=== PATIENT | female | born 1935 | race Caucasian/White ===

== ENCOUNTER 2019-07-04 09:25 | Emergency (ER) | payer OTHER ==
--- OUTSIDE RECORDS SUMMARY | 2019-07-04 09:30 | XMS REPORT ---
:1935 Author Organization [facility] Address [address] [place] [address] Dr. Preston [address] [place] [id number] Care Team Providers Name Role Phone Unavailable Unavailable Unavailable Problems This patient has no known problems. Allergies, Adverse Reactions, Alerts This patient has no known allergies or adverse reactions. Medications This patient has no known medications.
[2019-07-04 10:58] LABS: Absolute Lymphocytes (CBC) 1.5 K/uL (0.7-4.9); Basophils % 1.2 % (0-1.3); Hematocrit 35.8 % (36.0-45.0); Lymphocytes % 22.4 % (15.3-44.8); MPV 9.8 fL (7.6-11.3)
[2019-07-04 11:26] LABS: ALT/SGPT 22 U/L (12-78); AST/SGOT 17 U/L (15-37); Albumin 3.5 g/dL (3.4-5.0); Alkaline Phosphatase 52 U/L (45-117); BUN Blood Urea Nitrogen 17 mg/dL (7-18); Bicarbonate 30 mmol/L (21-32); Bilirubin Direct 0.2 mg/dL (0-0.2); Bilirubin Total 0.5 mg/dL (0.2-1.0); Glucose Level 99 mg/dL (74-106); Magnesium 2.2 mg/dL (1.8-2.4); NT PRO-BNP 1195 pg/mL (<450); Potassium 3.8 mmol/L (3.5-5.1); Protein, Total 7.1 g/dL (6.4-8.2); Sodium Level 142 mmol/L (136-145); Troponin (Emerg Dept Use Only) < 0.02 ng/mL (0.0-0.045)
[2019-07-04 11:33] LABS: Urine Blood NEGATIVE (NEG); Urine Glucose NEGATIVE (NEG); Urine Protein NEGATIVE (NEG); Urine Specific Gravity 1.015 (1.005-1.030)
--- NOTE | 2019-07-04 11:33 | RAD REPORT ---
EXAM DESCRIPTION: RAD - Chest Single View - 07/04/2019 11:23 am CLINICAL HISTORY: CHEST PAIN Chest pain. COMPARISON: No comparisons FINDINGS: Portable technique limits examination quality. The lungs are mildly emphysematous but clear. The heart is mildly prominent size. No displaced fractu res. IMPRESSION: Mild COPD.
[2019-07-04 11:43] LABS: Protime INR 1.13
--- NOTE | 2019-07-04 11:58 | EKG ---
Test Date: 2019-07-04 Test Time: 09:46:24 Infection Prevention Coordinator: MEASUREMENT RESULTS: Intervals: Rate: 74 IA: 184 QRSD: 88 QT: 454 QTc: 503 [place]: P: 47 IA: 184 QRS: 6 T: 65 INTERPRETIVE STATEMENTS: Sinus rhythm with frequent and consecutive premature ventricular complexes Anterior infarct, age undetermined Prolonged QT Abnormal ECG No previous ECG available for comparison Electronically Signed On 07-04-19 11:58:00 TOOL ROOM MACHINIST by Froy Rush
--- NOTE | 2019-07-04 13:46 | ER ---
Nurse's Notes [facility] Name: Elizabeth Hewitt Age: 84 yrs Sex: Female : 1935 Arrival Date: 07/04/2019 Time: 09:27 Bed 25 Private MD: Kareem Fairbanks R Diagnosis: Dizziness and giddiness;Ventricular premature depolarization Presentation: 07/04 09:41 Presenting complaint: states: She has been C/O dizziness for the last week, la1 also having diarrhea and reports she was told her heart valves are leaky. Pt reports dizziness when standing. Transition of care: patient was not received from another setting of care. Onset of symptoms was July 04, 2019. Risk Assessment: Do you want to hurt yourself or someone else? Patient reports no desire to harm self or others. Initial Sepsis Screen: Does the patient meet any 2 criteria? No. Patient's initial sepsis screen is negative. Does the patient have a suspected source of infection? No. Patient's initial sepsis screen is negative. Care prior to arrival: None. 09:41 Method Of Arrival: Wheelchair la1 09:41 Acuity: LUIS FERNANDO 2 la1 Historical: - Allergies: 09:46 Sulfa (Sulfonamide Antibiotics); la1 - PMHx: 09:46 Atrial Fib; Leaky Valves; Hypertension; Dementia; Hypothyroidism; GERD; High la1 Cholesterol; - Immunization history:: Adult Immunizations up to date. - Social history:: Smoking status: Patient/guardian denies using tobacco. - Ebola Screening: : No symptoms or risks identified at this time. Screenin:15 Abuse screen: Denies threats or abuse. Denies injuries from another. Nutritional aj1 screening: No deficits noted. Tuberculosis screening: No symptoms or risk factors identified. 13:59 Fall Risk None identified. aj1 Assessment: 10:15 General: Appears in no apparent distress. comfortable, Behavior is calm, cooperative, aj1 appropriate for age. Pain: Denies pain. Neuro: Level of Consciousness is awake, alert, obeys commands, Oriented to person, place, Critical Care Unit Manager are equal bilaterally Moves all extremities. Full function Speech is normal, Facial symmetry appears normal, Reports dizziness. Cardiovascular: Patient's skin is warm and dry. Respiratory: Airway is patent Respiratory effort is even, unlabored, Respiratory pattern is regular, symmetrical, Breath sounds are clear bilaterally. GI: Abdomen is non-distended. GI: Reports diarrhea, Patient currently denies abdominal pain, nausea, vomiting. : No signs and/or symptoms were reported regarding the genitourinary system. EENT: No signs and/or symptoms were reported regarding the EENT system. Derm: No signs and/or symptoms reported regarding the dermatologic system. Skin is pink, warm \T\ dry. normal. Musculoskeletal: No signs and/or symptoms reported regarding the musculoskeletal system. Circulation, motion, and sensation intact. 11:15 Reassessment: Patient appears in no apparent distress at this time. No changes from aj1 previously documented assessment. Patient and/or family updated on plan of care and expected duration. Pain level reassessed. Patient is alert, oriented x 3, equal unlabored respirations, skin warm/dry/pink. 12:15 Reassessment: Patient and/or family updated on plan of care and expected duration. Pain aj1 level reassessed. General: Appears in no apparent distress. comfortable, Behavior is calm, cooperative, appropriate for age. Pain: Denies pain. Neuro: Level of Consciousness is awake, alert, obeys commands. Cardiovascular: Patient's skin is warm and dry. Respiratory: Airway is patent Respiratory effort is even, unlabored, Respiratory pattern is regular, symmetrical. Derm: No signs and/or symptoms reported regarding the dermatologic system. Skin is pink, warm \T\ dry. normal. Musculoskeletal: No signs and/or symptoms reported regarding the musculoskeletal system. Circulation, motion, and sensation intact. 13:15 Reassessment: Patient appears in no apparent distress at this time. No changes from aj1 previously documented assessment. Patient and/or family updated on plan of care and expected duration. Pain level reassessed. Patient is alert, oriented x 3, equal unlabored respirations, skin warm/dry/pink. 14:19 Reassessment: Patient appears in no apparent distress at this time. No changes from aj1 previously documented assessment. Patient and/or family updated on plan of care and expected duration. Pain level reassessed. Patient is alert, oriented x 3, equal unlabored respirations, skin warm/dry/pink. Vital Signs: 09:42 BP 162 / 69; Pulse 42; Resp 16; Temp 98.1; Pulse Ox 98% on R/A; Weight 61.69 kg; Height la1 5 ft. 2 in. (157.48 cm); 10:45 BP 157 / 72; Pulse 63; Resp 18; Pulse Ox 98% on R/A; aj1 11:45 BP 157 / 49; Pulse 50; Resp 18; Pulse Ox 97% on R/A; aj1 12:15 BP 163 / 67; Pulse 60; Resp 18; Pulse Ox 97% on R/A; aj1 13:15 BP 158 / 66; Pulse 58; Resp 18; Pulse Ox 99% on R/A; aj1 09:42 Body Mass Index 24.87 (61.69 kg, 157.48 cm) la1 ED Course: 09:27 Patient arrived in ED. as 09:28 Kareem Fairbanks MD is Private Physician. as 09:42 Triage completed. la1 09:42 Arm band placed on right wrist. EKG completed in triage. Results shown to MD. la1 09:56 EKG done, by director technical. reviewed by Dung Khan MD. sm3 10:13 Cristóbal Daugherty MD is Attending Physician. kimmie 10:15 Patient has correct armband on for positive identification. producer arborist manager on. Pulse aj1 ox on. NIBP on. 10:15 No provider procedures requiring assistance completed. aj1 10:41 Kimberlee Connors, RN is Primary Nurse. aj1 10:44 Inserted saline lock: 20 gauge in left antecubital area, using aseptic technique. Blood la1 collected. 11:22 XRAY Chest (1 view) In Process Unspecified. EDMS 13:34 Kareem Fairbanks MD is Referral Physician. kimmie 13:35 Marina Temple MD is Referral Physician. kimmie 14:19 IV discontinued, intact, bleeding controlled, No redness/swelling at site. Pressure aj1 dressing applied. Administered Medications: No medications were administered Outcome: 13:38 Discharge ordered by MD. kimmie 14:20 Discharged to home via ambulance, with family. aj1 14:20 Condition: good 14:20 Discharge instructions given to patient, family, Instructed on discharge instructions, follow up and referral plans. medication usage, Demonstrated understanding of instructions, follow-up care, medications, Prescriptions given X 2. 14:20 Patient left the ED. aj1 Signatures: Dispatcher [employer] EDPA Trent Connorsa, ASHA RN aj1 Cristóbal Daugherty MD MD cha Martinez, Amelia as Attema, Lee, RN RN la1 Krys Barney 3
--- NOTE | 2019-07-04 13:47 | EDPHYS ---
Physician Documentation [facility] Name: Elizabeth Hewtit Age: 84 yrs Sex: Female : 1935 Arrival Date: 07/04/2019 Time: 09:27 Bed 25 Private MD: Kareem Fairbanks R ED Physician Cristóbal Daugherty Historical: - Allergies: 07/04 09:46 Sulfa (Sulfonamide Antibiotics); la1 - PMHx: 09:46 Atrial Fib; Leaky Valves; Hypertension; Dementia; Hypothyroidism; GERD; High la1 Cholesterol; - Immunization history:: Adult Immunizations up to date. - Social history:: Smoking status: Patient/guardian denies using tobacco. - Ebola Screening: : No symptoms or risks identified at this time. Vital Signs: 09:42 BP 162 / 69; Pulse 42; Resp 16; Temp 98.1; Pulse Ox 98% on R/A; Weight 61.69 kg; Height la1 5 ft. 2 in. (157.48 cm); 10:45 BP 157 / 72; Pulse 63; Resp 18; Pulse Ox 98% on R/A; aj1 11:45 BP 157 / 49; Pulse 50; Resp 18; Pulse Ox 97% on R/A; aj1 12:15 BP 163 / 67; Pulse 60; Resp 18; Pulse Ox 97% on R/A; aj1 13:15 BP 158 / 66; Pulse 58; Resp 18; Pulse Ox 99% on R/A; aj1 09:42 Body Mass Index 24.87 (61.69 kg, 157.48 cm) la1 MDM: 10:13 Patient medically screened. kimmie 07/04 10:19 Order name: Basic Metabolic Panel; Complete Time: : [facility] 07/04 10:19 Order name: CBC with Diff; Complete Time: [facility] 07/04 10:19 Order name: LFT's; Complete Time: [facility] 07/04 10:19 Order name: Magnesium; Complete Time: [facility] 07/04 10:19 Order name: NT PRO-BNP; Complete Time: [facility] 07/04 10:19 Order name: PT-INR; Complete Time: 13:21 [facility] 07/04 09:47 Order name: EKG; Complete Time: :48 [facility] 07/04 09:47 Order name: EKG - Nurse/Tech; Complete Time: 09:44 [facility] 07/04 10:19 Order name: Troponin (emerg Dept Use Only); Complete Time: 11:27 [facility] 07/04 10:19 Order name: XRAY Chest (1 view); Complete Time: 13:21 [facility] 07/04 10:19 Order name: Cardiac monitoring; Complete Time: 10:39 [facility] 07/04 10:19 Order name: IV Saline Lock; Complete Time: 10:39 [facility] 07/04 10:19 Order name: Labs collected and sent; Complete Time: 10:40 [facility] 07/04 11:08 Order name: Urine Dipstick--Ancillary (enter results); Complete Time: 13:21 07/04 10:19 Order name: O2 Per Protocol; Complete Time: 10:39 [facility] 07/04 10:19 Order name: O2 Sat Monitoring; Complete Time: 10:39 [facility] Administered Medications: No medications were administered Disposition: 07/04/19 13:38 Discharged to Home. Impression: Dizziness and giddiness, Ventricular premature depolarization. - Condition is Stable. - Discharge Instructions: Premature Ventricular Contraction, How to Take a Sitz Bath. - Prescriptions for Colace 100 mg Oral Tablet - take 1 tablet by ORAL route every 12 hours; 14 tablet. Anusol- HC 25 mg Rectal Suppository - insert 1 suppository by RECTAL route every 12 hours As needed; 20 suppository. - Medication Reconciliation Form, Thank You Letter, Antibiotic Education, Prescription Opioid Use form. - Follow up: Kareem Fairbanks MD; When: 2 - 3 days; Reason: Recheck today's complaints, Continuance of care, Re-evaluation by your physician. Follow up: Marina Temple MD; When: 2 - 3 days; Reason: Recheck today's complaints, Continuance of care, Re-evaluation by your physician. - Problem is new. - Symptoms have improved. Signatures: Dispatcher [employer] EDMS Kimberlee Connors, ASHA RN aj1 Cristóbal Daugherty MD MD cha Attema, Lee RN RN la1 Corrections: (The following items were deleted from the chart) 14:20 13:38 07/04/2019 13:38 Discharged to Home. Impression: Dizziness and giddiness; aj1 Ventricular premature depolarization. Condition is Stable. Forms are Medication Reconciliation Form, Thank You Letter, Antibiotic Education, Prescription Opioid Use. Follow up: Kareem Fairbanks; When: 2 - 3 days; Reason: Recheck today's complaints, Continuance of care, Re-evaluation by your physician. Follow up: Marina eTmple; When: 2 - 3 days; Reason: Recheck today's complaints, Continuance of care, Re-evaluation by your physician. Problem is new. Symptoms have improved. kimmie
[2019-07-04 17:26] VITALS: TEMP 98.1
[2019-07-04 17:32] VITALS: BP 158/66; O2SAT 99
== END 2019-07-04 14:20 | disposition home or self-care (01) ==
LOC: ER 09:25
DX: I49.3 Ventricular premature depolarization (principal); K59.00 Constipation, unspecified; I10 Essential (primary) hypertension; I48.91 Unspecified atrial fibrillation; Z88.2 Allergy status to sulfonamides
CPT/HCPCS: 36415; 71045; 80048; 80076; 81003; 83735; 83880; 84484; 85025; 85610; 93005; 99284

== ENCOUNTER 2021-06-13 10:29 | Emergency (ER) | payer OTHER ==
--- NOTE | 2021-06-13 11:56 | RAD REPORT ---
EXAM DESCRIPTION: Gregor Single View06/13/2021 11:46 am CLINICAL HISTORY: Chest pain COMPARISON: 2018 FINDINGS: The lungs appear clear of acute infiltrate. The heart is normal size IMPRESSION: No acute abnormalities displayed
--- NOTE | 2021-06-13 12:09 | RAD REPORT ---
EXAM DESCRIPTION: RAD - Foot Left 3 View - 06/13/2021 11:46 am CLINICAL HISTORY: Left Foot pain status post injury FINDINGS: The bones are osteoporotic Oblique lucency fourth proximal phalanx probably prominent trabecula. However, nondisplaced fracture could have this appearance should be correlated clinically. No dislocation
--- NOTE | 2021-06-13 12:23 | RAD REPORT ---
EXAM DESCRIPTION: RAD - Wrist Left 3 View - 06/13/2021 11:46 am CLINICAL HISTORY: Left wrist pain status post injury FINDINGS: Oblique nondisplaced fracture mid third metacarpal. Oblique mildly displaced fracture mid fourth metacarpal. Oblique nondisplaced fracture proximal fifth metacarpal. Bones osteoporotic. No dislocation seen
--- NOTE | 2021-06-13 12:35 | RAD REPORT ---
EXAM DESCRIPTION: RAD - Ribs Left - 06/13/2021 11:46 am CLINICAL HISTORY: Rib pain FINDINGS: Limited two view series obtained. No fracture visualized
--- NOTE | 2021-06-13 13:28 | EDPHYS ---
Physician Documentation [facility] Name: Elizabeth Hewitt Age: 86 yrs Sex: Female : 1935 Arrival Date: 06/13/2021 Time: 10:31 Bed 24 Private MD: Kareem Fairbanks R ED Physician Pete Choi HPI: 06/13 11:01 This 86 yrs old Female presents to ER via Ambulatory with complaints of Fall rn Injury, Wrist Pain, Arm Pain. 11:01 Details of fall: The patient fell from an upright position, while standing. Onset: The rn symptoms/episode began/occurred just prior to arrival. Associated injuries: The patient sustained Left wrist and left foot. Severity of symptoms: At their worst the symptoms were moderate, in the emergency department the symptoms are unchanged. The patient has not experienced similar symptoms in the past. The patient has not recently seen a physician. Patient states was in shower and slipped and fell, reports pain primarily to left wrist and a little bit of pain to left foot. Denies head injury. Denies neck or back pain. Reports legs and hips feel okay.. 11:01 states when went to check on her nothing struck him as atypical in terms of rn possible stroke or slurred speech. States is acting normal and speaking normal.. Historical: - Allergies: 10:33 Sulfa (Sulfonamide Antibiotics); aa5 - PMHx: 10:33 Atrial Fib; Dementia; GERD; High Cholesterol; Hypertension; Hypothyroidism; Leaky aa5 Valves; - Immunization history:: Client reports receiving the Waylon \T\ Waylon single-dose vaccine. - Social history:: Smoking status: Patient denies any tobacco usage or history of. - Family history:: not pertinent. - Hospitalizations: : No recent hospitalization is reported. ROS: 11:01 Constitutional: Negative for fever, chills, and weight loss, Eyes: Negative for injury, rn pain, redness, and discharge, Neck: Negative for injury, pain, and swelling, Cardiovascular: Negative for chest pain, palpitations, and edema, Respiratory: Negative for shortness of breath, cough, wheezing, and pleuritic chest pain, Abdomen/GI: Negative for abdominal pain, nausea, vomiting, diarrhea, and constipation, Back: Negative for injury and pain, MS/Extremity: Positive for injury and pain to left wrist and left foot Skin: Negative for injury, rash, and discoloration, Neuro: Negative for headache, weakness, numbness, tingling, and seizure. Exam: 11:01 Constitutional: This is a well developed, well nourished patient who is awake, alert, rn appears uncomfortable holding left wrist immobilized Head/Face: Normocephalic, atraumatic. Eyes: Pupils equal round and reactive to light, extra-ocular motions intact. Lids and lashes normal. Conjunctiva and sclera are non-icteric and not injected. Cornea within normal limits. Periorbital areas with no swelling, redness, or edema. ENT: No oral or facial trauma Neck: No neck tenderness or cervical tenderness Chest/axilla: Normal chest wall appearance and motion. Mild tenderness to the left lateral inferior ribs without any crepitus Cardiovascular: Regular rate and rhythm. No pulse deficits. Respiratory: No increased work of breathing, no retractions or nasal flaring. Abdomen/GI: Soft, non-tender Back: No spinal tenderness. No costovertebral tenderness. Full range of motion. Skin: Warm, dry MS/ Extremity: Pulses equal, no cyanosis. Tenderness left distal wrist without open wounds or skin changes Neuro: Awake and alert, GCS 15, oriented to person, place, time, and situation. Cranial nerves II-XII grossly intact. Motor strength 5/5 in all extremities. Sensory grossly intact. Cerebellar exam normal. Vital Signs: 10:33 BP 166 / 72; Pulse 63; Resp 16 S; Temp 97.1(TE); Pulse Ox 98% on R/A; Weight 63.5 kg aa5 (R); 11:16 BP 142 / 87; Pulse 64; Resp 16; Pulse Ox 100% ; vg1 12:15 BP 145 / 76; Pulse 60; Resp 16; Pulse Ox 100% ; vg1 13:15 BP 148 / 88; Pulse 72; Resp 16; Pulse Ox 100% ; vg1 [place] Coma Score: 11:12 Eye Response: spontaneous(4). Verbal Response: oriented(5). Motor Response: obeys vg1 commands(6). Total: 15. Trauma Score (Adult): 11:12 Eye Response: spontaneous(1); Verbal Response: oriented(1); Motor Response: obeys vg1 commands(2); Systolic BP: > 89 mm Hg(4); Respiratory Rate: 10 to 29 per min(4); Alem Score: 15; Trauma Score: 12 Procedures: 13:24 Splinting: Splint applied to left hand using Orthoglass splint, applied by myself. rn Examined by me, post splint application: neurovascular intact, 2+ distal pulses palpable, brisk capillary refill noted, Patient tolerated well, ulnar gutter splint. MDM: 10:41 Patient medically screened. rn 13:24 Differential diagnosis: contusion, fracture, sprain, strain. Data reviewed: vital rn signs, nurses notes, radiologic studies, plain films, and as a result, I will discharge patient. Test interpretation: by ED physician or midlevel provider: plain radiologic studies, The left hand shows nondisplaced fractures of the third fourth and fifth metacarpals. Counseling: I had a detailed discussion with the patient and/or guardian regarding: the historical points, exam findings, and any diagnostic results supporting the discharge/admit diagnosis, radiology results, the need for outpatient follow up, to return to the emergency department if symptoms worsen or persist or if there are any questions or concerns that arise at home. Response to treatment: the patient's symptoms have markedly improved after treatment, and as a result, I will discharge patient. Special discussion: I discussed with the patient/guardian in detail that at this point there is no indication for admission to the hospital. It is understood, however, that if the symptoms persist or worsen the patient needs to return immediately for re-evaluation. 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; Complete Time: rn 13:32 06/13 12:47 Order name: Splint: ortho shoe; Complete Time: 13:32 rn Administered Medications: No medications were administered Disposition Summary: 06/13/21 13:27 Discharge Ordered Location: Home rn Problem: new rn Symptoms: have improved rn Condition: Stable rn Diagnosis - Nondisplaced fracture of base of fifth metacarpal bone, left hand, initial rn encounter for closed fracture - Nondisplaced fracture of base of fourth metacarpal bone, left hand, initial rn encounter for closed fracture - Nondisplaced fracture of base of third metacarpal bone, left hand, initial rn encounter for closed fracture - Nondisplaced fracture of fourth metatarsal bone, left foot, initial encounter for rn closed fracture Followup: rn - With: Federico Petersen MD - When: 7 - 10 days - Reason: Recheck today's complaints, Re-evaluation by your physician Discharge Instructions: - Discharge Summary Sheet rn - Cast or Splint Care, Adult rn - Metacarpal Fracture rn - Metatarsal Fracture rn Forms: - Medication Reconciliation Form rn - Thank You Letter rn - Antibiotic furnace operator oil or gas - Prescription Opioid Use rn Signatures: Dispatcher [employer] Pete Gupta MD MD rn Calderon, Audri, RN RN aa5
--- NOTE | 2021-06-13 13:28 | ER ---
Nurse's Notes [facility] Name: Elizabeth Hewitt Age: 86 yrs Sex: Female : 1935 Arrival Date: 06/13/2021 Time: 10:31 Bed 24 Private MD: Kareem Fairbanks R Diagnosis: Nondisplaced fracture of base of fifth metacarpal bone, left hand, initial encounter for closed fracture;Nondisplaced fracture of base of fourth metacarpal bone, left hand, initial encounter for closed fracture;Nondisplaced fracture of base of third metacarpal bone, left hand, initial encounter for closed fracture;Nondisplaced fracture of fourth metatarsal bone, left foot, initial encounter for closed fracture Presentation: 06/13 10:33 Chief complaint: Patient states: "I slipped and fell". Fall was witnessed by , aa5 pt's states "she fell onto her left side and her left hand was twisted". Pt c/o left arm pain. Denies head injury, denies LOC. 10:33 Coronavirus screen: At this time, the client does not indicate any symptoms associated aa5 with coronavirus-19. Ebola Screen: No symptoms or risks identified at this time. Initial Sepsis Screen: Does the patient meet any 2 criteria? No. Patient's initial sepsis screen is negative. Does the patient have a suspected source of infection? No. Patient's initial sepsis screen is negative. Risk Assessment: Do you want to hurt yourself or someone else? Patient reports no desire to harm self or others. Onset of symptoms was June 13, 2021. 10:33 Acuity: LUIS FERNANDO 3 aa5 10:33 Method Of Arrival: Ambulatory aa5 11:16 Care prior to arrival: None. Mechanism of Injury: Fall from standing position. Trauma vg1 event details: Injury occurred in the [facility]. 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 - Social history:: Smoking status: Patient denies any tobacco usage or history of. - Family history:: not pertinent. - Hospitalizations: : No recent hospitalization is reported. Screenin:12 Abuse screen: Denies threats or abuse. Tuberculosis screening: No symptoms or risk vg1 factors identified. 11:16 Nutritional screening: No deficits noted. Fall Risk Fall in past 12 months (25 points). vg1 No secondary diagnosis (0 pts). No IV (0 pts). Ambulatory Aid- None/Bed Rest/Nurse Assist (0 pts). Gait- Normal/Bed Rest/Wheelchair (0 pts) Mental Status- Oriented to own ability (0 pts). Total Eaton Fall Scale indicates No Risk (0-24 pts). Primary Survey: 11:12 NO uncontrolled hemorrhage observed. Breathing/Chest: Respiratory pattern: regular, vg1 Respiratory effort: spontaneous, Breath sounds: clear, bilaterally. Chest inspection: symmetrical rise and fall of the chest. Circulation: Skin color: pink. Disability Alert. Exposure/Environment: All clothing and personal items were removed. A warming method has been applied: A warm blanket has been provided to the patient. 12:10 Reassessment Airway Airway Patent Breathing/Chest Respiratory pattern Regular vg1 Respiratory effort Spontaneous Breath sounds Clear Chest inspection Symmetrical Circulation Color Wittmann Disability Alert. Secondary Survey: 11:12 HEENT: No deficits noted. Head No injury/deformity Other Pt denies hitting head. vg1 Gastrointestinal: No deficits noted. : No deficits noted. No signs and/or symptoms were reported regarding the genitourinary system. Musculoskeletal: Range of motion: intact in left shoulder and left elbow limited in left wrist. Assessment: 11:12 General: Appears in no apparent distress. uncomfortable, Behavior is calm, cooperative. vg1 Pain: Complains of pain in dorsal aspect of distal phalanx of left little finger, dorsal aspect of middle phalanx of left little finger, dorsal aspect of proximal phalanx of left little finger and dorsal aspect of left wrist Pain currently is 10 out of 10 on a pain scale. Pain began 1 hour ago. Noted to be guarding. Neuro: Level of Consciousness is awake, alert, obeys commands, Oriented to person, place, time, situation, Denies weakness headache. EENT: No signs and/or symptoms were reported regarding the EENT system. Cardiovascular: Patient's skin is warm and dry. Respiratory: Airway is patent Respiratory effort is even, unlabored. GI: No signs and/or symptoms were reported involving the gastrointestinal system. : No signs and/or symptoms were reported regarding the genitourinary system. Derm: Skin is intact, is healthy with good turgor. Musculoskeletal: Range of motion: intact in left shoulder and left elbow limited in left wrist Denies numbness in, left hand. 11:40 Reassessment: Patient appears in no apparent distress at this time. Patient and/or vg1 family updated on plan of care and expected duration. Pain level reassessed. Patient is alert, oriented x 3, equal unlabored respirations, skin warm/dry/pink. Pt states is able move wrist and fingers on Left hand. Vital Signs: 10:33 BP 166 / 72; Pulse 63; Resp 16 S; Temp 97.1(TE); Pulse Ox 98% on R/A; Weight 63.5 kg aa5 (R); 11:16 BP 142 / 87; Pulse 64; Resp 16; Pulse Ox 100% ; vg1 12:15 BP 145 / 76; Pulse 60; Resp 16; Pulse Ox 100% ; vg1 13:15 BP 148 / 88; Pulse 72; Resp 16; Pulse Ox 100% ; vg1 Alem Coma Score: 11:12 Eye Response: spontaneous(4). Verbal Response: oriented(5). Motor Response: obeys vg1 commands(6). Total: 15. Trauma Score (Adult): 11:12 Eye Response: spontaneous(1); Verbal Response: oriented(1); Motor Response: obeys vg1 commands(2); Systolic BP: > 89 mm Hg(4); Respiratory Rate: 10 to 29 per min(4); Alem Score: 15; Trauma Score: 12 ED Course: 10:31 Patient arrived in ED. as 10:31 Kareem Fairbanks MD is Private Physician. as 10:33 Arm band placed on. aa5 10:39 Triage completed. aa5 10:41 Pete Choi MD is Attending Physician. rn 11:05 Dorita Simon RN is Primary Nurse. vg1 11:12 Patient has correct armband on for positive identification. Placed in gown. Bed in low vg1 position. Call light in reach. Side rails up X2. Adult w/ patient. 11:12 Patient maintains SpO2 saturation greater than 95% on room air. vg1 11:16 Thermoregulation: warm blanket given to patient. vg1 11:46 XRAY Foot LEFT 3 View In Process Unspecified. EDMS 11:46 XRAY Chest (1 view) In Process Unspecified. EDMS 11:46 XRAY Ribs LEFT In Process Unspecified. EDMS 11:46 XRAY Wrist LEFT 3 view In Process Unspecified. EDMS 13:25 Federico Petersen MD is Referral Physician. rn 13:30 Orthoglass splint: Ulnar gutter/Boxer splint applied on left forearm. Ortho shoe kj1 applied to left foot. 13:47 No provider procedures requiring assistance completed. Patient did not have IV access vg1 during this emergency room visit. Administered Medications: No medications were administered Outcome: 13:27 Discharge ordered by . rn 13:47 Discharged to home via wheelchair, with family. vg1 13:47 Condition: stable 13:47 Discharge instructions given to patient, family, Instructed on discharge instructions, follow up and referral plans. Demonstrated understanding of instructions, follow-up care. 13:47 Patient left the ED. vg1 Signatures: Dispatcher [employer] Alejandra Birmingham Roman, MD MD rn Calderon, Audri, RN RN aa5 Chiquita Norwood kj1 Dorita Simon, RN RN vg1
[2021-06-13 13:52] VITALS: TEMP 97.1
[2021-06-13 13:53] VITALS: O2SAT 100
[2021-06-13 13:56] VITALS: BP 148/88
--- OUTSIDE RECORDS SUMMARY | 2021-06-22 11:15 | XMS REPORT | Continuity of Care Document ---
:1935 Author Organization [facility] t Address [address] [place] [address] [address] [place] [address] Care Team Providers Name Role Phone Kemal Munoz MD Attending Clinician KEMAL MUNOZ Attending Clinician Unavailable KEMAL MUNOZ Attending Clinician Unavailable Jeanette Vidales Attending Clinician Doctor Unassigned, Name Attending Clinician Unavailable Adeline Guerra MD Attending Clinician Adeline GUERRA Attending Clinician Unavailable 2, Lab Attending Clinician Unavailable Sergio BECKMAN S Attending Clinician Payers Payer Name Policy Type Policy Number Effective Date Expiration Date [place] MEDICARE PART A [id number] 2000 \\T\\ B 00:00:00 [facility] [id number] 2016 00:00:00 Problems Condition Condition Condition Status Onset Resolution Last Treating Co mments Source Name Details Category Date Date Treatment Clinician Date No known No known Disease Unive rs active active ity of problems problems [facility] [place] Allergies, Adverse Reactions, Alerts Allergy Allergy Status Severity Reaction(s) Onset Inactive Treating Comm ents Source Name Type Date Date Clinician ADHESIVE Drug Active ITCHING 2019-0 Univers Class 1-10 ity of 00:00: [place] 00 Medical Branch Adhesive Propensi Active Itching 2019-0 Unive rs ty to 1-10 ity of adverse 00:00: [place] reaction 00 Medical s Branch Sulfa Propensi Active Swelling Univer s (Sulfona ty to 5-07 ity of mide adverse 00:00: [place] Antibiot reaction 00 Medica l ics) s Branch SULFA Drug Active Swelling Univers (SULFONA Class 5-07 ity of MIDE 00:00: [place] ANTIBIOT 00 Medical ICS) Branch Social History Social Habit Start Date Stop Date Quantity Comments Source Exposure to Not sure [place] of SARS-CoV-2 [place] [facility] (event) Branch History SDOH University o f Alcohol Std [facility] Drinks [facility] History SDNE University o f Alcohol Binge [place] [facility] Tobacco use and 2020-11-02 2020-11-02 Never used Universit y of exposure 00:00:00 00:00:00 [place] [facility] Alcohol intake 2020-11-02 2020-11-02 Lifetime University of 00:00:00 00:00:00 non-drinker [place] [facility] (finding) Branch History SDOH 2019-08-19 2019-08-19 1 University o f Alcohol Frequency 00:00:00 00:00:00 [facility] edical [place] Sex Assigned At [birth year] Universit y of 00:00:00 00:00:00 [place] [facility] Smoking Status Start Date Stop Date Source Never smoker [facility] Medications Ordered Filled Start Stop Current Ordering Indication Dosage Frequency Signature Comments Components Source Medication Medication Date Date Medication? Clinician (SIG) Name Name galantamine Yes [id number] 4mg Take 1 Univers 4 mg tablet 7-27 tablet by ity of 00:00: mouth 2 [place] (two) Medical times Branch daily. galantamine 0 Yes 8mg Take 1 Univ ers 8 mg tablet 7-21 tablet by ity of 00:00: mouth 2 [place] (two) Medical times Branch daily. galantamine 2020-0 Yes 8mg Take 1 Univ ers 8 mg tablet 7-21 tablet by ity of 00:00: mouth 2 [place] 00 (two) Medical times Branch daily. galantamine 2020-0 Yes 8mg Take 1 Univ ers 8 mg tablet 7-21 tablet by ity of 00:00: mouth 2 [place] 00 (two) Medical times Branch daily. galantamine 2020-0 2020- No 8mg Take 1 Uni vers 8 mg tablet 7-21 07-27 tablet by it y of 00:00: 00:00 mouth 2 [place] 00 :00 (two) Medical times Branch daily. galantamine 2020-0 Yes 4mg Take 1 Univ ers 4 mg tablet 5-11 tablet by ity of 00:00: mouth 2 [place] (two) Medical times Branch daily. galantamine 2020-0 2020- No 4mg Take 1 Uni vers 4 mg tablet 5-11 07-21 tablet by it y of 00:00: 00:00 mouth 2 [place] 00 :00 (two) Medical times Branch daily. galantamine 2021-0 Yes 4mg Take 1 Univ ers 4 mg tablet 4-05 tablet by ity of 00:00: mouth 2 [place] 00 (two) Medical times Branch daily. galantamine 2021-0 2021- No 4mg Take 1 Uni vers 4 mg tablet 4-05 05-11 tablet by it y of 00:00: 00:00 mouth 2 [place] 00 :00 (two) Medical times Branch daily. rivastigmin 2020-0 Yes 1{patch Apply 1 Univers e 4.6 mg/24 3-30 } Patch to ity of hour patch 00:00: skin [place] 00 daily. Medical Branch rivastigmin 2021-0 2021- No 1{patch Apply 1 Univers e 4.6 mg/24 3-30 04-05 } Patch to ity of hour patch 00:00: 00:00 skin [place] 00 :00 daily. Medical Branch cholecalcif 2021-0 Yes Take by Un valdemar ana lilia, 3-26 mouth. ity of vitamin D3, 16:07: [place] 25 mcg 30 Medical (1,000 Branch unit) tablet cholecalcif 2021-0 Yes Take by Un valdemar ana lilia, 3-26 mouth. ity of vitamin D3, 16:07: [place] 25 mcg 30 Medical (1,000 Branch unit) tablet cholecalcif 2021-0 Yes Take by Un valdemar ana lilia, 3-26 mouth. ity of vitamin D3, 16:07: [place] 25 mcg 30 Medical (1,000 Branch unit) tablet cholecalcif 2021-0 Yes Take by Un valdemar ana lilia, 3-26 mouth. ity of vitamin D3, 16:07: [place] 25 mcg 30 Medical (1,000 Branch unit) tablet cholecalcif 2021-0 Yes Take by Un valdemar ana lilia, 3-26 mouth. ity of vitamin D3, 16:07: [place] 25 mcg 30 Medical (1,000 Branch unit) tablet cholecalcif 2021-0 Yes Take by Un valdemar ana lilia, 3-26 mouth. ity of vitamin D3, 16:07: [place] 25 mcg 30 Medical (1,000 Branch unit) tablet cholecalcif 202-0 Yes Take by Un valdemar ana lilia, 3-26 mouth. ity of vitamin D3, 16:07: [place] 25 mcg 30 Medical (1,000 Branch unit) tablet cholecalcif 2020-0 Yes Take by Un valdemar ana lilia, 3-26 mouth. ity of vitamin D3, 16:07: [place] 25 mcg 30 Medical (1,000 Branch unit) tablet cholecalcif 2020-0 Yes Take by Un valdemar ana lilia, 3-26 mouth. ity of vitamin D3, 16:07: [place] 25 mcg 30 Medical (1,000 Branch unit) tablet iohexol 2020-0 202- No 120mL 120 mL, Unive rs (OMNIPAQUE 10-05- Intravenou it y of 350 02:15: 02:03 s, ONCE, 1 [place] BULK-150 00 :00 dose, [place] Med[facility] l mL) 10/04/20 at Branch injection 2015, 120 mL Routine iohexol 2019- 2020- No 120mL 120 mL, Unive rs (OMNIPAQUE 08-26 Intravenou it y of 350 20:20: 20:29 s, ONCE, 1 [place] BULK-150 00 :00 dose, Tue Medica l mL) 06/26/20 Branch injection at 1430, 120 mL Routine cholecalcif 2020-0 Yes Take by Un valdemar ana lilia, 3-13 mouth. ity of vitamin D3, 19:26: [place] 25 mcg 50 Medical (1,000 Branch unit) tablet Simethicone 2020-0 Yes Take by Un valdemar (PHAZYME) 3-13 mouth. ity of 180 mg Cap 19:26: [place] 50 Medical Branch cholecalcif 2020-0 Yes Take by Un valdemar ana lilia, 3-13 mouth. ity of vitamin D3, 19:26: [place] 25 mcg 50 Medical (1,000 Branch unit) tablet Simethicone 2020-0 Yes Take by Un valdemar (PHAZYME) 3-13 mouth. ity of 180 mg Cap 19:26: [place] 50 Medical Branch cholecalcif 2020-0 Yes Take by Un valdemar ana lilia, 3-13 mouth. ity of vitamin D3, 19:26: [place] 25 mcg 50 Medical (1,000 Branch unit) tablet Simethicone 2020-0 Yes Take by Un valdemar (PHAZYME) 3-13 mouth. ity of 180 mg Cap 19:26: [place] [address] Medical Branch cholecalcif 2020-0 Yes Take by Un valdemar ana lilia, 3-13 mouth. ity of vitamin D3, 19:26: [place] 25 mcg 50 Medical (1,000 Branch unit) tablet Simethicone 2020-0 Yes Take by Un valdemar (PHAZYME) 3-13 mouth. ity of 180 mg Cap 19:26: [place] [address] Medical Branch cholecalcif 2020-0 Yes Take by Un valdemar ana lilia, 3-13 mouth. ity of vitamin D3, 19:26: [place] 25 mcg 50 Medical (1,000 Branch unit) tablet Simethicone 2020-0 Yes Take by Un valdemar (PHAZYME) 3-13 mouth. ity of 180 mg Cap 19:26: [place] [address] Medical Branch cholecalcif 2020-0 Yes Take by Un valdemar ana lilia, 3-13 mouth. ity of vitamin D3, 19:26: [place] 25 mcg 50 Medical (1,000 Branch unit) tablet Simethicone 2020-0 Yes Take by Un valdemar (PHAZYME) 3-13 mouth. ity of 180 mg Cap 19:26: [place] [address] Medical Branch cholecalcif 2020-0 Yes Take by Un valdemar ana lilia, 3-13 mouth. ity of vitamin D3, 19:26: [place] 25 mcg 50 Medical (1,000 Branch unit) tablet Simethicone 2020-0 Yes Take by Un valdemar (PHAZYME) 3-13 mouth. ity of 180 mg Cap 19:26: [place] [address] Medical Branch Simethicone 2020-0 Yes Take by Un valdemar (PHAZYME) 3-13 mouth. ity of 180 mg Cap 19:26: [place] [address] Medical Branch Simethicone 2020-0 Yes Take by Un valdemar (PHAZYME) 3-13 mouth. ity of 180 mg Cap 19:26: [place] [address] Medical Branch Simethicone 2020-0 Yes Take by Un valdemar (PHAZYME) 3-13 mouth. ity of 180 mg Cap 19:26: [place] [address] Medical Branch Simethicone 2020-0 Yes Take by Un valdemar (PHAZYME) 3-13 mouth. ity of 180 mg Cap 19:26: [place] [address] Medical Branch Simethicone 2020-0 Yes Take by Un valdemar (PHAZYME) 3-13 mouth. ity of 180 mg Cap 19:26: [place] [address] Medical Branch Simethicone 2020-0 Yes Take by Un valdemar (PHAZYME) 3-13 mouth. ity of 180 mg Cap 19:26: [place] [address] Medical Branch Simethicone 2020-0 Yes Take by Un valdemar (PHAZYME) 3-13 mouth. ity of 180 mg Cap 19:26: [place] [address] Medical Branch Simethicone 2020-0 Yes Take by Un valdemar (PHAZYME) 3-13 mouth. ity of 180 mg Cap 19:26: [place] [address] Medical Branch Simethicone 2020-0 Yes Take by Un valdemar (PHAZYME) 3-13 mouth. ity of 180 mg Cap 19:26: [place] [address] Medical Branch rivastigmin 2020-0 Yes 1{patch Apply 1 Univers e 4.6 mg/24 3-13 } Patch to ity of hr patch 00:00: skin [place] 00 daily. Medical Branch rivastigmin 2020-0 Yes 1{patch Apply 1 Univers e 4.6 mg/24 3-13 } Patch to ity of hr patch 00:00: skin [place] 00 daily. Medical Branch rivastigmin 2020-0 Yes 1{patch Apply 1 Univers e 4.6 mg/24 3-13 } Patch to ity of hr patch 00:00: skin [place] 00 daily. Medical Branch rivastigmin 2020-0 Yes 1{patch Apply 1 Univers e 4.6 mg/24 3-13 } Patch to ity of hr patch 00:00: skin [place] 00 daily. Medical Branch rivastigmin 2020-0 Yes 1{patch Apply 1 Univers e 4.6 mg/24 3-13 } Patch to ity of hr patch 00:00: skin [place] 00 daily. Medical Branch rivastigmin 2020-0 Yes 1{patch Apply 1 Univers e 4.6 mg/24 3-13 } Patch to ity of hr patch 00:00: skin [place] 00 daily. Medical Branch rivastigmin 2020-0 Yes 1{patch Apply 1 Univers e 4.6 mg/24 3-13 } Patch to ity of hr patch 00:00: skin [place] 00 daily. Medical Branch rivastigmin 2020-0 Yes 1{patch Apply 1 Univers e 4.6 mg/24 3-13 } Patch to ity of hr patch 00:00: skin [place] 00 daily. Medical Branch rivastigmin 2020-0 Yes 1{patch Apply 1 Univers e 4.6 mg/24 3-13 } Patch to ity of hr patch 00:00: [facility] 00 daily. Medical Branch rivastigmin 2020-0 Yes 1{patch Apply 1 Univers e 4.6 mg/24 3-13 } Patch to ity of hr patch 00:00: [facility] 00 daily. Medical Branch rivastigmin 2020-0 2020- No 1{patch Apply 1 Univers e 4.6 mg/24 3-13 04-05 } Patch to ity of hr patch 00:00: 00:00 skin [place] 00 :00 daily. Medical Branch levothyroxi 2019-0 2020- No 25ug Take 25 Un valdemar ne 25 mcg 1-10 01-10 mcg by ity of tablet 20:55: 00:00 mouth [place] 30 :00 every Medical morning. Branch levothyroxi 2019-0 2019- No 25ug Take 25 Un valdemar ne 25 mcg 1-10 01-10 mcg by ity of tablet 20:55: 00:00 mouth [place] 30 :00 every Medical morning. Branch sotalol 80 2020-0 Yes 80mg Take 80 mg U nivers mg tablet 1-10 by mouth ity of 20:46: daily. [place] [address] Medical Branch amLODIPine 2020-0 Yes 10mg Take 10 mg U nivers 5 mg tablet 1-10 by mouth ity of 20:46: daily. [place] [address] Medical Branch losartan 2020-0 Yes 100mg Take 100 Univ ers 100 mg 1-10 mg by ity of tablet 20:46: mouth [place] [address] daily. Medical Branch ranitidine 2020-0 Yes 150mg Take 150 Un valdemar 150 mg 1-10 mg by ity of tablet 20:46: mouth at [place] [address] bedtime. Medical Branch lactulose 2020-0 Yes 15mL Take 15 mL Un valdemar 10 gram/15 1-10 by mouth ity o f mL solution 20:46: daily. [place] [address] Medical Branch sotalol 80 2020-0 Yes 80mg Take 80 mg U nivers mg tablet 1-10 by mouth ity of 20:46: daily. [place] [address] Medical Branch amLODIPine 2020-0 Yes 10mg Take 10 mg U nivers 5 mg tablet 1-10 by mouth ity of 20:46: daily. [place] [address] Medical Branch losartan 2020-0 Yes 100mg Take 100 Univ ers 100 mg 1-10 mg by ity of tablet 20:46: mouth [place] [address] daily. Medical Branch ranitidine 2020-0 Yes 150mg Take 150 Un valdemar 150 mg 1-10 mg by ity of tablet 20:46: mouth at [place] [address] bedtime. Medical Branch lactulose 2020-0 Yes 15mL Take 15 mL Un valdemar 10 gram/15 1-10 by mouth ity o f mL solution 20:46: daily. [place] [address] Medical Branch sotalol 80 2020-0 Yes 80mg Take 80 mg U nivers mg tablet 1-10 by mouth ity of 20:46: daily. [place] [address] Medical Branch amLODIPine 2020-0 Yes 10mg Take 10 mg U nivers 5 mg tablet 1-10 by mouth ity of 20:46: daily. [place] [address] Medical Branch losartan 2020-0 Yes 100mg Take 100 Univ ers 100 mg 1-10 mg by ity of tablet 20:46: mouth [place] [address] daily. Medical Branch ranitidine 2020-0 Yes 150mg Take 150 Un valdemar 150 mg 1-10 mg by ity of tablet 20:46: mouth at [place] [address] bedtime. Medical Branch lactulose 2020-0 Yes 15mL Take 15 mL Un val[facility] 10 gram/15 1-10 by mouth ity o f mL solution 20:46: daily. [place] [address] Medical Branch sotalol 80 2020-0 Yes 80mg Take 80 mg U nivers mg tablet 1-10 by mouth ity of 20:46: daily. [place] [address] Medical Branch amLODIPine 2020-0 Yes 10mg Take 10 mg U nivers 5 mg tablet 1-10 by mouth ity of 20:46: daily. [place] [address] Medical Branch losartan 2020-0 Yes 100mg Take 100 Univ ers 100 mg 1-10 mg by ity of tablet 20:46: mouth [place] [address] daily. Medical Branch ranitidine 2020-0 Yes 150mg Take 150 Un valdemar 150 mg 1-10 mg by ity of tablet 20:46: mouth at [place] [address] bedtime. Medical Branch lactulose 2020-0 Yes 15mL Take 15 mL Un valdem[facility] 10 gram/15 1-10 by mouth ity o f mL solution 20:46: daily. [place] [address] Medical Branch sotalol 80 2020-0 Yes 80mg Take 80 mg U nivers mg tablet 1-10 by mouth ity of 20:46: daily. [place] [address] Medical Branch amLODIPine 2020-0 Yes 10mg Take 10 mg U nivers 5 mg tablet 1-10 by mouth ity of 20:46: daily. [place] [address] Medical Branch losartan 2020-0 Yes 100mg Take 100 Univ ers 100 mg 1-10 mg by ity of tablet 20:46: mouth [place] [address] daily. Medical Branch ranitidine 2020-0 Yes 150mg Take 150 Un valdemar 150 mg 1-10 mg by ity of tablet 20:46: mouth at [place] [address] bedtime. Medical Branch lactulose 2020-0 Yes 15mL Take 15 mL Un val[facility] 10 gram/15 1-10 by mouth ity o f mL solution 20:46: daily. [address] Branch sotalol 80 2020-0 Yes 80mg Take 80 mg U nivers mg tablet 1-10 by mouth ity of 20:46: daily. [place] [address] Medical Branch amLODIPine 2020-0 Yes 10mg Take 10 mg U nivers 5 mg tablet 1-10 by mouth ity of 20:46: daily. [place] [address] Medical Branch losartan 2020-0 Yes 100mg Take 100 Univ ers 100 mg 1-10 mg by ity of tablet 20:46: mouth [place] [address] daily. Medical Branch ranitidine 2020-0 Yes 150mg Take 150 Un valdemar 150 mg 1-10 mg by ity of tablet 20:46: mouth at [place] [address] bedtime. Medical Branch lactulose 2020-0 Yes 15mL Take 15 mL Un [facility] 10 gram/15 1-10 by mouth ity o f mL solution 20:46: daily. [place] [address] Medical Branch sotalol 80 2020-0 Yes 80mg Take 80 mg U nivers mg tablet 1-10 by mouth ity of 20:46: daily. [place] [address] Medical Branch amLODIPine 2020-0 Yes 10mg Take 10 mg U nivers 5 mg tablet 1-10 by mouth ity of 20:46: daily. [place] [address] Medical Branch losartan 2020-0 Yes 100mg Take 100 Univ ers 100 mg 1-10 mg by ity of tablet 20:46: mouth [place] [address] daily. Medical Branch ranitidine 2020-0 Yes 150mg Take 150 Un valdem[facility] 150 mg 1-10 mg by ity of tablet 20:46: mouth at [place] [address] bedtime. Medical Branch lactulose 2020-0 Yes 15mL Take 15 mL Un valdem[facility] 10 gram/15 1-10 by mouth ity o f mL solution 20:46: daily. [address] Branch sotalol 80 2020-0 Yes 80mg Take 80 mg U nivers mg tablet 1-10 by mouth ity of 20:46: daily. [address] Branch amLODIPine 2020-0 Yes 10mg Take 10 mg U nivers 5 mg tablet 1-10 by mouth ity of 20:46: daily. [place] [address] Medical Branch losartan 2020-0 Yes 100mg Take 100 Univ ers 100 mg 1-10 mg by ity of tablet 20:46: mouth [place] [address] daily. Medical Branch ranitidine 2020-0 Yes 150mg Take 150 Un valdem[facility] 150 mg 1-10 mg by ity of tablet 20:46: mouth at [place] [address] bedtime. Medical Branch lactulose 2020-0 Yes 15mL Take 15 mL Un [facility] 10 gram/15 1-10 by mouth ity o f mL solution 20:46: daily. [address] sotalol 80 2020-0 Yes 80mg Take 80 mg U nivers mg tablet 1-10 by mouth ity of 20:46: daily. [address] Branch amLODIPine 2020-0 Yes 10mg Take 10 mg U nivers 5 mg tablet 1-10 by mouth ity of 20:46: daily. [address] Branch losartan 2020-0 Yes 100mg Take 100 Univ ers 100 mg 1-10 mg by ity of tablet 20:46: mouth [place] [address] daily. Medical Branch ranitidine 2020-0 Yes 150mg Take 150 Un valdemar 150 mg 1-10 mg by ity of tablet 20:46: mouth at [place] [address] bedtime. Medical Branch lactulose 2020-0 Yes 15mL Take 15 mL Un [facility] 10 gram/15 1-10 by mouth ity o f mL solution 20:46: daily. [address] sotalol 80 2020-0 Yes 80mg Take 80 mg U nivers mg tablet 1-10 by mouth ity of 20:46: daily. [address] Branch amLODIPine 2020-0 Yes 10mg Take 10 mg U nivers 5 mg tablet 1-10 by mouth ity of 20:46: daily. [address] losartan 2020-0 Yes 100mg Take 100 Univ ers 100 mg 1-10 mg by ity of tablet 20:46: mouth [place] [address] daily. Medical Branch ranitidine 2020-0 Yes 150mg Take 150 Un [facility] 150 mg 1-10 mg by ity of tablet 20:46: mouth at [place] [address] bedtime. Medical Branch lactulose 2020-0 Yes 15mL Take 15 mL Un [facility] 10 gram/15 1-10 by mouth ity o f mL solution 20:46: daily. [place] [address] Medical Branch sotalol 80 2020-0 Yes 80mg Take 80 mg U nivers mg tablet 1-10 by mouth ity of 20:46: daily. [place] [address] Medical Branch amLODIPine 2020-0 Yes 10mg Take 10 mg U nivers 5 mg tablet 1-10 by mouth ity of 20:46: daily. [place] [address] Medical Branch losartan 2020-0 Yes 100mg Take 100 Univ ers 100 mg 1-10 mg by ity of tablet 20:46: mouth [place] [address] daily. Medical Branch ranitidine 2020-0 Yes 150mg Take 150 Un [place] 150 mg 1-10 mg by ity of tablet 20:46: mouth at [place] [address] bedtime. Medical Branch lactulose 2020-0 Yes 15mL Take 15 mL Un [place] 10 gram/15 1-10 by mouth ity o f mL solution 20:46: daily. [place] [address] Medical Branch sotalol 80 2020-0 Yes 80mg Take 80 mg U nivers mg tablet 1-10 by mouth ity of 20:46: daily. [place] [address] Medical Branch amLODIPine 2020-0 Yes 10mg Take 10 mg U nivers 5 mg tablet 1-10 by mouth ity of 20:46: daily. [place] [address] Medical Branch losartan 2020-0 Yes 100mg Take 100 Univ ers 100 mg 1-10 mg by ity of tablet 20:46: mouth [place] [address] daily. Medical Branch ranitidine 2020-0 Yes 150mg Take 150 Un [facility] 150 mg 1-10 mg by ity of tablet 20:46: mouth at [place] [address] bedtime. Medical Branch lactulose 2020-0 Yes 15mL Take 15 mL Un [place] 10 gram/15 1-10 by mouth ity o f mL solution 20:46: daily. [address] Branch sotalol 80 2020-0 Yes 80mg Take 80 mg U nivers mg tablet 1-10 by mouth ity of 20:46: daily. [place] [address] Medical Branch amLODIPine 2020-0 Yes 10mg Take 10 mg U nivers 5 mg tablet 1-10 by mouth ity of 20:46: daily. [place] [address] Medical Branch losartan 2020-0 Yes 100mg Take 100 Univ ers 100 mg 1-10 mg by ity of tablet 20:46: mouth [place] [address] daily. Medical Branch ranitidine 2020-0 Yes 150mg Take 150 Un [facility] 150 mg 1-10 mg by ity of tablet 20:46: mouth at [place] [address] bedtime. Medical Branch lactulose 2020-0 Yes 15mL Take 15 mL Un [place] 10 gram/15 1-10 by mouth ity o f mL solution 20:46: daily. [place] [address] Medical Branch sotalol 80 2020-0 Yes 80mg Take 80 mg U nivers mg tablet 1-10 by mouth ity of 20:46: daily. [place] [address] Medical Branch amLODIPine 2020-0 Yes 10mg Take 10 mg U nivers 5 mg tablet 1-10 by mouth ity of 20:46: daily. [place] [address] Medical Branch losartan 2020-0 Yes 100mg Take 100 Univ ers 100 mg 1-10 mg by ity of tablet 20:46: mouth [place] [address] daily. Medical Branch ranitidine 2020-0 Yes 150mg Take 150 Un [place] 150 mg 1-10 mg by ity of tablet 20:46: mouth at [place] [address] bedtime. Medical Branch lactulose 2020-0 Yes 15mL Take 15 mL Un [facility] 10 gram/15 1-10 by mouth ity o f mL solution 20:46: daily. [address] sotalol 80 2020-0 Yes 80mg Take 80 mg U nivers mg tablet 1-10 by mouth ity of 20:46: daily. [place] [address] Medical Branch amLODIPine 2020-0 Yes 10mg Take 10 mg U nivers 5 mg tablet 1-10 by mouth ity of 20:46: daily. [place] [address] Medical Branch losartan 2020-0 Yes 100mg Take 100 Univ ers 100 mg 1-10 mg by ity of tablet 20:46: mouth [place] [address] daily. Medical Branch ranitidine 2020-0 Yes 150mg Take 150 Un [place] 150 mg 1-10 mg by ity of tablet 20:46: mouth at [place] [address] bedtime. Medical Branch lactulose 2020-0 Yes 15mL Take 15 mL Un [place] 10 gram/15 1-10 by mouth ity o f mL solution 20:46: daily. [place] [address] Medical Branch sotalol 80 2020-0 Yes 80mg Take 80 mg U nivers mg tablet 1-10 by mouth ity of 20:46: daily. [place] [address] Medical Branch amLODIPine 2020-0 Yes 10mg Take 10 mg U nivers 5 mg tablet 1-10 by mouth ity of 20:46: daily. [place] [address] Medical Branch losartan 2020-0 Yes 100mg Take 100 Univ ers 100 mg 1-10 mg by ity of tablet 20:46: mouth [place] [address] daily. Medical Branch ranitidine 2020-0 Yes 150mg Take 150 Un [facility] 150 mg 1-10 mg by ity of tablet 20:46: mouth at [place] [address] bedtime. Medical Branch lactulose 2020-0 Yes 15mL Take 15 mL Un [facility] 10 gram/15 1-10 by mouth ity o f mL solution 20:46: daily. [place] [address] Medical Branch sotalol 80 2020-0 Yes 80mg Take 80 mg U nivers mg tablet 1-10 by mouth ity of 20:46: daily. [place] [address] Medical Branch amLODIPine 2020-0 Yes 10mg Take 10 mg U nivers 5 mg tablet 1-10 by mouth ity of 20:46: daily. [place] [address] Medical Branch losartan 2020-0 Yes 100mg Take 100 Univ ers 100 mg 1-10 mg by ity of tablet 20:46: mouth [place] [address] daily. Medical Branch ranitidine 2020-0 Yes 150mg Take 150 Un [facility] 150 mg 1-10 mg by ity of tablet 20:46: mouth at [place] [address] bedtime. Medical Branch lactulose 2020-0 Yes 15mL Take 15 mL [facility] 10 gram/15 1-10 by mouth ity o f mL solution 20:46: daily. [place] [address] Medical Branch sotalol 80 2020-0 Yes 80mg Take 80 mg U nivers mg tablet 1-10 by mouth ity of 20:46: daily. [place] [address] Medical Branch amLODIPine 2020-0 Yes 10mg Take 10 mg U nivers 5 mg tablet 1-10 by mouth ity of 20:46: daily. [place] [address] Medical Branch losartan 2020-0 Yes 100mg Take 100 Univ ers 100 mg 1-10 mg by ity of tablet 20:46: mouth [place] [address] daily. Medical Branch ranitidine 2020-0 Yes 150mg Take 150 Un [facility] 150 mg 1-10 mg by ity of tablet 20:46: mouth at [place] [address] bedtime. Medical Branch lactulose 2020-0 Yes 15mL Take 15 mL [facility] 10 gram/15 1-10 by mouth ity o f mL solution 20:46: daily. [address] sotalol 80 2019-0 Yes 80mg Take 80 mg U nivers mg tablet 1-10 by mouth ity of 20:46: daily. [address] amLODIPine 2019-0 Yes 10mg Take 10 mg U nivers 5 mg tablet 1-10 by mouth ity of 20:46: daily. [address] losartan 2019-0 Yes 100mg Take 100 Univ ers 100 mg 1-10 mg by ity of tablet 20:46: mouth [place] [address] daily. Medical Branch ranitidine 0 Yes 150mg Take 150 Un [facility] 150 mg 1-10 mg by ity of tablet 20:46: mouth at [place] [address] [facility] lactulose 0 Yes 15mL Take 15 mL [facility] 10 gram/15 1-10 by mouth ity o f mL solution 20:46: daily. [address] furosemide 2018-08 Yes Univers 20 mg 2-20 ity of tablet 00:00: [address] furosemide 2018- Yes Univers 20 mg 2-20 ity of tablet 00:00: [address] furosemide 2018- Yes Univers 20 mg 2-20 ity of tablet 00:00: [address] furosemide 2018- Yes Univers 20 mg 2-20 ity of tablet 00:00: [address] furosemide 2018- Yes Univers 20 mg 2-20 ity of tablet 00:00: [address] furosemide 2018- Yes Univers 20 mg 2-20 ity of tablet 00:00: [address] furosemide 2018- Yes Univers 20 mg 2-20 ity of tablet 00:00: [address] furosemide 2018- Yes Univers 20 mg 2-20 ity of tablet 00:00: [address] furosemide 2019- Yes Univers 20 mg 2-20 ity of tablet 00:00: [address] furosemide 2019- Yes Univers 20 mg 2-20 ity of tablet 00:00: 96 [address] furosemide 2019- Yes Univers 20 mg 2-20 ity of tablet 00:00: [address] furosemide 2019- Yes Univers 20 mg 2-20 ity of tablet 00:00: [address] furosemide 2018-08 Yes Univers 20 mg 2-20 ity of tablet 00:00: [address] furosemide 2018-08 Yes Univers 20 mg 2-20 ity of tablet 00:00: [address] furosemide 2018-08 Yes Univers 20 mg 2-20 ity of tablet 00:00: [address] furosemide 2018-08 Yes Univers 20 mg 2-20 ity of tablet 00:00: [address] furosemide 2018- Yes Univers 20 mg 2-20 ity of tablet 00:00: [address] furosemide 2018-08 Yes Univers 20 mg 2-20 ity of tablet 00:00: [address] furosemide 2018- Yes Univers 20 mg 2-20 ity of tablet 00:00: [address] famotidine 2018-08 Yes Univers 40 mg 1-21 ity of tablet 00:00: [address] famotidine 2018-08 Yes Univers 40 mg 1-21 ity of tablet 00:00: [address] famotidine 2018- Yes Univers 40 mg 1-21 ity of tablet 00:00: [address] famotidine 2018-08 Yes Univers 40 mg 1-21 ity of tablet 00:00: [address] famotidine 2018- Yes Univers 40 mg 1-21 ity of tablet 00:00: [address] famotidine 2018- Yes Univers 40 mg 1-21 ity of tablet 00:00: [address] famotidine 2018- Yes Univers 40 mg 1-21 ity of tablet 00:00: [address] famotidine 2018- Yes Univers 40 mg 1-21 ity of tablet 00:00: [address] famotidine 2018- Yes Univers 40 mg 1-21 ity of tablet 00:00: [address] famotidine 2018- Yes Univers 40 mg 1-21 ity of tablet 00:00: [address] famotidine 2018- Yes Univers 40 mg 1-21 ity of tablet 00:00: [address] famotidine 2018- Yes Univers 40 mg 1-21 ity of tablet 00:00: [address] famotidine 2018- Yes Univers 40 mg 1-21 ity of tablet 00:00: [address] famotidine 2019-1 Yes Univers 40 mg 1-21 ity of tablet 00:00: [place] [facility] famotidine 2019-1 Yes Univers 40 mg 1-21 ity of tablet 00:00: [place] [facility] famotidine 2019- Yes Univers 40 mg 1-21 ity of tablet 00:00: [place] [facility] famotidine 2019- Yes Univers 40 mg 1-21 ity of tablet 00:00: [place] [address] Medical Branch famotidine 2019- Yes Univers 40 mg 1-21 ity of tablet 00:00: [place] [address] Medical Branch famotidine 2019- Yes Univers 40 mg 1-21 ity of tablet 00:00: [place] [address] Medical Branch REPATHA 2019-1 Yes Univers SURECLICK 1-14 ity of 140 mg/mL 00:00: [place] [facility] REPATHA 2019-1 Yes Univers SURECLICK 1-14 ity of 140 mg/mL 00:00: [place] [facility] REPATHA 2019-1 Yes Univers SURECLICK 1-14 ity of 140 mg/mL 00:00: [place] [facility] REPATHA 2019-1 Yes Univers SURECLICK 1-14 ity of 140 mg/mL 00:00: [place] [facility] REPATHA 2019-1 Yes Univers SURECLICK 1-14 ity of 140 mg/mL 00:00: [place] [facility] REPATHA 2019-1 Yes Univers SURECLICK 1-14 ity of 140 mg/mL 00:00: [place] [facility] REPATHA 2019-1 Yes Univers SURECLICK 1-14 ity of 140 mg/mL 00:00: [place] [facility] REPATHA 2019-1 Yes Univers SURECLICK 1-14 ity of 140 mg/mL 00:00: [place] [facility] REPATHA 2019-1 Yes Univers SURECLICK 1-14 ity of 140 mg/mL 00:00: [place] [facility] REPATHA 2019-1 Yes Univers SURECLICK 1-14 ity of 140 mg/mL 00:00: [place] [facility] REPATHA 2019-1 Yes Univers SURECLICK 1-14 ity of 140 mg/mL 00:00: [place] [facility] REPATHA 2019-1 Yes Univers SURECLICK 1-14 ity of 140 mg/mL 00:00: [place] [facility] 00 [facility] Branch REPATHA 2019-1 Yes Univers SURECLICK 1-14 ity of 140 mg/mL 00:00: [place] [facility] 00 [facility] Branch REPATHA 2019-1 Yes Univers SURECLICK 1-14 ity of 140 mg/mL 00:00: [place] [facility] 00 [facility] Branch REPATHA 2019-1 Yes Univers SURECLICK 1-14 ity of 140 mg/mL 00:00: [place] [facility] 00 [facility] Branch REPATHA 2019-1 Yes Univers SURECLICK 1-14 ity of 140 mg/mL 00:00: [place] [facility] 00 [facility] REPATHA 2019-1 Yes Univers SURECLICK 1-14 ity of 140 mg/mL 00:00: [place] [facility] 00 [facility] Branch REPATHA 2019-1 Yes Univers SURECLICK 1-14 ity of 140 mg/mL 00:00: [place] [facility] 00 [facility] REPATHA 2019-1 Yes Univers SURECLICK 1-14 ity of 140 mg/mL 00:00: [place] [facility] 00 [facility] lactulose 2019-0 Yes 15mL Take 15 mL Un valdemar 10 gram/15 8-31 by mouth ity o f mL solution 10:46: daily. [facility] 10 Medical Branch diltiazem 2 2017- Yes Apply to U nivers % cream 7-31 affected ity of 00:00: area(s) 3 [place] 00 (three) Medical times Branch daily. diltiazem 2 Yes Apply to U nivers % cream 7-31 affected ity of 00:00: area(s) 3 [place] 00 (three) Medical times Branch daily. diltiazem 2 2017-0 Yes Apply to U nivers % cream 7-31 affected ity of 00:00: area(s) 3 [place] 00 (three) Medical times Branch daily. diltiazem 2 2017-0 Yes Apply to U nivers % cream 7-31 affected ity of 00:00: area(s) 3 [place] 00 (three) Medical times Branch daily. diltiazem 2 2017-0 Yes Apply to U nivers % cream 7-31 affected ity of 00:00: area(s) 3 [place] 00 (three) Medical times Branch daily. diltiazem 2 2017-0 Yes Apply to U nivers % cream 7-31 affected ity of 00:00: area(s) 3 [place] 00 (three) Medical times Branch daily. diltiazem 2 2018-0 Yes Apply to U nivers % cream 7-31 affected ity of 00:00: area(s) 3 [place] 00 (three) Medical times Branch daily. diltiazem 2 2017-0 Yes Apply to U nivers % cream 7-31 affected ity of 00:00: area(s) 3 [place] 00 (three) Medical times Branch daily. diltiazem 2 2017-0 Yes Apply to U nivers % cream 7-31 affected ity of 00:00: area(s) 3 [place] 00 (three) Medical times Branch daily. diltiazem 2 2018-0 Yes Apply to U nivers % cream 7-31 affected ity of 00:00: area(s) 3 [place] 00 (three) Medical times Branch daily. diltiazem 2 2017-0 Yes Apply to U nivers % cream 7-31 affected ity of 00:00: area(s) 3 [place] 00 (three) Medical times Branch daily. diltiazem 2 2017-0 Yes Apply to U nivers % cream 7-31 affected ity of 00:00: area(s) 3 [place] 00 (three) Medical times Branch daily. diltiazem 2 2018-0 Yes Apply to U nivers % cream 7-31 affected ity of 00:00: area(s) 3 [place] 00 (three) Medical times Branch daily. diltiazem 2 2017-0 Yes Apply to U nivers % cream 7-31 affected ity of 00:00: area(s) 3 [place] 00 (three) Medical times Branch daily. diltiazem 2 2017-0 Yes Apply to U nivers % cream 7-31 affected ity of 00:00: area(s) 3 [place] 00 (three) Medical times Branch daily. diltiazem 2 2018-0 Yes Apply to U nivers % cream 7-31 affected ity of 00:00: area(s) 3 [place] 00 (three) Medical times Branch daily. diltiazem 2 2018-0 Yes Apply to U nivers % cream 7-31 affected ity of 00:00: area(s) 3 [place] 00 (three) Medical times Branch daily. diltiazem 2 2018-0 Yes Apply to U nivers % cream 7-31 affected ity of 00:00: area(s) 3 [place] 00 (three) Medical times Branch daily. diltiazem 2 2018-0 Yes Apply to U nivers % cream 7-31 affected ity of 00:00: area(s) 3 [place] 00 (three) Medical times Branch daily. diltiazem 2 2018-0 Yes Apply to U nivers % cream 7-31 affected ity of 00:00: area(s) 3 [place] 00 (three) Medical times Branch daily. levothyroxi 2017 Yes Univer s ne 25 mcg 1-08 ity of tablet 00:00: [place] 00 [facility] levothyroxi 2017- Yes Univer s ne 25 mcg 1-08 ity of tablet 00:00: [place] [facility] levothyroxi 2017 Yes Univer s ne 25 mcg 1-08 ity of tablet 00:00: [place] [facility] levothyroxi 2017 Yes Univer s ne 25 mcg 1-08 ity of tablet 00:00: [place] [facility] levothyroxi 2017- Yes Univer s ne 25 mcg 1-08 ity of tablet 00:00: [place] [facility] levothyroxi 2017- Yes Univer s ne 25 mcg 1-08 ity of tablet 00:00: [place] [facility] levothyroxi 2017- Yes Univer s ne 25 mcg 1-08 ity of tablet 00:00: [address] levothyroxi 2017- Yes Univer s ne 25 mcg 1-08 ity of tablet 00:00: [place] [facility] levothyroxi 2017- Yes Univer s ne 25 mcg 1-08 ity of tablet 00:00: [place] [facility] levothyroxi 2017- Yes Univer s ne 25 mcg 1-08 ity of tablet 00:00: [place] [facility] levothyroxi 2017- Yes Univer s ne 25 mcg 1-08 ity of tablet 00:00: [place] [facility] levothyroxi 2017 Yes Univer s ne 25 mcg 1-08 ity of tablet 00:00: [place] [facility] levothyroxi 2017- Yes Univer s ne 25 mcg 1-08 ity of tablet 00:00: [place] [facility] levothyroxi 2017- Yes Univer s ne 25 mcg 1-08 ity of tablet 00:00: [place] 00 [facility] levothyroxi 2016- Yes Univer s ne 25 mcg 1-08 ity of tablet 00:00: [place] 00 [facility] levothyroxi 2016-08 Yes Univer s ne 25 mcg 1-08 ity of tablet 00:00: [place] 00 [facility] levothyroxi 2016- Yes Univer s ne 25 mcg 1-08 ity of tablet 00:00: [place] 00 [facility] levothyroxi 2016- Yes Univer s ne 25 mcg 1-08 ity of tablet 00:00: [place] 00 [facility] levothyroxi 2016-08 Yes Univer s ne 25 mcg 1-08 ity of tablet 00:00: [place] 00 [facility] levothyroxi 0 Yes 25ug Take 25 Uni vers ne 25 mcg 5-07 mcg by ity of tablet 23:56: mouth [place] [address] every Medical morning. Branch sotalol 80 Yes 80mg Take 80 mg U nivers mg tablet 5-07 by mouth ity of 23:56: daily. [address] Branch amLODIPine Yes 10mg Take 10 mg U nivers 10 mg 5-07 by mouth ity of tablet 23:56: daily. [address] Branch losartan Yes 100mg Take 100 Univ ers 100 mg 5-07 mg by ity of tablet 23:56: mouth [place] [address] daily. Medical Branch ranitidine Yes 150mg Take 150 Un valdemar 150 mg 5-07 mg by ity of tablet 23:56: mouth at [place] [address] bedtime. Medical Branch phenazopyri 2017- Yes 200mg Take 1 Uni vers dine 200 mg 5-07 tablet by ity of tablet 00:00: mouth 3 [place] [id number] (three) Medical times Branch daily. phenazopyri 2017-0 Yes 200mg Take 1 Uni vers dine 200 mg 5-07 tablet by ity of tablet 00:00: mouth 3 [place] 00 (three) Medical times Branch daily. phenazopyri 2017-0 Yes 200mg Take 1 Uni vers dine 200 mg 5-07 tablet by ity of tablet 00:00: mouth 3 [place] 00 (three) Medical times Branch daily. phenazopyri 2017- Yes 200mg Take 1 Uni vers dine 200 mg 5-07 tablet by ity of tablet 00:00: mouth (three) Medical times Branch daily. phenazopyri 2017-0 Yes 200mg Take 1 Uni vers dine 200 mg 5-07 tablet by ity of tablet 00:00: mouth (three) Medical times Branch daily. phenazopyri 2017-0 Yes 200mg Take 1 Uni vers dine 200 mg 5-07 tablet by ity of tablet 00:00: mouth (three) Medical times Branch daily. phenazopyri 2017-0 Yes 200mg Take 1 Uni vers dine 200 mg 5-07 tablet by ity of tablet 00:00: mouth (three) Medical times Branch daily. phenazopyri 2017-0 Yes 200mg Take 1 Uni vers dine 200 mg 5-07 tablet by ity of tablet 00:00: mouth (three) Medical times Branch daily. phenazopyri 2017-0 Yes 200mg Take 1 Uni vers dine 200 mg 5-07 tablet by ity of tablet 00:00: mouth (three) Medical times Branch daily. phenazopyri 2017-0 Yes 200mg Take 1 Uni vers dine 200 mg 5-07 tablet by ity of tablet 00:00: mouth (three) Medical times Branch daily. phenazopyri 2017-0 Yes 200mg Take 1 Uni vers dine 200 mg 5-07 tablet by ity of tablet 00:00: mouth (three) Medical times Branch daily. phenazopyri 2017-0 Yes 200mg Take 1 Uni vers dine 200 mg 5-07 tablet by ity of tablet 00:00: mouth (three) Medical times Branch daily. phenazopyri 2017-0 Yes 200mg Take 1 Uni vers dine 200 mg 5-07 tablet by ity of tablet 00:00: mouth (three) Medical times Branch daily. phenazopyri 2017-0 Yes 200mg Take 1 Uni vers dine 200 mg 5-07 tablet by ity of tablet 00:00: mouth (three) Medical times Branch daily. phenazopyri 2017-0 Yes 200mg Take 1 Uni vers dine 200 mg 5-07 tablet by ity of tablet 00:00: mouth (three) Medical times Branch daily. phenazopyri 2017-0 Yes 200mg Take 1 Uni vers dine 200 mg 5-07 tablet by ity of tablet 00:00: mouth 3 00 (three) Medical times Branch daily. phenazopyri 2017-0 Yes 200mg Take 1 Uni vers dine 200 mg 5-07 tablet by ity of tablet 00:00: mouth 3 00 (three) Medical times Branch daily. phenazopyri 2017-0 Yes 200mg Take 1 Uni vers dine 200 mg 5-07 tablet by ity of tablet 00:00: mouth 3 (three) Medical times Branch daily. phenazopyri 2017-0 Yes 200mg Take 1 Uni vers dine 200 mg 5-07 tablet by ity of tablet 00:00: mouth 3 (three) Medical times Branch daily. phenazopyri 2017-0 Yes 200mg Take 1 Uni vers dine 200 mg 5-07 tablet by ity of tablet 00:00: mouth 3 (three) Medical times Branch daily. Vital Signs Vital Name Observation Time Observation Value Comments Source Systolic blood 2020-11-02 16:01:00 161 mm[facility]Hg[facility] 2020-11-02 16:01:00 70 [facility]Hg[facility] [facility] 2020-11-02 16:00:00 56 /min [facility] Body weight 2020-11-02 16:00:00 63.504 kg [facility] BMI 2020-11-02 16:00:00 25.61 kg/m2 [facility] Oxygen saturation in 2020-11-02 16:00:00 97 /min [facility] Arterial blood by [facility] Pulse oximetry Branch Systolic blood 2020-10-05 01:15:00 187 mm[Hg] Univer [facility] Diastolic blood 2020-10-05 01:15:00 69 mm[Hg] Unive rsity [facility] Heart rate 2020-10-05 01:15:00 57 /min [facility] Respiratory rate 2020-10-05 01:15:00 18 /min [facility] in 2020-10-05 01:15:00 99 /min [facility] Arterial blood by [facility] Pulse oximetry Branch Body temperature 2020-10-04 23:16:00 36.94 Ai Univ ersity [facility] [place] [facility] Body weight 2020-10-04 23:16:00 63.504 kg [facility] [place] [facility] BMI 2020-10-04 23:16:00 25.61 kg/m2 [facility] [place] [facility] Systolic blood 2019-10-21 19:26:00 147 mm[Hg] Univer sity of pressure [place] [facility] Diastolic blood 2019-10-21 19:26:00 74 mm[Hg] Unive rsity of pressure [place] [facility] Heart rate 2019-10-21 19:26:00 75 /min [facility] [place] [facility] Body temperature 2019-10-21 19:26:00 36.33 Ai Univ ersity [facility] Respiratory rate 2019-10-21 19:26:00 14 /min Univ ers[facility] [place] [facility] Body height 2019-10-21 19:26:00 157.5 cm [facility] [place] [facility] Body weight 2019-10-21 19:26:00 62.653 kg [facility] [place] [facility] BMI 2019-10-21 19:26:00 25.26 kg/m2 [facility] [place] [facility] Body height 2019-09-27 19:46:00 154.9 cm [facility] [place] [facility] Body weight 2019-09-27 19:46:00 61.236 kg [facility] [place] [facility] BMI 2019-09-27 19:46:00 25.51 kg/m2 [facility] [place] [facility] Body height 2019-08-19 20:20:00 157.5 cm [facility] [place] [facility] Body weight 2019-08-19 20:20:00 62.766 kg [facility] [place] [facility] BMI 2019-08-19 20:20:00 25.31 kg/m2 [facility] [place] [facility] Systolic blood 2019-08-19 20:20:00 139 mm[Hg] Univer sity of pressure [place] [facility] Diastolic blood 2019-08-19 20:20:00 66 mm[Hg] Unive rsity of pressure [place] [facility] Heart rate 2019-08-19 20:20:00 75 /min [facility] [place] [facility] Body temperature 2019-08-19 20:20:00 36.83 Ai Univ ersity [facility] [place] [facility] Respiratory rate 2019-08-19 20:20:00 14 /min [facility] Systolic blood 2019-04-09 11:00:00 158 mm[Hg] Univer sity of pressure [facility] Diastolic blood 2019-04-09 11:00:00 72 mm[Hg] [facility] Heart rate 2019-04-09 11:00:00 81 /min [facility] Respiratory rate 2019-04-09 10:15:00 17 /min [facility] Oxygen saturation in 2019-04-09 10:15:00 94 /min [facility] Arterial blood by [facility] Pulse oximetry [place] Body temperature 2019-04-09 09:44:00 36.5 Ai [facility] Body weight 2019-04-09 09:44:00 58.968 kg [facility] BMI 2019-04-09 09:44:00 23.78 kg/m2 [facility] Procedures Procedure Date / Time Performing Clinician Source Performed CT ABDOMEN PELVIS W 2020-10-05 02:06:40 Wilson Sandoval [facility] CONTRAST [facility] URINALYSIS 2020-10-05 01:13:00 Wilson Sandoval [facility] XR CHEST 1 VW 2020-10-04 23:42:43 Wilson Sandoval [facility] COVID-19 (ID NOW RAPID 2020-10-04 23:37:00 Wilson Sandoval [facility] TESTING) [facility] Branch LIPASE 2020-10-04 23:36:00 Wilson Sandoval [facility] TROPONIN I 2020-10-04 23:36:00 Wilson Sandoval [facility] COMP. METABOLIC PANEL 2020-10-04 23:36:00 [facility] ([id number]) [facility] N-TERMINAL PRO-BNP 2020-10-04 23:36:00 Wilson Sandoval [facility] CBC WITH DIFF 2020-10-04 23:35:00 Wilson Sandoval [facility] LACTIC ACID WHOLE BLOOD 2020-10-04 23:34:00 Wilson Sandoval [facility] NOTICE OF PRIVACY 2020-10-04 23:09:13 Doctor Unassigned, No [facility] FOR 2020-10-04 23:08:57 Doctor Unassigned, No Un [facility] [place] DIAGNOSIS AND TREATMENT [facility] CT ABDOMEN PELVIS W WO 2020-06-26 20:28:39 Xiomara Guerra [facility] CONTRAST [facility] PHYSICIAN ORDERS 2020-06-19 06:01:00 Doctor [facility]igned, [facility] CONTRAST 2019-09-27 20:18:07 [facility] 2019-04-09 11:09:00 Jacqui Hill [facility] XR CHEST 1 VW 2019-04-09 10:05:01 Jacqui Hill [facility] MAGNESIUM 2019-04-09 09:57:00 Jacqui Hill [facility] TROPONIN I 2019-04-09 09:57:00 Jacqui Hill [facility] THYROID STIMULATING 2019-04-09 09:57:00 Jacqui Hill [facility] HORMONE [facility] COMP. METABOLIC PANEL 2019-04-09 09:57:00 Jacqui Hill [facility] ([id number]) [facility] CBC WITH DIFFERENTIAL 2019-04-09 09:57:00 Jacqui Hill [facility] PROTHROMBIN TIME / INR 2019-04-09 09:57:00 Jacqui Hill [facility] N-TERMINAL PRO-BNP 2019-04-09 09:57:00 Jacqui Hill [facility] EKG-12 LEAD 2019-04-09 09:49:38 Jacqui Hill [facility] NOTICE OF PRIVACY 2019-04-09 09:46:42 Doctor Unassigned, No Univ [facility] CONSENT/REFUSAL FOR 2019-04-09 09:46:24 Doctor Unassigned, No [facility] Encounters Start End Encounter Admission Attending Care Care Encounter Source Date/Time Date/Time Type Type Clinicians Facility Department ID 2021-06-09 Emergency [facility] [id number] Univers 01:30:56 ity of [facility] 2021-03-05 2021-03-05 [facility] [id number] Univers 00:00:00 00:00:00 Juan Mazariegos [id number] [id number] [phone] [address] 2021-03-01 2021-03-01 Richelle [facility] [id number] Univers 00:00:00 00:00:00 Juan Mazariegos [id number] [id number] [id number] [address] 2021-02-26 2021-02-26 [facility] 1.2.840.114 [id number] Univers 00:00:00 00:00:00 Juan Mazariegos [id number] [id number] [id number] [address] 2020-12-18 2020-12-18 Richelle [facility] 1.2.840.114 [id number] Univers 00:00:00 00:00:00 Juan Mazariegos [id number] [id number] [phone] [address] 2020-11-07 2020-11-07 [facility] [id number] Univers 00:00:00 00:00:00 Juan Mazariegos [id number] [id number] [phone] [address] 2020-11-05 2020-11-05 [facility] [id number] Univers 00:00:00 00:00:00 Juan Mazarigeos [id number] [id number] [phone] De dical nal 092 [facility] 2020-11-02 2020-11-02 Office Tammy [facility] 1.2.840.114 [id number] Univers 10:33:04 11:44:36 Visit Juan Mazariegos [id number] [id number] [phone] De dical [address] 2020-11-02 2020-11-02 Outpatient TAMMYJAUN Rodriguez [facility] [id number] Univers 10:40:00 10:40:00 TAMMYJUAN [id number] [facility] 2020-11-02 2020-11-02 Outpatient R TAMMY, JUAN [facility] [id number] Univers 10:40:00 10:40:00 [facility]JUAN [facility] 2020-10-04 2020-10-04 Emergency [facility] 1.2.840.114 [id number] Univers 17:26:00 20:59:00 Wilson Mazariegos [id number] i [id number] [phone] [facility] 084 Branch 2020-10-04 2020-10-04 Orders Doctor VIRGILIO 1.2.840.114 [id number] Univers 00:00:00 00:00:00 Only Unassigned, JACE [id number] ity of [place] [facility] [id number] Javier as [phone] [facility] 009 Branch 2020-06-26 2020-06-26 [facility] 1.2.840.114 [id number] Univers 13:31:40 23:59:00 Xiomara Hopkins [id number] [id number] [id number] [facility] 801 Branch 2020-06-26 2020-06-26 Outpatient R [facility] [id number] Univers 00:00:00 00:00:00 Albert XOIMARA [id number] ity o f [facility] 2020-06-26 2020-06-26 Outpatient R [facility] [id number] Univers 00:00:00 00:00:00 Albert XIOMARA perezy o f [facility] 2020-06-19 2020-06-19 Nursing Techn 2, Adc Lab [facility] 1.2.840.114 [id number] Univers 14:10:41 14:25:41 Visit Xiomara Guerra 350.1.1 3.10 ity [facility] [id number] [phone] De dical nal 353 [facility] 2020-06-19 2020-06-19 Outpatient R [facility] [id number] Univers 14:15:00 14:15:00 [id number] ity of [facility] 2020-06-19 2020-06-19 Outpatient R [facility] [id number] Univers 14:15:00 14:15:00 XIOMARA Rodriguez o f [facility] 2020-06-19 2020-06-19 Orders Doctor POOLE 1.2.840.114 [id number] Univers 00:00:00 00:00:00 Only Unassigned, JACE [id number] [facility] [id number] Javier as [phone] [facility] 009 Branch 2019-10-21 2019-10-21 Office Tammy [facility] 1.2.840.114 [id number] Univers 14:10:53 15:20:56 Visit Juan Mazariegos [id number] [id number] [facility] [phone] De dical nal 092 [facility] 2019-10-21 2019-10-21 Outpatient R JUAN MUNOZ [facility] [id number] Univers 14:40:00 14:40:00 JUAN MUNOZ [id number] [facility] 2019-10-21 2019-10-21 Outpatient R JUAN MUNOZ [facility] [id number] Univers 14:40:00 14:40:00 JUAN MUNOZ [facility] 2019-09-27 2019-09-27 [facility] [id number] Univers 13:20:00 23:59:00 Encounter Juan Mazariegos [id number] [place] [id number] [facility] [id number] [facility] 804 [place] 2019-08-19 2019-08-19 Office [facility] 1.2.840.114 [id number] Univers 13:30:11 15:28:04 Visit Juan Mazariegos [id number] [place] [id number] [facility] Professio [phone] De dical nal 092 [facility] 2019-04-09 2019-04-09 Emergency [facility] access hospital [id number] [facility] 04:51:40 06:51:00 Jacqui Mazariegos [id number] [place]y [place] [id number] [facility] [id number] 02 [address] Results Test Description Test Time Test Comments Results Result Comments Source Urinalysis 2020-10-05 02:27:00 Test Item Value Reference Range Interpretation Comme nts APPEARANCE (test code = Clear Clear 1531019351) COLOR (test code = 2036937970) Straw Yellow A PH (test code = 7625663420) 4.8-8.0 SP GRAVITY (test code = 1.003-1.030 2747670619) GLU U QUAL (test code = Normal Normal 4981097132) BLOOD (test code = 8263870573) Negative Negative KETONES (test code = 0495077018) Negative Negative PROTEIN (test code = 2887-8) Negative Negative UROBILIN (test code = 8143639203) Normal Normal BILIRUBIN (test code = Negative Negative 7018973094) NITRITE (test code = 5916043767) Negative Negative LEUK CHARLENE (test code = 25/uL Negative A 6351792005) RBC/HPF (test code = 8489704604) <1 See_Comment [Automated message] The system which ge nerated this result transmit ghazal reference range: 0 - 3 HP F. The reference range was not used to interpret th is result as normal/abnormal . WBC/HPF (test code = 5117038835) See_Comment [Automated message] The system which ge nerated this result transmit ghazal reference range: 0 - 5 HP F. The reference range was not used to interpret th is result as normal/abnormal . BACTERIA (test code = 0932326148) Negative Negative HYAL CAST (test code = See_Comment [Aut omated message] The 7243450104) system which ge nerated this result transmit ghazal reference range: <=2 LPF. The reference range was not u sed to interpret this result as normal/abnormal . Lab Interpretation (test code = Abnormal 89590-0) [facility] 1 [id number] 01:09:49 No acute cardiopulmonary abnormality. Preliminary Report Dictated by Resident: Jesus Brooks MD., have reviewed this study and agree withthe above report.EXAM: XR CHEST 1VW HISTORY: weakness COMPARISON: None FINDINGS: The lungs are hyperinflated. Unchanged calcified granulomas and hilarnodes. No pneumothorax or pleural effusion although the costophrenic anglesare not completely visualized. The cardiomediastinal silhouette is normalin size. Aortic arch calcifications are present. ?No acute osseousabnormalities. 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 Unchangedcalcified granulomas and hilarnodes. No pneumothorax or pleural effusion although the costophrenic anglesare not completely visualized. The cardiomediastinal silhouette is normalin size. Aortic arch calcifications are present. No acute osseousabnormalities.IMPRESSIONNo acute cardiopulmonary abnormality.Preliminary Report Dictated by Resident: Jesus Angel MD., have reviewed this study and agree withthe above report. [facility] [id number] 00:16:00 Test Item Value Reference Range Interpretation Comments TROPONIN I (test 0.004 ng/mL See_Comment [Automated code = 4321871491) message] The system which generated this result transmitted reference range : <=0.034. The reference range was not used to interpret this result as normal/abnormal . GABRIELE (test code = Equal or Less than GABRIELE) 0.034 ng/ml---Normal ?Note: Cardiac troponin begins to rise 3-4 hours after the onset of ischemia. Repeat in 4-6 hours if the sample was drawn within 3-4 hours of the onset of the symptom and found normal. Between 0.035 and 0.120 ng/mL--- Borderline. Questionable myocardial injury or necrosis ? ?Note: Serial measurement may be necessary to confirm or exclude the diagnosis of myocardial injury or necrosis; Clinical correlation (symptoms, EKGs, imaging studies, and others) required; Repeat in 4-6 hours if clinically indicated. ? Equal or Higher than 0.121 ng/mL---Abnormal. Myocardial Injury or Necrosis Likely ? Biotin has been reported to cause a negative bias, interpret results relative to patient's use of biotin. ? Lab Interpretation Normal (test code = 73294-0) [id number] 00:13:00 Test Item Value Reference Range Interpretation Comments NT-proBNP (test code 334 pg/mL See_Comment [Autom ated = 7525442284) message] The system which generated this result transmitted reference range : <=450. The reference range was not used to interpret this result as normal/abnormal . GABRIELE (test code = GABRIELE) Biotin has been reported to cause a negative bias, interpret results relative to patient's use of biotin. Lab Interpretation Normal (test code = 46186-3) [facility] NOW RAPID TESTING)2020-10-05 00:06:00 Test Item Value Reference Range Interpretation Comments SARS-CoV-2 Rapid ID NOW Not Detected Not Detected (test code = 21780-9) GABRIELE (test code = GABRIELE) ID NOW COVID-19 Assay is an isothermal nucleic acid amplification test intended for the qualitative detection of nucleic acid from SARS-CoV-2 viral RNA in nasopharyngeal (COMMUNICATION AND OUTREACH MANAGER) specimens. It is used under Emergency Use Authorization (EUA) by FDA. The limit of detection (LOD) of the assay is 125 Genome Equivalents/mL. A positive result is indicative of the presence of SARS-CoV-2 RNA. ?Clinical correlation with patient history and other diagnostic information is necessary to determine patient infection status. A negative (Not Detected) result does not preclude SARS-CoV-2 infection. In patients with clinical symptoms and other tests that are consistent with SARS-CoV-2 infection, negative results should be treated as presumptive negative and a new specimen should be tested with alternative PCR molecular test. Invalid: Please collect a new specimen for repeat patient testing if clinically indicated. Lab Interpretation Normal (test code = 82208-8) [facility]. METABOLIC PANEL (84224)2020-10-05 00:05:00 Test Item Value Reference Range Interpretation Comments NA (test code = 138 mmol/L 135-145 4555870172) K (test code = 3.8 mmol/L 3.5-5 9080371707) CL (test code = 104 mmol/L 98-108 2165746580) CO2 TOTAL (test code = 27 mmol/L 23-31 9012384818) AGAP (test code = 2-16 8537418318) BUN (test code = 18 mg/dL 7-23 8498390731) GLUCOSE (test code = 102 mg/dL 70-110 3802652620) CREATININE (test code = 0.81 mg/dL 0.5-1.04 4425581731) TOTAL BILI (test code = 0.4 mg/dL 0.1-1.9 8215961349) CALCIUM (test code = 9.0 mg/dL 8.6-10.6 8916538383) T PROTEIN (test code = 7.5 g/dL 6.3-8.2 8340712767) ALBUMIN (test code = 4.3 g/dL 3.5-5 2042431644) ALK PHOS (test code = 61 U/L 34-122 2720589236) ALTv (test code = 41 U/L 5-35 H 1742-6) AST(SGOT) (test code = 37 U/L 13-40 3957917250) eGFR Calculation mL/min/1.73m2 (Non-) (test code = 9459619406) eGFR Calculation mL/min/1.73m2 () (test code = 5299375312) GABRIELE (test code = GABRIELE) Association of Glomerular Filtration Rate (GFR) and Staging of Kidney Disease* + --+ --+ ------+| GFR (mL/min/1.73 m2) ?| With Kidney Damage ?| ?Without Kidney Damage+ --------+ --------+ +| ?>90 ?| ?Stage one ?| ? Normal ?+ ---+ ---+ -------+| ?60-89 ?| ?Stage two ?| ? Decreased GFR ? + --+ --+ ------+| ?30-59 ?| ?Stage three ?| ? Stage three ? + --+ --+ ------+| ?15-29 ?| ?Stage four ? | ? Stage four ?+ ---+ ---+ -------+| ?<15 (or dialysis) ? ?| ?Stage five ? | ? Stage five ?+ ---+ ---+ -------+ *Each stage assumes the associated GFR level has been in effect for at least three months. ?Stages 1 to 5, with or without kidney disease, indicate chronic kidney disease. Notes: Determination of stages one and two (with eGFR >59mL/min/1.73 m2) requires estimation of kidney damage for at least three months as defined by structural or functional abnormalities of the kidney, manifested by either:Pathological abnormalities or Markers of kidney damage (including abnormalities in the composition of the blood or urine or abnormalities in imaging tests). Lab Interpretation Abnormal (test code = 70841-2) [facility] [id number] 00:04:00 Test Item Value Reference Range Interpretation Comments LIPASE (test code = 6562080653) 213 U/L 0-220 Lab Interpretation (test code = Normal 71584-8) [facility] with [id number] 23:51:00 Test Item Value Reference Range Interpretation Comments WBC (test code = See_Comment [Automated message] 6690-2) The system [employer] generated this result transmitted ref erence range: 4.30 - 1 1.10 10*3/?L. The re ference range was not u sed to interpret this result as normal/abnor mal. RBC (test code = See_Comment [Automated message] 789-8) The system [employer] generated this result transmitted ref erence range: 3.93 - 5 .25 10*6/?L. The re ference range was not u sed to interpret this result as normal/abnor mal. HGB (test code = 12.8 g/dL 11.6-15 718-7) HCT (test code = 38.6 % 35.7-45.2 4544-3) MCV (test code = 85.0 fL 80.6-95.5 787-2) MCH (test code = 28.2 pg 25.9-32.8 785-6) MCHC (test code = 33.2 g/dL 31.6-35.1 786-4) RDW-SD (test code 43.1 fL 39-49.9 = 82455-5) RDW-CV (test code 13.8 % 12-15.5 = 788-0) PLT (test code = See_Comment [Automated message] 777-3) The system [employer] generated this result transmitted ref erence range: 166 - 35 8 10*3/?L. The re ference range was not u sed to interpret this result as normal/abnor mal. MPV (test code = 10.4 fL 9.5-12.9 23819-2) NRBC/100 WBC (test See_Comment [Automat ed message] code = 0185392449) The syste [employer] which generated this result transmitted ref erence range: 0.0 - 10 .0 /100 WBCs. The refer ence range was not u sed to interpret this result as normal/abnor mal. NRBC x10^3 (test <0.01 See_Comment [Automated message] code = 5727640899) The syste m which generated this result transmitted ref erence range: 10*3/?L. The reference range was not used to interpr et this result as normal/abnormal . GRAN MAT (NEUT) % 53.0 % (test code = 770-8) IMM GRAN % (test 0.30 % code = 5883384285) LYMPH % (test code 30.1 % = 736-9) MONO % (test code 11.6 % = 5905-5) EOS % (test code = 4.2 % 713-8) BASO % (test code 0.8 % = 706-2) GRAN MAT 3.18 10*3/uL 1.88-7.09 x10^3(ANC) (test code = 4659095122) IMM GRAN x10^3 <0.03 0-0.06 (test code = 9732182901) LYMPH x10^3 (test 1.81 10*3/uL 1.32-3.29 code = 731-0) MONO x10^3 (test 0.70 10*3/uL 0.33-0.92 code = 742-7) EOS x10^3 (test 0.25 10*3/uL 0.03-0.39 code = 711-2) BASO x10^3 (test 0.05 10*3/uL 0.01-0.07 code = 704-7) [facility] Hospital[facility] Acid Whole [id number] 23:43:00 Test Item Value Reference Range Interpretation Comments LACTIC ACID (test code = 0.95 mmol/L 0.5-2.2 0985841909) Lab Interpretation (test code = Normal 36679-6) [facility] P[facility] W WO [id number] 20:48:24CT Abdomen and Pelvis without and with intravenous contrast. CLINICAL HISTORY: Lower abdominal pain.DOSE: Up-to-date CT equipment and radiation dose reduction techniques wereemployed. CTDIvol: 6.01+6.09 mGy. DLP: 276+264 mGy-cm. TECHNIQUE : Contiguous axial imaging from the level of the lung basesthrough the pubic symphysis were performed initially without contrast andsubsequently after the uncomplicated administration of Omnipaque contrastmaterial. Coronal and sagittal reconstructions were obtained. Auto mAand/or iterative reconstruction were used to reduce radiation dose. FINDINGS: Comparison is made with 04/08/2018 CT studies. Lower lungs: Short hiatal hernia. No pleural effusion or pericardial effusion. Liver, Gallbladder and Spleen: Liver is approximately 14.3 cm in length andspleen measures9 x 3.8 cm. Several calcified granulomas are seen in thespleen and calcified granulomas also seen inthe left lobe of the liver. 1cm accessory splenule noted along the medial surface near the lower endofthe spleen. Subcentimeter low-density lesion in the left lobe of the liver isconsistent with a small cyst. No enhancing lesions detected in the liverparenchyma. No calcified gallstones. Biliary ducts and the pancreatic ductappear of normal size. Peritoneum: ?No free air or free fluid. No lymphadenopathy. Pancreas and Adrenals: ?Unremarkable pancreas and adrenal glands. Kidneys and Ureters: ?No visible calculi in the renal collecting systems. No hydroureter or hydronephrosis. No enhancing kidney lesions detected. 8mm cyst is noted in the medial cortex of upper pole of the right kidney andthere isan irregular shaped subcentimeter cystic lesion in the medialcortex of the upper pole of the left kidney. Vessels: Moderate diffuse atherosclerosis of aorta and iliac arterieswithout an aortic aneurysm. Retroperitoneum: No abnormal fluid or lymphadenopathy. Bowel: Moderate diverticulosis of the sigmoid and distal descending colonwithout any acute changes. Additional diverticula are suspected alsothrough the rest of large bowel. 12 mm density in the ascending colon islikely undissolved tablet. Normalappendix is visualized. Contrast enhanced study showed possible densely enhancing 12 mm lesion inthemid jejunal bowel loop. Bladder and Reproductive Organs: Unremarkable unopacified urinary bladder.Nogross pathology in the uterus or in the adnexa. Bones: Exaggerated lumbar lordosis with levoscoliosis, multileveldegenerative disc disease, grade 1 spondylolisthesis at L4-L5 and evidenceof lower lumbar spine surgery. Mild bilateral hip joint arthritis, slightlymore on the left side. Bilateral sacroili ac joint degenerative arthritis Soft tissues: Suspect very small fat-containing anterior paramidline/midline abdominal wall hernias at and slightly below the level ofthe umbilicus. CONCLUSION:1. Short sliding hiatal hernia. Small hernia suspected in the midline andto the left of midline at and slightly below the level of umbilicuscontaining fat.2. Diverticulosis of the sigmoid and descending colon without any acutechanges.3. Contrast enhanced study shows densely enhancing possible vascular lesionof 12 mm size in mid jejunum. [facility], Radiant Results Inft User - 06/26/2020 2:49 PM CSTCT Abdomen andPelvis without and with intravenous contrast.CLINICAL HISTORY: Lower abdominal pain.DOSE: Ua-mk-stbnGL equipment and radiation dose reduction techniques wereemployed. CTDIvol: 6.01+6.09 mGy. DLP: 276+264 mGy-cm.TECHNIQUE : Contiguous axial imaging from the level of the lung basesthrough the pubic symphysis were performed initially without contrast andsubsequently after the uncomplicated administration of Omnipaque contrastmaterial. Coronal and sagittal reconstructions were obtained. Auto mAand/or iterative reconstruction were used to reduce radiation dose.FINDINGS: Comparison is made with 04/08/2018 CT studies.Lower lungs: Short hiatal hernia. No pleural effusion or pericardialeffusion.Liver, Gallbladder and Spleen: Liver is approximately 14.3 cm in length andspleen measures 9 x 3.8 cm. Several calcified granulomas are seen in thespleen and calcified granulomas also seen in the left lobe of the liver. 1cm accessory splenule noted along the medial surface near the lower end ofthe spleen. Subcentimeter low-density lesion in the left lobe of the liver isconsistent with a small cyst. No enhancing l esions detected in the liverparenchyma. No calcified gallstones. Biliary ducts and the pancreatic ductappear of normal size.Peritoneum: No free air or free fluid. No lymphadenopathy.Pancreas and Adrenals: Unremarkable pancreas and adrenal glands.Kidneys and Ureters: No visible calculi in the renal collecting systems. No hydroureter or hydronephrosis. No enhancing kidney lesions detected. 8mm cyst is noted in the medial cortex of upper pole of the right kidney andthere is an irregular shaped subcentimeter cystic lesion in the medialcortex of the upper pole of the left kidney. Vessels: Moderate diffuse atherosclerosis of aorta and iliac arterieswithout an aortic aneurysm.Retroperitoneum: No abnorm al fluid or lymphadenopathy.Bowel: Moderate diverticulosis of the sigmoid and distal descending colonwithout any acute changes. Additional diverticula are suspected alsothrough the rest of large bowel.12 mm density in the ascending colon islikely undissolved tablet. Normal appendix is visualized.Contrast enhanced study showed possible densely enhancing 12 mm lesion inthe mid jejunal bowel loop.Bladder and Reproductive Organs: Unremarkable unopacified urinary bladder.No gross pathology in the uterusor in the adnexa.Bones: Exaggerated lumbar lordosis with levoscoliosis, multileveldegenerative disc disease, grade 1 spondylolisthesis at L4-L5 and evidenceof lower lumbar spine surgery. Mild bilateralhip joint arthritis, slightlymore on the left side. Bilateral sacroiliac joint degenerative arthritisSoft tissues: Suspect very small fat- containing anterior paramidline/midline abdominal wall hernias at and slightly below the level ofthe umbilicus.CONCLUSION:1. Short sliding hiatal hernia. Small hernia suspected in the midline andto the left of midline at and slightly below the level of umbilicuscontaining fat.2. Diverticulosis of the sigmoid and descending colon without any acutechanges.3. Contrast enhanced study shows densely enhancing possible vascular lesionof 12 mm size in mid jejunum. [facility] BRAIN WO [id number] 20:58:57 No acute intracranial abnormality. Cerebral volume loss with enlargement ofthe ventricles slightly more prominent of the temporal and parietal lobes,clinically correlate. EXAMINATION: MR BRAIN WO CONTRAST HISTORY: dementia Dementia, alzheimers probable COMPARISON: ?None TECHNIQUE: Multiplanar and multisequence MRI imaging of the brain wasobtained without contrast. FINDINGS: There are foci of increased T2/FLAIR signal in the white matter which arenonspecific but likely sequelae of chronic ischemia,at least moderate inextent.A few small foci of abnormal susceptibility in the left cerebralhemisphere, likely chronic microhemorrhages.There is enlargement of the ventricles and sulci, reflecting cerebralvolume loss. ?No acute infarct. Hyperostosis frontalis interna. ?Bilateral pseudophakia. Trace ethmoid aircell mucosal thickening. [facility], Radiant Results Inft User - 09/27/2019 2:59 PM CSTEXAMINATION: MR BRAIN WO CONTRASTHISTORY: dementia Dementia, alzheimers probable COMPARISON: NoneTECHNIQUE: Multiplanar and multisequence MRI imaging of the brain wasobtained without contrast.FINDINGS:There are foci of increased T2/FLAIR signal in the white matter which arenonspecific but likely sequelae of chronic ischemia, at least moderate inextent.A few small foci of abnormal susceptibility in the left cerebralhemisphere, likely chronic microhemorrhages.There is enlargement of the ventricles and sulci, reflecting cerebralvolume loss. No acute infarct. Hyperostosis frontalis interna. Bilateral pseudophakia. Trace ethmoid aircell mucosal thickening.IMPRESSIONNo acute intracranial abnormality. Cerebral volume loss with enlargement ofthe ventricles slightly more prominent of the temporal and parietal lobes,clinically correlate.[facility]IS2019-[facility] 11:31:00 Test Item Value Reference Range Interpretation Comments APPEARANCE (test code = Clear Clear 8694423713) COLOR (test code = Yellow Yellow 9739683634) PH (test code = 4.8-8.0 6658463251) SP GRAVITY (test code = 1.003-1.030 5970128354) GLU U QUAL (test code = Negative Negative 8525981790) BLOOD (test code = Negative Negative 9380021187) KETONES (test code = Negative Negative 4772297317) PROTEIN (test code = Negative Negative 2887-8) UROBILIN (test code = 0.2 mg/dL See_Comment [Auto mated message] 0942068369) The system [employer] generated this result transmit ghazal reference range : 0-1.0 mg/dL. Th e reference range was not used to interpret this result as normal/abnormal . BILIRUBIN (test code = Negative Negative 2671029202) NITRITE (test code = Negative Negative 3804081243) LEUK CHARLENE (test code = Negative Negative 1630652950) RBC/HPF (test code = See_Comment [Autom ated message] 7725344947) The system [employer] generated this result transmit ghazal reference range : 0 - 3 HPF. The refe rence range was not u sed to interpret th is result as normal/abnormal . WBC/HPF (test code = See_Comment [Autom ated message] 5599684826) The system [employer] generated this result transmit ghazal reference range : 0 - 5 HPF. The refe rence range was not u sed to interpret th is result as normal/abnormal . BACTERIA (test code = Few Negative A 9908957293) SQ EPITH (test code = HPF 6012186036) Lab Interpretation (test Abnormal code = 96321-2) [facility] 1 [id number] 10:58:10 No radiographic cardiopulmonary disease. RL: [id number] ORDERING PHYSICIAN:SAMUEL HILL CLINICAL HISTORY: Palpitations TECHNIQUE: Frontal view of chest COMPARISON: None available. FINDINGS: The cardiac silhouette is mildly enlarged.?Lungs are clear. Osseous structures are normal. [facility], Radiant Re sults Inft User - 04/09/2019 6:01 AM CDTORDERING PHYSICIAN: JACQUI BALBUENAMACLINICAL HISTORY: PalpitationsTECHNIQUE: Frontal view of chestCOMPARISON: None available.FINDINGS:The cardiac silhouette is mildly enlarged. Lungs are clear. Osseous structures are normal. IMPRESSIONNo radiographic cardiopulmonary disease.RL: [id number] CenterPROTHROMBIN TIME / INR 2019-04-09 10:52:00 Test Item Value Reference Range Interpretation Comments PROTIME PATIENT (test See_Comment [Auto mated message] code = 5964-2) The system zerved ich generated this result transmitted ref erence range: 12.0 - 1 4.7 Seconds. The re ference range was not u sed to interpret this result as normal/abnor mal. INR (test code = 6301-6) Nor mal INR <1.1; Warfarin Therap eutic range 2.0 to 3. 0 or 2.5 to 3.5, dep ending upon the indica tions. Lab Interpretation (test Normal code = 54790-4) [facility] HospitalTHYROID STIMULATING [id number] 10:51:00 Test Item Value Reference Range Interpretation Comments TSH (test code = See_Comment H [Automated message] 7649854712) The system [employer] h generated this result transmitted ref erence range: 0.45 - 4 .70 mIU/L. The refe rence range was not u sed to interpret this result as normal/abnor mal. Lab Interpretation (test Abnormal code = 79716-6) [facility] HospitalTROPONIN [id number] 10:34:00 Test Item Value Reference Range Interpretation Comments TROPONIN I (test <0.012 See_Comment [Automated code = 5054564274) message] The system which generated this result transmitted reference range : <=0.034 ng/mL. The reference range was not used to interpr et this result as normal/abnormal . GABRIELE (test code = Equal or Less than GABRIELE) 0.034 ng/ml---Normal?Not e: Cardiac troponin begins to rise 3-4 hours after the onset of ischemia. Repeat in 4-6 hours if the sample was drawn within 3-4 hours of the onset of the symptom and found normal. Between 0.035 and 0.120 ng/mL--- Borderline. Questionable myocardial injury or necrosis?Note: Serial measurement may be necessary to confirm or exclude the diagnosis of myocardial injury or necrosis; Clinical correlation (symptoms, EKGs, imaging studies, and others) required; Repeat in 4-6 hours if clinically indicated.? Equal or Higher than 0.121 ng/mL---Abnormal. Myocardial Injury or Necrosis Likely? Biotin has been reported to cause a negative bias, interpret results relative to patient's use of biotin.? ? Lab Interpretation Normal (test code = 72958-5) [facility]AL [id number] 10:31:00 Test Item Value Reference Range Interpretation Comments NT-proBNP (test code 648 pg/mL See_Comment H [Autom ated = 6059385193) message] The system which generated this result transmitted reference range : <=450. The reference range was not used to interpret this result as normal/abnormal . GABRIELE (test code = GABRIELE) Biotin has been reported to cause a negative bias, interpret results relative to patient's use of biotin. Lab Interpretation Abnormal (test code = 58007-8) [facility]IUM2019-08-31 10:30:00 Test Item Value Reference Range Interpretation Comments MAGNESIUM (test code = 1526954229) 2.1 mg/dL 1.7-2.4 Lab Interpretation (test code = Normal 94502-2) [facility] ([id number])2019-04-09 10:30:00 Test Item Value Reference Range Interpretation Comments NA (test code = 145 mmol/L 135-145 9707514216) K (test code = 3.8 mmol/L 3.5-5 8308745023) CL (test code = 106 mmol/L 98-108 4709043903) CO2 TOTAL (test code = 29 mmol/L 23-31 7653099375) AGAP (test code = 2-16 0592800467) BUN (test code = 17 mg/dL 7-23 9240268820) GLUCOSE (test code = 118 mg/dL 70-110 H 2894302200) CREATININE (test code = 0.73 mg/dL 0.5-1.04 6126814823) TOTAL BILI (test code = 0.4 mg/dL 0.1-1.5 1037751076) CALCIUM (test code = 9.3 mg/dL 8.6-10.6 0258845080) T PROTEIN (test code = 7.9 g/dL 6.3-8.2 7553890360) ALBUMIN (test code = 4.2 g/dL 3.5-5 5335708734) ALK PHOS (test code = 66 U/L 34-122 4917287169) ALT(SGPT) (test code = 21 U/L 9-51 9912549715) AST(SGOT) (test code = 27 U/L 13-40 0951575421) eGFR Calculation mL/min/1.73m2 (Non-) (test code = 9345586099) eGFR Calculation mL/min/1.73m2 () (test code = 6636073591) GABRIELE (test code = GABRIELE) Association of Glomerular Filtration Rate (GFR) and Staging of Kidney Disease*+ + + +| GFR (mL/min/1.73 m2)?| With Kidney Damage?|?Without Kidney Damage+ --------+ --------+ +|?>90?|?S tage one?|? Normal?+ ---------+ ---------+ +|?60-89? |?Stage two?|? Decreased GFR? + --+ --+ ------+|?30-59?|?Stage three?|? Stage three? + --+ --+ ------+|?15-29?|?Stage four? |? Stage four?+ -------+ -------+ +|?<15 (or dialysis)?|?Stage five? |? Stage five?+ -------+ -------+ +*Each stage assumes the associated GFR level has been in effect for at least three months.?Stages 1 to 5, with or without kidney disease, indicate chronic kidney disease.Notes: Determination of stages one and two (with eGFR >59mL/min/1.73 m2) requires estimation of kidney damage for at least three months as defined by structural or functional abnormalities of the kidney, manifested by either:Pathological abnormalities or Markers of kidney damage (including abnormalities in the composition of the blood or urine or abnormalities in imaging tests). Lab Interpretation Abnormal (test code = 16643-9) [facility] WITH [id number] 10:03:00 Test Item Value Reference Range Interpretation Comments WBC (test code = See_Comment [Automated message] 6690-2) The system [employer] generated this result transmitted ref erence range: 4.30 - 1 1.10 10*3/?L. The re ference range was not u sed to interpret this result as normal/abnor mal. RBC (test code = See_Comment [Automated message] 789-8) The system [employer] generated this result transmitted ref erence range: 3.93 - 5 .25 10*6/?L. The re ference range was not u sed to interpret this result as normal/abnor mal. HGB (test code = 12.9 g/dL 11.6-15 718-7) HCT (test code = 38.8 % 35.7-45.2 4544-3) MCV (test code = 86.6 fL 80.6-95.5 787-2) MCH (test code = 28.8 pg 25.9-32.8 785-6) MCHC (test code = 33.2 g/dL 31.6-35.1 786-4) RDW-SD (test code 42.9 fL 39-49.9 = 05932-1) RDW-CV (test code 13.6 % 12-15.5 = 788-0) PLT (test code = See_Comment [Automated message] 777-3) The system [employer] generated this result transmitted ref erence range: 166 - 35 8 10*3/?L. The re ference range was not u sed to interpret this result as normal/abnor mal. MPV (test code = 10.8 fL 9.5-12.9 46190-3) NRBC/100 WBC (test See_Comment [Automat ed message] code = 0652338986) The syste m which generated this result transmitted ref erence range: 0.0 - 10 .0 /100 WBCs. The refer ence range was not u sed to interpret this result as normal/abnor mal. NRBC x10^3 (test <0.01 See_Comment [Automated message] code = 0701468672) The syste m which generated this result transmitted ref erence range: 10*3/?L. The reference range was not used to interpr et this result as normal/abnormal . GRAN MAT (NEUT) % 58.5 % (test code = 770-8) IMM GRAN % (test 0.30 % code = 0436481671) LYMPH % (test code 26.0 % = 736-9) MONO % (test code 11.6 % = 5905-5) EOS % (test code = 2.9 % 713-8) BASO % (test code 0.7 % = 706-2) GRAN MAT 3.57 10*3/uL 1.88-7.09 x10^3(ANC) (test code = 9835060093) IMM GRAN x10^3 <0.03 0-0.06 (test code = 0318247022) LYMPH x10^3 (test 1.59 10*3/uL 1.32-3.29 code = 731-0) MONO x10^3 (test 0.71 10*3/uL 0.33-0.92 code = 742-7) EOS x10^3 (test 0.18 10*3/uL 0.03-0.39 code = 711-2) BASO x10^3 (test 0.04 10*3/uL 0.01-0.07 code = 704-7) [facility]"
== END 2021-06-13 13:47 | disposition home or self-care (01) ==
LOC: ER 10:29
PROC: 2W3DX1Z Immobilization of Left Lower Arm using Splint (ICD-10-PCS; principal; 2021-06-13)
DX: S62.343A Nondisplaced fracture of base of third metacarpal bone, left hand, initial encounter for closed fracture (principal); S62.345A Nondisplaced fracture of base of fourth metacarpal bone, left hand, initial encounter for closed fracture; S62.347A Nondisplaced fracture of base of fifth metacarpal bone, left hand, initial encounter for closed fracture; S92.345A Nondisplaced fracture of fourth metatarsal bone, left foot, initial encounter for closed fracture; W18.2XXA Fall in (into) shower or empty bathtub, initial encounter; I10 Essential (primary) hypertension; F03.90 Unspecified dementia, unspecified severity, without behavioral disturbance, psychotic disturbance, mood disturbance, and anxiety; Z88.2 Allergy status to sulfonamides
CPT/HCPCS: 71045; 99284

== ENCOUNTER 2021-06-20 06:17 | Day surgery (SDC) | payer OTHER ==
[2021-06-20 07:02] LABS: Absolute Lymphocytes (CBC) 1.6 K/uL (0.7-4.9); Basophils % 0.9 % (0-1.3); Hematocrit 34.9 % (36.0-45.0); Lymphocytes % 21.6 % (15.3-44.8); MPV 8.5 fL (7.6-11.3); RBC Red Blood Cell Count 4.11 M/uL (3.86-4.86)
[2021-06-20 07:17] LABS: Potassium 3.9 mmol/L (3.5-5.1)
[2021-06-20] MEDS ORDERED: CEFAZOLIN/NS 1gm 1 GM/50 ML BAG ONE (07:27)
[2021-06-20] MEDS ORDERED: Ringers Lactate 1,000 ML IV ONE (07:27)
[2021-06-20] MEDS ORDERED: NS 0.9% VIAL 10 ML ONE ×2 (07:44→09:02)
[2021-06-20] MEDS ORDERED: dexAMETHasone 10 MG/ML VIAL ONE (09:02)
[2021-06-20] MEDS ORDERED: FENTANYL CITR 100 MCG/2 ML ONE (09:02)
[2021-06-20] MEDS ORDERED: ROPLVACAINE HCL 40 ML ONE (09:02)
[2021-06-20] MEDS ORDERED: LIDOCAINE 1% MPF 5 ML VIAL ONE (09:02)
[2021-06-20] MEDS ORDERED: propofoL 200 MG/20 ML VIAL IV ONE (09:03)
[2021-06-20 09:22] LABS: Urine Appearance CLEAR (Clear); Urine Bilirubin NEGATIVE (Negative); Urine Blood NEGATIVE (Negative); Urine Color YELLOW (Yellow); Urine Glucose NEGATIVE (Negative); Urine Microscopic Reflex ORDER UMIC; Urine Protein NEGATIVE (Negative); Urine Urobilinogen 0.2 mg/dL (0.2-1.0)
[2021-06-20 09:33] LABS: Urine Bacteria <20 /HPF (<20); Urine RBC <5 /HPF (NONE SEEN)
--- NOTE | 2021-06-20 09:34 | RAD REPORT ---
EXAM DESCRIPTION: RAD - Chest Pa And Lat (2 Views) - 06/20/2021 7:08 am CLINICAL HISTORY: PRE-OP COMPARISON: Chest Single View dated 06/13/2021; Chest Single View dated 07/04/2019 FINDINGS: Lines: None. Lungs: No evidence of edema or pneumonia. Calcified nodule left mid lung. Pleural: No significant pleural effusions or pneumothorax. Cardiac: The heart size is within normal limits. Bones: No acute fractures. Scattered degenerative changes are present in the spine. Other: IMPRESSION: No acute cardiopulmonary disease.
[2021-06-20] MEDS ORDERED: HYDROCODONE/APAP 7.5/325 MG TAB ONE (10:27)
[2021-06-20 11:13] VITALS: BP 157/54; TEMP 98; O2SAT 100
--- NOTE | 2021-06-20 11:25 | RAD REPORT ---
EXAM DESCRIPTION: RAD - Fluoroscopy <1 Hour - 06/20/2021 9:18 am CLINICAL HISTORY: PINNING OF METACARPAL COMPARISON: Wrist Left 3 View dated 06/13/2021 FINDINGS/IMPRESSION: Eighteen intraoperative fluoroscopic images were submitted showing placement of 2 K-wires across the fourth metacarpal fracture.
--- NOTE | 2021-06-21 20:40 | EKG ---
Test Date: 2021-06-20 Test Time: 06:45:12 Milling Operator: JESSICA MEASUREMENT RESULTS: Intervals: Rate: 59 WV: 206 QRSD: 78 QT: 476 QTc: 471 [place]: P: 34 WV: 206 QRS: -16 T: 138 INTERPRETIVE STATEMENTS: Sinus bradycardia Voltage criteria for left ventricular hypertrophy Inferior infarct, age undetermined ST & T wave abnormality, consider lateral ischemia Abnormal ECG Compared to ECG 07/04/2019 09:46:24 Left ventricular hypertrophy now present ST (T wave) deviation now present Possible ischemia now present Sinus rhythm no longer present Ventricular premature complex(es) no longer present Prolonged QT interval no longer present Myocardial infarct finding still present Electronically Signed On 06-21-21 20:35:26 VP OUTCOMES by Vini Aceves
--- NOTE | 2021-06-24 12:31 | OP ---
Surgeon: Federico Petersen MD Preoperative Diagnosis: Fracture of 3rd, 4th, and 5th left metacarpal. Postoperative Diagnosis: Fracture of 3rd, 4th, and 5th left metacarpal. Procedure: Percutaneous pinning of the 4th metacarpal and splint. Anesthesia: Block. Procedure In Detail: After satisfactory block, the left arm was prepped with Betadine scrub and Beta dine paint. Dry sterile drapes were placed in usual manner. Arm was elevated, exsanguinated with an Esmarch, tourniquet inflated to 250 mmHg. With C-arm guidance, the fracture was reduced. The fract ure of the 4th was oblique. The 3rd and 5th were not, and they were stable. 0.035 K-wires were plac ed from distal to proximal with C-arm guidance reducing the fracture and holding out to length and co rrected rotation. The C-arm revealed adequate reduction. Tourniquet released. Dressed with Xerofor m, 2-inch Annette, Kerlix, and a splint holding the wrist at 10 degrees of dorsiflexion, MCP at 90, PIP , DIP at 0. The patient tolerated the procedure well and returned to Recovery. ARTHUR/FELICIA Voice ID: [id number] Report ID: [id number]
== END 2021-06-20 10:45 | disposition home or self-care (01) ==
LOC: OR 06:17
PROVIDERS: ATTEND Specialist
PROC: 0PSQ34Z Reposition Left Metacarpal with Internal Fixation Device, Percutaneous Approach (ICD-10-PCS; principal; 2021-06-20 08:00)
DX: S62.303A Unspecified fracture of third metacarpal bone, left hand, initial encounter for closed fracture (principal); S62.305A Unspecified fracture of fourth metacarpal bone, left hand, initial encounter for closed fracture; S62.307A Unspecified fracture of fifth metacarpal bone, left hand, initial encounter for closed fracture; Z20.822 Contact with and (suspected) exposure to COVID-19
CPT/HCPCS: 93005; 87088; 85025; 87086; 80048; 36415; 71046; 26608; U0003; J2704; J3010; J1100; J2795; J0690; J7120; 76000; 81003; 81015

== ENCOUNTER 2022-07-24 11:40 | Emergency (ER) | payer OTHER ==
--- OUTSIDE RECORDS SUMMARY | 2022-07-24 11:44 | XMS REPORT | Continuity of Care Document ---
:1935 Author Organization [facility] t Address [address] [place] [address] Dr. [address]. [address] [place] [address] Care Team Providers Name Role Phone Tiki BECKMAN, Jose Primary Care Physician JUAN MUNOZ Attending Clinician Unavailable JUAN MUNOZ Attending Clinician Unavailable Juan Munoz MD Attending Clinician XIOMARA GUERRA Attending Clinician Unavailable Xiomara Guerra MD Attending Clinician Wilson Vidales Attending Clinician Doctor Unassigned, Kief Attending Clinician Unavailable 2, [facility] Attending Clinician Unavailable Haley Hill MD Attending Clinician Garrett Dover Attending Clinician XIOMARA GUERRA Admitting Clinician Unavailable JUAN MUNOZ Admitting Clinician Unavailable Payers Payer Name Policy Type Policy Number Effective Date Expiration Date S polly MEDICARE PART A [id number] 2000 \T\ B 00:00:00 FOR LIFE [id number] 2016 00:00:00 FOR LIFE [id number] 2021 00:00:00 Problems Condition Condition Condition Status Onset Resolution Last Treating Co mments Source Name Details Category Date Date Treatment Clinician Date F/U F/U Diagnosis Active 2017-05-08 Mem oria Active 03-31 14:40:00 l 03/31/2017 00:00: Raman diaz [address] C-DIFF C-DIFF Diagnosis Active 2017-03-24 Me moria Active 03-04 13:36:00 l 03/04/2017 00:00: Raman diaz [address] No known No known Disease Unive rs active active ity of problems problems [facility] Anxiety Anxiety Problem Active 2017-05-08 Me morichrista (finding) (finding) 00:30:32 l Active [place] Problem 05/08/2017 [facility] Arthritis Arthritis Problem Active 2017-05-08 Memoria (disorder) (disorder) 00:30:32 l Active [place] Problem 05/08/2017 [facility] Weight Weight Problem Active 2017-05-08 Arthur edy loss loss 00:30:32 l finding finding [place] (finding) (finding) Active Problem 05/08/2017 [facility] ENCNTR FOR ENCNTR Diagnosis Active 2017-05-08 Memoria GENERAL FOR 14:40:00 l ADULT GENERAL [place] MEDICAL ADULT EXAM W/ MEDICAL EXAM W/ Active [facility] Abdominal Abdominal Problem Active 2017-05-08 Memoria bloating bloating 00:30:32 l (finding) (finding) Herm boo Active Problem 05/08/2017 [facility] Allergies, Adverse Reactions, Alerts Allergy Allergy Status Severity Reaction(s) Onset Inactive Treating Comm ents Source Name Type Date Date Clinician Mesna - Propensi Active Intraven ty to 7-06 ous adverse 00:00: reaction 00 to drug Crestor Propensi Active - Oral ty to 6-27 adverse 00:00: reaction 00 to drug Crestor Propensi Active ty to 2-10 adverse 00:00: reaction 00 to drug Adhesive Propensi Active Itching 2019-0 Unive rs ty to 1-10 ity of adverse 00:00: [place] reaction 00 Medical s Branch ADHESIVE Drug Active ITCHING 2019-0 Univers Class 1-10 ity of 00:00: [place] 00 Medical Branch Adhesive Propensi Active Itching 2019-0 Unive rs ty to 1-10 ity of adverse 00:00: [place] reaction 00 Medical s Branch Sulfa Propensi Active Swelling Univer s (Sulfona ty to 5-07 ity of mide adverse 00:00: [place] Antibiot reaction 00 Medica l ics) s Branch SULFA Drug Active Swelling 2017- Univers (SULFONA Class 5-07 ity of MIDE 00:00: [place] ANTIBIOT 00 Medical ICS) Branch sulfa sulfa Active Memoria drugs drugs l [place] Tape Tape Active Memoria l [place] Social History Social Habit Start Date Stop Date Quantity Comments Source History SDNM University o f Alcohol Comment [place] [facility] History [facility] o f Alcohol Std [place] [facility] History [facility] o f Alcohol Binge [place] [facility] Exposure to 2022-01-25 2022-02-04 Not sure University of SARS-CoV-2 00:00:00 15:15:00 [facility] (event) Branch Alcohol intake 2022-02-04 2022-02-04 Lifetime University of 00:00:00 00:00:00 non-drinker [facility] (finding) Branch History SDOH 2019-08-19 2019-08-19 1 University o f Alcohol Frequency 00:00:00 00:00:00 [facility] edical [place] Tobacco use and 2018-04-23 2018-04-23 Smokeless tobacco Un iversity of exposure 00:00:00 00:00:00 non-user [facility] Social History 2017-03-24 2017-03-24 [facility] Olivia jia 18:56:04 18:56:04 Sex [birth year] Universit y of 00:00:00 00:00:00 [facility] Smoking Status Start Date Stop Date Source Never smoked tobacco [facility] [place] [facility] Medications Ordered Filled Start Stop Current Ordering Indication Dosage Frequency Signature Comments Components Source Medication Medication Date Date Medication? Clinician (SIG) Name Name &lt 0 No 150 7- 00:00: 00 &lt 2021-0 No 100 7- 00:00: 00 &lt 2021-0 No 7- 00:00: 00 &lt 2021-0 No 100 02-13 00:00: 00 TAKE 1 2021-0 No 4 TABLET BY 02-12 MOUTH TWICE 00:00: DAILY 00 galantamine Yes [id number] 8mg Take 1 Univers 8 mg tablet 6-28 tablet by ity of 00:00: mouth 2 [place] [address] (two) Medical times Branch daily. galantamine 2022-0 Yes [id number] 8mg Take 1 Univers 8 mg tablet 6-28 tablet by ity of 00:00: mouth 2 00 (two) Medical times Branch daily. galantamine 2021-0 Yes [id number] 8mg Take 1 Univers 8 mg tablet 6-28 tablet by ity of 00:00: mouth 2 00 (two) Medical times Branch daily. galantamine 2021-0 Yes [id number] 8mg Take 1 Univers 8 mg tablet 6-28 tablet by ity of 00:00: mouth 2 [place] (two) Medical times Branch daily. Dose 2021-0 No Unknown 02-03 00:00: 00 galantamine 2021-0 2022- No 8mg Take 1 Uni vers 8 mg tablet 01-14 tablet by it y of 00:00: 00:00 mouth 2 00 :00 (two) Medical times Branch daily. galantamine 2021-0 2022- No 8mg Take 1 Uni vers 8 mg tablet 01-14 tablet by it y of 00:00: 00:00 mouth 2 [place] 00 :00 (two) Medical times Branch daily. cloNIDine 0 Yes .1mg Take 0.1 Univ ers 0.1 mg 5-13 mg by ity of tablet 00:00: mouth 00 daily. Medical Branch cloNIDine 2021-0 Yes .1mg Take 0.1 Univ ers 0.1 mg 5-13 mg by ity of tablet 00:00: mouth 00 daily. Medical Branch cloNIDine 2021-0 Yes .1mg Take 0.1 Univ ers 0.1 mg 5-13 mg by ity of tablet 00:00: mouth 00 daily. Medical Branch cloNIDine 2021-0 Yes .1mg Take 0.1 Univ ers 0.1 mg 5-13 mg by ity of tablet 00:00: mouth 00 daily. Medical Branch amlodipine 2020-08 No 1mg 5 mg tablet 1-30 00:00: 00 levothyroxi 2020-08 No 5mcg ne 25 mcg 1-30 tablet 00:00: 00 gabapentin 2020- No 1mg 100 mg 1-30 capsule 00:00: 00 HYDROcodone 2020-08 Yes Univer s -acetaminop 1-10 ity of hen 5-325 00:00: [place] mg tablet 00 Medical Branch HYDROcodone 2021-1 Yes Univer s -acetaminop 1-10 ity of hen 5-325 00:00: [place] mg tablet 00 Medical Branch HYDROcodone 2020-1 Yes Univer s -acetaminop 1-10 ity of hen 5-325 00:00: [place] mg tablet 00 Medical [place] HYDROcodone 2020-1 Yes Univer s -acetaminop 1-10 ity of hen 5-325 00:00: [place] mg tablet 00 [facility] Branch galantamine 1-0 No 1mg 4 mg tablet 7-06 00:00: 00 gabapentin 2021-0 No 1mg 100 mg 7-06 capsule 00:00: 00 gabapentin 2021-0 Yes Univers 100 mg 7-06 ity of capsule 00:00: [address] gabapentin 2021-0 Yes Univers 100 mg 7-06 ity of capsule 00:00: [address] gabapentin 1-0 Yes Univers 100 mg 7-06 ity of capsule 00:00: [address] gabapentin 2021-0 Yes Univers 100 mg 7-06 ity of capsule 00:00: [address] desipramine 1-0 Yes Univer s 10 mg 5-14 ity of tablet 00:00: [address] desipramine 1-0 Yes Univer s 10 mg 5-14 ity of tablet 00:00: [address] desipramine 1-0 Yes Univer s 10 mg 5-14 ity of tablet 00:00: [address] desipramine 1-0 Yes Univer s 10 mg 5-14 ity of tablet 00:00: [address] levothyroxi 2020-0 No 5mcg ne 25 mcg 5-11 tablet 00:00: 00 Monistat 3 2020-0 No 1mg/5 200 mg/5 5-04 gram (4 gram (4 %) 00:00: %) vaginal 00 cream Monistat 3 2020-0 No 1mg/5 200 mg/5 5-04 gram (4 gram (4 %) 00:00: %) vaginal 00 cream losartan 2020-0 No 1mg 100 mg 5-04 tablet 00:00: 00 amlodipine 1-0 No 1mg 5 mg tablet 5-04 00:00: 00 Diflucan 1-0 No 1mg 150 mg 5-04 tablet 00:00: 00 Diflucan 2020-0 No 1mg 150 mg 5-04 tablet 00:00: 00 levothyroxi 2020-0 No 5mcg ne 25 mcg 5-04 tablet 00:00: 00 rivastigmin 2020-0 2021- No Unive rs e 4.6 mg/24 11-06 ity of hour patch 00:00: 00:00 [place] 00 :00 Medical Branch rivastigmin 2020-0 2021- No Unive rs e 4.6 mg/24 11-06 ity of hour patch 00:00: 00:00 [place] 00 :00 Medical Branch cholecalcif 2020-0 Yes Take by Uni vers ana lilia, 3-26 mouth. ity of vitamin D3, 11:07: [place] 25 mcg 30 Medical (1,000 Branch unit) tablet cholecalcif 2020-0 Yes Take by Uni vers ana lilia, 3-26 mouth. ity of vitamin D3, 11:07: [place] 25 mcg 30 Medical (1,000 Branch unit) tablet cholecalcif 2020-0 Yes Take by Uni vers ana lilia, 3-26 mouth. ity of vitamin D3, 11:07: [place] 25 mcg 30 Medical (1,000 Branch unit) tablet cholecalcif 2020-0 Yes Take by Uni vers ana lilia, 3-26 mouth. ity of vitamin D3, 11:07: [place] 25 mcg 30 Medical (1,000 Branch unit) tablet levothyroxi 2020-0 No 5mcg ne 25 mcg 2-01 tablet 00:00: 00 losartan 1-0 No 1mg 100 mg 1-18 tablet 00:00: 00 losartan 1-0 No 1mg 100 mg 1-18 tablet 00:00: 00 levothyroxi 1-0 No 5mcg ne 25 mcg 1-18 tablet 00:00: 00 levothyroxi 2020-0 No 5mcg ne 25 mcg 1-18 tablet 00:00: 00 lactulose 2020-0 No 15(15 10 gram/15 9-29 mL) mL (15 mL) 00:00: oral 00 solution losartan 2020-0 No 1mg 100 mg 7-24 tablet 00:00: 00 famotidine 2020-0 No 1mg 40 mg 7-24 tablet 00:00: 00 amlodipine 2019-0 No 1mg 5 mg tablet 7-24 00:00: 00 levothyroxi 2020-0 No 5mcg ne 25 mcg 7-24 tablet 00:00: 00 levothyroxi 2020-0 No 5mcg ne 25 mcg 5-28 tablet 00:00: 00 furosemide 2020-0 No 1mg 20 mg 5-13 tablet 00:00: 00 amlodipine 2019-0 No 1mg 5 mg tablet 5-13 00:00: 00 furosemide 2020-0 No 1mg 20 mg 5-13 tablet 00:00: 00 amlodipine 2019-0 No 1mg 5 mg tablet 5-13 00:00: 00 sotalol 80 2019-0 No 1mg mg tablet 5-13 00:00: 00 Simethicone 2019-0 Yes Take by Uni vers (PHAZYME) 3-13 mouth. ity of 180 mg Cap 14:26: [address] Simethicone 2020-0 Yes Take by Uni vers (PHAZYME) 3-13 mouth. ity of 180 mg Cap 14:26: [address] Simethicone 2020-0 Yes Take by Uni vers (PHAZYME) 3-13 mouth. ity of 180 mg Cap 14:26: [address] Simethicone 2020-0 Yes Take by Uni vers (PHAZYME) 3-13 mouth. ity of 180 mg Cap 14:26: [address] sotalol 80 2019-0 No 5mg mg tablet 2-10 00:00: 00 magnesium 2019-0 No 1mg oxide 400 2-10 magnesi mg (241.3 00:00: um) mg 00 magnesium) tablet Vitamin D3 2019-0 No 1(5,000 125 mcg 2-10 unit) (5,000 00:00: unit) 00 tablet levothyroxi 2019-0 No 5mcg ne 25 mcg 2-10 tablet 00:00: 00 Florastor 2019-0 No 1mg 250 mg 2-10 capsule 00:00: 00 Repatha 2019-0 No 1mg/mL Syringe 140 2-10 mg/mL 00:00: subcutaneou 00 s syringe lactulose 2019-0 No 30gram/ 10 gram/15 2-10 15 mL mL oral 00:00: solution 00 amlodipine 2019-0 No 1mg 5 mg tablet 2-10 00:00: 00 famotidine 2019-0 No 1mg 40 mg 2-10 tablet 00:00: 00 furosemide 2020-0 No 1mg 20 mg 2-10 tablet 00:00: 00 losartan 2020-0 No 1mg 100 mg 2-10 tablet 00:00: 00 sotalol 80 2020-0 Yes 80mg Take 80 mg U nivers mg tablet 1-10 by mouth ity of 14:46: daily. [address] Branch amLODIPine 2020-0 Yes 10mg Take 10 mg U nivers 5 mg tablet 1-10 by mouth ity of 14:46: daily. [place] [address] Medical Branch losartan 2020-0 Yes 100mg Take 100 Univ ers 100 mg 1-10 mg by ity of tablet 14:46: mouth [place] [address] daily. Medical Branch ranitidine 2020-0 Yes 150mg Take 150 Un valdemar 150 mg 1-10 mg by ity of tablet 14:46: mouth at [place] [address] bedtime. Medical Branch lactulose 2020-0 Yes 15mL Take 15 mL Un valdemar 10 gram/15 1-10 by mouth ity o f mL solution 14:46: daily. [address] sotalol 80 2020-0 Yes 80mg Take 80 mg U nivers mg tablet 1-10 by mouth ity of 14:46: daily. [address] amLODIPine 2020-0 Yes 10mg Take 10 mg U nivers 5 mg tablet 1-10 by mouth ity of 14:46: daily. [address] losartan 2020-0 Yes 100mg Take 100 Univ ers 100 mg 1-10 mg by ity of tablet 14:46: mouth [place] [address] daily. Medical Branch ranitidine 2020-0 Yes 150mg Take 150 Un valdeamr 150 mg 1-10 mg by ity of tablet 14:46: mouth at [place] [address] bedtime. Medical Branch lactulose 2020-0 Yes 15mL Take 15 mL Un valdemar 10 gram/15 1-10 by mouth ity o f mL solution 14:46: daily. [address] sotalol 80 2020-0 Yes 80mg Take 80 mg U nivers mg tablet 1-10 by mouth ity of 14:46: daily. [address] amLODIPine 2020-0 Yes 10mg Take 10 mg U nivers 5 mg tablet 1-10 by mouth ity of 14:46: daily. [address] losartan 2020-0 Yes 100mg Take 100 Univ ers 100 mg 1-10 mg by ity of tablet 14:46: mouth [place] [address] daily. Medical Branch ranitidine 2020-0 Yes 150mg Take 150 Un valdemar 150 mg 1-10 mg by ity of tablet 14:46: mouth at [place] [address] bedtime. Medical Branch lactulose 2020-0 Yes 15mL Take 15 mL Un valdemar 10 gram/15 1-10 by mouth ity o f mL solution 14:46: daily. [address] sotalol 80 2019-0 Yes 80mg Take 80 mg U nivers mg tablet 1-10 by mouth ity of 14:46: daily. [address] amLODIPine 2019-0 Yes 10mg Take 10 mg U nivers 5 mg tablet 1-10 by mouth ity of 14:46: daily. [address] losartan 2019-0 Yes 100mg Take 100 Univ ers 100 mg 1-10 mg by ity of tablet 14:46: mouth [place] [address] daily. Medical Branch ranitidine 0 Yes 150mg Take 150 Un valdemar 150 mg 1-10 mg by ity of tablet 14:46: mouth at [place] [address] bedtime. Medical Branch lactulose 0 Yes 15mL Take 15 mL Un valdemar 10 gram/15 1-10 by mouth ity o f mL solution 14:46: daily. [address] furosemide 2018-08 Yes Univers 20 mg 2-20 ity of tablet 00:00: [address] furosemide 2018- Yes Univers 20 mg 2-20 ity of tablet 00:00: [address] furosemide 2018-08 Yes Univers 20 mg 2-20 ity of tablet 00:00: [address] furosemide 2018- Yes Univers 20 mg 2-20 ity of tablet 00:00: [address] famotidine 2018- Yes Univers 40 mg 1-21 ity of tablet 00:00: [address] famotidine 2018-08 Yes Univers 40 mg 1-21 ity of tablet 00:00: [address] famotidine 2018-08 Yes Univers 40 mg 1-21 ity of tablet 00:00: [address] famotidine 2018-08 Yes Univers 40 mg 1-21 ity of tablet 00:00: [address] REPATHA 2018-08 Yes Univers SURECLICK 1-14 ity of 140 mg/mL 00:00: [address] REPATHA 2018-08 Yes Univers SURECLICK 1-14 ity of 140 mg/mL 00:00: [place] [facility]nI[facility] Medical Branch REPATHA 2018- Yes Univers SURECLICK 1-14 ity of 140 mg/mL 00:00: [place] PnIj Medical Branch REPATHA 2018- Yes Univers SURECLICK 1-14 ity of 140 mg/mL 00:00: [place] PnIj 00 Medical Branch diltiazem 2 Yes Apply to Un valdemar % cream 7-31 affected ity of 00:00: area(s) 3 [place] 00 (three) Medical times Branch daily. diltiazem 2 Yes Apply to Un valdemar % cream 7-31 affected ity of 00:00: area(s) 3 [place] 00 (three) Medical times Branch daily. diltiazem 2 Yes Apply to Un valdemar % cream 7-31 affected ity of 00:00: area(s) 3 [place] 00 (three) Medical times Branch daily. diltiazem 2 Yes Apply to Un valdemar % cream 7-31 affected ity of 00:00: area(s) 3 [place] 00 (three) Medical times Branch daily. levothyroxi 2016- Yes Univer s ne 25 mcg 1-08 ity of tablet 00:00: [place] Medical [facility] levothyroxi 2016- Yes Univer s ne 25 mcg 1-08 ity of tablet 00:00: [place] Medical [facility] levothyroxi 2016- Yes Univer s ne 25 mcg 1-08 ity of tablet 00:00: [place] Medical [facility] levothyroxi 2016- Yes Univer s ne 25 mcg 1-08 ity of tablet 00:00: [place] [address] Medical Branch fidaxomicin 2017 Yes 200 mg = 1 Memoria 200 MG Oral 9-26 tab, PO, l Tablet 19:22: BID, # 20 Raman n [Dificid] 00 tab, 0 Refill(s), Pharmacy: [facility] [id number] fidaxomicin Yes 200 mg = 1 Memoria 200 MG Oral 9-26 tab, PO, l Tablet 19:17: BID, X 10 Raman n [Dificid] 00 day, # 20 tab, 0 Refill(s), Pharmacy: [facility] EnteraGam Yes Me Micki moria 8-16 See l 15:15: Christy Campa 00 ns, Faxed order to the [facility] on 03/25/17., # 2 box, Refill(s) 11, other EnteraGam Yes Me Micki moria 8-15 See l 20:41: Christy Campa 00 ns, Lot # [id number] exp date 08/29, # 1 box, Refill(s) 0, given to patient losartan Yes 100 mg = 1 Mem oria 100 mg oral 8-15 tab, PO, l tablet 18:56: Daily, # [place] 00 30 tab, 0 Refill(s) Amlodipine Yes 1 cap, PO, M emoria 5 MG / 8-15 Daily, # l Benazepril 18:56: 30 cap, 0 He rmann hydrochlori 00 Refill(s) de 10 MG Oral Capsule aspirin 81 Yes 81 mg = 1 Me moria mg tablet, 8-15 tab, PO, l enteric 18:56: Daily, # Raman n coated 00 90 tab, 3 Refill(s) Ranitidine Yes 150 mg = 1 M emoria 150 MG Oral 8-15 cap, PO, l Capsule 18:56: Daily, # Raman n 00 180 cap, 0 Refill(s) levothyroxi Yes 25 Memori a ne 25 mcg 8-15 microgram l (0.025 mg) 18:56: = 1 tab, Her silverman oral tablet 00 PO, Daily, 12, # 30 tab, 0 Refill(s) non-formula Yes Daily, Arthur edy ry 8-15 aredas, l 18:56: Refill(s) [place] 00 0 Colestipol Yes 2 gm = 2 Mem oria Hydrochlori 8-15 tab, PO, l de 1000 MG 18:56: BID, # 120 H ermann Oral Tablet 00 tab, 0 Refill(s) Sotalol Yes 80 mg = 1 Memor ia Hydrochlori 8-15 tab, PO, l de 80 MG 18:56: Daily, 12, Her silverman Oral Tablet 00 # 60 tab, 0 Refill(s) Vitamin D3 Yes 5,000 Memori a 5000 intl 8-15 IntlUnit = l units oral 18:56: 1 cap, PO, H ermann capsule 00 Daily, # 30 cap, 1 Refill(s) 1 ML Yes SUB-Q, Memoria evolocumab 8-15 qMonth, l 140 MG/ML 18:56: evry two Herm boo Prefilled 00 week, 0 Syringe Refill(s) [Repatha] Saccharomyc Yes 250 mg = 1 Memoria es 8-15 cap, PO, l boulardii 18:56: BID, PRN Herm boo lyo 250 MG 00 for loose Oral stool, # Capsule 10 cap, 0 [Florastor] Refill(s) phenazopyri Yes 200mg Take 1 Uni vers dine 200 mg 5-07 tablet by ity of tablet 00:00: mouth 3 [place] ([facility]) Medical times Branch daily. phenazopyri Yes 200mg Take 1 Uni vers dine 200 mg 5-07 tablet by ity of tablet 00:00: mouth 3 [place] ([facility]) Medical times Branch daily. phenazopyri Yes 200mg Take 1 Uni vers dine 200 mg 5-07 tablet by ity of tablet 00:00: mouth 3 [place] 00 (three) Medical times Branch daily. phenazopyri Yes 200mg Take 1 Uni vers dine 200 mg 5-07 tablet by ity of tablet 00:00: mouth 3 [place] 00 (three) Medical times Branch daily. Vital Signs Vital Name Observation Time Observation Value Comments Source Systolic blood 2022-02-04 20:24:00 146 mm[Hg] Univer sity [facility] Diastolic blood 2022-02-04 20:24:00 74 mm[Hg] [facility] Heart rate 2022-02-04 20:24:00 57 /min [facility] Body height 2022-02-04 20:24:00 154.9 cm [facility] Body weight 2022-02-04 20:24:00 66.679 kg [facility] BMI 2022-02-04 20:24:00 27.78 kg/m2 [facility] Oxygen saturation in 2022-02-04 20:24:00 98 /min University of Arterial blood by [facility] Pulse oximetry Branch BP Systolic 2022-02-13 11:15:00 BP Diastolic 2022-02-13 11:15:00 Weight Measured 2022-02-13 11:15:00 Height Measured 2022-02-13 11:15:00 Body Temperature 2022-02-13 11:15:00 97.40 degrees Heart Rate 2022-02-13 11:15:00 Respiratory Rate 2022-02-13 11:15:00 BP Systolic 2021-07-09 13:53:00 148 mm[Hg] BP Diastolic 2021-07-09 13:53:00 74 mm[Hg] Weight Measured 2021-07-09 13:53:00 145.40 pounds Height Measured 2021-07-09 13:53:00 61.50 inches Body Temperature 2021-07-09 13:53:00 97.40 degrees Heart Rate 2021-07-09 13:53:00 59.00 /min Respiratory Rate 2021-07-09 13:53:00 BP Systolic 2021-04-09 13:56:00 135 mm[Hg] BP Diastolic 2021-04-09 13:56:00 70 mm[Hg] Weight Measured 2021-04-09 13:56:00 145.40 pounds Height Measured 2021-04-09 13:56:00 61.50 inches Body Temperature 2021-04-09 13:56:00 97.30 degrees Heart Rate 2021-04-09 13:56:00 70.00 /min Respiratory Rate 2021-04-09 13:56:00 BP Systolic 2021-02-12 10:39:00 173 mm[Hg] BP Diastolic 2021-02-12 10:39:00 78 mm[Hg] Weight Measured 2021-02-12 10:39:00 142.20 pounds Height Measured 2021-02-12 10:39:00 61.50 inches Body Temperature 2021-02-12 10:39:00 97.40 degrees Heart Rate 2021-02-12 10:39:00 71.00 /min Respiratory Rate 2021-02-12 10:39:00 BP Systolic 2020-12-11 14:56:00 143 mm[Hg] BP Diastolic 2020-12-11 14:56:00 77 mm[Hg] Weight Measured 2020-12-11 14:56:00 142.00 pounds Height Measured 2020-12-11 14:56:00 61.50 inches Body Temperature 2020-12-11 14:56:00 97.70 degrees Heart Rate 2020-12-11 14:56:00 71.00 /min Respiratory Rate 2020-12-11 14:56:00 BP Systolic 2020-02-22 14:10:00 153 mm[Hg] BP Diastolic 2020-02-22 14:10:00 87 mm[Hg] Weight Measured 2020-02-22 14:10:00 138.00 pounds Height Measured 2020-02-22 14:10:00 62.00 inches Body Temperature 2020-02-22 14:10:00 Heart Rate 2020-02-22 14:10:00 81.00 /min Respiratory Rate 2020-02-22 14:10:00 BP Systolic 2019-12-21 15:25:00 BP Diastolic 2019-12-21 15:25:00 Weight Measured 2019-12-21 15:25:00 135.00 pounds Height Measured 2019-12-21 15:25:00 62.00 inches Body Temperature 2019-12-21 15:25:00 Heart Rate 2019-12-21 15:25:00 Respiratory Rate 2019-12-21 15:25:00 BP Systolic 2019-09-19 14:34:00 146 mm[Hg] BP Diastolic 2019-09-19 14:34:00 75 mm[Hg] Weight Measured 2019-09-19 14:34:00 136.20 pounds Height Measured 2019-09-19 14:34:00 62.00 inches Body Temperature 2019-09-19 14:34:00 98.60 degrees Heart Rate 2019-09-19 14:34:00 80.00 /min Respiratory Rate 2019-09-19 14:34:00 Height 2017-05-05 17:46:00 160.02 cm [facility] [place] Respitory Rate 2017-05-05 17:46:00 Kanwal Cruzann Heart Rate 2017-05-05 17:46:00 [facility] [place] Systolic (mm Hg) 2017-05-05 17:46:00 Arthur Campa Diastolic (mm Hg) 2017-05-05 17:46:00 Mem orial [place] Weight 2017-05-05 17:46:00 [facility] [place] BMI Calculated 2017-05-05 17:46:00 Memori al [place] Height 2017-03-24 18:41:00 157.48 cm [facility] [place] BMI Calculated 2017-03-24 18:41:00 Memori al [place] Weight 2017-03-24 18:41:00 [facility] [place] Systolic (mm Hg) 2017-03-24 18:41:00 Arthur rial [place] Diastolic (mm Hg) 2017-03-24 18:41:00 Mem orial [place] Respitory Rate 2017-03-24 18:41:00 Memori al [place] Heart Rate 2017-03-24 18:41:00 [facility] [place] Procedures Procedure Date / Time Performed Performing Clinician [facility] Spinal cord [facility] ermann Plan of Care Planned Activity Planned Date Details Comments Source Goal Plan of Care Note [code = 01131-4] Goal Plan of Care Note [code = 99128-6] Goal Plan of Care Note [code = 15758-7] Goal Plan of Care Note [code = 91885-2] Goal Plan of Care Note [code = 72320-2] Goal Plan of Care Note [code = 05547-8] Goal Plan of Care Note [code = 39327-6] Goal Plan of Care Note [code = 87515-5] Goal Plan of Care Note [code = 17659-0] Goal Plan of Care Note [code = 89727-3] Goal Plan of Care Note [code = 32910-9] Goal Plan of Care Note [code = 97018-9] Goal Plan of Care Note [code = 66340-8] Goal Plan of Care Note [code = 14052-5] Goal Plan of Care Note [code = 52940-1] Goal Plan of Care Note [code = 29439-6] Encounters Start End Encounter Admission Attending Care Care Encounter Source Date/Time Date/Time Type Type Clinicians Facility Department ID 2021-09-04 Outpatient [facility] [id number] Common 11:16:20 [id number] [facility] 2021-06-09 Emergency [facility] [id number] [facility]23-02-06 Outpatient JUAN ARROYO [facility] [id number] Univers 14:20:00 14:20:00 JUAN MUNOZ [facility] 2023-02-06 2023-02-06 Outpatient JUAN ARROYO [facility] [id number] Univers 14:20:00 14:20:00 JUAN MUNOZ [facility]roll [facility] 2022-06-30 2022-06-30 [id number] Univers 00:00:00 00:00:00 [facility] [id number] ity of [place] [id number] Javier as DWAYNE?BLEA [id number] [address] OFFICE [facility] 2022-04-23 2022-04-23 [facility] [id number] Univers 00:00:00 00:00:00 [facility] [id number] ity of [place] [id number] Javier as DWAYNE?BLEA [id number] [address] OFFICE [facility] 2022-02-13 2022-02-13 Outpatient [id number] 00:00:00 00:00:00 Visit [id number] 2022-02-04 2022-02-04 Outpatient JUAN ARROYO [facility] [id number] Univers 15:40:00 15:43:58 JUAN MUNOZ [facility] 2022-02-04 2022-02-04 Office Tammy [facility] 1.2.840.114 [id number] Univers 15:40:00 15:43:58 Visit [facility] [id number] ity of [place] 4.2.7.2.686 Javier as DWAYNE?BLEA [phone] [address] OFFICE [facility] 2022-02-04 2022-02-04 Outpatient R JUAN MUNOZ [facility] [id number] Univers 15:40:00 15:43:58 JUAN MUNOZ itcarroll of [facility] 2022-01-16 2022-01-16 [facility] 1.2.840.114 [id number] Univers 00:00:00 00:00:00 [facility] [id number] ity of [place] 4.2.7.2.686 Javier as DWAYNE?BLEA [phone] [address] OFFICE [facility] 2022-01-15 2022-01-15 [facility] 1.2.840.114 [id number] Univers 00:00:00 00:00:00 Juan [facility] [id number] ity of [place] 4.2.7.2.686 Javier as DWAYNE?BLEA [phone] [address] 2022-01-14 2022-01-14 [facility] 1.2.840.114 [id number] Univers 00:00:00 00:00:00 [facility] [id number] [place] [id number] [address] OFFICE [facility] 2021-09-10 2021-09-10 Outpatient R [facility] [id number] Univers 12:42:04 23:59:00 XIOMARA Rodriguez f [facility] 2021-09-10 2021-09-10 [facility] 1.2.840.114 [id number] Univers 12:42:04 23:59:00 Encounter eXiomara 350.1.13.10 it[place] of [place].2.[place] [phone] [place] [address] [place] 2021-06-19 2021-06-19 Ric[facility] 1.2.840.114 [id number] Univers 00:00:00 00:00:00 [facility] [id number] ity of [place] 4.2.7.2.686 Javier as DWAYNE?BLEA [phone] [place] [address] 2021-03-05 2021-03-05 [facility] 1.2.840.114 [id number] Univers 00:00:00 00:00:00 Juan Mazariegos 350.1.13.10 [place] of [place] [phone] [address] 2021-03-01 2021-03-01 [facility] 1.2.840.114 [id number] Univers 00:00:00 00:00:00 Juan Mazariegos 350.1.13.10 [place] of [place] [phone] [address] 2021-02-26 2021-02-26 Refill [facility] 1.2.840.114 [id number] Univers 00:00:00 00:00:00 Juan Mazariegos 350.1.13.10 [place] [phone] [address] 2020-12-18 2020-12-18 [facility] 1.2.840.114 [id number] Univers 00:00:00 00:00:00 Juan Mazariegos 350.1.13.10 [place] of [place] [phone] [address] 2020-11-07 2020-11-07 [facility] 1.2.840.114 [id number] Univers 00:00:00 00:00:00 Juan Mazariegos 350.1.13.10 [place] of [place] [id number] [address] 2020-11-05 2020-11-05 [facility] 1.2.840.114 [id number] Univers 00:00:00 00:00:00 Juan Mazariegos 350.1.13.10 it[place] of [place] [phone] [place] 092 [facility] 2020-11-02 2020-11-02 Office Tammy [facility] 1.2.840.114 [id number] Univers 10:33:04 11:44:36 Visit Juan Mazariegos 350.1.13.10 it[place] of [place].2.[place] [phone] [place] 092 [facility] 2020-11-02 2020-11-02 Outpatient R TAMMYJUAN MORENO [facility] [id number] Univers 10:40:00 10:40:00 TAMMYJUAN Rodriguez itcarroll [facility] 2020-10-04 2020-10-04 Emergency [facility] 1.2.840.114 [id number] Univers 17:26:00 20:59:00 Wilson Mazariegos 350.1.13.10 i ty of [place] 4.2.7.2.[place] [phone] [facility] [address] [place] 2020-10-04 2020-10-04 Orders Doctor VIRGILIO 1.2.840.114 [id number] Univers 00:00:00 00:00:00 Only Unassigned, JACE 350.1.13.10 ity of [place] [facility] 4.2.7.2.686 Javier as [id number] [facility] [address] 2020-06-26 2020-06-26 [facility] 1.2.840.114 [id number] Univers 13:31:40 23:59:00 Encounter eXiomara 350.1.13.10 it[place] of [place] [phone] [facility] [address] 2020-06-26 2020-06-26 Outpatient R [facility] [id number] Univers 00:00:00 00:00:00 XIOMARA Rodriguez o f [facility] 2020-06-19 2020-06-19 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, 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 [facility] 1.2.840.114 [id number] Univers 14:10:41 14:25:41 Visit Xiomara Guerra 350.1.1 3.10 it[place] of [place]2.[place].2.[place] [phone] [place] 353 [facility] 2020-06-19 2020-06-19 Outpatient R LIZBETH [facility] [id number] Univers 14:15:00 14:15:00 XIOMARA Rodriguez o f [facility] 2020-06-19 2020-06-19 Orders Doctor VIRGILIO 1.2.840.114 [id number] Univers 00:00:00 00:00:00 Only Unassigned, JACE 350.1.13.10 ity of [place] [facility] 4.2.7.2.686 Javier as [phone] [facility] [address] [place] 2019-10-21 2019-10-21 Office Tammy, [facility] 1.2.840.114 [id number] Univers 14:10:53 15:20:56 Visit Juan Mazariegos 350.1.13.10 ity [facility] 4.2.7.2.[place] [phone] [place] 092 [facility] 2019-10-21 2019-10-21 Outpatient R TAMMYJUAN MORENO [facility] [id number] Univers 14:40:00 14:40:00 JUAN MUNOZ carroll [facility] 2019-09-27 2019-09-27 Outpatient R JUAN MUNOZ [facility] [id number] Univers 13:20:12 23:59:00 [facility] 2019-09-27 2019-09-27 [facility] [id number] Univers 13:20:00 23:59:00 Encounter Juan Mazariegos 350.1.13.10 it[place] of [place] [phone] [facility] [address] [place] 2019-08-19 2019-08-19 Office Tammy, [facility] 1.2.840.114 [id number] Univers 13:30:11 15:28:04 Visit Juan Mazariegos 350.1.13.10 ity of [place] 4.2.7.2.686 Giovanny engle [facility] [phone] [facility] 092 [facility] 2019-04-09 2019-04-09 Emergency MELY Hill 1.2.334.617 [id number] Univers 04:51:40 06:51:00 Haley Mazariegos 350.1.13.10 ity of [place] 4.2.7.2.686 Giovanny s [place] [phone] [facility] [address] 2017-05-05 2017-05-06 Outpatient nullFlavo [place] [id number] Memoria 17:36:00 04:59:00 r Lokesh 01 ann Camp[place] 2017-05-05 2017-05-05 [facility] [id number] 12:36:00 23:59:00 Garrett Carvajal 2017-03-24 2017-03-25 Outpatient nullFlavo [place] 075615 [id number] Memoria 18:22:00 04:59:00 r Lokesh 00 ann [place] 2017-03-24 2017-03-24 [facility] [id number] 13:22:00 23:59:00 Garrett Carvajal Results Test Description Test Time Test Comments Results Result Comments Source NOTE: 2022-02-21 06:05:34 Test Item Value Reference Range Interpretation Comme nts NOTE: (test code = 998) (NOTE) IN ACCORDANCE WITH FEDERAL GUIDELINES REQUIRING ALL VERBAL REQU ESTS FOR LABORATORY TESTS TO BE ACCOMPANIED BY WRITTEN AUTHORIZATION WITHIN 30 DAYS OF THIS RE QUEST, PLEASE SIGN BELOW AND RETURN A COPY OF THIS REPORT BY FAX TO THE LABORATORY SCANNING DEPART MENT AT [phone]. PHYSICIAN'S SIGNATURE DATE UNLE SS OTHERWISE INDICATED, ALL TESTING PERFORMED [facility] [employer] [address] [place] [address] CAUSTIC ROOM OPERATOR: RONI BROWN M.D. CLIA NUMBER [id number] CAP ACCREDITATION N O. [id number] TSH + FREE T4 [id number] 01:10:59 Test Item Value Reference Range Interpretation Comments TSH, THIRD GENERATION (test code 6.050 UIU/ML 0.400-4.100 H = 2821) FREE T4 (THYROXINE) (test code = 1.20 NG/DL 0.80-1.90 2823) LIPID [id number] 06:43:09 Test Item Value Reference Range Interpretation Comments CHOLESTEROL (test 164 MG/DL <200 code = 2210) TRIGLYCERIDES (test 182 MG/DL <150 H code = 2232) HDL CHOLESTEROL (test 53 MG/DL >39 code = 2220) CALC LDL CHOL (test 83 MG/DL <100 NOTE: C ALCULATED LDL code = 2237) IS BASED ON ALEXANDRA-RO METHOD WHICHINCLUDES ADJUSTABLE TRIGLYCERIDE:VL DL CHOLESTEROL RAT IO.THIS FACTOR VARIES B Y MEASURED TRIGLY CERIDE AND NON-HDLCHOL ESTEROL CONCENTRATIONS WITH INCREASED CALCU LATED LDL SEENIN HIGH ER TRIGLYCERIDE OR LOWER NON-HDL SPECIME NS. FOR MOREINFORMATION , SEE CLIENT ANNOUNCE MENT AT [email or web address] RISK RATIO LDL/HDL 1.57 RATIO <3.22 UNLESS O THERWISE (test code = 2238) INDICATED , ALL TESTING PERFORMED [facility], [id number] [place] [address] JASON DIRECTOR: Conrado SHIIA NUMBER [id number] CAP ACCREDITATION N O. [id number] TSH + FREE T4 [id number] 00:00:00 Test Item Value Reference Range Interpretation Comments TSH, THIRD GENERATION (test code 3.440 UIU/ML = 2821) FREE T4 (THYROXINE) (test code = 1.20 NG/DL 2823) TSH + FREE T4 [id number] 00:00:00 Test Item Value Reference Range Interpretation Comments TSH, THIRD GENERATION (test code 3.440 UIU/ML = 2821) FREE T4 (THYROXINE) (test code = 1.20 NG/DL 2823) HEMOGLOBIN [id number] 00:00:00 Test Item Value Reference Range Interpretation Comments HEMOGLOBIN A1c (test code = 88825) 6.4 % HEMOGLOBIN [id number] 00:00:00 Test Item Value Reference Range Interpretation Comments HEMOGLOBIN A1c (test code = 62200) 6.4 % LIPID [id number] 00:00:00 Test Item Value Reference Range Interpretation Comments CHOLESTEROL (test code = 2210) 176 MG/DL TRIGLYCERIDES (test code = 2232) 316 MG/DL HDL CHOLESTEROL (test code = 2220) 54 MG/DL CALC LDL CHOL (test code = 2237) 84 MG/DL RISK RATIO LDL/HDL (test code = 1.56 RATIO 2238) COMPREHENSIVE METABOLIC [id number] 00:00:00 Test Item Value Reference Range Interpretation Comments GLUCOSE (test code = 2217) 104 MG/DL BUN (test code = 2208) 22 MG/DL CREATININE (test code = 2214) 0.87 MG/DL eGFR AMER. (test code 70 ML/MIN/1.73 = 44921) eGFR NON- AMER. (test 61 ML/MIN/1.73 code = 95337) CALC BUN/CREAT (test code = 25 RATIO 223) SODIUM (test code = 223) 145 MEQ/L POTASSIUM (test code = 2228) 4.6 MEQ/L CHLORIDE (test code = 2215) 104 MEQ/L CARBON DIOXIDE (test code = 28 MEQ/L 2205) CALCIUM (test code = 2209) 9.6 MG/DL PROTEIN, TOTAL (test code = 7.0 G/DL 2228) ALBUMIN (test code = 220) 4.1 G/DL CALC GLOBULIN (test code = 2.9 G/DL 2239) CALC A/G RATIO (test code = 1.4 RATIO 2233) BILIRUBIN, TOTAL (test code = 0.2 MG/DL 2206) ALKALINE PHOSPHATASE (test 59 U/L code = 2204) AST (test code = 2218) 19 U/L ALT (test code = 2219) 19 U/L
--- NOTE | 2022-07-24 12:55 | RAD REPORT ---
EXAM DESCRIPTION: RAD - Tib Fib Right - 07/24/2022 12:48 pm CLINICAL HISTORY: PAIN COMPARISON: No comparisons FINDINGS/IMPRESSION: No acute fracture. No malalignment. No significant focal degenerative changes.
--- NOTE | 2022-07-24 12:56 | RAD REPORT ---
EXAM DESCRIPTION: RAD - Femur Right - 07/24/2022 12:48 pm CLINICAL HISTORY: PAIN COMPARISON: No comparisons FINDINGS/IMPRESSION: No acute fracture. No malalignment. Mild to moderate right acetabular degenerat dante changes. Advanced degenerative changes are present at the pubic symphysis.
[2022-07-24 12:58] LABS: Absolute Lymphocytes (CBC) 1.7 K/uL (0.7-4.9); Hematocrit 38.8 % (36.0-45.0); Lymphocytes % 21.8 % (15.3-44.8); MCV 83.8 fL (80-100); MPV 8.8 fL (7.6-11.3); RBC Red Blood Cell Count 4.63 M/uL (3.86-4.86)
--- NOTE | 2022-07-24 12:59 | RAD REPORT ---
EXAM DESCRIPTION: RAD - Pelvis - 07/24/2022 12:48 pm CLINICAL HISTORY: fall COMPARISON: No comparisons FINDINGS/IMPRESSION: No acute fracture. No malalignment. Moderate bilateral acetabular degenerative changes. Advanced degenerative changes are present at the pubic symphysis. Bilateral SI joint degener ative changes.
--- NOTE | 2022-07-24 13:00 | RAD REPORT ---
EXAM DESCRIPTION: RAD - Chest Single View - 07/24/2022 12:48 pm CLINICAL HISTORY: fall COMPARISON: Chest Pa And Lat (2 Views) dated 06/20/2021; Chest Single View dated 06/13/2021; Chest Si ngle View dated 07/04/2019 FINDINGS: Lines: None. Lungs: No evidence of edema or pneumonia. Pleural: No significant pleural effusions or pneumothorax. Cardiac: The heart size is within normal limits. Mediastinum: Within normal limits. Bones: No acute fractures. Other: None IMPRESSION: No acute cardiopulmonary disease.
[2022-07-24 13:19] LABS: Potassium 3.6 mmol/L (3.5-5.1)
--- NOTE | 2022-07-24 13:58 | RAD REPORT ---
EXAM DESCRIPTION: CT - Head C Spine Jose Antonio Gillespie - 07/24/2022 1:36 pm CLINICAL HISTORY: Trauma, head and neck injury. Chest, abdomen and pelvis pain. fall COMPARISON: No comparisons TECHNIQUE: CT head without contrast. CT cervical spine without contrast with coronal and sagittal reformatted images. CT chest, abdomen and pelvis with coronal and sagittal reformatted images of the spine. All CT scans are performed using dose optimization technique as appropriate and may include automated exposure control or mA/KV adjustment according to patient size. FINDINGS: CT HEAD WITHOUT CONTRAST: No intracranial hemorrhage, hydrocephalus or extra-axial fluid collection. No acute large vascular te rritory infarct. Moderate chronic small vessel ischemic changes The paranasal sinuses and mastoids are clear. The calvarium is intact. CT CERVICAL SPINE WITHOUT CONTRAST: No fracture or subluxation. The prevertebral soft tissues are normal in thickness.Partially bridging osteophytes. CT CHEST, ABDOMEN, PELVIS: Thorax: Chest Wall: No abnormal mass Lungs: No acute abnormality. Pleura: No effusions or pneumothorax. Leanna/Mediastinum: No lymphadenopathy. Small hiatal hernia Aorta/Pulmonary Arteries: Unremarkable Heart: Normal size. Abdomen/Pelvis: Liver: Hepatic steatosis. Biliary: No biliary ductal dilatation. Stomach: No significant focal abnormality. Duodenum: No significant focal abnormality. Pancreas: No significant abnormality. Spleen: No significant abnormality. Adrenal: No suspicious lesions. Kidney/ureter: No hydronephrosis. No renal calculi. Retroperitoneum: No retroperitoneal adenopathy. Vascular: No aneurysm. Atherosclerosis Bowel: No significant focal abnormality. Diverticulosis. No evidence of acute diverticulitis. Peritoneum: No ascites or free air. Bladder: Grossly unremarkable. Reproductive: No adnexal masses. Bones: Grade 2/3 anterolisthesis of L4 on L5. Multilevel degenerative changes are present in the spin e. Other: n/a IMPRESSION: 1. No acute intracranial abnormality. 2. No acute fracture or traumatic malalignment cervical spine. 3. No evidence of significant trauma to the chest, abdomen, pelvis.
[2022-07-24] MEDS ORDERED: ACETAMINOPHEN 500 MG TAB ONE (15:02)
--- NOTE | 2022-07-24 15:06 | EDPHYS ---
Physician Documentation [facility] Name: Elizabeth Hewitt Age: 87 yrs Sex: Female : 1935 Arrival Date: 07/24/2022 Time: 11:41 Bed 15 Private MD: ED Physician Amparo Batres HPI: 07/24 12:30 This 87 yrs old Female presents to ER via Wheelchair with complaints of Fall Injury. cp 12:30 HX provided by who reports patient attempted to sit down onto chair when she cp lost her balance and fell onto chair striking right side of body. 12:30 Details of fall: The patient fell from an upright position, while standing. Onset: The cp symptoms/episode began/occurred yesterday. Onset: The symptoms/episode began/occurred. Associated injuries: The patient sustained injury to the chest, specifically the right lower rib area, pain with breathing, pain with movement, right leg, painful injury. Severity of symptoms: in the emergency department the symptoms have improved, mildly. Unable to obtain HPI due to baseline dementia. Historical: - Allergies: 11:47 Sulfa (Sulfonamide Antibiotics); ap3 11:47 Adhesives; ap3 - Home Meds: 11:47 Linzess oral [Active]; ap3 11:48 thyroxine [Active]; amlodipine 5 mg tab [Active]; losartan 100 mg oral tab [Active]; ap3 sotalol 80 mg Oral tab [Active]; galantamine 8 mg oral tab [Active]; clonidine HCl 0.1 mg Oral tab [Active]; gabapentin 100 mg oral cap [Active]; - PMHx: 11:47 Atrial Fib; Dementia; GERD; High Cholesterol; Hypertension; Hypothyroidism; Leaky ap3 Valves; - Immunization history:: Adult Immunizations up to date. - Immunization history: Last tetanus immunization: - up to date. - Social history:: Smoking status: Patient denies any tobacco usage or history of. ROS: 12:35 Constitutional: Negative for body aches, chills, fever, poor PO intake. cp 12:35 Eyes: Negative for injury, pain, redness, and discharge. cp 12:35 ENT: Negative for drainage from ear(s), ear pain, sore throat, difficulty swallowing, difficulty handling secretions. 12:35 Cardiovascular: Positive for chest pain, of the right lateral lower chest area. 12:35 Respiratory: Negative for cough, shortness of breath, wheezing. 12:35 Abdomen/GI: Negative for vomiting, diarrhea, constipation. 12:35 Back: Negative for pain at rest, pain with movement. 12:35 Skin: Negative for cellulitis, rash. 12:35 Neuro: Negative for altered mental status, dizziness, headache, loss of consciousness, syncope, weakness. 12:35 All other systems are negative. Exam: 12:40 Constitutional: The patient appears in no acute distress, alert, awake, cp non-diaphoretic, non-toxic, well developed, well nourished. 12:40 Head/Face: Normocephalic, atraumatic. cp 12:40 Eyes: Periorbital structures: appear normal, Conjunctiva: normal, no exudate, no injection, Sclera: no appreciated abnormality, Lids and lashes: appear normal, bilaterally. 12:40 ENT: External ear(s): are unremarkable, Nose: is normal, Mouth: Lips: moist, Oral mucosa: moist, Posterior pharynx: Airway: no evidence of obstruction, patent. 12:40 Neck: C-spine: vertebral tenderness, is not appreciated, crepitus, is not appreciated. 12:40 Chest/axilla: Inspection: normal, Palpation: crepitus, is not appreciated, tenderness, that is mild, of the right lower lateral chest, that partially reproduces the patient's complaints. 12:40 Cardiovascular: Rate: normal, Edema: is not appreciated, JVD: is not appreciated. 12:40 Respiratory: the patient does not display signs of respiratory distress, Respirations: normal, no use of accessory muscles, no retractions, labored breathing, is not present, Breath sounds: are clear throughout, no decreased breath sounds, no stridor, no wheezing. 12:40 Abdomen/GI: Inspection: Bowel sounds: active, all quadrants, Palpation: soft, in all quadrants, mild abdominal tenderness, in the posterior aspect of right lateral abdomen and anterior aspect of right lateral abdomen, rebound tenderness, is not appreciated, involuntary guarding, is not appreciated. 12:40 Back: vertebral tenderness, is not appreciated. 12:40 Skin: cellulitis, is not appreciated, no rash present. 12:40 Neuro: Orientation: no acute changes, per family, Mentation: no acute changes, per family, Motor: moves all fours, strength is normal. 12:40 Musculoskeletal/extremity: Extremities: grossly normal except: noted in the right leg: cp tenderness to palpation distal femur and knee and tibia/fibula with no deformity noted. Vital Signs: 11:44 BP 216 / 81; Pulse 81; Resp 23; Temp 97.9; Pulse Ox 97% on R/A; ap3 12:30 BP 163 / 86; Pulse 85; Pulse Ox 99% ; ko1 15:17 BP 158 / 82; Pulse Ox 99% ; ko1 [place] Coma Score: 12:30 Eye Response: spontaneous(4). Verbal Response: oriented(5). Motor Response: obeys ko1 commands(6). Total: 15. Trauma Score (Adult): 12:30 Eye Response: spontaneous(1); Verbal Response: oriented(1); Motor Response: obeys ko1 commands(2); Systolic BP: > 89 mm Hg(4); Respiratory Rate: 10 to 29 per min(4); Alem Score: 15; Trauma Score: 12 MDM: 11:56 Patient medically screened. cp 14:00 Differential diagnosis: closed head injury, contusion, fracture, multiple trauma. cp 15:05 Data reviewed: vital signs, nurses notes, radiologic studies, CT scan, plain films. cp 15:05 Test interpretation: by ED physician or midlevel provider: plain radiologic studies. cp Counseling: I had a detailed discussion with the patient and/or guardian regarding: the historical points, exam findings, and any diagnostic results supporting the discharge/admit diagnosis, lab results, radiology results, to return to the emergency department if symptoms worsen or persist or if there are any questions or concerns that arise at home. Response to treatment: the patient's symptoms have markedly improved after treatment, and as a result, I will discharge patient. ED course: VSS. Radiology studies negative for acute trauma. Will discharge to home for continued monitoring. 07/24 12:22 Order name: Basic Metabolic Panel; Complete Time: 14:56 cp 07/24 14:56 Interpretation: Normal except: BUN 21; GFR 64. 07/24 12:22 Order name: CBC with Diff; Complete Time: 14:56 cp 07/24 14:56 Interpretation: Reviewed. 07/24 12:22 Order name: XRAY Chest (1 view); Complete Time: 14:56 cp 07/24 14:56 Interpretation: Report review. cp 07/24 12:24 Order name: CT Traumagram (Head C Spine CAP W Con) cp 07/24 12:24 Order name: XRAY Femur RIGHT; Complete Time: 14:56 cp 07/24 14:57 Interpretation: Report reviewed. cp 07/24 12:24 Order name: XRAY Tib Fib RIGHT; Complete Time: 14:56 cp 07/24 14:57 Interpretation: Report reviewed. cp 07/24 12:22 Order name: EKG; Complete Time: 12:23 cp 07/24 12:22 Order name: Cardiac monitoring; Complete Time: 13:58 cp 07/24 12:22 Order name: EKG - Nurse/Tech; Complete Time: 13:13 cp 07/24 12:22 Order name: IV Saline Lock; Complete Time: 12:49 cp 07/24 12:22 Order name: Labs collected and sent; Complete Time: 13:13 cp 07/24 12:24 Order name: XRAY Pelvis; Complete Time: 14:56 cp 07/24 14:58 Interpretation: Report reviewed. cp 07/24 12:28 Order name: Head C Spine Cap W Con; Complete Time: 14:56 EDMS 07/24 12:22 Order name: O2 Per Protocol; Complete Time: 13:13 cp 07/24 12:22 Order name: O2 Sat Monitoring; Complete Time: 13:13 cp Administered Medications: 15:02 Drug: Tylenol 1000 mg Route: PO; ko1 Disposition Summary: 07/24/22 15:05 Discharge Ordered Location: Home cp Problem: new cp Symptoms: have improved cp Condition: Stable cp Diagnosis - Fall on same level from slipping, tripping and stumbling without subsequent cp striking against object - Pain in right leg - from fall cp - Chest pain, unspecified - right lateral from fall cp Followup: cp - With: Private Physician - When: 1 - 2 days - Reason: Worsening of condition Discharge Instructions: - Discharge Summary Sheet cp - Rib Contusion cp - Musculoskeletal Pain cp - Fall Prevention in the Home, Adult cp Forms: - Medication Reconciliation Form cp - Thank You Letter cp - Antibiotic Education cp - Prescription Opioid Use cp Signatures: Dispatcher [employer] EDMS Cristóbal March PA PA cp Bridget Carter RN RN ap3 Meg Silva RN RN ko1 Corrections: (The following items were deleted from the chart) 07/25 13:59 13:40 Details of fall: The patient fell from an upright position, while standing, cp cp 13:40 Onset: The symptoms/episode began/occurred yesterday, cp cp : 13:41 Onset: The symptoms/episode began/occurred cp cp 13:41 Associated injuries: The patient sustained injury to the chest, specifically the cp right lower rib area, pain with breathing, pain with movement, right leg, painful injury, cp 13:41 Severity of symptoms: in the emergency department the symptoms have improved, cp mildly, cp : 13:41 Unable to obtain HPI due to baseline dementia, cp cp 13:41 HX provided by . cp cp
--- NOTE | 2022-07-24 15:06 | ER ---
Nurse's Notes [facility] Name: Elizabeth Hewitt Age: 87 yrs Sex: Female : 1935 Arrival Date: 07/24/2022 Time: 11:41 Bed 15 Private MD: Diagnosis: Fall on same level from slipping, tripping and stumbling without subsequent striking against object;Pain in right leg-from fall;Chest pain, unspecified-right lateral from fall Presentation: 07/24 11:44 Chief complaint: Patient states: she fell yesterday at approx 0900, and is having right ap3 sided rib pain. It is reported patient did not hit her head, but is on blood thinners. Coronavirus screen: At this time, the client does not indicate any symptoms associated with coronavirus-19. Ebola Screen: No symptoms or risks identified at this time. Initial Sepsis Screen: Does the patient meet any 2 criteria? RR > 20 per min. No. Patient's initial sepsis screen is negative. Does the patient have a suspected source of infection? No. Patient's initial sepsis screen is negative. Risk Assessment: Do you want to hurt yourself or someone else? Patient reports no desire to harm self or others. Onset of symptoms was July 23, 2022 at 09:00. 11:44 Method Of Arrival: Wheelchair ap3 11:44 Acuity: LUIS FERNANDO 2 ap3 12:30 Care prior to arrival: None. Mechanism of Injury: Fall ground level. Trauma event ko1 details: Injury occurred in the [facility], Injury occurred: at home. Injury occurred: July 23, 2022. Trauma Activation: Not Applicable Physician: ED Physician; Name: ; Notified At: ; Arrived At: Physician: General Surgeon; Name: ; Notified At: ; Arrived At: Physician: Radiology; Name: ; Notified At: ; Arrived At: Physician: Respiratory; Name: ; Notified At: ; Arrived At: Physician: Lab; Name: ; Notified At: ; Arrived At: Historical: - Allergies: 11:47 Sulfa (Sulfonamide Antibiotics); ap3 11:47 Adhesives; ap3 - Home Meds: 11:47 Linzess oral [Active]; ap3 11:48 thyroxine [Active]; amlodipine 5 mg tab [Active]; losartan 100 mg oral tab [Active]; ap3 sotalol 80 mg Oral tab [Active]; galantamine 8 mg oral tab [Active]; clonidine HCl 0.1 mg Oral tab [Active]; gabapentin 100 mg oral cap [Active]; - PMHx: 11:47 Atrial Fib; Dementia; GERD; High Cholesterol; Hypertension; Hypothyroidism; Leaky ap3 Valves; - Immunization history:: Adult Immunizations up to date. - Immunization history: Last tetanus immunization: - up to date. - Social history:: Smoking status: Patient denies any tobacco usage or history of. Screenin:50 Abuse screen: Denies threats or abuse. Nutritional screening: No deficits noted. ap3 Tuberculosis screening: No symptoms or risk factors identified. 12:30 [facility] ED Fall Risk Assessment (Adult) History of falling in the last 3 months, ko1 including since admission Yes- single mechanical fall (1 pt) Confusion or Disorientation Yes (5 pts) Intoxicated or Sedated No (0 pts) Impaired Gait No (0 pts) Mobility Assist Device Used No (0 pt) Altered Elimination No (0 pt) Score/Fall Risk Level 3 or more points = High Risk Oriented to surroundings, Maintained a safe environment, Educated pt \T\ family on fall prevention, incl call for assistance when getting out of bed, Assessed \T\ reinforced patient's understanding of fall precautions, Provided non-skid footwear, Hourly rounding (assess needs \T\ fall precautionary measures) done, Used ambulatory aids as needed (educated on \T\ assisted with), Used gait belt as appropriate Implemented a Fall Risk Plan of Care, Apply high fall risk patient identification: yellow non skid footwear/ fall signage, Remained w/in arm's length of patient and in sight while toileting, Offered frequent toileting (1:1 observation), Remained with patient while ambulating, Utilized family, sitter, or virtual fuel agent as indicated. Justicey Dumpty Scale Fall Assessment Tool (age< 18yrs) Age 13 years and above (1 pt) Gender Female (1 pt) Diagnosis Other diagnosis (1 pt) Cognitive Impairments Forgets limitations (2 pts) Environmental Factors History of falls or infant/toddler placed in bed (4 pts) Response to Surgery/Sedation/Anesthesia Medication Usage Other medications/ None (1 pt) Fall Risk Score/ Level Low Fall Risk: </= 11 points Oriented to surroundings, Maintained a safe environment: Age specific bed with railing, Bed in low position\T\ wheels locked, Assess need for siderail use, Locks on, Rm \T\ paths clutter \T\ obstacle free, Proper lighting, Call light, personal item w/in reach, Alarms as needed, Educated pt \T\ family on fall prevention, incl. call for assistance when getting out of bed, Assessed \T\ reinforced patient's understanding of fall precautions, Provided non-skid footwear, Hourly rounding (assess needs \T\ fall precautionary measures) Use of ambulatory aids, as needed (educated on \T\ assisted with), Used gait belt as appropriate. Fall Risk Fall in past 12 months (25 points). Secondary diagnosis (15 points) Alzheimer's, dementia, IV access (20 points). Ambulatory Aid- None/Bed Rest/Nurse Assist (0 pts). Gait- Normal/Bed Rest/Wheelchair (0 pts) Mental Status-. Primary Survey: 12:30 NO uncontrolled hemorrhage observed. A: The client is awake and alert. The airway is ko1 patent. Breathing/Chest: Spontaneous respiratory effort, equal unlabored respirations, breath sounds clear bilaterally, regular pattern, symmetrical chest rise and fall. Circulation: No external hemorrhage present. Regular and strong central pulse, skin warm/dry/normal color. Disability Pupils are equal, round, reactive to light and accommodation. Client is alert. Exposure/Environment: There is no evidence of uncontrolled external bleeding. 14:00 Reassessment Alertness and Airway: Awake and alert. The airway is patent. Airway Patent ko1 Oxygen No O2 Oral cavity Clear Trachea Midline Breathing: Circulation: No external hemorrhage noted. Regular and strong central pulse, skin warm/dry/normal color. Disability: Pupils Pupils are equal, round, reactive to light and accomodation. Alert. Assessment: 12:30 General: Appears in no apparent distress. uncomfortable, well groomed, well nourished, ko1 Behavior is calm, cooperative. Pain:. 12:30 Pain: Complains of pain in right sided rib pain. Neuro: No deficits noted. ko1 Cardiovascular: No deficits noted. Respiratory: No deficits noted. GI: No deficits noted. : No deficits noted. EENT: No deficits noted. Derm: No deficits noted. Musculoskeletal: No deficits noted. Vital Signs: 11:44 BP 216 / 81; Pulse 81; Resp 23; Temp 97.9; Pulse Ox 97% on R/A; ap3 12:30 BP 163 / 86; Pulse 85; Pulse Ox 99% ; ko1 15:17 BP 158 / 82; Pulse Ox 99% ; ko1 Alem Coma Score: 12:30 Eye Response: spontaneous(4). Verbal Response: oriented(5). Motor Response: obeys ko1 commands(6). Total: 15. Trauma Score (Adult): 12:30 Eye Response: spontaneous(1); Verbal Response: oriented(1); Motor Response: obeys ko1 commands(2); Systolic BP: > 89 mm Hg(4); Respiratory Rate: 10 to 29 per min(4); [place] Score: 15; Trauma Score: 12 ED Course: 11:41 Patient arrived in ED. as 11:42 Cristóbal March PA is PHCP. cp 11:42 Amparo Batres MD is Attending Physician. cp 11:47 Triage completed. ap3 12:00 Thermoregulation: warm blanket given to patient. ko1 12:00 Arm band placed on right wrist. ko1 12:22 Meg Silva, RN is Primary Nurse. ko1 12:30 Inserted saline lock: 20 gauge in right antecubital area, using aseptic technique. ko1 Blood collected. Patient maintains SpO2 saturation greater than 95% on room air. 12:30 Patient has correct armband on for positive identification. Placed in gown. Bed in low ko1 position. Call light in reach. Side rails up X 1. Adult w/ patient. Client placed on continuous cardiac and pulse oximetry monitoring. NIBP monitoring applied. director trade on. Door closed. Noise minimized. Lights dimmed. Warm blanket given. 12:49 Basic Metabolic Panel Sent. ko1 12:49 CBC with Diff Sent. ko1 12:50 XRAY Chest (1 view) In Process Unspecified. EDMS 12:50 XRAY Femur RIGHT In Process Unspecified. EDMS 12:50 XRAY Tib Fib RIGHT In Process Unspecified. EDMS 12:50 XRAY Pelvis In Process Unspecified. EDMS 13:38 Head C Spine Cap W Con In Process Unspecified. EDMS 15:17 No provider procedures requiring assistance completed. IV discontinued, intact, ko1 bleeding controlled, No redness/swelling at site. Pressure dressing applied. Administered Medications: 15:02 Drug: Tylenol 1000 mg Route: PO; ko1 Medication: 12:30 VIS not applicable for this client. ko1 Intake: 15:21 PO: 120ml; Total: 120ml. ko1 Output: 15:21 Urine: 500ml (Voided); Total: 500ml. ko1 Outcome: 15:05 Discharge ordered by . len 15:17 Discharged to home via wheelchair, with family. ko1 15:17 Condition: stable 15:17 Discharge instructions given to patient, family, Instructed on discharge instructions, follow up and referral plans. Demonstrated understanding of instructions, follow-up care. 15:21 Patient's length of stay in the Emergency Department was greater than 2 hours. awaiting ko1 lab/xray resultsPatient's length of stay extended due to 15:24 Patient left the ED. ko1 Signatures: Dispatcher [employer] EDMS Alejandra Dhillon Corey, PA PA cp Prokisch, Amanda RN RN ap3 Meg Silva RN RN ko1
[2022-07-24 15:28] VITALS: TEMP 97.9
[2022-07-24 15:29] VITALS: O2SAT 99
[2022-07-24 15:30] VITALS: BP 158/82
--- NOTE | 2022-07-25 12:53 | EKG ---
Test Date: 2022-07-24 Test Time: 13:03:41 Battery Charger Tester: CANDIS MEASUREMENT RESULTS: Intervals: Rate: 58 [place]: 186 QRSD: 82 QT: 484 QTc: 475 [place]: P: 47 [place]: 186 QRS: 11 T: -75 INTERPRETIVE STATEMENTS: Sinus bradycardia Minimal voltage criteria for LVH, may be normal variant ST & T wave abnormality, consider inferolateral ischemia Prolonged QT Abnormal ECG Compared to ECG 06/20/2021 06:45:12 Prolonged QT interval now present Myocardial infarct finding no longer present ST (T wave) deviation still present Possible ischemia still present Electronically Signed On 07-25-22 12:51:53 EXECUTIVE CHEF by Brett Ledesma
== END 2022-07-24 15:24 | disposition home or self-care (01) ==
LOC: ER 11:40
DX: M79.604 Pain in right leg (principal); R07.89 Other chest pain; W01.0XXA Fall on same level from slipping, tripping and stumbling without subsequent striking against object, initial encounter; F03.90 Unspecified dementia, unspecified severity, without behavioral disturbance, psychotic disturbance, mood disturbance, and anxiety; I10 Essential (primary) hypertension; I48.91 Unspecified atrial fibrillation; Z88.2 Allergy status to sulfonamides; Z91.048 Other nonmedicinal substance allergy status
CPT/HCPCS: 93005; 85025; 80048; 36415; 70450; 72125; 71260; 74177; 71045; 72170; 73552; 73590; 99285; Q9967

== ENCOUNTER 2022-12-29 16:46 | Emergency (ER) | payer OTHER ==
--- OUTSIDE RECORDS SUMMARY | 2022-12-29 16:52 | XMS REPORT | Continuity of Care Document ---
:1935 Author Organization [facility] t Address [address] [place] [address] [address] [place] [address] Care Team Providers Name Role Phone Tiki BECKMAN, Jose Primary Care Physician [phone] JUAN MUNOZ Attending Clinician Unavailable JUAN MUNOZ Attending Clinician Unavailable Juan Munoz MD Attending Clinician XIOMARA GUERRA Attending Clinician Unavailable Xiomara Guerra MD Attending Clinician [place] Attending Clinician Doctor Unassigned, Reedy Attending Clinician Unavailable 2, [facility] Attending Clinician Unavailable Haley Hill MD Attending Clinician Garrett Dover Attending Clinician XIOMARA GUERRA Admitting Clinician Unavailable JUAN MUNOZ Admitting Clinician Unavailable Payers Payer Name Policy Type Policy Number Effective Date Expiration Date S polly MEDICARE PART A [id number] 2000 \T\ B 00:00:00 FOR LIFE [id number] 2016 00:00:00 FOR LIFE [id number] 2021 00:00:00 Problems Condition Condition Condition Status Onset Resolution Last Treating Co mments Source Name Details Category Date Date Treatment Clinician Date F/U F/U Diagnosis Active 2017-05-08 Mem oria Active 03-31 14:40:00 l 03/31/2017 00:00: Raman diaz [address] C-DIFF C-DIFF Diagnosis Active 2017-03-24 Me moria Active 03-04 13:36:00 l 03/04/2017 00:00: Raman diaz [address] No known No known Disease Unive rs active active ity of problems problems [facility] Arthritis Arthritis Problem Active 2017-05-08 Memoria (disorder) (disorder) 00:30:32 l Active [place] Problem 05/08/2017 [facility] [place] Weight Weight Problem Active 2017-05-08 Arthur edy loss loss 00:30:32 l finding finding [place] (finding) (finding) Active Problem 05/08/2017 [facility] [place] ENCNTR FOR ENCNTR Diagnosis Active 2017-05-08 Memoria GENERAL FOR 14:40:00 l ADULT GENERAL [place] MEDICAL ADULT EXAM W/ MEDICAL EXAM W/ Active [facility] [place] Abdominal Abdominal Problem Active 2017-05-08 Memoria bloating bloating 00:30:32 l (finding) (finding) Herm boo Active Problem 05/08/2017 [facility] [place] Anxiety Anxiety Problem Active 2017-05-08 Az sondrachrista (finding) (finding) 00:30:32 l Active [place] Problem 05/08/2017 [facility] [place] Allergies, Adverse Reactions, Alerts Allergy Allergy Status [...] sulfa sulfa Active Memoria drugs drugs l [place] Tape Tape Active Memoria l [place] Social History Social Habit Start Date Stop Date Quantity Comments Source History SDCO University o f Alcohol Comment [place] [facility] ical [facility] History [facility] University o f Alcohol Std [place] [facility] Drinks Branch History [facility] University o f Alcohol Binge [place] [facility] al Branch Exposure to 2022-01-25 2022-02-04 Not sure University of SARS-CoV-2 00:00:00 15:15:00 [facility] (event) Branch Alcohol intake 2022-02-04 2022-02-04 Lifetime University of 00:00:00 00:00:00 non-drinker [facility] (finding) Branch History SDOH 2019-08-19 2019-08-19 1 University o f Alcohol Frequency 00:00:00 00:00:00 [facility] edical [place] Tobacco use and 2018-04-23 2018-04-23 Smokeless tobacco Un iversity of exposure 00:00:00 00:00:00 non-user [facility] Social History 2017-03-24 2017-03-24 [facility] Olivia jia 18:56:04 18:56:04 Sex [birth year] At [birth year] Universit y of 00:00:00 00:00:00 [facility] Smoking Status Start Date Stop Date Source Never smoked tobacco [facility] Medications Ordered Filled Start Stop Current Ordering [...] MOUTH TWICE 00:00: DAILY 00 galantamine Yes [id number] 8mg Take 1 Univers 8 mg tablet 6-28 tablet by ity of 00:00: mouth 2 [place] [address] (two) Medical times Branch daily. galantamine Yes [id number] 8mg Take 1 Univers 8 mg tablet 6-28 tablet by ity of 00:00: mouth 2 00 (two) Medical times Branch daily. galantamine 2021-0 Yes [id number] 8mg Take 1 Univers 8 mg tablet 6-28 tablet by ity of 00:00: mouth 2 00 (two) Medical times Branch daily. galantamine 2021-0 Yes [id number] 8mg Take 1 Univers 8 mg tablet 6-28 tablet by ity of 00:00: mouth 2 (two) Medical times Branch daily. Dose 2021-0 No Unknown 02-03 00:00: 00 galantamine 2021-0 2- No 8mg Take 1 Uni vers 8 mg tablet 01-14 tablet by it y of 00:00: 00:00 mouth 2 [place] 00 :00 (two) Medical times Branch daily. galantamine 2021-0 2022- No 8mg Take 1 Uni vers 8 mg tablet 01-14 tablet by it y of 00:00: 00:00 mouth 2 [place] 00 :00 (two) Medical times Branch daily. [...] 25 mcg 1-30 tablet 00:00: 00 gabapentin 2020-08 No 1mg 100 mg 1-30 capsule 00:00: 00 HYDROcodone 2020-08 Yes Univer s -acetaminop 1-10 ity of hen 5-325 00:00: [place] mg tablet 00 Medical Branch HYDROcodone 2021-1 Yes Univer s -acetaminop 1-10 ity of hen 5-325 00:00: [place] mg tablet 00 Medical Branch HYDROcodone 2020-1 Yes Univer s -acetaminop 1-10 ity of hen 5-325 00:00: [place] mg tablet 00 Medical [place] HYDROcodone 2020-1 Yes Univer s -acetaminop 1-10 ity of hen 5-325 00:00: [place] mg tablet 00 [facility] Branch galantamine 1-0 No 1mg 4 mg tablet 7-06 00:00: 00 gabapentin 2021-0 No 1mg 100 mg 7-06 capsule 00:00: 00 gabapentin 2021-0 Yes Univers 100 mg 7-06 ity of capsule 00:00: [place] [address] [facility] gabapentin 2021-0 Yes Univers 100 mg 7-06 ity of capsule 00:00: [place] [address] [facility] gabapentin 2021-0 Yes Univers 100 mg 7-06 ity of capsule 00:00: [address] gabapentin 2021-0 Yes Univers 100 mg 7-06 ity of capsule 00:00: [place] [address] [facility] desipramine 1-0 Yes Univer s 10 mg 5-14 ity of tablet 00:00: [place] [address] [facility] desipramine 1-0 Yes Univer s 10 mg 5-14 ity of tablet 00:00: [place] [address] [facility] desipramine 1-0 Yes Univer s 10 mg 5-14 ity of tablet 00:00: [place] [address] [facility] desipramine 1-0 Yes Univer s 10 mg 5-14 ity of tablet 00:00: [address] levothyroxi 2020-0 No 5mcg ne 25 [...] 150 mg 5-04 tablet 00:00: 00 Diflucan 2021-0 No 1mg 150 mg 5-04 tablet 00:00: 00 levothyroxi 2020-0 No 5mcg ne 25 mcg 5-04 tablet 00:00: 00 rivastigmin 2020-0 2021- No Unive rs e 4.6 mg/24 11-06 ity of hour patch 00:00: 00:00 [place] 00 :00 Medical Branch rivastigmin 2020-0 2021- No Unive rs e 4.6 mg/24 11-06 ity of hour patch 00:00: 00:00 [place] 00 :00 Medical Branch cholecalcif 2020-0 Yes Take by Uni vers ana lilia, 3-26 mouth. ity of vitamin D3, 11:07: [place] 25 mcg 30 Medical (1,000 Branch unit) tablet cholecalcif 2020-0 Yes Take by Uni vers ana lilia, 3-26 mouth. ity of vitamin D3, 11:07: [place] 25 mcg 30 Medical (1,000 Branch unit) [...] 100 mg 1-18 tablet 00:00: 00 levothyroxi 2020-0 No 5mcg ne 25 mcg 1-18 tablet 00:00: 00 levothyroxi 2020-0 No 5mcg ne 25 mcg 1-18 tablet 00:00: 00 lactulose 2020-0 No 15(15 10 gram/15 9-29 mL) mL (15 mL) 00:00: oral 00 solution losartan 2019-0 No 1mg 100 mg 7-24 tablet 00:00: [...] 1mg mg tablet 5-13 00:00: 00 Simethicone 2020-0 Yes Take by Uni vers (PHAZYME) 3-13 mouth. ity of 180 mg Cap 14:26: [address] Simethicone 2020-0 Yes Take by Uni vers (PHAZYME) 3-13 mouth. ity of 180 mg Cap 14:26: [address] Simethicone 2020-0 Yes Take by Uni vers (PHAZYME) 3-13 mouth. ity of 180 mg Cap 14:26: [address] Simethicone 2020-0 Yes Take by Uni vers (PHAZYME) 3-13 mouth. ity of 180 mg Cap 14:26: [address] sotalol 80 2019-0 No 5mg mg [...] 1-10 by mouth ity of 14:46: daily. [address] Branch amLODIPine 2020-0 Yes 10mg Take 10 mg U nivers 5 mg tablet 1-10 by mouth ity of 14:46: daily. [place] [address] Medical Branch losartan 2020-0 Yes 100mg Take 100 Univ ers 100 mg 1-10 mg by ity of tablet 14:46: mouth [place] [address] daily. Medical Branch ranitidine 2020-0 Yes 150mg Take 150 Un valdemar 150 mg 1-10 mg by ity of tablet 14:46: mouth at [place] [address] bedtime. Medical Branch lactulose 2020-0 Yes 15mL Take 15 mL Un valdemar 10 gram/15 1-10 by mouth ity o f mL solution 14:46: daily. [address] sotalol 80 2020-0 Yes 80mg Take 80 mg U nivers mg tablet 1-10 by mouth ity of 14:46: daily. [address] amLODIPine 2020-0 Yes 10mg Take 10 mg U nivers 5 mg tablet 1-10 by mouth ity of 14:46: daily. [address] losartan 2020-0 Yes 100mg Take 100 Univ ers 100 mg 1-10 mg by ity of tablet 14:46: mouth [place] [address] daily. Medical Branch ranitidine 2020-0 Yes 150mg Take 150 Un valdemar 150 mg 1-10 mg by ity of tablet 14:46: mouth at [place] [address] bedtime. Medical Branch lactulose 2020-0 Yes 15mL Take 15 mL Un valdemar 10 gram/15 1-10 by mouth ity o f mL solution 14:46: daily. [address] sotalol 80 2020-0 Yes 80mg Take 80 mg U nivers mg tablet 1-10 by mouth ity of 14:46: daily. [address] amLODIPine 2020-0 Yes 10mg Take 10 mg U nivers 5 mg tablet 1-10 by mouth ity of 14:46: daily. [address] losartan 2020-0 Yes 100mg Take 100 Univ ers 100 mg 1-10 mg by ity of tablet 14:46: mouth [place] [address] daily. Medical Branch ranitidine 2019-0 Yes 150mg Take 150 Un valdemar 150 mg 1-10 mg by ity of tablet 14:46: mouth at [place] [address] bedtime. Medical Branch lactulose 2019-0 Yes 15mL Take 15 mL Un valdemar 10 gram/15 1-10 by mouth ity o f mL solution 14:46: daily. [address] sotalol 80 2019-0 Yes 80mg Take 80 mg U nivers mg tablet 1-10 by mouth ity of 14:46: daily. [address] amLODIPine 2019-0 Yes 10mg Take 10 mg U nivers 5 mg tablet 1-10 by mouth ity of 14:46: daily. [address] losartan 2019-0 Yes 100mg Take 100 Univ ers 100 mg 1-10 mg by ity of tablet 14:46: mouth [place] [address] daily. Medical Branch ranitidine 0 Yes 150mg Take 150 Un valdemar 150 mg 1-10 mg by ity of tablet 14:46: mouth at [place] [address] bedtime. Medical Branch lactulose 0 Yes 15mL Take 15 mL Un valdemar 10 gram/15 1-10 by mouth ity o f mL solution 14:46: daily. [address] furosemide 2018-08 Yes Univers 20 mg 2-20 ity of tablet 00:00: [address] furosemide 2018-08 Yes Univers 20 mg 2-20 ity of tablet 00:00: [address] furosemide 2018-08 Yes Univers 20 mg 2-20 ity of tablet 00:00: [address] furosemide 2018- Yes Univers 20 mg 2-20 ity of tablet 00:00: [address] famotidine 2018-08 Yes Univers 40 mg 1-21 ity of tablet 00:00: [address] famotidine 2018-08 Yes Univers 40 mg 1-21 ity of tablet 00:00: [address] famotidine 2018-08 Yes Univers 40 mg 1-21 ity of tablet 00:00: [address] famotidine 2018-08 Yes Univers 40 mg 1-21 ity of tablet 00:00: [address] REPATHA 2018-08 Yes Univers SURECLICK 1-14 ity of 140 mg/mL 00:00: [address] REPATHA 2018-08 Yes Univers SURECLICK 1-14 ity of 140 mg/mL 00:00: [place] PnIj 00 Medical Branch REPATHA 2018- Yes Univers SURECLICK 1-14 ity of 140 mg/mL 00:00: [place] PnIj 00 Medical Branch REPATHA 2018- Yes Univers SURECLICK 1-14 ity of 140 mg/mL 00:00: [place] PnIj 00 Medical Branch diltiazem 2 Yes Apply to Un valdemar % cream 7-31 affected ity of 00:00: area(s) 3 [place] 00 (three) Medical times Branch daily. diltiazem 2 Yes Apply to Un valdemar % cream 7-31 affected ity of 00:00: area(s) 3 [place] 00 (three) Medical times Branch daily. diltiazem 2 Yes Apply to Un valdemar % cream 7-31 affected ity of 00:00: area(s) 3 [place] [address] (three) Medical times Branch daily. diltiazem 2 Yes Apply to Un valdemar % cream 7-31 affected ity of 00:00: area(s) 3 [place] 00 (three) Medical times Branch daily. levothyroxi 2016- Yes Univer s ne 25 mcg 1-08 ity of tablet 00:00: [place] [facility] Branch levothyroxi 2016- Yes Univer s ne 25 mcg 1-08 ity of tablet 00:00: [place] [facility] levothyroxi 2016- Yes Univer s ne 25 mcg 1-08 ity of tablet 00:00: [place] [facility] levothyroxi 2016- Yes Univer s ne 25 mcg 1-08 ity of tablet 00:00: [address] Branch fidaxomicin 2017 Yes 200 mg = 1 Memoria 200 MG Oral 9-26 tab, PO, l Tablet 19:22: BID, # 20 Raman n [Dificid] 00 tab, 0 Refill(s), [facility] [id number] fidaxomicin Yes 200 mg = 1 Memoria 200 MG Oral 9-26 tab, PO, l Tablet 19:22: BID, # 20 Raman n [Dificid] 00 tab, 0 Refill(s), Pharmacy: [facility] fidaxomicin Yes 200 mg = 1 Memoria 200 MG Oral 9-26 tab, PO, l Tablet 19:22: BID, # 20 Rmaan n [Dificid] 00 tab, 0 Refill(s), Pharmacy: [place] [id number] fidaxomicin Yes 200 mg = 1 Memoria 200 MG Oral 9-26 tab, PO, l Tablet 19:22: BID, # 20 Raman n [Dificid] 00 tab, 0 Refill(s), Pharmacy: [place] [id number] fidaxomicin Yes 200 mg = 1 Memoria 200 MG Oral 9-26 tab, PO, l Tablet 19:22: BID, # 20 Raman n [Dificid] 00 tab, 0 Refill(s), Pharmacy: [place] [id number] fidaxomicin Yes 200 mg = 1 Memoria 200 MG Oral 9-26 tab, PO, l Tablet 19:17: BID, X 10 Raman n [Dificid] 00 day, # 20 tab, 0 Refill(s), Pharmacy: [place] [id number] fidaxomicin Yes 200 mg = 1 Memoria 200 MG Oral 9-26 tab, PO, l Tablet 19:17: BID, X 10 Raman n [Dificid] 00 day, # 20 tab, 0 Refill(s), Pharmacy: [place] [id number] fidaxomicin Yes 200 mg = 1 Memoria 200 MG Oral 9-26 tab, PO, l Tablet 19:17: BID, X 10 Raman n [Dificid] 00 day, # 20 tab, 0 Refill(s), Pharmacy: [place] [id number] fidaxomicin Yes 200 mg = 1 Memoria 200 MG Oral 9-26 tab, PO, l Tablet 19:17: BID, X 10 Raman n [Dificid] 00 day, # 20 tab, 0 Refill(s), Pharmacy: [place] [id number] fidaxomicin Yes 200 mg = 1 Memoria 200 MG Oral 9-26 tab, PO, l Tablet 19:17: BID, X 10 Raman n [Dificid] 00 day, # 20 tab, 0 Refill(s), Pharmacy: [facility] [id number] [employer]am 2017- Yes [employer], Me moria 8- See l 15:15: Instructio [place] 00 ns, Faxed order to the [facility] on 03/25/17., # 2 box, Refill(s) 11, other [facility] Yes [employer], Me moria 8 See l 15:15: [facility] [place] 00 ns, Faxed order to the [facility] on 03/25/17., # 2 box, Refill(s) 11, other [employer] Yes [employer], Me moria 8 See l 15:15: Instructio [place] 00 ns, Faxed order to the [facility] on 03/25/17., # 2 box, Refill(s) 11, other [employer] Yes Entera[employer]am, Me moria 03-25 See l 15:15: Instructio [place] 00 ns, Faxed order to the [facility] on 03/25/17., # 2 box, Refill(s) 11, other [employer] Yes Entera[employer]am, Me moria 03-25 See l 15:15: [facility] [place] 00 ns, Faxed order to the [facility] on 03/25/17., # 2 box, Refill(s) 11, other [employer] Yes [employer], Me moria 815 See l 20:41: [facility] [place] 00 ns, Lot # [id number] exp date 08/29, # 1 box, Refill(s) 0, given to patient [employer] Yes Entera[employer], Me moria 8 See l 20:41: Instructio [place] 00 ns, Lot # [id number] exp date 08/29, # 1 box, Refill(s) 0, given to patient Enter[employer]am 2016- Yes Entera[employer]am, Me moria 8 See l 20:41: [facility] [place] 00 ns, Lot # [id number] exp date 08/29, # 1 box, Refill(s) 0, given to patient EnteraGam Yes EnteraGam, Me moria 8 See l 20:41: Instructio [place] 00 ns, Lot # [id number] exp date 08/29, # 1 box, Refill(s) 0, given to patient Entera[employer]am Yes EnteraGam, Me moria 8-15 See l 20:41: Christy Campa 00 ns, Lot # [id number] exp date 08/29, # 1 box, Refill(s) 0, given to patient losartan Yes 100 mg = 1 Mem oria 100 mg oral 8-15 tab, PO, l tablet 18:56: Daily, # [place] 00 30 tab, 0 Refill(s) Amlodipine Yes 1 cap, PO, M emoria 5 MG / 8-15 Daily, # l Benazepril 18:56: 30 cap, 0 He rmann hydrochlori 00 Refill(s) de 10 MG Oral Capsule aspirin 81 2017 Yes 81 mg = 1 Me moria [...] # 30 cap, 1 Refill(s) 1 ML 2017- Yes SUB-Q, Memoria evolocumab 8-15 qMonth, l 140 MG/ML 18:56: evry two Herm boo Prefilled 00 week, 0 Syringe Refill(s) [Repatha] Saccharomyc Yes 250 mg = 1 Memoria es 8-15 cap, PO, l boulardii 18:56: BID, PRN Herm boo lyo 250 MG 00 for loose Oral stool, # Capsule 10 cap, 0 [Florastor] Refill(s) losartan Yes 100 mg = 1 Mem oria 100 mg oral 8-15 tab, PO, l tablet 18:56: Daily, # [place] 00 30 tab, 0 Refill(s) Amlodipine Yes 1 cap, PO, M emoria 5 MG / 8-15 Daily, # l Benazepril 18:56: 30 cap, 0 He rmann hydrochlori 00 Refill(s) de 10 MG Oral Capsule losartan Yes 100 mg = 1 Mem oria 100 mg oral 8-15 tab, PO, l tablet 18:56: Daily, # [place] 00 30 tab, 0 Refill(s) Amlodipine Yes [...] Daily, 12, # 30 tab, 0 Refill(s) aspirin 81 2017 Yes 81 mg = 1 Me moria mg tablet, 8-15 tab, PO, l enteric 18:56: Daily, # Raman n coated 00 90 tab, 3 Refill(s) non-formula 20170 Yes Daily, Arthur edy ry 8-15 aredas, [...] # Capsule 10 cap, 0 [Florastor] Refill(s) Ranitidine Yes 150 mg = 1 M emoria 150 MG Oral 8-15 cap, PO, l Capsule 18:56: Daily, # Raman n 00 180 cap, 0 Refill(s) levothyroxi Yes 25 Memori a ne 25 mcg 8-15 microgram l (0.025 mg) 18:56: = 1 tab, Her silverman oral tablet 00 PO, Daily, 12, # 30 tab, 0 Refill(s) non-formula 20170 Yes Daily, Arthur edy ry 8-15 aredas, [...] # Capsule 10 cap, 0 [Florastor] Refill(s) losartan Yes 100 mg = 1 Mem oria 100 mg oral 8-15 tab, PO, l tablet 18:56: Daily, # [place] 00 30 tab, 0 Refill(s) Amlodipine Yes [...] # 30 cap, 1 Refill(s) 1 ML 2017 Yes SUB-Q, Memoria evolocumab 8-15 qMonth, l 140 MG/ML 18:56: evry two Herm boo Prefilled 00 week, 0 Syringe Refill(s) [Repatha] Saccharomyc Yes 250 mg = 1 Memoria es 8-15 cap, PO, l boulardii 18:56: BID, PRN Herm boo lyo 250 MG 00 for loose Oral stool, # Capsule 10 cap, 0 [Florastor] Refill(s) losartan Yes 100 mg = 1 Mem oria 100 mg oral 8-15 tab, PO, l tablet 18:56: Daily, # [place] 00 30 tab, 0 Refill(s) Amlodipine Yes [...] 12, # 30 tab, 0 Refill(s) non-formula 2017- Yes Daily, Arthur edy ry 8-15 aredas, [...] by ity of tablet 00:00: mouth 3 [place] 00 (three) Medical times Branch daily. phenazopyri Yes 200mg Take 1 Uni vers dine 200 mg 5-07 tablet by ity of tablet 00:00: mouth 3 [place] 00 (three) Medical times Branch daily. phenazopyri Yes 200mg Take 1 Uni vers dine 200 mg 5-07 tablet by ity of tablet 00:00: mouth 3 [place] 00 (three) Medical times Branch daily. Vital Signs Vital Name Observation Time Observation Value Comments Source Systolic blood 2022-02-04 20:24:00 146 mm[Hg] Univer sity of pressure [facility] Diastolic blood 2022-02-04 20:24:00 74 mm[Hg] Unive rsity of pressure [facility] Heart rate 2022-02-04 20:24:00 57 /min [facility] Body height 2022-02-04 20:24:00 154.9 cm [facility] Body weight 2022-02-04 20:24:00 66.679 kg [facility] BMI 2022-02-04 20:24:00 27.78 kg/m2 [facility] Oxygen saturation in 2022-02-04 20:24:00 98 /min [facility] Arterial blood by [facility] Pulse oximetry Branch BP Systolic 2022-02-13 11:15:00 [...] 14:34:00 Height 2017-05-05 17:46:00 160.02 cm [facility] [place] Respitory Rate 2017-05-05 17:46:00 Memori al [place] Heart Rate 2017-05-05 17:46:00 [facility] [place] Systolic (mm Hg) 2017-05-05 17:46:00 Arthur rial [place] Diastolic (mm Hg) 2017-05-05 17:46:00 Mem orial [place] Weight 2017-05-05 17:46:00 [facility] [place] BMI Calculated 2017-05-05 17:46:00 Memori al [place] Height 2017-03-24 18:41:00 157.48 cm [facility] [place] BMI Calculated 2017-03-24 18:41:00 Memori al [place] Weight 2017-03-24 18:41:00 [facility] [place] Systolic (mm Hg) 2017-03-24 18:41:00 Arthur rial [place] Diastolic (mm Hg) 2017-03-24 18:41:00 Mem orial [place] Respitory Rate 2017-03-24 18:41:00 Memori al [place] Heart Rate 2017-03-24 18:41:00 [facility] [place] Procedures Procedure Date / Time Performed Performing Clinician Sour e Cataract surgery [facility] Raman n Colonoscopy [facility] [place] Spinal cord operation [facility] H ermann Plan of Care Planned Activity Planned Date Details Comments Source Goal Plan of Care Note [code = 43179-5] Goal Plan of Care Note [code = 06611-7] Goal Plan of Care Note [code = 65604-0] Goal Plan of Care Note [code = 06690-3] Goal Plan of Care Note [code = 06218-4] Goal Plan of Care Note [code = 71874-0] Goal Plan of Care Note [code = 78394-7] Goal Plan of Care Note [code = 14271-8] Goal Plan of Care Note [code = 44824-4] Goal Plan of Care Note [code = 81880-7] Goal Plan of Care Note [code = 77528-8] Goal Plan of Care Note [code = 47406-6] Goal Plan of Care Note [code = 40237-7] Goal Plan of Care Note [code = 81547-5] Goal Plan of Care Note [code = 65526-1] Goal Plan of Care Note [code = 02156-5] Encounters Start End Encounter Admission Attending Care Care Encounter Source Date/Time Date/Time Type Type Clinicians Facility Department ID 2021-09-04 Outpatient [facility] [id number] Common 11:16:20 [id number] [facility] 2021-06-[address] [facility] [id number] [facility] 2023-02-06 Outpatient Antonio MUNOZ JUAN [facility] [id number] Univers 14:20:00 14:20:00 JUAN MUNOZ [facility] 2023-02-06 2023-02-06 Outpatient JUAN ARROYO [facility] [id number] Univers 14:20:00 14:20:00 JUAN MUNOZ [facility] 2022-11-17 2022-11-17 Outpatient SFA SFA [id number] Jasmeet 15:05:51 15:05:51 0410 F Alexandro 2022-08-06 2022-08-06 Outpatient SFA SFA [id number] Jasmeet 09:47:39 09:47:39 1228 F Alexandro 2022-06-30 2022-06-30 [facility] [id number] Univers 00:00:00 00:00:00 [facility] [id number] ity of [place] [id number] Javier as DWAYNE?BLEA [id number] [address] OFFICE [facility] 2022-04-23 2022-04-23 [facility] [id number] Univers 00:00:00 00:00:00 [facility] [id number] ity of [place] 4.2.7.2.686 Javier as DWAYNE?BLEA [id number] [address] 2022-02-13 2022-02-13 Outpatient [id number] 00:00:00 00:00:00 Visit [id number] 2022-02-04 2022-02-04 Outpatient JUAN ARROYO [facility] [id number] Univers 15:40:00 15:43:58 TAMMYJUAN MORENO [facility] 2022-02-04 2022-02-04 Office [facility] [id number] Univers 15:40:00 15:43:58 Visit [facility] [id number] ity of [place] 4.2.7.2.686 Javier as DWAYNE?BLEA [id number] [address] 2022-02-04 2022-02-04 Outpatient Antonio TAMMYJUAN MORENO [facility] [id number] Univers 15:40:00 15:43:58 JUAN MUNOZ [facility] 2022-01-16 2022-01-16 [facility] [id number] Univers 00:00:00 00:00:00 [facility] [id number] ity of [place] [id number] Javier as DWAYNE?BLEA [id number] [address] 2022-01-15 2022-01-15 [facility] [id number] Univers 00:00:00 00:00:00 [facility] [id number] ity of [place] [id number] Javier as DWAYNE?BLEA [id number] [address] 2022-01-14 2022-01-14 [facility] [id number] Univers 00:00:00 00:00:00 [facility] [id number] [id number] [id number] [facility] MEDICAL [address] Branch OFFICE BUILDING 2021-09-10 2021-09-10 Outpatient R [facility] [id number] Univers 12:42:04 23:59:00 XIOMARA Price o f [facility] 2021-09-10 2021-09-10 [facility] [id number] Univers 12:42:04 23:59:00 Encounter eXiomara [id number] [facility] [id number] [id number] [facility] 8[address] Branch 2021-06-19 2021-06-19 Telephone [facility] 1.2.840.114 [id number] Univers 00:00:00 00:00:00 Juan Stout [facility] [id number] ity of [facility] [id number] Javier as DWAYNE?BLEA [phone] [address] OFFICE BUILDING 2021-03-05 2021-03-05 Telephone [facility] [id number] Univers 00:00:00 00:00:00 Juan Stout Yair [id number] [id number] [phone] [address] 2021-03-01 2021-03-01 [facility] 1.2.840.114 [id number] Univers 00:00:00 00:00:00 Juan Mazariegos 350.1.13.10 [id number] [phone] [address] 2021-02-26 2021-02-26 Refill [facility] 1.2.840.114 [id number] Univers 00:00:00 00:00:00 Juan Stout Yair 350.1.13.10 [id number] [phone] [place] [address]052 [facility] 2020-12-18 2020-12-18 Telephone [facility] 1.2.840.114 [id number] Univers 00:00:00 00:00:00 Juan Mazariegos 350.1.13.10 [place] [phone] [address] 2020-11-07 2020-11-07 Telephone [facility] 1.2.840.114 [id number] Univers 00:00:00 00:00:00 Juan Mazariegos 350.1.13.10 [place] [phone] [address] 2020-11-05 2020-11-05 Telephone [facility] 1.2.840.114 [id number] Univers 00:00:00 00:00:00 Juan Mazariegos 350.1.13.10 [place] [phone] [address] 2020-11-02 2020-11-02 Office Tammy [facility] 1.2.840.114 [id number] Univers 10:33:04 11:44:36 Visit Juan Mazariegos 350.1.13.10 [place] [phone] [address] 2020-11-02 2020-11-02 Outpatient R JUAN MUNOZ [facility] [id number] Univers 10:40:00 10:40:00 JUAN MUNOZ itcarroll [facility] 2020-10-04 2020-10-04 Emergency [facility] 1.2.840.114 [id number] Univers 17:26:00 20:59:00 Wilson Mazariegos 350.1.13.10 i [place] [phone] [address] 2020-10-04 2020-10-04 Orders Doctor VIRGILIO 1.2.840.114 [id number] Univers 00:00:00 00:00:00 Only Unassigned, JACE 350.1.13.10 ity of [facility] 4.2.7.2.686 Javier as [phone] [address] 2020-06-26 2020-06-26 [facility] 1.2.840.114 [id number] Univers 13:31:40 23:59:00 Encounter Xiomara price 350.1.13.10 [place] [phone] [facility] [address] 2020-06-26 2020-06-26 Outpatient R [facility] [id number] Univers 00:00:00 00:00:00 XIOMARA Price [facility] 2020-06-19 2020-06-19 Nurse Practitioner Adult 2, Adc Lab [facility] 1.2.840.114 [id number] Univers 14:10:41 14:25:41 Visit Xiomara Guerra 350.1.1 3.10 [place] [phone] Az dical nal [address] [place] [address] 2020-06-19 2020-06-19 Outpatient R [facility] [id number] Univers 14:15:00 14:15:00 XIOMARA Price [facility] 2020-06-19 2020-06-19 Orders Doctor POOLE 1.2.840.114 [id number] Univers 00:00:00 00:00:00 Only Unassigned, JACE 350.1.13.10 ity of [facility] 4.2.7.2.686 Javier as [phone] [address] 2019-10-21 2019-10-21 Office [facility] 1.2.840.114 [id number] Univers 14:10:53 15:20:56 Visit Juan Mazariegos 350.1.13.10 [place] [phone] Az dical nal 092 [facility] 2019-10-21 2019-10-21 Outpatient JUAN ARROYO [facility] [id number] Univers 14:40:00 14:40:00 JUAN MUNOZ [facility] 2019-09-27 2019-09-27 Outpatient JUAN ARROYO [facility] [id number] Univers 13:20:12 23:59:00 UJAN MUNOZ [facility] 2019-09-27 2019-09-27 [facility] [id number] Univers 13:20:00 23:59:00 Encounter Juan Mazariegos 350.1.13.10 ity of [place] 4.2.7.2.686 [facility] [place] [phone] [facility] [address] 2019-08-19 2019-08-19 Office [facility] 1.2.840.114 [id number] Univers 13:30:11 15:28:04 Visit Juan Mazariegos 350.1.13.10 [place] [phone] [place] 727052 [facility] 2019-04-09 2019-04-09 Emergency [facility] 1.2.211.270 [id number] Univers 04:51:40 06:51:00 Haley Mazariegos 350.1.13.10 [place].2.[place] [phone] [place] [id number] 2017-05-05 2017-05-06 Outpatient nullFlavo [place] [id number] Memoria 17:36:00 04:59:00 antonio Campa 2017-05-05 2017-05-06 Outpatient nullFlavo [place] 544435 [id number] Memoria 17:36:00 04:59:00 antonio Campa 2017-05-05 2017-05-05 Outpatient Stanislaw [facility] [id number] 12:36:00 23:59:00 Garrett Carvajal 2017-03-24 2017-03-25 Outpatient nullFlavo [facility] 4045 [id number] Memoria 18:22:00 04:59:00 antonio Campa 00 l ALDO Campa 2017-03-24 2017-03-25 Outpatient [facility] [id number] Memoria 18:22:00 04:59:00 r Lokesh 00 l ALDO Campa 2017-03-24 2017-03-24 Outpatient Stanislaw, [facility] [id number] 13:22:00 23:59:00 Garrett 00 Carvajal Results Test Description Test Time Test Comments Results Result Comments Source TSH + FREE T4 PROFILE 2022-08-07 06:35:47 Test Item Value Reference Range Interpretation Comme nts TSH, THIRD GENERATION (test 4.000 UIU/ML 0.400-4.100 code = 2821) FREE T4 (THYROXINE) (test 1.20 NG/DL 0.80-1.90 U NLESS OTHERWISE INDICATED, code = 2823) ALL TESTING PER FORMED ATCLINICAL PATH OLOGY LABORATORIES, [facility]. [address] [place] [address] 5314 TALENT ENGINEER: Conrado SHI [id number] [facility] [place] [id number] LIPID [id number] 03:58:24 Test Item Value Reference Range Interpretation Comments CHOLESTEROL (test 162 MG/DL <200 code = 2210) TRIGLYCERIDES (test 162 MG/DL <150 H code = 2232) HDL CHOLESTEROL (test 54 MG/DL >39 code = 2220) CALC LDL CHOL (test 82 MG/DL <100 NOTE: C ALCULATED LDL code = 2237) IS BASED ON ALEXANDRA-RO METHOD WHICHINCLUDES ADJUSTABLE TRIGLYCERIDE:VL DL CHOLESTEROL RAT IO.THIS FACTOR VARIES B Y MEASURED TRIGLY CERIDE AND NON-HDLCHOL ESTEROL CONCENTRATIONS WITH INCREASED CALCU LATED LDL SEENIN HIGH ER TRIGLYCERIDE OR LOWER NON-HDL SPECIME NS. FOR MOREINFORMATION , SEE CLIENT ANNOUNCE MENT AT [email or web address] [email or web address] LDL/HDL 1.52 RATIO <3.22 (test code = 2238) COMPREHENSIVE METABOLIC [id number] 03:58:24 Test Item Value Reference Range Interpretation Comments GLUCOSE (test code = 98 MG/DL 70-99 2216) BUN (test code = 17 MG/DL 8-2207) CREATININE (test 1.02 MG/DL 0.60-1.30 code = 2214) eGFR (2020 CKD-EPI) 53 ML/MIN/1.73 >60 L The N KF-ASN (test code = 18390) Taskforc e recommends use of Cystatin C to confirm eGFR inadults at ris k for CKD. [facility] offers eGFR with Cystatin C-Creatinineusi ng the 2020 CKD-EP I eGFR_creat-cyst at equation (order code 3057) toincreas e the accuracy of estimated GFR. For more informatio n, contactyour acc ount executive or se e announcement [email or web address] CALC BUN/CREAT (test 17 RATIO 6-28 code = 2235) SODIUM (test code = 142 MEQ/L 049-864 7608) POTASSIUM (test code 4.3 MEQ/L 3.5-5.4 = 2227) CHLORIDE (test code 104 MEQ/L 95-107 = 2214) CARBON DIOXIDE (test 29 MEQ/L 19-31 code = 220) CALCIUM (test code = 9.7 MG/DL 8.5-10.5 2208) PROTEIN, TOTAL (test 7.2 G/DL 6.1-8.3 code = 222) ALBUMIN (test code = 4.2 G/DL 3.5-5.2 2200) CALC GLOBULIN (test 3.0 G/DL 1.9-3.7 code = 2240) CALC A/G RATIO (test 1.4 RATIO 1.0-2.6 code = 2234) BILIRUBIN, TOTAL 0.3 MG/DL See_Comment [Automated message] (test code = 2207) The syste m which generated this result transmit ghazal reference range : <=1.2. The refe rence range was not u sed to interpret th is result as normal/abnormal . ALKALINE PHOSPHATASE 70 U/L 40-142 (test code = 2204) AST (test code = 25 U/L 9-40 2217) ALT (test code = 29 U/L 5-40 2218) NOTE:2022-02-21 06:05:34 Test Item Value Reference Range Interpretation Comments NOTE: (test code = (NOTE) IN ACCOR DANCE WITH FEDERAL 998) GUIDELINES REQU IRING ALL VERBAL REQUESTS FOR LABORATORY TEST S TO BE ACCOMPANIED BY WRITTEN AUTHORIZATION W ADELITAIN 30 DAYS OF THIS REQUEST , PLEASE SIGN BELOW AND RETUR N A COPY OF THIS REPORT BY FAX TO THE LABORATORY [facility] DEPARTMENT AT . PHYSICIAN'S SIG NATURE DATE UNLESS OTHERWISE INDIC ATED, ALL TESTING PERFORM ED ATCLINICAL PATHOLOGY FORMERLY [facility]. [address] [place] [address] LABORATOR Y DIRECTOR: RONI BROWN M.D. CLIA NUMBER [id number] CAP ACCREDITATION N O. [id number] TSH + FREE T4 [id number] 01:10:59 Test Item Value Reference Range Interpretation Comments TSH, THIRD GENERATION (test code 6.050 UIU/ML 0.400-4.100 H = 2821) FREE T4 (THYROXINE) (test code = 1.20 NG/DL 0.80-1.90 2823) LIPID [id number] 06:43:09 Test Item Value Reference Range Interpretation [...] MOREINFORMATION , SEE CLIENT ANNOUNCE MENT AT [email or web address] RISK RATIO LDL/HDL 1.57 RATIO <3.22 UNLESS O THERWISE (test code = 2238) INDICATED , ALL TESTING PERFORMED [facility] PATHOLOGY LABORATORIES, [facility]. [address] [place] [address] [facility] DIRECTOR: RONI FIGUEROA M.D. CLIA NUMBER [id number] CAP ACCREDITATION N O. [id number] TSH + FREE T4 [id number] 00:00:00 Test Item Value Reference Range Interpretation Comments TSH, THIRD GENERATION (test code 3.440 UIU/ML = 2821) FREE T4 (THYROXINE) (test code = 1.20 NG/DL 2823) TSH + FREE T4 [id number] 00:00:00 Test Item Value Reference Range Interpretation Comments TSH, THIRD GENERATION (test code 3.440 UIU/ML = 2821) FREE T4 (THYROXINE) (test code = 1.20 NG/DL 2823) HEMOGLOBIN [id number] 00:00:00 Test Item Value Reference Range Interpretation Comments HEMOGLOBIN A1c (test code = 90397) 6.4 % HEMOGLOBIN [id number] 00:00:00 Test Item Value Reference Range Interpretation Comments HEMOGLOBIN A1c (test code = 30054) 6.4 % LIPID [id number] 00:00:00 Test Item Value Reference Range Interpretation Comments CHOLESTEROL (test code = 2210) 176 MG/DL TRIGLYCERIDES (test code = 2232) 316 MG/DL HDL CHOLESTEROL (test code = 2220) 54 MG/DL CALC LDL CHOL (test code = 2237) 84 MG/DL RISK RATIO LDL/HDL (test code = 1.56 RATIO 2238) COMPREHENSIVE METABOLIC [id number] 00:00:00 Test Item Value Reference Range Interpretation Comments GLUCOSE (test code = 2217) 104 MG/DL BUN (test code = 2208) 22 MG/DL CREATININE (test code = 2214) 0.87 MG/DL eGFR AMER. (test code 70 ML/MIN/1.73 = 64892) eGFR NON- AMER. (test 61 ML/MIN/1.73 code = 32179) CALC BUN/CREAT (test code = 25 RATIO 2235) SODIUM (test code = 2231) 145 MEQ/L POTASSIUM (test code = 2228) 4.6 MEQ/L CHLORIDE (test code = 2215) 104 MEQ/L CARBON DIOXIDE (test code = 28 MEQ/L 2205) CALCIUM (test code = 2209) 9.6 MG/DL PROTEIN, TOTAL (test code = 7.0 G/DL 2228) ALBUMIN (test code = 2201) 4.1 G/DL CALC GLOBULIN (test code = 2.9 G/DL 2239) CALC A/G RATIO (test code = 1.4 RATIO 2234) BILIRUBIN, TOTAL (test code = 0.2 MG/DL 2206) ALKALINE PHOSPHATASE (test 59 U/L code = 2204) AST (test code = 2218) 19 U/L ALT (test code = 2219) 19 U/L
--- NOTE | 2022-12-29 18:23 | RAD REPORT ---
EXAM DESCRIPTION: RAD - Wrist Right 3 View - 12/29/2022 6:15 pm CLINICAL HISTORY: SMASH INJURY Pain COMPARISON: No comparisons FINDINGS: Diffuse osteopenia is seen. Moderate soft tissue swelling septa on the wrist. Impacted fr acture of the distal radius and small avulsion fracture of the ulnar styloid identified.
--- NOTE | 2022-12-29 18:26 | RAD REPORT ---
EXAM DESCRIPTION: RAD - Tib Fib Right - 12/29/2022 6:15 pm CLINICAL HISTORY: SMASH INJURY COMPARISON: Tib Fib Right dated 07/24/2022 FINDINGS: Soft tissue swelling is present about the leg. No acute fracture or dislocation. Small hal caneal spurs.
--- NOTE | 2022-12-29 19:37 | EDPHYS ---
Physician Documentation [facility] Name: Elizabeth Hewitt Age: 87 yrs Sex: Female : 1935 Arrival Date: 12/29/2022 Time: 16:46 Bed 10 Private MD: Kareem Fairbanks R ED Physician Amparo Batres HPI: 12/29 17:41 This 87 yrs old Female presents to ER via Wheelchair with complaints of Fall Injury. sp3 17:41 87-year-old female with history of dementia, atrial fibrillation, hyperlipidemia, sp3 hypertension presents with mechanical ground-level fall witnessed by injuring right wrist and right ankle and tib-fib area in the FOOSH mechanism. No head injury or neck injury reported no LOC reported patient denies headache, neck pain, chest pain, back pain, shortness of breath, abdominal pain, left lower extremity pain, any upper extremity pain, syncope, loss of consciousness, or any other signs or symptoms on ROS at this time.. Historical: - Allergies: 17:15 Adhesives; ph 17:15 Sulfa (Sulfonamide Antibiotics); ph - PMHx: 17:15 Atrial Fib; Dementia; GERD; High Cholesterol; Hypertension; Hypothyroidism; Leaky ph Valves; - Immunization history:: Adult Immunizations unknown. - Social history:: Smoking status: Patient denies any tobacco usage or history of. - Immunization history: Last tetanus immunization: unknown. ROS: 17:42 Constitutional: Negative for fever, chills, and weight loss, Eyes: Negative for injury, sp3 pain, redness, and discharge, ENT: Negative for injury, pain, and discharge, Neck: Negative for injury, pain, and swelling, Cardiovascular: Negative for chest pain, palpitations, and edema, Respiratory: Negative for shortness of breath, cough, wheezing, and pleuritic chest pain, Abdomen/GI: Negative for abdominal pain, nausea, vomiting, diarrhea, and constipation, Back: Negative for injury and pain, Psych: Negative for depression, anxiety, suicide ideation, homicidal ideation, and hallucinations, Allergy/Immunology: Negative for hives, rash, and allergies, Endocrine: Negative for neck swelling, polydipsia, polyuria, polyphagia, and marked weight changes, Hematologic/Lymphatic: Negative for swollen nodes, abnormal bleeding, and unusual bruising. 17:42 All other systems are negative. 17:42 Unable to obtain ROS due to baseline dementia, Limited ROS from patient and however full ROS is limited secondary to dementia.. Exam: 17:43 Constitutional: This is a well developed, well nourished patient who is awake, alert, sp3 and in no acute distress. Head/Face: Normocephalic, atraumatic. Eyes: Pupils equal round and reactive to light, extra-ocular motions intact. Lids and lashes normal. Conjunctiva and sclera are non-icteric and not injected. Cornea within normal limits. Periorbital areas with no swelling, redness, or edema. ENT: Nares patent. No nasal discharge, no septal abnormalities noted. External auditory canals are clear. Oropharynx with no redness, swelling, or masses, exudates, or evidence of obstruction, uvula midline. Mucous membranes moist. Neck: Trachea midline, no thyromegaly or masses palpated, and no cervical lymphadenopathy. Supple, full range of motion without nuchal rigidity, or vertebral point tenderness. No Meningismus. Chest/axilla: Normal chest wall appearance and motion. Nontender with no deformity. No lesions are appreciated. Cardiovascular: Regular rate and rhythm with a normal S1 and S2. No gallops, murmurs, or rubs. Normal PMI, no JVD. No pulse deficits. Respiratory: Lungs have equal breath sounds bilaterally, clear to auscultation and percussion. No rales, rhonchi or wheezes noted. No increased work of breathing, no retractions or nasal flaring. Abdomen/GI: Soft, non-tender, with normal bowel sounds. No distension or tympany. No guarding or rebound. No evidence of tenderness throughout. Skin: Warm, dry with normal turgor. Normal color with no rashes, no lesions, and no evidence of cellulitis. Psych: Awake, alert, with orientation to person, place and time. Behavior, mood, and affect are within normal limits. 17:43 Musculoskeletal/extremity: Distal wrist swelling and tender to palpation without obvious deformity noted. Distal neurovascular exam is normal. Pain to palpation on the right mid tib-fib area and bruising noted on the right proximal portion of the ankle. There is no pain on the malleoli, bottom of the fifth metatarsal, distal neurovascular exam is normal. No signs of head injury or facial injury or neck injury noted.. Vital Signs: 17:12 BP 189 / 89; Pulse 69; Resp 18; Temp 97.8; Pulse Ox 97% on R/A; Weight 65.77 kg; Height ph 5 ft. 2 in. ; 19:56 BP 171 / 88; Pulse 70; Resp 17 S; Pulse Ox 98% on R/A; lg3 17:12 Body Mass Index 26.52 (65.77 kg, 157.48 cm) ph [place] Coma Score: 17:30 Eye Response: spontaneous(4). Motor Response: obeys commands(6). Verbal Response: ko1 confused(4). Total: 14. Trauma Score (Adult): 17:30 Eye Response: spontaneous(1); Verbal Response: confused(1); Motor Response: obeys ko1 commands(2); Systolic BP: > 89 mm Hg(4); Respiratory Rate: 10 to 29 per min(4); [place] Score: 14; Trauma Score: 12 MDM: 17:29 Patient medically screened. sp3 17:44 Data reviewed: vital signs, nurses notes, radiologic studies. ED course: 87-year-old sp3 female with mechanical ground-level fall without head injury witnessed by . Main injuries include right wrist, right tib-fib and right ankle. X-rays pending on all after mentioned areas. Disposition to be based on imaging and patient course.. 19:31 ED course: Impacted right distal radius without angulation. Distal neurovascular exam sp3 remains normal. We will place patient in a volar splint and a sling with follow-up with orthopedics for this week.. 12/29 17:30 Order name: Wrist Right 3 View XRAY; Complete Time: 19:15 sp3 12/29 17:30 Order name: Tib Fib Right XRAY; Complete Time: 19:15 sp3 12/29 17:30 Order name: NPO; Complete Time: 17:30 sp3 12/29 19:29 Order name: Volar Wrist Splint; Complete Time: 19:48 lg3 Administered Medications: No medications were administered Disposition Summary: 12/29/22 19:36 Discharge Ordered Location: Home sp3 Condition: Stable sp3 Diagnosis - Colles' fracture of right radius sp3 Followup: sp3 - With: Jani Marie MD - When: Upon discharge from the Emergency Department - Reason: Further diagnostic work-up, Recheck today's complaints Discharge Instructions: - Discharge Summary Sheet sp3 - Cast or Splint Care, Adult sp3 - Colles Fracture sp3 - How to Use a Sling sp3 Forms: - Medication Reconciliation Form sp3 - Thank You Letter sp3 - Antibiotic Education sp3 - Prescription Opioid Use sp3 Signatures: Dispatcher [employer] EDMS Marcelino Hare PA PA jmm Hall, Patricia, RN RN Tara Castro RN RN lg3 Amparo Batres MD MD sp3 Corrections: (The following items were deleted from the chart) 17:45 17:31 Ankle Right 3 View+RAD.RAD.BRZ ordered. EDNV EDNV
--- NOTE | 2022-12-29 19:37 | ER ---
Nurse's Notes [facility] Name: Elizabeth Hewitt Age: 87 yrs Sex: Female : 1935 Arrival Date: 12/29/2022 Time: 16:46 Bed 10 Private MD: Kareem Fairbanks R Diagnosis: Colles' fracture of right radius Presentation: 12/29 17:12 Chief complaint: Spouse and/or significant other states: states, " She has ph dementia and she got into the garage and tripped on a little step down." Pt reports pain to R forearm, swelling noted to R wrist. Coronavirus screen: Vaccine status: Patient reports receiving the 2nd dose of the covid vaccine. Ebola Screen: No symptoms or risks identified at this time. Initial Sepsis Screen: Does the patient meet any 2 criteria? No. Patient's initial sepsis screen is negative. Does the patient have a suspected source of infection? No. Patient's initial sepsis screen is negative. Risk Assessment: Do you want to hurt yourself or someone else? Patient reports no desire to harm self or others. Onset of symptoms was December 29, 2022. 17:12 Method Of Arrival: Wheelchair ph 17:12 Acuity: LUIS FERNANDO 4 ph Historical: - Allergies: 17:15 Adhesives; ph 17:15 Sulfa (Sulfonamide Antibiotics); ph - PMHx: 17:15 Atrial Fib; Dementia; GERD; High Cholesterol; Hypertension; Hypothyroidism; Leaky ph Valves; - Immunization history:: Adult Immunizations unknown. - Social history:: Smoking status: Patient denies any tobacco usage or history of. - Immunization history: Last tetanus immunization: unknown. Screenin:30 [facility] ED Fall Risk Assessment (Adult) History of falling in the last 3 months, ko1 including since admission Yes- single mechanical fall (1 pt) Confusion or Disorientation Yes (5 pts) Intoxicated or Sedated No (0 pts) Impaired Gait No (0 pts) Mobility Assist Device Used No (0 pt) Altered Elimination No (0 pt) Score/Fall Risk Level 3 or more points = High Risk Oriented to surroundings, Maintained a safe environment, Educated pt \\T\\ family on fall prevention, incl call for assistance when getting out of bed, Assessed \\T\\ reinforced patient's understanding of fall precautions, Provided non-skid footwear, Hourly rounding (assess needs \\T\\ fall precautionary measures) done, Used ambulatory aids as needed (educated on \\T\\ assisted with), Remained w/in arm's length of patient and in sight while toileting, Offered frequent toileting (1:1 observation), Remained with patient while ambulating, Utilized family, sitter, or virtual clearance representative as indicated. Abuse screen: Denies threats or abuse. Denies injuries from another. Nutritional screening: No deficits noted. Tuberculosis screening: No symptoms or risk factors identified. Assessment: 17:30 General: Appears in no apparent distress. uncomfortable, Behavior is calm, cooperative, ko1 appropriate for age. Pain: Complains of pain in right wrist. Neuro: Reports patient has dementia per . Cardiovascular: No deficits noted. Respiratory: No deficits noted. GI: No deficits noted. : No deficits noted. EENT: No deficits noted. Derm: No deficits noted. Musculoskeletal: Parent/caregiver report the patient having pain in right wrist. 18:17 Reassessment: ambulated patient to restroom to urinate. Patient ambulated well with ko1 minimal assistance. 19:24 General: Appears in no apparent distress. comfortable, Behavior is calm, cooperative, lg3 appropriate for age. Pain: Complains of pain in right arm. Neuro: No deficits noted. Gilbert Agitation-Sedation Scale (RASS): 0 - Alert and Calm. Cardiovascular: No deficits noted. Respiratory: No deficits noted. Airway is patent Respiratory effort is even, unlabored, Respiratory pattern is regular, symmetrical. GI: No deficits noted. No signs and/or symptoms were reported involving the gastrointestinal system. : No deficits noted. No signs and/or symptoms were reported regarding the genitourinary system. EENT: No deficits noted. Derm: No deficits noted. Skin is intact, is healthy with good turgor, Skin is dry, Skin is normal, Skin temperature is warm. Musculoskeletal: Parent/caregiver report the patient having pain in right arm. Vital Signs: 17:12 BP 189 / 89; Pulse 69; Resp 18; Temp 97.8; Pulse Ox 97% on R/A; Weight 65.77 kg; Height ph 5 ft. 2 in. ; 19:56 BP 171 / 88; Pulse 70; Resp 17 S; Pulse Ox 98% on R/A; lg3 17:12 Body Mass Index 26.52 (65.77 kg, 157.48 cm) ph Alem Coma Score: 17:30 Eye Response: spontaneous(4). Motor Response: obeys commands(6). Verbal Response: ko1 confused(4). Total: 14. Trauma Score (Adult): 17:30 Eye Response: spontaneous(1); Verbal Response: confused(1); Motor Response: obeys ko1 commands(2); Systolic BP: > 89 mm Hg(4); Respiratory Rate: 10 to 29 per min(4); Alem Score: 14; Trauma Score: 12 ED Course: 16:48 Patient arrived in ED. am2 16:48 Kareem Fairbanks MD is Private Physician. am2 17:07 Amparo Batres MD is Attending Physician. sp3 17:15 Triage completed. ph 17:15 Arm band placed on. ph 17:19 Meg Silva RN is Primary Nurse. ko1 17:30 Patient has correct armband on for positive identification. Fall risk band placed. Bed ko1 in low position. Call light in reach. Pulse ox on. NIBP on. Door closed. Noise minimized. Warm blanket given. 18:17 Wrist Right 3 View XRAY In Process Unspecified. EDMS 18:17 Tib Fib Right XRAY In Process Unspecified. EDMS 19:33 Jani Marie MD is Referral Physician. sp3 19:56 Assist provider with fracture care of right arm Immobilized with preformed splint, lg3 Patient tolerated well. Patient did not have IV access during this emergency room visit. Administered Medications: No medications were administered Medication: 19:56 VIS not applicable for this client. lg3 Outcome: 19:36 Discharge ordered by . sp3 19:56 Discharged to home via wheelchair, with family. 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 Demonstrated understanding of instructions, follow-up care, splint care. 19:58 Patient left the ED. lg3 Signatures: Dispatcher [employer] EDMS Julianna Sandra RN RN Birdget Shelton am2 Tara Castro RN RN lg3 Amparo Batres MD MD sp3 Meg Silva RN RN ko1 Corrections: (The following items were deleted from the chart) 17:16 17:12 Pulse 69bpm; Resp 18bpm; Pulse Ox 97% RA; Temp 97.8F; 65.77 kg; Height 5 ft. 2 ph in.; BMI: 26.5; ph
[2022-12-29 20:04] VITALS: TEMP 97.8
[2022-12-29 20:05] VITALS: BP 171/88; O2SAT 98
== END 2022-12-29 19:58 | disposition home or self-care (01) ==
LOC: ER 16:46
DX: S52.531A Colles' fracture of right radius, initial encounter for closed fracture (principal); F03.90 Unspecified dementia, unspecified severity, without behavioral disturbance, psychotic disturbance, mood disturbance, and anxiety; I10 Essential (primary) hypertension; Z88.2 Allergy status to sulfonamides; Z91.048 Other nonmedicinal substance allergy status

== ENCOUNTER 2023-01-02 09:01 | Emergency (ER) | payer OTHER ==
--- OUTSIDE RECORDS SUMMARY | 2023-01-02 09:07 | XMS REPORT | Continuity of Care Document ---
:1935 Author Organization [facility] t Address [address] [place] [address] [address] [place] [address] Care Team Providers Name Role Phone Tiki BECKMAN, Jose Primary Care Physician JUAN MUNOZ Attending Clinician Unavailable JUAN MUNOZ Attending Clinician Unavailable Juan Munoz MD Attending Clinician XIOMARA GUERRA Attending Clinician Unavailable Xiomara Guerra MD Attending Clinician Wilson Vidales Attending Clinician Doctor Unassigned, [place] Attending Clinician Unavailable 2, [facility] Attending Clinician Unavailable Haley Hill MD Attending Clinician Garrett Dover Attending Clinician XIOMARA GUERRA Admitting Clinician Unavailable JUAN MUNOZ Admitting Clinician Unavailable Payers Payer Name Policy Type Policy Number Effective Date Expiration Date S polly MEDICARE PART A [id number] 2000 \T\ B 00:00:00 FOR LIFE [id number] 2016 00:00:00 FOR LIFE [id number] 2021 00:00:00 Problems Condition Condition Condition Status Onset Resolution Last Treating Co mments Source Name Details Category Date Date Treatment Clinician Date F/U F/U Diagnosis Active 2017-05-08 Mem oria Active 03-31 14:40:00 l 03/31/2017 00:00: Raman diaz [address] C-DIFF C-DIFF Diagnosis Active 2017-03-24 Me moria Active 03-04 13:36:00 l 03/04/2017 00:00: Raman diaz [address] Arthritis Arthritis Problem Active 2017-05-08 Memoria (disorder) (disorder) 00:30:32 l Active [place] Problem 05/08/2017 [facility] Weight Weight Problem Active 2017-05-08 Arthur edy loss loss 00:30:32 l finding finding [place] (finding) (finding) Active Problem 05/08/2017 [facility] ENCNTR FOR ENCNTR Diagnosis Active 2017-05-08 Memoria GENERAL FOR 14:40:00 l ADULT GENERAL [place] MEDICAL ADULT EXAM W/ MEDICAL EXAM W/ Active [facility] Abdominal Abdominal Problem Active 2017-05-08 Memoria bloating bloating 00:30:32 l (finding) (finding) [place] boo Active Problem 05/08/2017 [facility] Anxiety Anxiety Problem Active 2017-05-08 M emoria (finding) (finding) 00:30:32 l Active [place] Problem 05/08/2017 [facility] No known No known Disease Unive rs active active ity of problems problems [facility] Allergies, Adverse Reactions, Alerts Allergy Allergy Status [...] 00 to drug Adhesive Propensi Active Itching 0 Unive rs ty to 1-10 ity of adverse 00:00: [place] reaction 00 Medical s Branch ADHESIVE Drug Active ITCHING 0 Univers Class 1-10 ity of 00:00: [place] 00 Medical Branch Adhesive Propensi Active Itching Unive rs ty to 1-10 ity of adverse 00:00: [place] reaction 00 Medical s Branch Sulfa Propensi Active Swelling Univer s (Sulfona ty to 5-07 ity of mide adverse 00:00: [place] Antibiot reaction 00 Medica l ics) s Branch SULFA Drug Active Swelling 2017-0 Univers (SULFONA Class 5-07 ity of MIDE 00:00: [place] ANTIBIOT 00 Medical ICS) Branch sulfa sulfa Active Memoria drugs drugs l [place] Tape Tape Active Memoria l [place] Social History Social Habit Start Date Stop Date Quantity Comments Source History SDNE University o f Alcohol Comment [place] Med ical Branch History [facility] University o f Alcohol Std [place] Medical Drinks Branch History [facility] o f Alcohol Binge [place] Medic al Branch Exposure to 2022-01-25 2022-02-04 Not sure University of SARS-CoV-2 00:00:00 15:15:00 [facility] [facility] (event) Branch Alcohol intake 2022-02-04 2022-02-04 Lifetime University of 00:00:00 00:00:00 non-drinker [facility] [facility] (finding) Branch History SDNE 2019-08-19 2019-08-19 1 University o f Alcohol Frequency 00:00:00 00:00:00 [facility] edical [place] Tobacco use and 2018-04-23 2018-04-23 Smokeless tobacco Un iversity of exposure 00:00:00 00:00:00 non-user [facility] Social History 2017-03-24 2017-03-24 [facility] Olivia jia 18:56:04 18:56:04 Sex [birth year] Universit y of 00:00:00 00:00:00 [facility] Smoking Status Start Date Stop Date Source Never smoked tobacco [facility] Medications Ordered Filled Start Stop Current Ordering Indication Dosage Frequency Signature Comments Components Source Medication Medication Date Date Medication? Clinician (SIG) Name Name &lt 0 No 150 7- 00:00: 00 &lt 2021-0 No 100 7- 00:00: 00 &lt 2021-0 No 7- 00:00: 00 &lt 2021-0 No 100 - 00:00: 00 TAKE 1 2021-0 No 4 TABLET BY 02-12 MOUTH TWICE 00:00: DAILY 00 galantamine Yes [id number] 8mg Take 1 Univers 8 mg tablet 6-28 tablet by ity of 00:00: mouth 2 [place] [address] (two) Medical times Branch daily. galantamine 2022-0 Yes [id number] 8mg Take 1 Univers 8 mg tablet 6-28 tablet by ity of 00:00: mouth 2 00 (two) Medical times Branch daily. galantamine 2021-0 Yes [id number] 8mg Take 1 Univers 8 mg tablet 6-28 tablet by ity of 00:00: mouth 2 00 (two) Medical times Branch daily. galantamine 2021-0 Yes [id number] 8mg Take 1 Univers 8 mg tablet 6-28 tablet by ity of 00:00: mouth 2 (two) Medical times Branch daily. Dose 2021-0 No Unknown 6 00:00: 00 galantamine 2021-0 2022- No 8mg [...] [place] mg tablet 00 Medical Branch HYDROcodone 1-1 Yes Univer s -acetaminop 1-10 ity of hen 5-325 00:00: [place] mg tablet 00 Medical [place] HYDROcodone 2020-1 Yes Univer s -acetaminop 1-10 ity of hen 5-325 00:00: [place] mg tablet 00 Medical Branch gabapentin 2021-0 Yes Univers 100 mg 7-06 ity of capsule 00:00: [place] 00 [facility] Branch gabapentin 2021-0 Yes Univers 100 mg 7-06 ity of capsule 00:00: [address] gabapentin 2021-0 Yes Univers 100 mg 7-06 ity of capsule 00:00: [address] gabapentin 2021-0 Yes Univers 100 mg 7-06 ity of capsule 00:00: [address] galantamine 1-0 No 1mg 4 mg tablet 02-12 00:00: 00 gabapentin 1-0 No 1mg 100 mg 7-06 capsule 00:00: 00 desipramine 1-0 Yes Univer s 10 mg 5-14 ity of tablet 00:00: [place] 00 [facility] desipramine 2021-0 Yes Univer s 10 mg 5-14 ity of tablet 00:00: [address] desipramine 2021-0 Yes Univer s 10 mg 5-14 ity of tablet 00:00: [address] desipramine 2021-0 Yes Univer s 10 mg 5-14 ity of tablet 00:00: [address] levothyroxi 1-0 No 5mcg ne 25 mcg 5-11 tablet 00:00: 00 Diflucan 1-0 No 1mg 150 mg 5-04 tablet 00:00: 00 levothyroxi 1-0 No 5mcg ne 25 mcg 5-04 tablet 00:00: 00 Monistat 3 2020-0 No 1mg/5 200 mg/5 5-04 gram (4 gram (4 %) 00:00: %) vaginal 00 cream Monistat 3 2020-0 No 1mg/5 200 mg/5 5-04 gram (4 gram (4 %) 00:00: %) vaginal 00 cream losartan 2020-0 No 1mg 100 mg 5-04 tablet 00:00: 00 amlodipine 2020-0 No 1mg 5 mg tablet 5-04 00:00: 00 Diflucan 2020-0 No 1mg 150 mg 5-04 tablet 00:00: 00 rivastigmin 2020-0 2021- No Unive rs e 4.6 mg/24 11-06 ity of hour patch 00:00: 00:00 [place] 00 :00 Medical Branch rivastigmin 2020-0 2021- No Unive rs e 4.6 mg/24 11-06 ity of hour patch 00:00: 00:00 [place] 00 :00 Medical Branch cholecalcif 2020-0 Yes [...] mouth. ity of 180 mg Cap 14:26: [address] Simethicone 2019-0 Yes Take by Uni vers (PHAZYME) 3-13 mouth. ity of 180 mg Cap 14:26: [address] Simethicone 2020-0 Yes Take by Uni vers (PHAZYME) 3-13 mouth. ity of 180 mg Cap 14:26: [address] Simethicone 2020-0 Yes Take by Uni vers (PHAZYME) 3-13 mouth. ity of 180 mg Cap 14:26: [address] sotalol 80 2019-0 No 5mg mg tablet 2-10 00:00: 00 magnesium 2019-0 No 1mg oxide 400 2-10 magnesi mg (241.3 00:00: um) mg 00 magnesium) tablet Vitamin D3 0 No 1(5,000 125 mcg 2-10 unit) (5,000 [...] 1-10 by mouth ity of 14:46: daily. [place] [address] Medical Branch amLODIPine 2020-0 Yes 10mg Take 10 mg U nivers 5 mg tablet 1-10 by mouth ity of 14:46: daily. [place] [address] Medical Branch losartan 2020-0 Yes 100mg Take 100 Univ ers 100 mg 1-10 mg by ity of tablet 14:46: mouth [place] [address] daily. Medical Branch ranitidine 2020-0 Yes 150mg Take 150 Un valdemar 150 mg 1-10 mg by ity of tablet 14:46: mouth at [place] [address] bedtime. Medical Branch lactulose 2020-0 Yes 15mL Take 15 mL Un valdemar 10 gram/15 1-10 by mouth ity o f mL solution 14:46: daily. [address] sotalol 80 2020-0 Yes 80mg Take 80 mg U nivers mg tablet 1-10 by mouth ity of 14:46: daily. [address] amLODIPine 2020-0 Yes 10mg Take 10 mg U nivers 5 mg tablet 1-10 by mouth ity of 14:46: daily. [address] losartan 2020-0 Yes 100mg Take 100 Univ ers 100 mg 1-10 mg by ity of tablet 14:46: mouth [place] [address] daily. Medical Branch ranitidine 2020-0 Yes 150mg Take 150 Un valdemar 150 mg 1-10 mg by ity of tablet 14:46: mouth at [place] [address] bedtime. Medical Branch lactulose 2020-0 Yes 15mL Take 15 mL Un valdemar 10 gram/15 1-10 by mouth ity o f mL solution 14:46: daily. [address] sotalol 80 2020-0 Yes 80mg Take 80 mg U nivers mg tablet 1-10 by mouth ity of 14:46: daily. [address] amLODIPine 2020-0 Yes 10mg Take 10 mg U nivers 5 mg tablet 1-10 by mouth ity of 14:46: daily. [address] losartan 2020-0 Yes 100mg Take 100 Univ ers 100 mg 1-10 mg by ity of tablet 14:46: mouth [place] [address] daily. Medical Branch ranitidine 2019-0 Yes 150mg Take 150 Un valdemar 150 mg 1-10 mg by ity of tablet 14:46: mouth at [place] [address] bedtime. Medical Branch lactulose 2019-0 Yes 15mL Take 15 mL Un valdemar 10 gram/15 1-10 by mouth ity o f mL solution 14:46: daily. [address] sotalol 80 2019-0 Yes 80mg Take 80 mg U nivers mg tablet 1-10 by mouth ity of 14:46: daily. [address] amLODIPine 2019-0 Yes 10mg Take 10 mg U nivers 5 mg tablet 1-10 by mouth ity of 14:46: daily. [address] losartan 2019-0 Yes 100mg Take 100 Univ ers 100 mg 1-10 mg by ity of tablet 14:46: mouth [place] [address] daily. Medical Branch ranitidine 0 Yes 150mg Take 150 Un valdemar 150 mg 1-10 mg by ity of tablet 14:46: mouth at [place] [address] bedtime. Medical Branch lactulose 0 Yes 15mL Take 15 mL Un valdemar 10 gram/15 1-10 by mouth ity o f mL solution 14:46: daily. [address] furosemide 2018-08 Yes Univers 20 mg 2-20 ity of tablet 00:00: [address] furosemide 2018-08 Yes Univers 20 mg 2-20 ity of tablet 00:00: [address] furosemide 2018-08 Yes Univers 20 mg 2-20 ity of tablet 00:00: [address] furosemide 2018- Yes Univers 20 mg 2-20 ity of tablet 00:00: [address] famotidine 2018- Yes Univers 40 mg 1-21 ity of tablet 00:00: [address] famotidine 2018-08 Yes Univers 40 mg 1-21 ity of tablet 00:00: [address] famotidine 2018-08 Yes Univers 40 mg 1-21 ity of tablet 00:00: [address] famotidine 2018-08 Yes Univers 40 mg 1-21 ity of tablet 00:00: [address] REPATHA 2018-08 Yes Univers SURECLICK 1-14 ity of 140 mg/mL 00:00: [address] REPATHA 2018-08 Yes Univers SURECLICK 1-14 [...] 7-31 affected ity of 00:00: area(s) 3 [place] 00 (three) Medical times Branch daily. diltiazem 2 0 Yes Apply to Un valdemar % cream 7-31 affected ity of 00:00: area(s) 3 [place] 00 (three) Medical times Branch daily. diltiazem 2 Yes Apply to Un valdemar % cream 7-31 affected ity of 00:00: area(s) 3 [place] 00 (three) Medical times Branch daily. diltiazem 2 Yes Apply to Un valdemar % cream 7-31 affected ity of 00:00: area(s) 3 [place] 00 (three) Medical times Branch daily. levothyroxi 2016- Yes Univer s ne 25 mcg 1-08 ity of tablet 00:00: [place] [facility] Branch levothyroxi 2016- Yes Univer s ne 25 mcg 1-08 ity of tablet 00:00: [place] [facility] Branch levothyroxi 2016- Yes Univer s ne 25 mcg 1-08 ity of tablet 00:00: [place] [facility] Branch levothyroxi 2016- Yes Univer s ne 25 mcg 1-08 ity of tablet 00:00: [address] Branch fidaxomicin 2017 Yes 200 mg = 1 Memoria 200 MG Oral 9-26 tab, PO, l Tablet 19:22: BID, # 20 Raman n [Dificid] 00 tab, 0 Refill(s), [facility] [id number] fidaxomicin Yes 200 mg = 1 Memoria 200 MG Oral 9-26 tab, PO, l Tablet 19:22: BID, # 20 Raman n [Dificid] 00 tab, 0 Refill(s), Pharmacy: [facility] fidaxomicin Yes 200 mg = 1 Memoria 200 MG Oral 9-26 tab, PO, l Tablet 19:22: BID, # 20 Raman n [Dificid] 00 tab, 0 Refill(s), Pharmacy: [place] [address] fidaxomicin Yes 200 mg = 1 Memoria 200 MG Oral 9-26 tab, PO, l Tablet 19:22: BID, # 20 Raman n [Dificid] 00 tab, 0 Refill(s), Pharmacy: [place] [address] fidaxomicin Yes 200 mg = 1 Memoria 200 MG Oral 9-26 tab, PO, l Tablet 19:22: BID, # 20 Raman n [Dificid] 00 tab, 0 Refill(s), Pharmacy: [place] [address] fidaxomicin Yes 200 mg = 1 Memoria 200 MG Oral 9-26 tab, PO, l Tablet 19:22: BID, # 20 Raman n [Dificid] 00 tab, 0 Refill(s), [address] 200 mg = 1 Memoria 200 MG Oral 9-26 tab, PO, l Tablet 19:17: BID, X 10 Raman n [Dificid] 00 day, # 20 tab, 0 Refill(s), [address] 200 mg = 1 Memoria 200 MG Oral 9-26 tab, PO, l Tablet 19:17: BID, X 10 Raman n [Dificid] 00 day, # 20 tab, 0 Refill(s), Pharmacy: [place] [address] fidaxomicin Yes 200 mg = 1 Memoria 200 MG Oral 9-26 tab, PO, l Tablet 19:17: BID, X 10 Raman n [Dificid] 00 day, # 20 tab, 0 Refill(s), Pharmacy: [place] [address] fidaxomicin Yes 200 mg = 1 Memoria 200 MG Oral 9-26 tab, PO, l Tablet 19:17: BID, X 10 Raman n [Dificid] 00 day, # 20 tab, 0 Refill(s), Pharmacy: [facility] [id number] fidaxomicin 2017- Yes 200 mg = 1 Memoria 200 MG Oral 9-26 tab, PO, l Tablet 19:17: BID, X 10 Raman n [Dificid] 00 day, # 20 tab, 0 Refill(s), Pharmacy: [facility] [id number] fidaxomicin 2017- Yes 200 mg = 1 Memoria 200 MG Oral 9-26 tab, PO, l Tablet 19:17: BID, X 10 Raman n [Dificid] 00 day, # 20 tab, 0 Refill(s), Pharmacy: [facility] [address] [facility] Yes [facility], Me moria 8 See l 15:15: [facility] [place] 00 ns, Faxed order to the [facility] on 03/25/17., # 2 box, Refill(s) 11, other [facility] Yes [employer], Me moria 03-25 See l 15:15: [facility] [place] 00 ns, Faxed order to the [facility] on 03/25/17., # 2 box, Refill(s) 11, other [employer] 0 Yes [employer], Me moria 03-25 See l 15:15: [facility] [place] 00 ns, Faxed order to the [facility] on 03/25/17., # 2 box, Refill(s) 11, other [employer] 0 Yes [employer], Me moria 03-25 See l 15:15: [facility] [place] 00 ns, Faxed order to the [facility] on 03/25/17., # 2 box, Refill(s) 11, other [employer] 2017-0 Yes Entera[employer], Me moria 03-25 See l 15:15: [facility] [place] 00 ns, Faxed order to the [facility] on 03/25/17., # 2 box, Refill(s) 11, other [employer] 2017-0 Yes [employer], Me moria 03-25 See l 15:15: [facility] [place] 00 ns, Faxed order to the [facility] on 03/25/17., # 2 box, Refill(s) 11, other [employer] 2017-0 Yes [employer], Me moria 03-24 See l 20:41: [facility] [place] 00 ns, Lot # [id number] exp date 08/29, # 1 box, Refill(s) 0, given to patient [employer] Yes Me Micki moria 03-24 See l 20:41: [facility] [place] 00 ns, Lot # [id number] exp date 08/29, # 1 box, Refill(s) 0, given to patient [employer] Yes Me sondra Sweeta 03-24 See l 20:41: [facility] [place] 00 ns, Lot # [id number] exp date 08/29, # 1 box, Refill(s) 0, given to patient [facility] Yes Me sondra Sweeta 03-24 See l 20:41: [facility] [place] 00 ns, Lot # [id number] exp date 08/29, # 1 box, Refill(s) 0, given to patient EnterEliazar Yes Me sondra Sweeta 03-24 See l 20:41: [facility] [place] 00 ns, Lot # [id number] exp date 08/29, # 1 box, Refill(s) 0, given to patient EnteraGa Yes Me sondra Sweeta 03-24 See l 20:41: [facility] [place] 00 ns, Lot # [id number] exp date 08/29, # 1 box, Refill(s) 0, given to patient Colestipol Yes 2 gm = 2 Mem oria Hydrochlori 03-24 tab, PO, l de 1000 MG 18:56: BID, # 120 H ermann Oral Tablet 00 tab, 0 Refill(s) Sotalol Yes 80 mg = 1 Memor ia Hydrochlori 03-24 tab, PO, l de 80 MG 18:56: Daily, 12, Her silverman Oral Tablet 00 # 60 tab, 0 Refill(s) Vitamin D3 Yes 5,000 Memori a 5000 intl 03-24 IntlUnit = l units oral 18:56: 1 [...] de 80 MG 18:56: Daily, 12, Her sivlerman Oral Tablet 00 # 60 tab, 0 [...] tab, PO, l tablet 18:56: Daily, # [place] 00 30 tab, 0 Refill(s) Amlodipine Yes [...] 12, # 30 tab, 0 Refill(s) non-formula 2017 Yes Daily, Arthur edy ry 8-15 aredas, [...] tab, PO, l tablet 18:56: Daily, # [place] 00 30 tab, 0 Refill(s) Amlodipine Yes [...] edy ry 8-15 aredas, l 18:56: Refill(s) [place] 00 0 losartan Yes 100 mg = 1 Mem oria 100 mg oral 8-15 tab, PO, l tablet 18:56: Daily, # [place] 00 30 tab, 0 Refill(s) Amlodipine 2017 Yes 1 cap, PO, M emoria 5 [...] edy ry 8-15 aredas, l 18:56: Refill(s) [place] 00 0 Colestipol Yes 2 gm = [...] # Capsule 10 cap, 0 [Florastor] Refill(s) Colestipol Yes 2 gm = 2 Mem [...] tab, PO, l tablet 18:56: Daily, # [place] 00 30 tab, 0 Refill(s) Amlodipine Yes [...] 12, # 30 tab, 0 Refill(s) non-formula 2017 Yes Daily, [place] edy ry 8-15 aredas, [...] n 00 180 cap, 0 Refill(s) levothyroxi 2016- Yes 25 Memori a ne 25 mcg 8-15 microgram l (0.025 mg) 18:56: = 1 tab, Her silverman oral tablet 00 PO, Daily, 12, # 30 tab, 0 Refill(s) non-formula 2017-0 Yes Daily, [place] edy ry 8-15 aredas, l 18:56: Refill(s) [place] 00 0 phenazopyri 2017-0 Yes 200mg Take 1 Uni vers dine 200 mg 5-07 tablet by ity of tablet 00:00: mouth 3 [place] 00 (three) Medical times Branch daily. phenazopyri 2017-0 Yes 200mg Take 1 Uni vers dine 200 mg 5-07 tablet by ity of tablet 00:00: mouth 3 [place] 00 (three) Medical times Branch daily. phenazopyri 2016-0 Yes 200mg Take 1 Uni vers dine 200 mg 5-07 tablet by ity of tablet 00:00: mouth 3 [place] 00 (three) Medical times Branch daily. phenazopyri 2016-0 Yes 200mg Take 1 Uni vers dine 200 mg 5-07 tablet by ity of tablet 00:00: mouth 3 [place] 00 (three) Medical times Branch daily. Vital Signs Vital Name Observation Time Observation Value Comments Source Systolic blood 2022-02-04 20:24:00 146 mm[Hg] [facility] Diastolic blood 2022-02-04 20:24:00 74 mm[Hg] [facility] Heart rate 2022-02-04 20:24:00 57 /min [facility] Body height 2022-02-04 20:24:00 154.9 cm [facility] Body weight 2022-02-04 20:24:00 66.679 kg [facility] BMI 2022-02-04 20:24:00 27.78 kg/m2 [facility] Oxygen saturation in 2022-02-04 20:24:00 98 /min [facility] blood by [facility] Pulse oximetry Branch BP Systolic 2022-02-13 [...] 14:34:00 Height 2017-05-05 17:46:00 160.02 cm [facility] [place] Respitory Rate 2017-05-05 17:46:00 Memori al [place] Heart Rate 2017-05-05 17:46:00 [facility] [place] Systolic (mm Hg) 2017-05-05 17:46:00 Arthur rial [place] Diastolic (mm Hg) 2017-05-05 17:46:00 Mem orial [place] Weight 2017-05-05 17:46:00 [facility] [place] BMI Calculated 2017-05-05 17:46:00 Memori al [place] Height 2017-03-24 18:41:00 157.48 cm [facility] [place] BMI Calculated 2017-03-24 18:41:00 Kanwal hernandez [place] Weight 2017-03-24 18:41:00 Kianna [place] Systolic (mm Hg) 2017-03-24 18:41:00 Arthur Campa Diastolic (mm Hg) 2017-03-24 18:41:00 Yan Campa Respitory Rate 2017-03-24 18:41:00 Kanwal Cruzann Heart Rate 2017-03-24 18:41:00 [facility] [place] Procedures Procedure Date / Time Performed Performing Clinician Sour e Cataract surgery [facility] n Colonoscopy [facility] [place] Spinal cord operation [facility] H ermbanner Plan of Care Planned Activity Planned Date Details Comments Source Goal Plan of Care Note [code = 29413-7] Goal Plan of Care Note [code = 55956-9] Goal Plan of Care Note [code = 75977-9] Goal Plan of Care Note [code = 21685-7] Goal Plan of Care Note [code = 36777-2] Goal Plan of Care Note [code = 93972-4] Goal Plan of Care Note [code = 77841-4] Goal Plan of Care Note [code = 63355-0] Goal Plan of Care Note [code = 11558-5] Goal Plan of Care Note [code = 74760-4] Goal Plan of Care Note [code = 71715-8] Goal Plan of Care Note [code = 27084-8] Goal Plan of Care Note [code = 80373-1] Goal Plan of Care Note [code = 71966-9] Goal Plan of Care Note [code = 23003-3] Goal Plan of Care Note [code = 02206-2] Encounters Start End Encounter Admission Attending Care Care Encounter Source Date/Time Date/Time Type Type Clinicians Facility Department ID 2021-09-04 Outpatient STLMLC STLMLC [id number] Common 11:16:20 [id number] [facility] 2021-06-09 Emergency [facility] [id number] Univers 01:30:56 [facility] 2023-02-06 2023-02-06 Outpatient JUAN ARROYO [facility] [id number] Univers 14:20:00 14:20:00 JUAN MUNOZ [facility] 2023-02-06 2023-02-06 Outpatient JUAN ARROYO [facility] [id number] [facility] 14:20:00 14:20:00 JUAN MUNOZ [facility] 2022-11-17 2022-11-17 Outpatient [facility] [id number] Jasmeet 15:05:51 15:05:51 0410 F Alexandro 2022-08-06 2022-08-06 Outpatient [facility] [id number] Jasmeet 09:47:39 09:47:39 1228 F Alexandro 2022-06-30 2022[facility]06-30 [facility] [id number] Univers 00:00:00 00:00:00 [facility] [id number] ity of [place] [id number] Javier as DWAYNE?BLEA [id number] [address] OFFICE [facility] 2022-04-23 2022-04-23 [facility] TammyRUST [id number] Univers 00:00:00 00:00:00 [facility] [id number] ity of [place] 4.2.7.2.686 Javier as DWAYNE?BLEA [id number] [address] 2022-02-13 2022-02-13 Outpatient [id number] 00:00:00 00:00:00 Visit [id number] 2022-02-04 2022-02-04 Outpatient JUAN ARROYO [facility] [id number] Univers 15:40:00 15:43:58 JUAN MUNOZ [facility] 2022-02-04 2022-02-04 Office Tammy [facility] [id number] Univers 15:40:00 15:43:58 Visit [facility] [id number] ity of [place] 4.2.7.2.686 Javier as DWAYNE?BLEA [id number] [address] OFFICE [facility] 2022-02-04 2022-02-04 Outpatient R JUAN MNUOZ [facility] [id number] Univers 15:40:00 15:43:58 JUAN MUNOZ [facility] 2022-01-16 2022-01-16 Anton MunozRUST 1.2.840.114 [id number] Univers 00:00:00 00:00:00 [facility] [id number] ity of [place] 4.2.7.2.686 Javier as DWAYNE?BLEA [id number] [address] OFFICE [facility] 2022-01-15 2022-01-15 Anton MunozRUST [id number] Univers 00:00:00 00:00:00 Juan [facility] [id number] ity of [place] 4.2.7.2.686 Javier as DWAYNE?BLEA [id number] [address] 2022-01-14 2022-01-14 [facility] 1.2.840.114 [id number] Univers 00:00:00 00:00:00 [facility] [id number] [place]2.[place] [id number] [address] OFFICE [facility] 2021-09-10 2021-09-10 Outpatient R [facility] [id number] Univers 12:42:04 23:59:00 XIOMARA Price o f [facility] 2021-09-10 2021-09-10 [facility] [id number] Univers 12:42:04 23:59:00 Encounter eXiomara [id number] [place]2.7.2.[place] [id number] [address] 2021-06-19 2021-06-19 Richelle TammyRUST 1.2.840.114 [id number] Univers 00:00:00 00:00:00 [facility] [id number] ity of [place] 4.2.7.2.686 Javier as DWAYNE?BLEA [id number] [address] 2021-03-05 2021-03-05 [facility] 1.2.840.114 [id number] Univers 00:00:00 00:00:00 Juan Ybarraton [id number] [place] [id number] [address] 2021-03-01 2021-03-01 [facility] 1.2.840.114 [id number] Univers 00:00:00 00:00:00 Juan Stout Yair [id number] [place] [id number] [address] 2021-02-26 2021-02-26 Refill [facility] 1.2.840.114 [id number] Univers 00:00:00 00:00:00 Juan Stout Yair 350.1.13.10 [place] [phone] [address] 2020-12-18 2020-12-18 [facility] 1.2.840.114 [id number] Univers 00:00:00 00:00:00 Juan Stout Yair 350.1.13.10 [place] [phone] [address] 2020-11-07 2020-11-07 [facility] 1.2.840.114 [id number] Univers 00:00:00 00:00:00 Juan Stout Yair 350.1.13.10 [place] [phone] [address] 2020-11-05 2020-11-05 [facility] 1.2.840.114 [id number] Univers 00:00:00 00:00:00 Juan Girish Mazariegos 350.1.13.10 [place] [phone] Wi dical nal 092 [facility] 2020-11-02 2020-11-02 Office Tammy [facility] 1.2.840.114 [id number] Univers 10:33:04 11:44:36 Visit Juan Mazariegos 350.1.13.10 [place] [phone] Wi dical nal 2 [facility] 2020-11-02 2020-11-02 Outpatient R TAMMYJUAN MORENO [facility] [id number] Univers 10:40:00 10:40:00 TAMMYJUAN Price [facility] 2020-10-04 2020-10-04 Emergency [facility] 1.2.840.114 [id number] Univers 17:26:00 20:59:00 Wilson Mazariegos 350.1.13.10 i [place] [phone] [facility] [address] 2020-10-04 2020-10-04 Orders Doctor VIRGILIO 1.2.840.114 [id number] Univers 00:00:00 00:00:00 Only Unassigned, JACE 350.1.13.10 ity of [place] [facility] 4.2.7.2.686 Javier as [phone] [facility] [address] 2020-06-26 2020-06-26 [facility] 1.2.840.114 [id number] Univers 13:31:40 23:59:00 Encounter Xiomara price 350.1.13.10 [place] [phone] [facility] [address] 2020-06-26 2020-06-26 Outpatient R [facility] [id number] Univers 00:00:00 00:00:00 XIOMARA Prcie [facility] 2020-06-19 2020-06-19 [employer] 2, Adc Lab [facility] 1.2.840.114 [id number] Univers 14:10:41 14:25:41 Visit Xiomara Guerra 350.1.1 3.10 [place] of [place] [phone] Wi dical nal 353 [facility] 2020-06-19 2020-06-19 Outpatient R LIZBETH [facility] [id number] Univers 14:15:00 14:15:00 XIOMARA Price o f [facility] 2020-06-19 2020-06-19 Orders Doctor VIRGILIO 1.2.840.114 [id number] Univers 00:00:00 00:00:00 Only Unassigned, JACE 350.1.13.10 ity of [place] [facility] 4.2.7.2.686 Javier as [phone] [facility] [address] 2019-10-21 2019-10-21 Office [facility] 1.2.840.114 [id number] Univers 14:10:53 15:20:56 Visit Juan Mazariegos 350.1.13.10 [place] [phone] Wi dical nal 092 [facility] 2019-10-21 2019-10-21 Outpatient R JUAN MUNOZ [facility] [id number] Univers 14:40:00 14:40:00 JUAN MUNOZ [facility] 2019-09-27 2019-09-27 Outpatient R JUAN MUNOZ [facility] [id number] Univers 13:20:12 23:59:00 [facility]-09[facility]27 2019-09-27 [facility] Tamym [facility] [id number] Univers 13:20:00 23:59:00 Encounter Juan Ybarraton 350.1.13.10 [place] [phone] [facility] [address] 2019-08-19 2019-08-19 Office TammyRUST 1.2.840.114 [id number] Univers 13:30:11 15:28:04 Visit Juan Mazariegos 350.1.13.10 ity of [place] 4.2.7.2.686 [facility] [phone] [facility] 092 [facility] 2019-04-09 2019-04-09 Emergency Sergio MTWENDY 1.2.770.214 [id number] [facility] 04:51:40 06:51:00 Haley Mazariegos 350.1.13.10 ity of [place] 4.2.7.2.686 [facility] [phone] [facility] [address] 2017-05-05 2017-05-06 [facility] [id number] Memoria 17:36:00 04:59:00 r Lokesh 01 l ALDO Campa 2017-05-05 2017-05-06 [facility] 4045 [id number] Memoria 17:36:00 04:59:00 r Lokesh 01 l ALDO Campa 2017-05-05 2017-05-05 Outpatient [facility] [id number] 12:36:00 23:59:00 Garrett Carvajal 2017-03-24 2017-03-25 [facility] 4045 [id number] Memoria 18:22:00 04:59:00 r Lokesh 00 l ALDO Campa 2017-03-24 2017-03-25 [facility] 4045 [id number] Memoria 18:22:00 04:59:00 r Lokesh 00 l ALDO Campa 2017-03-24 2017-03-24 Outpatient [facility] [id number] 13:22:00 23:59:00 Garrett Carvajal Results Test Description Test Time Test Comments Results Result Comments Source TSH + FREE T4 PROFILE 2022-08-07 06:35:47 Test Item Value Reference Range Interpretation Comme nts TSH, THIRD GENERATION (test 4.000 UIU/ML 0.400-4.100 code = 2821) FREE T4 (THYROXINE) (test 1.20 NG/DL 0.80-1.90 U NLESS OTHERWISE INDICATED, code = 2823) ALL TESTING PER FORMED ATCLINICAL PATH OLOGY LABORATORIES, [facility]. [address] [place] [address] 8754 AIR COMPRESS[employer] MECHANIC: RONI FIGUEROA M.D. ANTHONY Alvarez [id number] [place] [id number] LIPID [id number] 03:58:24 Test Item Value Reference Range Interpretation [...] MOREINFORMATION , SEE CLIENT ANNOUNCE MENT AT [email or web address] RISK RATIO LDL/HDL 1.52 RATIO <3.22 (test code = 2238) COMPREHENSIVE METABOLIC [id number] 03:58:24 Test Item Value Reference Range Interpretation Comments GLUCOSE (test code = 98 MG/DL 70-99 2216) BUN (test code = 17 MG/DL 8-23 2207) CREATININE (test 1.02 MG/DL 0.60-1.30 code = 2214) eGFR (2020 CKD-EPI) 53 ML/MIN/1.73 >60 L The N KF-ASN (test code = 13406) Taskforc e recommends use of Cystatin C to confirm eGFR inadults at ris k for CKD. [facility] offers eGFR with Cystatin C-Creatinineusi ng the 2020 CKD-EP I eGFR_creat-cyst at equation (order code 3057) toincreas e the accuracy of estimated GFR. For more informatio n, contactyour acc ount executive or se e announcement [email or web address] [email or web address] CALC BUN/CREAT (test 17 RATIO 6-28 code = 2235) SODIUM (test code = 142 MEQ/L 406-396 8037) POTASSIUM (test code 4.3 MEQ/L 3.5-5.4 = 2227) CHLORIDE (test code 104 MEQ/L 95-107 = 2215) CARBON DIOXIDE (test 29 MEQ/L -31 code = 2206) CALCIUM (test code = 9.7 MG/DL 8.5-10.5 2208) PROTEIN, TOTAL (test 7.2 G/DL 6.1-8.3 code = 2229) ALBUMIN (test code = 4.2 G/DL 3.5-5.2 [...] TO BE ACCOMPANIED BY WRITTEN AUTHORIZATION W LALITA 30 DAYS OF THIS REQUEST , PLEASE SIGN BELOW AND RETUR N A COPY OF THIS REPORT BY FAX TO THE LABORATORY [facility] DEPARTMENT AT . PHYSICIAN'S SIG NATURE DATE UNLESS OTHERWISE INDIC ATED, ALL TESTING PERFORM ED ATCLINICAL PATHOLOGY [facility] [address] [place] [address] LABORATOR Y DIRECTOR: Conrado CORTEZIA NUMBER [id number] CAP ACCREDITATION N O. [id number] TSH + FREE T4 [id number] 01:10:59 Test Item Value Reference Range Interpretation Comments TSH, THIRD GENERATION (test code 6.050 UIU/ML 0.400-4.100 H = 2821) FREE T4 (THYROXINE) (test code = 1.20 NG/DL 0.80-1.90 2823) LIPID [id number] 06:43:09 Test Item Value Reference Range Interpretation [...] MOREINFORMATION , SEE CLIENT ANNOUNCE MENT AT [email or web address] RISK RATIO LDL/HDL 1.57 RATIO <3.22 UNLESS O THERWISE (test code = 2238) INDICATED , ALL TESTING PERFORMED [facility] PATHOLOGY LABORATORIES, [address] DIRECTOR: RONI FIGUEROA M.D. CLIA NUMBER [id number] CAP ACCREDITATION N O. [id number] TSH + FREE T4 [id number] 00:00:00 Test Item Value Reference Range Interpretation Comments TSH, THIRD GENERATION (test code 3.440 UIU/ML = 2821) FREE T4 (THYROXINE) (test code = 1.20 NG/DL 2823) TSH + FREE T4 [id number] 00:00:00 Test Item Value Reference Range Interpretation Comments TSH, THIRD GENERATION (test code 3.440 UIU/ML = 2821) FREE T4 (THYROXINE) (test code = 1.20 NG/DL 2823) HEMOGLOBIN [id number] 00:00:00 Test Item Value Reference Range Interpretation Comments HEMOGLOBIN A1c (test code = 59266) 6.4 % HEMOGLOBIN [id number] 00:00:00 Test Item Value Reference Range Interpretation Comments HEMOGLOBIN A1c (test code = 17193) 6.4 % LIPID [id number] 00:00:00 Test Item Value Reference Range Interpretation Comments CHOLESTEROL (test code = 2210) 176 MG/DL TRIGLYCERIDES (test code = 2232) 316 MG/DL HDL CHOLESTEROL (test code = 2220) 54 MG/DL CALC LDL CHOL (test code = 2237) 84 MG/DL RISK RATIO LDL/HDL (test code = 1.56 RATIO 2238) COMPREHENSIVE METABOLIC [id number] 00:00:00 Test Item Value Reference Range Interpretation Comments GLUCOSE (test code = 2217) 104 MG/DL BUN (test code = 2208) 22 MG/DL CREATININE (test code = 2214) 0.87 MG/DL eGFR AMER. (test code 70 ML/MIN/1.73 = 61038) eGFR NON- AMER. (test 61 ML/MIN/1.73 code = 27110) CALC BUN/CREAT (test code = 25 RATIO 2235) SODIUM (test code = 223) 145 MEQ/L POTASSIUM (test code = 2228) 4.6 MEQ/L CHLORIDE (test code = 2215) 104 MEQ/L CARBON DIOXIDE (test code = 28 MEQ/L 2205) CALCIUM (test code = 2209) 9.6 MG/DL PROTEIN, TOTAL (test code = 7.0 G/DL 2228) ALBUMIN (test code = 220) 4.1 G/DL CALC GLOBULIN (test code = 2.9 G/DL 0) CALC A/G RATIO (test code = 1.4 RATIO 2233) BILIRUBIN, TOTAL (test code = 0.2 MG/DL 2206) ALKALINE PHOSPHATASE (test 59 U/L code = 2204) AST (test code = 2218) 19 U/L ALT (test code = 2219) 19 U/L
--- NOTE | 2023-01-02 09:38 | EDPHYS ---
Physician Documentation [facility] Name: Elizabeth Hewitt Age: 87 yrs Sex: Female : 1935 Arrival Date: 01/02/2023 Time: 09:01 Bed IW2 Private MD: ED Physician Matthew Mchugh HPI: 01/02 09:10 This 87 yrs old Female presents to ER via Unassigned with complaints of bs3 rewrap wrists. 09:10 87yo f presents after her right volar resting splint fell off. Per the , she had bs3 it yesterday, but it fell off overnight, denies any other complaints. Per she has f/u next Thursday. . Historical: - Allergies: 09:52 Adhesives; jl7 09:52 Sulfa (Sulfonamide Antibiotics); jl7 - PMHx: 09:52 Atrial Fib; Dementia; GERD; High Cholesterol; Hypertension; Hypothyroidism; Leaky jl7 Valves; - Immunization history:: Adult Immunizations unknown. - Social history:: Smoking status: Patient denies any tobacco usage or history of. ROS: 09:10 Constitutional: Negative for fever, chills bs3 09:10 All other systems are negative. Exam: 09:10 Constitutional: This is a well developed, well nourished patient who is awake, alert, bs3 and in no acute distress. Head/Face: Normocephalic, atraumatic. Eyes: Pupils equal round and reactive to light, extra-ocular motions intact. Lids and lashes normal. 09:10 MS/ Extremity: swelling, ecchymosis and deformity to right wrist neurovasc intact, with good capillary refill. Neuro: Awake and alert, GCS 15, oriented to person, place, time, and situation. Cranial nerves II-XII grossly intact. Motor strength 5/5 in all extremities. Sensory grossly intact. Vital Signs: 09:51 BP 157 / 69; Pulse 63; Resp 17; Temp 97.8; Pulse Ox 97% ; Pain 0/10; jl7 09:51 Pain Scale: Adult jl7 Procedures: 09:10 Splinting: Splint applied to right arm using alicia wrap, Orthoglass splint, applied by bs3 myself. post reduction film - Examined by me, post splint application: neurovascular intact, Patient tolerated well, sugartong splint applied. . MDM: 09:03 Patient medically screened. bs3 09:10 Data reviewed: vital signs, nurses notes. bs3 09:15 ED course: given duration will not attempt reduction. will splint dc home. . bs3 Administered Medications: No medications were administered Disposition Summary: 01/02/23 09:37 Discharge Ordered Location: Home bs3 Problem: new bs3 Symptoms: have improved bs3 Condition: Stable bs3 Diagnosis - Colles' fracture of right radius bs3 Followup: bs3 - With: Private Physician - When: 48 Hours - Reason: Re-evaluation by your physician Discharge Instructions: - Discharge Summary Sheet bs3 - Colles Fracture bs3 Forms: - Medication Reconciliation Form bs3 - Thank You Letter bs3 - Antibiotic Education bs3 - Prescription Opioid Use bs3 Signatures: Nicole Murphy RN RN jl7 Matthew Mchugh MD MD bs3
--- NOTE | 2023-01-02 09:55 | ER ---
Nurse's Notes [facility] Name: Elizabeth Hewitt Age: 87 yrs Sex: Female : 1935 Arrival Date: 01/02/2023 Time: 09:01 Bed IW2 Private MD: Diagnosis: Colles' fracture of right radius Presentation: 01/02 09:51 Chief complaint: Patient states: Splint fell off last night. Coronavirus screen: At jl this time, the client does not indicate any symptoms associated with coronavirus-19. Ebola Screen: No symptoms or risks identified at this time. Initial Sepsis Screen: Does the patient meet any 2 criteria? No. Patient's initial sepsis screen is negative. Does the patient have a suspected source of infection? No. Patient's initial sepsis screen is negative. Risk Assessment: Do you want to hurt yourself or someone else? Patient reports no desire to harm self or others. Onset of symptoms was January 02, 2023. 09:51 Method Of Arrival: Wheelchair jl7 09:51 Acuity: LUIS FERNANDO 4 jl7 Triage Assessment: 09:52 General: Appears in no apparent distress. uncomfortable, Behavior is calm, cooperative, jl7 appropriate for age. Pain: Denies pain. Historical: - Allergies: 09:52 Adhesives; jl7 09:52 Sulfa (Sulfonamide Antibiotics); jl7 - PMHx: 09:52 Atrial Fib; Dementia; GERD; High Cholesterol; Hypertension; Hypothyroidism; Leaky jl7 Valves; - Immunization history:: Adult Immunizations unknown. - Social history:: Smoking status: Patient denies any tobacco usage or history of. Vital Signs: 09:51 BP 157 / 69; Pulse 63; Resp 17; Temp 97.8; Pulse Ox 97% ; Pain 0/10; jl7 09:51 Pain Scale: Adult jl7 ED Course: 09:02 Patient arrived in ED. am2 09:05 Matthew Mchugh MD is Attending Physician. bs3 09:51 Nicole Murphy RN is Primary Nurse. jl7 09:52 Triage completed. jl7 09:52 Arm band placed on right wrist. jl7 09:54 No provider procedures requiring assistance completed. Patient did not have IV access jl7 during this emergency room visit. Administered Medications: No medications were administered Outcome: 09:37 Discharge ordered by . bs3 09:54 Discharged to home via wheelchair, with family. jl7 09:54 Condition: stable 09:54 Discharge instructions given to patient, family, Instructed on discharge instructions, follow up and referral plans. Demonstrated understanding of instructions, follow-up care, medications, splint care. 09:54 Patient left the ED. jl7 Signatures: Nicole Murphy RN RN jl7 Bridget Shelton [place], MD MD bs3
[2023-01-02 09:58] VITALS: BP 157/69; TEMP 97.8; O2SAT 97
== END 2023-01-02 09:54 | disposition home or self-care (01) ==
LOC: ER 09:01
PROC: 2W3CX1Z Immobilization of Right Lower Arm using Splint (ICD-10-PCS; principal; 2023-01-02)
DX: S52.531A Colles' fracture of right radius, initial encounter for closed fracture (principal); Z88.2 Allergy status to sulfonamides; Z91.048 Other nonmedicinal substance allergy status
CPT/HCPCS: 99282

== ENCOUNTER 2023-02-21 08:04 | Emergency (ER) | payer OTHER ==
--- OUTSIDE RECORDS SUMMARY | 2023-02-21 08:10 | XMS REPORT | Continuity of Care Document ---
:1935 Author Organization [facility] t Address [address] [place] [address] [address] [place] [address] Care Team Providers Name Role Phone JOSH CIRA Primary Care Physician Unavailable TERI FLOR Attending Clinician Unavailable JUAN MUNOZ Attending Clinician Unavailable JUAN MUNOZ Attending Clinician Unavailable Juan Munoz MD Attending Clinician Doctor Unassigned, [place] Attending Clinician Unavailable XIOMARA GUERRA Attending Clinician Unavailable Xiomara Guerra MD Attending Clinician Wilson Vidales Attending Clinician 2, [facility] Attending Clinician Unavailable Haley iHll MD Attending Clinician Garrett Dover Attending Clinician XIOMARA GUERRA Admitting Clinician Unavailable JUAN MUNOZ Admitting Clinician Unavailable Payers Payer Name Policy Type Policy Number Effective Date Expiration Date S polly MEDICARE PART A [id number] 2000 \T\ B 00:00:00 FOR LIFE [id number] 2016 00:00:00 FOR LIFE [id number] 2021 00:00:00 Problems Condition Condition Condition Status Onset Resolution Last Treating Co mments Source Name Details Category Date Date Treatment Clinician Date F/U F/U Diagnosis Active 2017-05-08 Mem oria Active 03-31 14:40:00 l 03/31/2017 00:00: Raman diaz [address] C-DIFF C-DIFF Diagnosis Active 2017-03-24 Me moria Active 03-04 13:36:00 l 03/04/2017 00:00: Raman diaz [address] Arthritis Problem Active 2017-05-08 Me moria (disorder) Arthritis 00:30:32 l (disorder) Raman diaz Active Problem 05/08/2017 [facility] Weight Weight Problem Active 2017-05-08 Arthur edy loss loss 00:30:32 l finding finding [place] (finding) (finding) Active Problem 05/08/2017 [facility] ENCNTR FOR ENCNTR Diagnosis Active 2017-05-08 Memoria GENERAL FOR 14:40:00 l ADULT GENERAL [place] MEDICAL ADULT EXAM W/ MEDICAL EXAM W/ Active [facility] Abdominal Abdominal Problem Active 2017-05-08 Memoria bloating bloating 00:30:32 l (finding) (finding) Chandana haddad Active Problem 05/08/2017 [facility] Anxiety Anxiety Problem Active 2017-05-08 Me morichrista (finding) (finding) 00:30:32 l Active [place] Problem 05/08/2017 [facility] No known No known Disease Unive rs active active ity of problems problems [facility] Allergies, Adverse Reactions, Alerts Allergy Allergy [...] 00 Medical Branch Adhesive Propensi Active Itching 2019- Unive rs ty to 1-10 ity of [...] Date Stop Date Quantity Comments Source History SDOH University o f Alcohol Comment [place] [facility] History SDOH University o f Alcohol Std [place] [facility] History SDMA University o f Alcohol Binge [place] [facility] Tobacco use and 2023-02-06 2023-02-06 Smokeless tobacco Un iversity of exposure 00:00:00 00:00:00 non-user [facility] Branch Alcohol intake 2023-02-06 2023-02-06 Lifetime University of 00:00:00 00:00:00 non-drinker [facility] (finding) Branch Exposure to 2022-01-25 2022-02-04 Not sure University of SARS-CoV-2 00:00:00 15:15:00 [facility] (event) Branch History SDOH 2019-08-19 2019-08-19 1 University o f Alcohol Frequency 00:00:00 00:00:00 [place] M [facility] Social History 2017-03-24 2017-03-24 [facility] Olivia jia 18:56:04 18:56:04 Sex [birth year] At [birth year] Universit y of 00:00:00 00:00:00 [facility] Smoking Status Start Date Stop Date Source Never smoked tobacco [facility] [place] [facility] Medications Ordered Filled Start Stop Current Ordering Indication Dosage Frequency Signature Comments Components Source Medication Medication Date Date Medication? Clinician (SIG) Name Name galantamine Yes [id number] 8mg Take 1 Univers 8 mg tablet 6-30 tablet by ity of 00:00: mouth in [place] 00 the Medical morning Branch and 1 tablet in the evening. galantamine Yes [id number] 8mg Take 1 Univers 8 mg tablet 6-30 tablet by ity of 00:00: mouth in [place] [address] the Medical morning Branch and 1 tablet in the evening. &lt 2021-0 No 150 7-07 00:00: 00 &lt 2021-0 No 100 7-07 00:00: 00 &lt 2022-0 No 7-07 00:00: 00 &lt 2022-0 No 100 7-07 00:00: 00 TAKE 1 2-0 No 4 TABLET BY 7-06 MOUTH TWICE 00:00: DAILY 00 galantamine 2-0 Yes [id number] 8mg Take 1 Univers 8 mg tablet 6-28 tablet by ity of 00:00: mouth 2 [place] (two) Medical times Branch daily. galantamine 2-0 Yes [id number] 8mg Take 1 Univers 8 mg tablet 6-28 tablet by ity of 00:00: mouth 2 [place] (two) Medical times Branch daily. galantamine 2021-0 Yes [id number] 8mg Take 1 Univers 8 mg tablet 6-28 tablet by ity of 00:00: mouth 2 [place] (two) Medical times Branch daily. galantamine 2021-0 Yes [id number] 8mg Take 1 Univers 8 mg tablet 6-28 tablet by ity of 00:00: mouth [address] [place] [address] (two) Medical times Branch daily. galantamine 2021-0 Yes [id number] 8mg Take 1 Univers 8 mg tablet 6-28 tablet by ity of 00:00: mouth [place] (two) Medical times Branch daily. galantamine 2-0 2023- No [id number] 8mg Take 1 Univers 8 mg tablet 6-28 -30 tablet by it y of 00:00: 00:00 mouth 2 [place] 00 :00 (two) Medical times Branch daily. galantamine 2-0 2023- No [id number] 8mg Take 1 Univers 8 mg tablet 6-04 02-30 tablet by it y of 00:00: 00:00 mouth 2 [place] 00 :00 (two) Medical times Branch daily. Dose 2021-0 No Unknown 6-27 00:00: 00 galantamine 2022-0 2022- No 8mg Take 1 Uni vers 8 mg tablet 01-14-28 tablet by it y of 00:00: 00:00 mouth 2 [place] 00 :00 (two) Medical times Branch daily. galantamine 2022-0 2022- No 8mg Take 1 Uni vers 8 mg tablet 01-14-28 tablet by it y of 00:00: 00:00 mouth 2 [place] 00 :00 (two) Medical times Branch daily. cloNIDine 2022-0 Yes .1mg Take 0.1 Univ ers 0.1 mg 5-13 mg by ity of tablet 00:00: mouth [place] 00 daily. Medical Branch cloNIDine 2021-0 Yes .1mg Take 0.1 Univ ers 0.1 mg 5-13 mg by ity of tablet 00:00: mouth [place] 00 daily. Medical Branch cloNIDine 2021-0 Yes .1mg Take 0.1 Univ ers 0.1 mg 5-13 mg by ity of tablet 00:00: mouth [place] 00 daily. Medical Branch cloNIDine 2021-0 Yes .1mg Take 0.1 Univ ers 0.1 mg 5-13 mg by ity of tablet 00:00: mouth [place] 00 daily. Medical Branch cloNIDine 2021-0 Yes .1mg Take 0.1 Univ ers 0.1 mg 5-13 mg by ity of tablet 00:00: mouth [place] 00 daily. Medical Branch cloNIDine 2021-0 Yes .1mg Take 0.1 Univ ers 0.1 mg 5-13 mg by ity of tablet 00:00: mouth [place] 00 daily. Medical Branch cloNIDine 2021-0 Yes .1mg Take 0.1 Univ ers 0.1 mg 5-13 mg by ity of tablet 00:00: mouth [place] 00 daily. Medical Branch amlodipine 2020-08 No 1mg 5 mg tablet 1-30 00:00: 00 levothyroxi 2020-08 No 5mcg ne 25 mcg 1-30 tablet 00:00: 00 gabapentin 2020- No 1mg 100 mg 1-30 capsule 00:00: 00 HYDROcodone 2020- Yes Univer s -acetaminop 1-10 ity of hen 5-325 00:00: [place] mg tablet 00 [facility] Branch HYDROcodone 2020- Yes Univer s -acetaminop 1-10 ity of hen 5-325 00:00: [place] mg tablet 00 [facility] Branch HYDROcodone 2020- Yes Univer s -acetaminop 1-10 ity of hen 5-325 00:00: [place] mg tablet 00 [facility] HYDROcodone 2020- Yes Univer s -acetaminop 1-10 ity of hen 5-325 00:00: [place] mg tablet 00 [facility] HYDROcodone 2020- Yes Univer s -acetaminop 1-10 ity of hen 5-325 00:00: [place] mg tablet 00 Medical Branch HYDROcodone 2021-1 Yes Univer s -acetaminop 1-10 ity of hen 5-325 00:00: [place] mg tablet 00 Medical Branch HYDROcodone 2021-1 Yes Univer s -acetaminop 1-10 ity of hen 5-325 00:00: [place] mg tablet 00 Medical Branch galantamine 2021-0 No 1mg 4 mg tablet 7-06 00:00: 00 gabapentin 2021-0 No 1mg 100 mg 7-06 capsule 00:00: 00 gabapentin 2021-0 Yes Univers 100 mg 7-06 ity of capsule 00:00: [place] 00 Medical Branch gabapentin 2021-0 Yes Univers 100 mg 7-06 ity of capsule 00:00: [place] 00 Medical Branch gabapentin 2021-0 Yes Univers 100 mg 7-06 ity of capsule 00:00: [place] 00 Medical Branch gabapentin 2021-0 Yes Univers 100 mg 7-06 ity of capsule 00:00: [place] [address] Medical Branch gabapentin 2021-0 Yes Univers 100 mg 7-06 ity of capsule 00:00: [place] 00 Medical Branch gabapentin 2021-0 Yes Univers 100 mg 7-06 ity of capsule 00:00: [place] 00 Medical Branch gabapentin 2021-0 Yes Univers 100 mg 7-06 ity of capsule 00:00: [place] 00 Medical Branch desipramine 2021-0 Yes Univer s 10 mg 5-14 ity of tablet 00:00: [place] 00 Medical Branch desipramine 2021-0 Yes Univer s 10 mg 5-14 ity of tablet 00:00: [place] 00 Medical Branch desipramine 2021-0 Yes Univer s 10 mg 5-14 ity of tablet 00:00: [place] 00 Medical Branch desipramine 2021-0 Yes Univer s 10 mg 5-14 ity of tablet 00:00: [place] 00 Medical Branch desipramine 2021-0 Yes Univer s 10 mg 5-14 ity of tablet 00:00: [place] 00 Medical Branch desipramine 2021-0 Yes Univer s 10 mg 5-14 ity of tablet 00:00: [place] [address] Medical Branch desipramine 2021-0 Yes Univer s 10 mg 5-14 ity of tablet 00:00: [place] [address] Medical Branch levothyroxi 2021-0 No 5mcg ne 25 mcg 5-11 tablet 00:00: 00 Monistat 3 1-0 No 1mg/5 200 mg/5 5-04 gram (4 [...] 150 mg 5-04 tablet 00:00: 00 Diflucan 1-0 No 1mg 150 mg 5-04 tablet 00:00: 00 levothyroxi 2020-0 No 5mcg ne 25 mcg 5-04 tablet 00:00: 00 rivastigmin 2020-0 2021- No Unive rs e 4.6 mg/24 11-06 ity of hour patch 00:00: 00:00 [place] 00 :00 Medical Branch rivastigmin 2020-0 2021- No Unive rs e 4.6 mg/24 11-06 ity of hour patch 00:00: 00:00 [place] 00 :00 Medical Branch cholecalcif 2020-0 Yes Take by Uni vers ana lilia, 3-26 mouth. ity of vitamin D3, 11:07: [place] 25 mcg 30 Medical (1,000 Branch unit) tablet cholecalcif 2021-0 Yes Take by Uni vers ana lilia, 3-26 mouth. ity of vitamin D3, 11:07: [place] 25 mcg 30 Medical (1,000 Branch unit) tablet cholecalcif 2021-0 Yes Take by Uni vers ana lilia, 3-26 mouth. ity of vitamin D3, 11:07: [place] 25 mcg 30 Medical (1,000 Branch unit) tablet cholecalcif 2021-0 Yes Take by Uni vers ana lilia, 3-26 mouth. ity of vitamin D3, 11:07: [place] 25 mcg 30 Medical (1,000 Branch unit) tablet cholecalcif 2021-0 Yes Take by Uni vers ana lilia, 3-26 mouth. ity of vitamin D3, 11:07: [place] 25 mcg 30 Medical (1,000 Branch unit) tablet cholecalcif 2021-0 Yes Take by Uni vers ana lilia, 3-26 mouth. ity of vitamin D3, 11:07: [place] 25 mcg 30 Medical (1,000 Branch unit) tablet cholecalcif 0 Yes Take by Uni vers ana lilia, 3-26 mouth. ity of vitamin D3, 11:07: [place] 25 mcg 30 Medical (1,000 Branch unit) tablet levothyroxi 0 No 5mcg ne 25 mcg 2-01 tablet 00:00: 00 losartan 2020-0 No 1mg 100 mg 1-18 tablet 00:00: 00 losartan 2020-0 No 1mg 100 mg 1-18 tablet 00:00: 00 levothyroxi 2020-0 No 5mcg ne 25 mcg 1-18 tablet 00:00: 00 levothyroxi 2020-0 No 5mcg ne 25 mcg 1-18 tablet 00:00: 00 lactulose 2019-0 No 15(15 10 gram/15 9-29 mL) mL (15 mL) 00:00: oral 00 solution losartan 2019-0 No 1mg 100 mg 7-24 tablet 00:00: 00 famotidine 2020-0 No 1mg 40 mg 7-24 tablet 00:00: 00 amlodipine 2020-0 No 1mg 5 mg tablet 7-24 00:00: 00 levothyroxi 2020-0 No 5mcg ne 25 mcg 7-24 tablet 00:00: 00 levothyroxi 2020-0 No 5mcg ne 25 mcg 5-28 tablet 00:00: 00 furosemide 2020-0 No 1mg 20 mg 5-13 tablet 00:00: 00 amlodipine 2020-0 No 1mg 5 mg tablet 5-13 00:00: 00 furosemide 2020-0 No 1mg 20 mg 5-13 tablet 00:00: 00 amlodipine 2020-0 No 1mg 5 mg tablet 5-13 00:00: 00 sotalol 80 2020-0 No 1mg mg tablet 5-13 00:00: 00 Simethicone 2020-0 Yes Take by Uni vers (PHAZYME) 3-13 mouth. ity of 180 mg Cap 14:26: [address] Simethicone 2020-0 Yes Take by Uni vers (PHAZYME) 3-13 mouth. ity of 180 mg Cap 14:26: [address] Simethicone 2020-0 Yes Take by Uni vers (PHAZYME) 3-13 mouth. ity of 180 mg Cap 14:26: [address] Simethicone 2020-0 Yes Take by Uni vers (PHAZYME) 3-13 mouth. ity of 180 mg Cap 14:26: [address] Simethicone 2020-0 Yes Take by Uni vers (PHAZYME) 3-13 mouth. ity of 180 mg Cap 14:26: [address] Simethicone 2020-0 Yes Take by Uni vers (PHAZYME) 3-13 mouth. ity of 180 mg Cap 14:26: [address] Simethicone 2020-0 Yes Take by Uni vers (PHAZYME) 3-13 mouth. ity of 180 mg Cap 14:26: [address] sotalol 80 2019-0 No 5mg mg [...] 40 mg 2-10 tablet 00:00: 00 furosemide 2019-0 No 1mg 20 mg 2-10 tablet 00:00: 00 losartan 2019-0 No 1mg 100 mg 2-10 tablet 00:00: 00 sotalol 80 2019-0 Yes 80mg Take 80 mg U nivers mg tablet 1-10 by mouth ity of 14:46: daily. [address] amLODIPine 2019-0 Yes 10mg Take 10 mg U nivers 5 mg tablet 1-10 by mouth ity of 14:46: daily. [address] losartan 2019-0 Yes 100mg Take 100 Univ ers 100 mg 1-10 mg by ity of tablet 14:46: mouth [place] [address] daily. Medical Branch ranitidine 2020-0 Yes 150mg Take 150 Un valdemar 150 mg 1-10 mg by ity of tablet 14:46: mouth at [place] [address] bedtime. Medical Branch lactulose 2020-0 Yes 15mL Take 15 mL Un valdemar 10 gram/15 1-10 by mouth ity o f mL solution 14:46: daily. [place] [address] Medical Branch sotalol 80 2020-0 Yes 80mg Take 80 mg U nivers mg tablet 1-10 by mouth ity of 14:46: daily. [place] [address] Medical Branch amLODIPine 2020-0 Yes 10mg Take 10 mg U nivers 5 mg tablet 1-10 by mouth ity of 14:46: daily. [place] [address] Medical Branch losartan 2020-0 Yes 100mg Take 100 Univ ers 100 mg 1-10 mg by ity of tablet 14:46: mouth [place] [address] daily. Medical Branch ranitidine 2020-0 Yes 150mg Take 150 Un valdemar 150 mg 1-10 mg by ity of tablet 14:46: mouth at [place] [address] bedtime. Medical Branch lactulose 2020-0 Yes 15mL Take 15 mL Un valdemar 10 gram/15 1-10 by mouth ity o f mL solution 14:46: daily. [place] [address] Medical Branch sotalol 80 2020-0 Yes 80mg Take 80 mg U nivers mg tablet 1-10 by mouth ity of 14:46: daily. [place] [address] Medical Branch amLODIPine 2020-0 Yes 10mg Take 10 mg U nivers 5 mg tablet 1-10 by mouth ity of 14:46: daily. [place] [address] Medical Branch losartan 2020-0 Yes 100mg Take 100 Univ ers 100 mg 1-10 mg by ity of tablet 14:46: mouth [place] [address] daily. Medical Branch ranitidine 2020-0 Yes 150mg Take 150 Un valdemar 150 mg 1-10 mg by ity of tablet 14:46: mouth at [place] [address] bedtime. Medical Branch lactulose 2020-0 Yes 15mL Take 15 mL Un valdemar 10 gram/15 1-10 by mouth ity o f mL solution 14:46: daily. [place] [address] Medical Branch sotalol 80 2020-0 Yes 80mg Take 80 mg U nivers mg tablet 1-10 by mouth ity of 14:46: daily. [place] [address] Medical Branch amLODIPine 2020-0 Yes 10mg Take 10 mg U nivers 5 mg tablet 1-10 by mouth ity of 14:46: daily. [place] [address] Medical Branch losartan 2020-0 Yes 100mg Take 100 Univ ers 100 mg 1-10 mg by ity of tablet 14:46: mouth [place] [address] daily. Medical Branch ranitidine 2020-0 Yes 150mg Take 150 Un valdemar 150 mg 1-10 mg by ity of tablet 14:46: mouth at [place] [address] bedtime. Medical Branch lactulose 2020-0 Yes 15mL Take 15 mL Un valdemar 10 gram/15 1-10 by mouth ity o f mL solution 14:46: daily. [place] [address] Medical Branch sotalol 80 2020-0 Yes 80mg Take 80 mg U nivers mg tablet 1-10 by mouth ity of 14:46: daily. [place] [address] Medical Branch amLODIPine 2020-0 Yes 10mg Take 10 mg U nivers 5 mg tablet 1-10 by mouth ity of 14:46: daily. [place] [address] Medical Branch losartan 2020-0 Yes 100mg Take 100 Univ ers 100 mg 1-10 mg by ity of tablet 14:46: mouth [place] [address] daily. Medical Branch ranitidine 2020-0 Yes 150mg Take 150 Un valdemar 150 mg 1-10 mg by ity of tablet 14:46: mouth at [place] [address] bedtime. Medical Branch lactulose 2020-0 Yes 15mL Take 15 mL Un valdemar 10 gram/15 1-10 by mouth ity o f mL solution 14:46: daily. [address] Branch sotalol 80 2020-0 Yes 80mg Take 80 mg U nivers mg tablet 1-10 by mouth ity of 14:46: daily. [place] [address] Medical Branch amLODIPine 2020-0 Yes 10mg Take 10 mg U nivers 5 mg tablet 1-10 by mouth ity of 14:46: daily. [place] [address] Medical Branch losartan 2020-0 Yes 100mg Take 100 Univ ers 100 mg 1-10 mg by ity of tablet 14:46: mouth [place] [address] daily. Medical Branch ranitidine 2020-0 Yes 150mg Take 150 Un valdemar 150 mg 1-10 mg by ity of tablet 14:46: mouth at [place] [address] bedtime. Medical Branch lactulose 2020-0 Yes 15mL Take 15 mL Un valdemar 10 gram/15 1-10 by mouth ity o f mL solution 14:46: daily. [place] [address] Medical Branch sotalol 80 2020-0 Yes 80mg Take 80 mg U nivers mg tablet 1-10 by mouth ity of 14:46: daily. [address] amLODIPine 2019-0 Yes 10mg Take 10 mg U nivers 5 mg tablet 1-10 by mouth ity of 14:46: daily. [address] Branch losartan 2020-0 Yes 100mg Take 100 Univ ers 100 mg 1-10 mg by ity of tablet 14:46: mouth [place] [address] daily. Medical Branch ranitidine 2019-0 Yes 150mg Take 150 Un valdemar 150 mg 1-10 mg by ity of tablet 14:46: mouth at [place] [address] bedtime. Medical Branch lactulose 2019-0 Yes 15mL Take 15 mL Un valdemar 10 gram/15 1-10 by mouth ity o f mL solution 14:46: daily. [address] furosemide 2018-08 Yes Univers 20 mg 2-20 ity of tablet 00:00: [address] furosemide 2018-08 Yes Univers 20 mg 2-20 ity of tablet 00:00: [address] furosemide 2018-08 Yes Univers 20 mg 2-20 ity of tablet 00:00: [address] furosemide 2018-08 Yes Univers 20 mg 2-20 ity of tablet 00:00: [address] furosemide 2018-08 Yes Univers 20 mg 2-20 ity of tablet 00:00: [address] furosemide 2018-08 Yes Univers 20 mg 2-20 ity of tablet 00:00: [address] furosemide 2018-08 Yes Univers 20 mg 2-20 ity of tablet 00:00: [address] famotidine 2018-08 Yes Univers 40 mg 1-21 ity of tablet 00:00: [address] famotidine 2018-08 Yes Univers 40 mg 1-21 ity of tablet 00:00: [address] famotidine 2018-08 Yes Univers 40 mg 1-21 ity of tablet 00:00: [address] famotidine 2018-08 Yes Univers 40 mg 1-21 ity of tablet 00:00: [address] famotidine 2018-08 Yes Univers 40 mg 1-21 ity of tablet 00:00: [address] famotidine 2018-08 Yes Univers 40 mg 1-21 ity of tablet 00:00: [address] famotidine 2018-08 Yes Univers 40 mg 1-21 ity of tablet 00:00: [place] 00 Medical Branch REPATHA 2019-1 Yes Univers SURECLICK 1-14 ity of 140 mg/mL 00:00: [place] PnIj 00 Medical Branch REPATHA 2019- Yes Univers SURECLICK 1-14 ity of 140 mg/mL 00:00: [place] PnIj 00 Medical Branch REPATHA 2019-1 Yes Univers SURECLICK 1-14 ity of 140 mg/mL 00:00: [place] PnIj 00 Medical Branch REPATHA 2019- Yes Univers SURECLICK 1-14 ity of 140 [...] [place] PnIj 00 Medical Branch diltiazem 2 0 Yes Apply to Un valdemar % cream 7-31 affected ity of 00:00: area(s) 3 [place] 00 (three) Medical times Branch daily. diltiazem 2 2017-0 Yes Apply to Un valdemar % cream 7-31 affected ity of 00:00: area(s) 3 [place] 00 (three) Medical times Branch daily. diltiazem 2 2017-0 Yes Apply to Un valdemar % cream 7-31 affected ity of 00:00: area(s) 3 [place] 00 (three) Medical times Branch daily. diltiazem 2 2017-0 Yes Apply to Un valdemar % cream 7-31 affected ity of 00:00: area(s) 3 [place] 00 (three) Medical times Branch daily. diltiazem 2 2017-0 Yes Apply to Un valdemar % cream 7-31 affected ity of 00:00: area(s) 3 [place] 00 (three) Medical times Branch daily. diltiazem 2 2017-0 Yes Apply to Un valdemar % cream 7-31 affected ity of 00:00: area(s) 3 [place] 00 (three) Medical times Branch daily. diltiazem 2 2017-0 Yes Apply to Un valdemar % cream 7-31 affected ity of 00:00: area(s) 3 [place] 00 (three) Medical times Branch daily. levothyroxi 2016-08 Yes Univer s ne 25 mcg 1-08 ity of tablet 00:00: [place] [facility] levothyroxi 2016-08 Yes Univer s ne 25 mcg 1-08 ity of tablet 00:00: [place] [facility] levothyroxi 2016-08 Yes Univer s ne 25 mcg 1-08 ity of tablet 00:00: [place] [facility] levothyroxi 2016-08 Yes Univer s ne 25 mcg 1-08 ity of tablet 00:00: [place] [facility] levothyroxi 2016-08 Yes Univer s ne 25 mcg 1-08 ity of tablet 00:00: [place] [facility] levothyroxi 2016-08 Yes Univer s ne 25 mcg 1-08 ity of tablet 00:00: [place] [facility] levothyroxi 2016-08 Yes Univer s ne 25 mcg 1-08 ity of tablet 00:00: [place] [facility] fidaxomicin Yes 200 mg = 1 Memoria 200 MG Oral 9-26 tab, PO, l Tablet 19:22: BID, # 20 Raman n [Dificid] 00 tab, 0 Refill(s), Pharmacy: [facility] fidaxomicin Yes 200 mg = 1 Memoria 200 MG Oral 9-26 tab, PO, l Tablet 19:22: BID, # 20 Raman n [Dificid] 00 tab, 0 Refill(s), Pharmacy: [facility] fidaxomicin Yes 200 mg = 1 Memoria 200 MG Oral 9-26 tab, PO, l Tablet 19:22: BID, # 20 Raman n [Dificid] 00 tab, 0 Refill(s), Pharmacy: [facility] fidaxomicin Yes 200 mg = 1 Memoria 200 MG Oral 9-26 tab, PO, l Tablet 19:22: BID, # 20 Raman n [Dificid] 00 tab, 0 Refill(s), Pharmacy: [facility] fidaxomicin Yes 200 mg = 1 Memoria 200 MG Oral 9-26 tab, PO, l Tablet 19:22: BID, # 20 Raman n [Dificid] 00 tab, 0 Refill(s), Pharmacy: [facility] fidaxomicin Yes 200 mg = 1 Memoria 200 MG Oral 9-26 tab, PO, l Tablet 19:22: BID, # 20 Raman n [Dificid] 00 tab, 0 Refill(s), Pharmacy: [facility] fidaxomicin Yes 200 mg = 1 Memoria 200 MG Oral 9-26 tab, PO, l Tablet 19:22: BID, # 20 Raman n [Dificid] 00 tab, 0 Refill(s), Pharmacy: [facility] fidaxomicin Yes 200 mg = 1 Memoria 200 MG Oral 9-26 tab, PO, l Tablet 19:22: BID, # 20 Raman n [Dificid] 00 tab, 0 Refill(s), Pharmacy: [facility] fidaxomicin Yes 200 mg = 1 Memoria 200 MG Oral 9-26 tab, PO, l Tablet 19:17: BID, X 10 Raman n [Dificid] 00 day, # 20 tab, 0 Refill(s), Pharmacy: [place] [address] fidaxomicin Yes 200 mg = 1 Memoria 200 MG Oral 9-26 tab, PO, l Tablet 19:17: BID, X 10 Raman n [Dificid] 00 day, # 20 tab, 0 Refill(s), Pharmacy: [place] [address] fidaxomicin Yes 200 mg = 1 Memoria 200 MG Oral 9-26 tab, PO, l Tablet 19:17: BID, X 10 Raman n [Dificid] 00 day, # 20 tab, 0 Refill(s), Pharmacy: [facility] fidaxomicin Yes 200 mg = 1 Memoria 200 MG Oral 9-26 tab, PO, l Tablet 19:17: BID, X 10 Raman n [Dificid] 00 day, # 20 tab, 0 Refill(s), Pharmacy: [facility] fidaxomicin Yes 200 mg = 1 Memoria 200 MG Oral 9-26 tab, PO, l Tablet 19:17: BID, X 10 Raman n [Dificid] 00 day, # 20 tab, 0 Refill(s), Pharmacy: [place] [address] fidaxomicin Yes 200 mg = 1 Memoria 200 MG Oral 9-26 tab, PO, l Tablet 19:17: BID, X 10 Raman n [Dificid] 00 day, # 20 tab, 0 Refill(s), Pharmacy: [place] [address] fidaxomicin Yes 200 mg = 1 Memoria 200 MG Oral 9-26 tab, PO, l Tablet 19:17: BID, X 10 Raman n [Dificid] 00 day, # 20 tab, 0 Refill(s), Pharmacy: [place] [address] fidaxomicin Yes 200 mg = 1 Memoria 200 MG Oral 9-26 tab, PO, l Tablet 19:17: BID, X 10 Raman n [Dificid] 00 day, # 20 tab, 0 Refill(s), Pharmacy: [place] [address] [facility] Yes [facility], Me moria 03-25 See l 15:15: Instructio Lokesh 00 ns, Faxed order to the [facility] on 03/25/17., # 2 box, Refill(s) 11, other [facility] Yes [facility], Me moria 03-25 See l 15:15: Instructio Lena 00 ns, Faxed order to the [facility] on 03/25/17., # 2 box, Refill(s) 11, other [facility] Yes [facility], Me moria 03-25 See l 15:15: Instructio Lena 00 ns, Faxed order to the [facility] on 03/25/17., # 2 box, Refill(s) 11, other [facility] Yes [facility], Me moria 03-25 See l 15:15: Instructio Lena 00 ns, Faxed order to the [facility] on 03/25/17., # 2 box, Refill(s) 11, other [facility] Yes [facility], Me moria 03-25 See l 15:15: Instructio Lokesh 00 ns, Faxed order to the [facility] on 03/25/17., # 2 box, Refill(s) 11, other [facility] 0 Yes [facility], Me amaroa 8 See l 15:15: Instructio Lena 00 ns, Faxed order to the [facility] on 03/25/17., # 2 box, Refill(s) 11, other [facility] Yes [facility], Me amaroa 03-25 See l 15:15: Instructio Lokesh 00 ns, Faxed order to the [facility] on 03/25/17., # 2 box, Refill(s) 11, other [facility] Yes [facility], Me amaroa 8 See l 15:15: Instructio Lena 00 ns, Faxed order to the [facility] on 03/25/17., # 2 box, Refill(s) 11, other [facility] Yes [facility], Me amaroa 03-24 See l 20:41: Instructio Lokesh 00 ns, Lot # [id number] exp date 08/29, # 1 box, Refill(s) 0, given to patient [facility] Yes [facility], Me amaroa 8 See l 20:41: Instructio Lena 00 ns, Lot # [id number] exp date 08/29, # 1 box, Refill(s) 0, given to patient [facility] Yes [facility], moria 8 See l 20:41: Instructio Lokesh 00 ns, Lot # [id number] exp date 08/29, # 1 box, Refill(s) 0, given to patient [facility] Yes [facility], moria 8 See l 20:41: Instructio Lokesh 00 ns, Lot # [id number] exp date 08/29, # 1 box, Refill(s) 0, given to patient [facility] 2016-0 Yes [facility], moria 8 See l 20:41: Instructio Lokesh 00 ns, Lot # [id number] exp date 08/29, # 1 box, Refill(s) 0, given to patient [facility] 2017-0 Yes [facility], Me moria 8-15 See l 20:41: Instructio Lokesh 00 ns, Lot # [id number] exp date 08/29, # 1 box, Refill(s) 0, given to patient JovanaaGabrandee Yes Me Micki moria 815 See l 20:41: Instructio Lokesh 00 ns, Lot # [id number] exp date 08/29, # 1 box, Refill(s) 0, given to patient Micki Yes Me Micki moria 815 See l 20:41: Instructio Lokesh 00 ns, Lot # [id number] exp date 08/29, # 1 box, Refill(s) 0, given to patient Sotalol Yes 80 mg = 1 Memor ia Hydrochlori 8-15 tab, PO, l de 80 MG 18:56: Daily, 12, Her silverman Oral Tablet 00 # 60 tab, 0 Refill(s) Vitamin D3 Yes 5,000 Memori a 5000 intl 15 IntlUnit = l units oral 18:56: 1 [...] edy ry 8-15 aredas, l 18:56: Refill(s) Lena 00 0 Colestipol Yes 2 gm = [...] tab, PO, l tablet 18:56: Daily, # Lena 00 30 tab, 0 Refill(s) Amlodipine Yes [...] tab, PO, l tablet 18:56: Daily, # Lena 00 30 tab, 0 Refill(s) Amlodipine 2017-0 Yes 1 cap, PO, M emoria 5 MG / 8-15 Daily, # l Benazepril 18:56: 30 cap, 0 He rmann hydrochlori 00 Refill(s) de 10 MG Oral Capsule aspirin 81 20170 Yes 81 mg = 1 Me moria mg tablet, 8-15 tab, PO, l enteric 18:56: Daily, # Raman n coated 00 90 tab, 3 Refill(s) Ranitidine 20170 Yes 150 mg = 1 M emoria 150 MG Oral 8-15 cap, PO, l Capsule 18:56: Daily, # Raman n 00 180 cap, 0 Refill(s) levothyroxi Yes 25 Memori a ne 25 mcg 8-15 microgram l (0.025 mg) 18:56: = 1 tab, Her silverman oral tablet 00 PO, Daily, 12, # 30 tab, 0 Refill(s) losartan Yes 100 mg = 1 Mem oria 100 mg oral 8-15 tab, PO, l tablet 18:56: Daily, # Lokesh 00 30 tab, 0 Refill(s) Amlodipine 20170 Yes 1 cap, PO, M emoria 5 MG / 8-15 Daily, # l Benazepril 18:56: 30 cap, 0 He rmann hydrochlori 00 Refill(s) de 10 MG Oral Capsule non-formula 0 Yes Daily, Arthur edy ry 8-15 aredas, l 18:56: Refill(s) Lokesh 00 0 aspirin 81 Yes 81 mg = 1 Me moria mg tablet, 8-15 tab, PO, l enteric 18:56: Daily, # Raman n coated 00 90 tab, 3 Refill(s) Ranitidine 20170 Yes 150 mg = 1 M emoria [...] tab, PO, l tablet 18:56: Daily, # Lena 00 30 tab, 0 Refill(s) Amlodipine Yes [...] tab, PO, l tablet 18:56: Daily, # Lena 00 30 tab, 0 Refill(s) Amlodipine Yes [...] edy ry 8-15 aredas, l 18:56: Refill(s) Lena 00 0 Colestipol Yes 2 gm = [...] tab, PO, l tablet 18:56: Daily, # Lena 00 30 tab, 0 Refill(s) Amlodipine Yes [...] ermann Oral Tablet 00 tab, 0 Refill(s) phenazopyri 2017-0 Yes 200mg Take 1 Uni [...] 00:00: mouth (three) Medical times Branch daily. Vital Signs Vital Name Observation Time Observation Value Comments Source Systolic blood 2023-02-06 19:10:00 136 mm[Hg] Univer sity of pressure [facility] Diastolic blood 2023-02-06 19:10:00 80 mm[Hg] [facility] Heart rate 2023-02-06 19:09:00 94 /min [facility] Body height 2023-02-06 19:09:00 162.6 cm [facility] Body weight 2023-02-06 19:09:00 68.402 kg [facility] BMI 2023-02-06 19:09:00 25.88 kg/m2 [facility] Oxygen saturation in 2023-02-06 19:09:00 98 /min [facility] of Arterial blood by [facility] Pulse oximetry Branch Systolic blood 2022-02-04 20:24:00 146 mm[Hg] Univer sity of pressure [facility] Diastolic blood 2022-02-04 20:24:00 74 mm[Hg] Unive rsity of pressure [facility] Heart rate 2022-02-04 20:24:00 57 /min Universi ty [facility] Body height 2022-02-04 20:24:00 154.9 cm Universi ty [facility] Body weight 2022-02-04 20:24:00 66.679 kg Universi ty [facility] BMI 2022-02-04 20:24:00 27.78 kg/m2 Universi ty [facility] Oxygen saturation in 2022-02-04 20:24:00 98 /min University of Arterial blood by [facility] Pulse oximetry Branch BP Systolic 2022-02-13 11:15:00 [...] 14:34:00 Height 2017-05-05 17:46:00 160.02 cm [facility] Respitory Rate 2017-05-05 17:46:00 Memori al Lena Heart Rate 2017-05-05 17:46:00 [facility] Systolic (mm Hg) 2017-05-05 17:46:00 Arthur rial Lena Diastolic (mm Hg) 2017-05-05 17:46:00 Mem orial Lena Weight 2017-05-05 17:46:00 [facility] BMI Calculated 2017-05-05 17:46:00 Memori al Lokesh Height 2017-03-24 18:41:00 157.48 cm [facility] BMI Calculated 2017-03-24 18:41:00 Memori al Lena Weight 2017-03-24 18:41:00 [facility] Systolic (mm Hg) 2017-03-24 18:41:00 Arthur rial Lena Diastolic (mm Hg) 2017-03-24 18:41:00 Mem orial Lena Respitory Rate 2017-03-24 18:41:00 Memori al Lokesh Heart Rate 2017-03-24 18:41:00 [facility] Procedures Procedure Date / Time Performing Clinician Source Performed CONSENT/REFUSAL FOR 2023-02-06 19:01:56 Doctor Unassigned, No Un [facility] DIAGNOSIS AND TREATMENT Name Medical Branch Cataract surgery [facility] Raman n Colonoscopy [facility] Spinal cord operation [facility] H ermann Plan of Care Planned Activity Planned Date Details Comments Source Goal Plan of Care Note [code = 70194-4] Goal Plan of Care Note [code = 52034-7] Goal Plan of Care Note [code = 40099-0] Goal Plan of Care Note [code = 84869-7] Goal Plan of Care Note [code = 55253-6] Goal Plan of Care Note [code = 02143-7] Goal Plan of Care Note [code = 80867-1] Goal Plan of Care Note [code = 55259-4] Goal Plan of Care Note [code = 27623-8] Goal Plan of Care Note [code = 75775-8] Goal Plan of Care Note [code = 85928-8] Goal Plan of Care Note [code = 64386-8] Goal Plan of Care Note [code = 31906-4] Goal Plan of Care Note [code = 23652-7] Goal Plan of Care Note [code = 05333-7] Goal Plan of Care Note [code = 21287-6] Encounters Start End Encounter Admission Attending Care Care Encounter Source Date/Time Date/Time Type Type Clinicians Facility Department ID 2023-01-07 [id number] Common 15:40:00 [id number] [facility] 2021-09-04 Outpatient [facility] [id number] Common 11:16:20 [id number] [facility] 2021-06-09 Emergency [facility] [id number] [facility] 2024-02-05 Outpatient Antonio FLOR [facility] [id number] Univers 14:30:00 14:30:00 TERI [facility] 2023-02-06 2023-02-06 Outpatient JUAN ARROYO [facility] [id number] Univers 14:30:00 14:47:53 JUAN MUNOZ [facility] 2023-02-06 2023-02-06 Office Teri Flor [facility] 1.2.840.114 [id number] Univers 14:30:00 14:47:53 Visit Juan Munoz [facility] 350.1.13. 10 [facility] 4.2.7.2.686 Javier as DWAYNE?BLEA [phone] Wy eden SMALLS [address] [place] [address] MEDICAL OFFICE BUILDING 2023-02-06 2023-02-06 Outpatient JUAN ARROYO [facility] [id number] Univers 14:20:00 14:20:00 JUAN MUNOZ [facility] 2023-02-06 2023-02-06 Orders Doctor POOLE 1.2.840.114 [id number] [facility] Univers 00:00:00 00:00:00 Only Unassigned, JACE 350.1.13.10 [facility] 4.2.7.2.686 Javier as [id number] [address] 2022-11-17 2022-11-17 Outpatient [facility] [id number] Jasmeet 15:05:51 15:05:51 0410 F Garland 2022-08-06 2022-08-06 Outpatient [facility] [id number] Jasmeet 09:47:39 09:47:39 1228 F Garland 2022-06-30 2022-06-30 [facility] 1.2.840.114 [id number] Univers 00:00:00 00:00:00 [facility] 350.1.13.10 ity of [place] 4.2.7.2.686 Javier as DWAYNE?BLEA [id number] [address] OFFICE [facility] 2022-04-23 2022-04-23 [facility]ill [facility] 1.2.840.114 [id number] Univers 00:00:00 00:00:00 [facility] 350.1.13.10 ity of [place] 4.2.7.2.686 Javier as DWAYNE?BLEA [id number] [address] OFFICE [facility] 2022-02-13 2022-02-13 Outpatient [id number] 00:00:00 00:00:00 Visit [id number] 2022-02-04 2022-02-04 Outpatient JUAN ARROYO [facility] [id number] Univers 15:40:00 15:43:58 JUAN MUNOZ [facility] 2022-02-04 2022-02-04 Office Tammy [facility] 1.2.840.114 [id number] Univers 15:40:00 15:43:58 Visit [facility] 350.1.13.10 ity of [place] 4.2.7.2.686 Javier as DWAYNE?BLEA [id number] [address] OFFICE [facility] 2022-02-04 2022-02-04 Outpatient R TAMMY, JUAN [facility] [id number] Univers 15:40:00 15:43:58 TAMMY, JUAN almonte [facility] 2022-01-16 2022-01-16 Refoxana Munoz [facility] 1.2.840.114 [id number] Univers 00:00:00 00:00:00 [facility] 350.1.13.10 ity of [place] 4.2.7.2.686 Javier as DWAYNE?BLEA [id number] [address] OFFICE [facility] 2022-01-15 2022-01-15 [facility] 1.2.840.114 [id number] Univers 00:00:00 00:00:00 [facility] 350.1.13.10 ity of [place] 4.2.7.2.686 Javier as DWAYNE?BLEA [id number] [address] OFFICE [facility] 2022-01-14 2022-01-14 [facility] 1.2.840.114 [id number] Univers 00:00:00 00:00:00 [facility] 350.1.13.10 it[place] of [place].2.[place] [id number] [address] OFFICE [facility] 2021-09-10 2021-09-10 Outpatient R LIZBETH [facility] [id number] Univers 12:42:04 23:59:00 XIOMARA Price f [facility] 2021-09-10 2021-09-10 [facility] 1.2.840.114 [id number] Univers 12:42:04 23:59:00 Encounter Xiomara price 350.1.13.10 ity of [place].2.7.2.[place] [phone] [place] 064136 [place] 2021-06-19 2021-06-19 Telephone Tammy [facility] 1.2.840.114 [id number] Univers 00:00:00 00:00:00 Juan [facility] 350.1.13.10 it[facility] 4.2.7.2.686 Javier as DWAYNE?BLEA [id number] [address] 2021-03-05 2021-03-05 [facility] 1.2.840.114 [id number] Univers 00:00:00 00:00:00 Juan Mazariegos 350.1.13.10 ity of [place]2.[place] [phone] [address] 2021-03-01 2021-03-01 [facility] 1.2.840.114 [id number] Univers 00:00:00 00:00:00 Juan Ybarraton 350.1.13.10 ity of [place] [phone] [address] 2021-02-26 2021-02-26 Refill [facility] 1.2.840.114 [id number] Univers 00:00:00 00:00:00 Juan Ybarraton 350.1.13.10 ity of [place] [phone] [address] 2020-12-18 2020-12-18 [facility] 1.2.840.114 [id number] Univers 00:00:00 00:00:00 Juan Ybarraton 350.1.13.10 ity of [place].2.[place] [id number] [address] 2020-11-07 2020-11-07 [facility] 1.2.840.114 [id number] Univers 00:00:00 00:00:00 Juan Ybarraton 350.1.13.10 ity of [place] [phone] [address] 2020-11-05 2020-11-05 [facility], [facility] 1.2.840.114 [id number] Univers 00:00:00 00:00:00 Juan Stout Yair 350.1.13.10 ity of [place].2.[place] [phone] Wy dical nal 092 [facility] 2020-11-02 2020-11-02 Office Tammy [facility] 1.2.840.114 [id number] Univers 10:33:04 11:44:36 Visit Juan Mazariegos 350.1.13.10 ity of [place].2.[place] [phone] Wy dical nal 092 [facility] 2020-11-02 2020-11-02 Outpatient R JUAN MUNOZ [facility] [id number] Univers 10:40:00 10:40:00 [facility] 2020-10-04 2020-10-04 Emergency [facility] 1.2.840.114 [id number] Univers 17:26:00 20:59:00 Wilson Mazariegos 350.1.13.10 i ty of [place].7.2.686 [place] [id number] [facility] 084 [place] 2020-10-04 2020-10-04 Orders Doctor VIRGILIO 1.2.840.114 [id number] Univers 00:00:00 00:00:00 Only Unassigned, JACE 350.1.13.10 ity of [place] [facility] 4.2.7.2.686 Javier as [phone] [facility] 009 Branch 2020-06-26 2020-06-26 [facility] 1.2.840.114 [id number] Univers 13:31:40 23:59:00 Encounter Xiomara price 350.1.13.10 ity of [place]2.[place] [id number] [facility] 801 [address] 2020-06-26 2020-06-26 Outpatient R [facility] [id number] Univers 00:00:00 00:00:00 XIOMARA Price o f [facility] 2020-06-19 2020-06-19 Predatory Animal [employer] 2, Adc Lab [facility] 1.2.840.114 [id number] Univers 14:10:41 14:25:41 Visit YimiboSherryantonio Mazariegos 350.1.1 3.10 ity of [place].2.[place] [phone] Wy dical nal 353 [facility] 2020-06-19 2020-06-19 Outpatient R LIZBETH [facility] [id number] Univers 14:15:00 14:15:00 XIOMARA Price o f [facility] 2020-06-19 2020-06-19 Orders Doctor VIRGILIO 1.2.840.114 [id number] Univers 00:00:00 00:00:00 Only Unassigned, JACE 350.1.13.10 ity of [place] [facility] 4.2.7.2.686 Javier as [id number] [facility] 009 [place] 2019-10-21 2019-10-21 Office [facility] 1.2.840.114 [id number] Univers 14:10:53 15:20:56 Visit Juan Mazariegos 350.1.13.10 ity of [place].2.[place] [phone] Wy dical nal 092 [facility] 2019-10-21 2019-10-21 Outpatient R JUAN MUNOZ [facility] [id number] Univers 14:40:00 14:40:00 TAMMYJUAN Price suzy [facility] 2019-09-27 2019-09-27 Outpatient R JUAN MUNOZ [facility] [id number] Univers 13:20:12 23:59:00 TAMMYJUAN Price suzy [facility] 2019-09-27 2019-09-27 [facility] 1.2.170.344 [id number] Univers 13:20:00 23:59:00 Encounter Juan Mazariegos 350.1.13.10 ity of [place].2.[place] [phone] [facility] 804 [place] 2019-08-19 2019-08-19 Office [facility] 1.2.840.114 [id number] [facility] 13:30:11 15:28:04 Visit Juan Mazariegos 350.1.13.10 ity of [place] 4.2.7.2.686 Giovanny engle [facility] [id number] [facility] 092 Branch [facility] 2019-04-09 2019-04-09 Emergency [facility] 1.2.689.666 [id number] [facility] 04:51:40 06:51:00 Haley Mazariegos 350.1.13.10 ity of [place] 4.2.7.2.686 [place] [phone] [facility] 084 Branch 2017-05-05 2017-05-06 Outpatient [facility] 4045 [id number] Memoria 17:36:00 04:59:00 r Lokesh 01 l ALDO Campa 2017-05-05 2017-05-06 Outpatient nullFlavo [place] 493715 [id number] Memoria 17:36:00 04:59:00 r Lokesh 01 l ALDO Campa 2017-05-05 2017-05-05 Outpatient [facility] [id number] 12:36:00 23:59:00 Garrett Carvajal 2017-03-24 2017-03-25 Outpatient nullFlavo [place] 493715 [id number] Memoria 18:22:00 04:59:00 r Lokesh 00 l ALDO Campa 2017-03-24 2017-03-25 Outpatient nullFlavo [place] 493715 [id number] Memoria 18:22:00 04:59:00 r Lokesh 00 l LENNOXNC Lokesh 2017-03-24 2017-03-24 Outpatient [facility] [id number] 13:22:00 23:59:00 Garrett Carvajal Results Test Description Test Time Test Comments Results Result Comments Source TSH + FREE T4 PROFILE 2022-08-07 06:35:47 Test Item Value Reference Range Interpretation Comme nts TSH, THIRD GENERATION (test 4.000 UIU/ML 0.400-4.100 code = 2821) FREE T4 (THYROXINE) (test 1.20 NG/DL 0.80-1.90 U NLESS OTHERWISE INDICATED, code = 2823) ALL TESTING PER FORMED ATCLINICAL PATH OLOGY LABORATORIES, [place]. [address] [place] [place] [address] 6966 FREIGHT SEPARATOR: RONI FIGUEROA M.D. ANTHONY Alvarez [id number] [place] [id number] LIPID [id number] 03:58:24 Test Item Value Reference Range Interpretation [...] MOREINFORMATION , SEE CLIENT ANNOUNCE MENT AT [email or web address] RISK RATIO LDL/HDL 1.52 RATIO <3.22 (test code = 2238) COMPREHENSIVE METABOLIC [id number] 03:58:24 Test Item Value Reference Range Interpretation Comments GLUCOSE (test code = 98 MG/DL 70-99 2216) BUN (test code = 17 MG/DL 8-23 2207) CREATININE (test 1.02 MG/DL 0.60-1.30 code = 2214) eGFR (2020 CKD-EPI) 53 ML/MIN/1.73 >60 L The N KF-ASN (test code = 35007) Taskforc e recommends use of Cystatin C to confirm eGFR inadults at ris k for CKD. [facility] offers eGFR with Cystatin C-Creatinineusi ng the 2020 CKD-EP I eGFR_creat-cyst at equation (order code 3587) toincreas e the accuracy of estimated GFR. For more informatio n, contactyour acc ount executive or se e announcement [email or web address] ys CALC BUN/CREAT (test 17 RATIO 6-28 code = 2235) SODIUM (test code = 142 MEQ/L 931-154 2790) POTASSIUM (test code 4.3 MEQ/L 3.5-5.4 = 2228) CHLORIDE (test code 104 MEQ/L 95-107 = 2215) CARBON DIOXIDE (test 29 MEQ/L 19-31 code = 2206) CALCIUM (test code = 9.7 MG/DL 8.5-10.5 2208) PROTEIN, TOTAL (test 7.2 G/DL 6.1-8.3 code = 2229) ALBUMIN (test code = 4.2 G/DL 3.5-5.2 220) CALC GLOBULIN (test 3.0 G/DL 1.9-3.7 code [...] PHOSPHATASE 70 U/L 40-142 (test code = 220) AST (test code = 25 U/L 9-40 2217) ALT (test code = 29 U/L 5-40 2218) NOTE:2022-02-21 06:05:34 Test Item Value Reference Range Interpretation Comments NOTE: (test code = (NOTE) IN ACCOR DANCE WITH FEDERAL 998) GUIDELINES REQU IRING ALL VERBAL REQUESTS FOR LABORATORY TEST S TO BE ACCOMPANIED BY WRITTEN AUTHORIZATION W ITHIN 30 DAYS OF THIS REQUEST , PLEASE SIGN BELOW AND RETUR N A COPY OF THIS REPORT BY FAX TO THE LABORATORY SCAN [facility] DEPARTMENT AT [phone]. PHYSICIAN'S SIG NATURE DATE UNLESS OTHERWISE INDIC ATED, ALL TESTING PERFORM ED ATCLINICAL PATHOLOGY LABOR [employer] [address] [facility] [place] [address] LABORATOR Y DIRECTOR: Conrado CORTEZIA NUMBER [id number] CAP ACCREDITATION N O. [id number] TSH + FREE T4 [id number] 01:10:59 Test Item Value Reference Range Interpretation Comments TSH, THIRD GENERATION (test code 6.050 UIU/ML 0.400-4.100 H = 6641) FREE T4 (THYROXINE) (test code = 1.20 NG/DL 0.80-1.90 2823) LIPID [id number] 06:43:09 Test Item Value Reference Range Interpretation [...] MOREINFORMATION , SEE CLIENT ANNOUNCE MENT AT [email or web address] RISK RATIO LDL/HDL 1.57 RATIO <3.22 UNLESS O THERWISE (test code = 2238) INDICATED , ALL TESTING PERFORMED [facility] PATHOLOGY LABORATORIES, [facility]. [address] [place] [address] DIRECTOR: RONI FIGUEROA M.D. CLIA NUMBER [id number] CAP ACCREDITATION N O. [id number] TSH + FREE T4 [id number] 00:00:00 Test Item Value Reference Range Interpretation Comments TSH, THIRD GENERATION (test code 3.440 UIU/ML = 2821) FREE T4 (THYROXINE) (test code = 1.20 NG/DL 2823) TSH + FREE T4 [id number] 00:00:00 Test Item Value Reference Range Interpretation Comments TSH, THIRD GENERATION (test code 3.440 UIU/ML = 2821) FREE T4 (THYROXINE) (test code = 1.20 NG/DL 2823) HEMOGLOBIN [id number] 00:00:00 Test Item Value Reference Range Interpretation Comments HEMOGLOBIN A1c (test code = 83861) 6.4 % HEMOGLOBIN [id number] 00:00:00 Test Item Value Reference Range Interpretation Comments HEMOGLOBIN A1c (test code = 12253) 6.4 % LIPID [id number] 00:00:00 Test Item Value Reference Range Interpretation Comments CHOLESTEROL (test code = 2210) 176 MG/DL TRIGLYCERIDES (test code = 2232) 316 MG/DL HDL CHOLESTEROL (test code = 2220) 54 MG/DL CALC LDL CHOL (test code = 2237) 84 MG/DL RISK RATIO LDL/HDL (test code = 1.56 RATIO 2238) COMPREHENSIVE METABOLIC [id number] 00:00:00 Test Item Value Reference Range Interpretation Comments GLUCOSE (test code = 2217) 104 MG/DL BUN (test code = 2208) 22 MG/DL CREATININE (test code = 2214) 0.87 MG/DL eGFR AMER. (test code 70 ML/MIN/1.73 = 94222) eGFR NON- AMER. (test 61 ML/MIN/1.73 code = 54039) CALC BUN/CREAT (test code = 25 RATIO 2234) SODIUM (test code = 2231) 145 MEQ/L POTASSIUM (test code = 2228) 4.6 MEQ/L CHLORIDE (test code = 2215) 104 MEQ/L CARBON DIOXIDE (test code = 28 MEQ/L 2205) CALCIUM (test code = 220) 9.6 MG/DL PROTEIN, TOTAL (test code = [...]
[2023-02-21 08:45] LABS: Absolute Lymphocytes (CBC) 1.3 K/uL (0.7-4.9); Hematocrit 36.2 % (36.0-45.0); Lymphocytes % 21.9 % (15.3-44.8); MPV 8.5 fL (7.6-11.3); RBC Red Blood Cell Count 4.31 M/uL (3.86-4.86)
[2023-02-21 09:13] LABS: Albumin 3.1 g/dL (3.4-5.0); Bilirubin Total 0.4 mg/dL (0.2-1.0); Potassium 3.8 mEq/L (3.5-5.1); Protein, Total 7.3 g/dL (6.4-8.2)
[2023-02-21] MEDS ORDERED: NA CHLORIDE 0.9% 1,000 ML ONE (09:16)
--- NOTE | 2023-02-21 09:49 | RAD REPORT ---
EXAM DESCRIPTION: CTAbdomen Pelvis W Contrast - 02/21/2023 9:35 am CLINICAL HISTORY: Abdominal pain. ABD PAIN COMPARISON: No comparisons TECHNIQUE: Biphasic CT imaging of the abdomen and pelvis was performed with 100 ml non-ionic IV cont rast. All CT scans are performed using dose optimization technique as appropriate and may include automated exposure control or mA/KV adjustment according to patient size. FINDINGS: The lung bases are clear.Small hiatal hernia. The liver demonstrates diffuse fatty infiltration. The spleen, pancreas, adrenal glands and kidneys a re within normal limits. No bowel obstruction, free air, free fluid or abscess. Thickening is seen of the right colon and quiles sverse colon. Nonvisualized appendix. Prominent sigmoid diverticulosis coli with moderate fecal reten tion. No evidence of significant lymphadenopathy. Moderate lumbar degenerative changes with postsurgical changes noted. IMPRESSION: Mild right-sided colitis is possible. Prominent sigmoid diverticulosis coli without diverticulitis. Fatty liver.
[2023-02-21] MEDS ORDERED: ACETAMINOPHEN 325 MG TABLET ONE (10:28)
--- NOTE | 2023-02-21 11:02 | EDPHYS ---
Physician Documentation [facility] Name: Elizabeth Hewitt Age: 87 yrs Sex: Female : 1935 Arrival Date: 02/21/2023 Time: 08:04 Bed 18 Private MD: Kareem Fairbanks R ED Physician Cristóbal Daugherty HPI: 02/21 09:05 This 87 yrs old Female presents to ER via Wheelchair with complaints of Constipation. kb 09:05 The patient presents with abdominal pain in the lower abdomen. Onset: The kb symptoms/episode began/occurred today. The symptoms do not radiate. Associated signs and symptoms: Pertinent positives: constipation. The symptoms are described as constant. Modifying factors: The symptoms are alleviated by nothing, the symptoms are aggravated by nothing. Severity of pain: At its worst the pain was moderate in the emergency department the pain is unchanged. The patient has experienced similar episodes in the past. The patient has not recently seen a physician. reports pt has had constipation for 2 days and woke up with lower abd pain this morning. States she has had similar pain intermittently in the past. . Historical: - Allergies: 08:47 Adhesives; ap3 08:47 Sulfa (Sulfonamide Antibiotics); ap3 - Home Meds: 08:47 thyroxine [Active]; amlodipine 5 mg tab [Active]; Linzess Oral [Active]; losartan 100 ap3 mg Oral tab [Active]; sotalol 80 mg Oral tab [Active]; galantamine 8 mg Oral tab [Active]; clonidine HCl 0.1 mg Oral tab [Active]; gabapentin 100 mg Oral cap [Active]; sotalol 80 mg Oral tablet [Active]; Repatha SureClick 140 mg/mL subcutaneous Pen Injector every 2 weeks [Active]; - PMHx: 08:47 Atrial Fib; Dementia; GERD; High Cholesterol; Hypertension; Hypothyroidism; Leaky ap3 Valves; - Immunization history:: Client reports receiving the 2nd dose of the Covid vaccine. - Social history:: Smoking status: Patient denies any tobacco usage or history of. ROS: 09:04 Constitutional: Negative for fever, chills, and weight loss. kb 09:04 Abdomen/GI: Positive for abdominal pain, constipation, Negative for nausea, vomiting, and diarrhea. 09:04 All other systems are negative. Exam: 09:04 Constitutional: This is a well developed, well nourished patient who is awake, alert, kb and in no acute distress. Head/Face: Normocephalic, atraumatic. ENT: Moist Mucous membranes Cardiovascular: Regular rate and rhythm with a normal S1 and S2. No gallops, murmurs, or rubs. No pulse deficits. Respiratory: Respirations even and unlabored. No increased work of breathing. Talking in full sentences Skin: Warm, dry with normal turgor. Normal color. MS/ Extremity: Pulses equal, no cyanosis. Neurovascular intact. Full, normal range of motion. 09:04 Abdomen/GI: Inspection: abdomen appears normal, Bowel sounds: normal, Palpation: soft, in all quadrants, mild abdominal tenderness, in the right upper quadrant and left upper quadrant, moderate abdominal tenderness, in the suprapubic area. Vital Signs: 08:40 BP 173 / 76; Pulse 65; Resp 18; Temp 98.8; Pulse Ox 99% ; Weight 68.5 kg; Pain 8/10; ap3 08:40 Pain Scale: Adult ap3 MDM: 08:11 Patient medically screened. kb 09:05 Data reviewed: vital signs, nurses notes. kb 09:06 Differential diagnosis: bowel obstruction, diverticulitis, non-specific abd pain, kb urinary tract infection. Historians other than the Patient: Spouse/Significant Other: . 10:56 Counseling: I had a detailed discussion with the patient and/or guardian regarding: the kb historical points, exam findings, and any diagnostic results supporting the discharge/admit diagnosis, lab results, radiology results, the need for outpatient follow up, a family practitioner, to return to the emergency department if symptoms worsen or persist or if there are any questions or concerns that arise at home. 11:00 Consideration of Admission/Observation Escalation of care including kb admission/observation considered. Management of patient was discussed with the following: Discussed case with Dr Daugherty. Recommends 5 day course of augmentin and followup. 02/21 08:21 Order name: CBC with Diff; Complete Time: 09:00 kb 02/21 08:21 Order name: CMP; Complete Time: 09:14 kb 02/21 08:21 Order name: Lipase; Complete Time: 09:14 kb 02/21 08:21 Order name: CT Abd/Pelvis - IV Contrast Only; Complete Time: 09:53 kb 02/21 08:21 Order name: IV Saline Lock; Complete Time: 08:45 kb 02/21 08:21 Order name: Labs collected and sent; Complete Time: 08:45 kb Administered Medications: 09:10 Drug: NS 0.9% IV 1000 ml Route: IV; Rate: 75 ml/hr; Site: right antecubital; ap3 11:06 Follow up: IV Status: Completed infusion ap3 :23 Drug: Acetaminophen PO 650 mg Route: PO; ap3 11:15 Follow up: Response: No adverse reaction ap3 11:06 Drug: Amoxicillin-Clavulanate PO 875 mg Route: PO; ap3 11:15 Follow up: Response: No adverse reaction ap3 11:06 Drug: Dulcolax PO Delayed Release Tablet 5 mg Route: PO; ap3 11:15 Follow up: Response: No adverse reaction ap3 Disposition Summary: 02/21/23 11:01 Discharge Ordered Location: Home kb Condition: Stable kb Diagnosis - Constipation kb - Abdominal pain, Generalized - colitis kb Followup: kb - With: Emergency Department - When: As needed - Reason: Worsening of condition Followup: kb - With: Private Physician - When: 2 - 3 days - Reason: Recheck today's complaints, Continuance of care, Re-evaluation by your physician Discharge Instructions: - Discharge Summary Sheet kb - Constipation, Adult, [id number] kb - Colitis kb Forms: - Medication Reconciliation Form kb - Thank You Letter kb - Antibiotic Education kb - Prescription Opioid Use kb - Patient Portal Instructions kb Prescriptions: - Augmentin 875-125 mg Oral Tablet - take 1 tablet by ORAL route every 12 hours for 5 days; 10 tablet; Refills: 0, kb Product Selection Permitted Signatures: Dispatcher [employer] Nita Gomez, Bridget Messer, RN RN ap3
--- NOTE | 2023-02-21 11:02 | ER ---
Nurse's Notes [facility] Name: Elizabeth Hewitt Age: 87 yrs Sex: Female : 1935 Arrival Date: 02/21/2023 Time: 08:04 Bed 18 Private MD: Kareem Fairbanks R Diagnosis: Constipation;Abdominal pain, Generalized-colitis Presentation: 02/21 08:40 Chief complaint: Spouse and/or significant other states: that the patient has been ap3 constipated for approx 2 days now and woke up this morning with abdominal pain. Coronavirus screen: At this time, the client does not indicate any symptoms associated with coronavirus-19. Ebola Screen: No symptoms or risks identified at this time. Initial Sepsis Screen: Does the patient meet any 2 criteria? No. Patient's initial sepsis screen is negative. Does the patient have a suspected source of infection? Yes: Acute abdominal pain. Risk Assessment: Do you want to hurt yourself or someone else? Patient reports no desire to harm self or others. Onset of symptoms was February 19, 2023. 08:40 Method Of Arrival: Wheelchair ap3 08:40 Acuity: LUIS FERNANDO 3 ap3 Triage Assessment: 08:45 General: Appears uncomfortable, Behavior is calm, cooperative. Pain: Complains of pain ap3 in abdomen Pain currently is 8 out of 10 on a pain scale. Pain began gradually. Neuro: Level of Consciousness is awake, alert, obeys commands, Oriented to person, place. Cardiovascular: Patient's skin is warm and dry. Respiratory: Airway is patent Respiratory effort is even, unlabored, Respiratory pattern is regular, symmetrical. GI: Reports lower abdominal pain, upper abdominal pain, constipation. Historical: - Allergies: 08:47 Adhesives; ap3 08:47 Sulfa (Sulfonamide Antibiotics); ap3 - Home Meds: 08:47 thyroxine [Active]; amlodipine 5 mg tab [Active]; Linzess Oral [Active]; losartan 100 ap3 mg Oral tab [Active]; sotalol 80 mg Oral tab [Active]; galantamine 8 mg Oral tab [Active]; clonidine HCl 0.1 mg Oral tab [Active]; gabapentin 100 mg Oral cap [Active]; sotalol 80 mg Oral tablet [Active]; Repatha SureClick 140 mg/mL subcutaneous Pen Injector every 2 weeks [Active]; - PMHx: 08:47 Atrial Fib; Dementia; GERD; High Cholesterol; Hypertension; Hypothyroidism; Leaky ap3 Valves; - Immunization history:: Client reports receiving the 2nd dose of the Covid vaccine. - Social history:: Smoking status: Patient denies any tobacco usage or history of. Screenin:46 Abuse screen: Denies threats or abuse. Nutritional screening: No deficits noted. ap3 Tuberculosis screening: No symptoms or risk factors identified. 08:46 [facility] ED Fall Risk Assessment (Adult) History of falling in the last 3 months, ap3 including since admission Yes- single mechanical fall (1 pt) Confusion or Disorientation Yes (5 pts) Intoxicated or Sedated No (0 pts) Impaired Gait Yes (1 pt) Mobility Assist Device Used Yes (1 pt) Altered Elimination Yes (1 pt) Score/Fall Risk Level 3 or more points = High Risk. Assessment: 10:02 GI: Abd is soft. ap3 11:14 GI: Bowel sounds present X 4 quads. ap3 Vital Signs: 08:40 BP 173 / 76; Pulse 65; Resp 18; Temp 98.8; Pulse Ox 99% ; Weight 68.5 kg; Pain 8/10; ap3 08:40 Pain Scale: Adult ap3 ED Course: 08:06 Patient arrived in ED. mr 08:06 Kareem Fairbanks MD is Private Physician. mr 08:11 [facility] Nor[facility] kb 08:11 Cristóbal Daugherty MD is Attending Physician. kb 08:40 Bridget Carter, ASHA is Primary Nurse. ap3 08:43 Triage completed. ap3 08:44 Initial lab(s) drawn, by me. Inserted saline lock: 20 gauge in right antecubital area, ap3 using aseptic technique. Blood collected. 08:45 CBC with Diff Sent. ap3 08:45 CMP Sent. ap3 08:45 Lipase Sent. ap3 08:46 Arm band placed on right wrist. ap3 08:46 Patient has correct armband on for positive identification. Bed in low position. Call ap3 light in reach. Side rails up X2. Adult w/ patient. Pulse ox on. NIBP on. 09:37 CT Abd/Pelvis - IV Contrast Only In Process Unspecified. EDMS 10:01 No provider procedures requiring assistance completed. ap3 11:14 IV discontinued, intact, bleeding controlled, No redness/swelling at site. Pressure ap3 dressing applied. 11:14 Provided Education on: discharge instruction education. ap3 Administered Medications: 09:10 Drug: NS 0.9% IV 1000 ml Route: IV; Rate: 75 ml/hr; Site: right antecubital; ap3 11:06 Follow up: IV Status: Completed infusion ap3 10:23 Drug: Acetaminophen PO 650 mg Route: PO; ap3 11:15 Follow up: Response: No adverse reaction ap3 11:06 Drug: Amoxicillin-Clavulanate PO 875 mg Route: PO; ap3 11:15 Follow up: Response: No adverse reaction ap3 11:06 Drug: Dulcolax PO Delayed Release Tablet 5 mg Route: PO; ap3 11:15 Follow up: Response: No adverse reaction ap3 Medication: 10:01 VIS not applicable for this client. ap3 Outcome: 11:01 Discharge ordered by . kb 11:14 Discharged to home via wheelchair, with family. ap3 11:14 Condition: good 11:14 Discharge instructions given to patient, family, Instructed on discharge instructions, follow up and referral plans. medication usage, Demonstrated understanding of instructions, follow-up care, medications, Prescriptions given X 1. 11:14 Patient left the ED. ap3 Signatures: Dispatcher [employer] EDRI Nita Norwood, REJI SHADE BANDER-Jose Roberta Reece Bridget Carter, RN RN ap3 Corrections: (The following items were deleted from the chart) 10:02 10:01 IV discontinued, intact, bleeding controlled, No redness/swelling at site. ap3 Pressure dressing applied, ap3 10:02 08:46 Provided Education on: fall risk education. ap3 ap3 10:02 10:01 Condition: good ap3 ap3 10:02 10:01 Discharged to home ambulatory, with family, ap3 ap3 10:02 10:01 Discharge instructions given to patient, family, Instructed on discharge ap3 instructions, follow up and referral plans. medication usage, Demonstrated understanding of instructions, follow-up care, medications, ap3 10:02 10:01 GI: Bowel sounds Abd is soft ap3 ap3
[2023-02-21] MEDS ORDERED: BISACODYL E.C. 5 MG TAB PO ONE (11:12)
[2023-02-21] MEDS ORDERED: AMOX/K CLAV 875 MG TAB ONE (11:12)
[2023-02-21 11:44] VITALS: BP 173/76; TEMP 98.8; O2SAT 99
== END 2023-02-21 11:14 | disposition home or self-care (01) ==
LOC: ER 08:04
DX: K59.00 Constipation, unspecified (principal); K52.9 Noninfective gastroenteritis and colitis, unspecified; I10 Essential (primary) hypertension; F03.90 Unspecified dementia, unspecified severity, without behavioral disturbance, psychotic disturbance, mood disturbance, and anxiety; I48.91 Unspecified atrial fibrillation; Z88.2 Allergy status to sulfonamides; Z91.048 Other nonmedicinal substance allergy status
CPT/HCPCS: 96361; 85025; 36415; 83690; 80053; 74177; 96360; 99284; Q9967; J7030

== ENCOUNTER 2023-03-24 09:06 | Emergency (ER) | payer OTHER ==
--- OUTSIDE RECORDS SUMMARY | 2023-03-24 09:15 | XMS REPORT | Continuity of Care Document ---
:1935 Author Organization [facility] t Address [address] [place] [address] [address] [place] [address] Care Team Providers Name Role Phone Tiki BECKMAN, Jose Primary Care Physician TERI FLOR Attending Clinician Unavailable JUAN MUNOZ Attending Clinician Unavailable JUAN MUNOZ Attending Clinician Unavailable Juan Munoz MD Attending Clinician Doctor Unassigned, [place] Attending Clinician Unavailable XIOMARA GUERRA Attending Clinician Unavailable Xiomara Guerra MD Attending Clinician Wilson Vidales Attending Clinician 2, [facility] Attending Clinician Unavailable Haley Hill MD Attending Clinician Garrett Dover Attending Clinician XIOMARA GUERRA Admitting Clinician Unavailable JUAN MUNOZ Admitting Clinician Unavailable Payers Payer Name Policy Type Policy Number Effective Date Expiration Date S polly MEDICARE PART A [id number] 2000 \T\ B 00:00:00 FOR LIFE [id number] 2016 00:00:00 FOR LIFE [id number] 2021 00:00:00 Problems Condition Condition Condition Status Onset Resolution Last Treating Co mments Source Name Details Category Date Date Treatment Clinician Date F/U F/U Diagnosis Active 2017-05-08 Mem oria Active 03-31 14:40:00 l 03/31/2017 00:00: Raman diaz [address] C-DIFF C-DIFF Diagnosis Active 2017-03-24 Me moria Active 03-04 13:36:00 l 03/04/2017 00:00: Raman diaz [address] Arthritis Arthritis Problem Active 2017-05-08 Memoria (disorder) (disorder) 00:30:32 l Active [place] Problem 05/08/2017 [facility] Weight Weight Problem Active 2017-05-08 Mem oria loss loss 00:30:32 l finding finding [place] (finding) (finding) Active Problem 05/08/2017 [facility] ENCNTR FOR ENCNTR Diagnosis Active 2017-05-08 Memoria GENERAL FOR 14:40:00 l ADULT GENERAL [place] MEDICAL ADULT EXAM W/ MEDICAL EXAM W/ Active [facility] Abdominal Abdominal Problem Active 2017-05-08 Memoria bloating bloating 00:30:32 l (finding) (finding) Herm boo Active Problem 05/08/2017 [facility] Anxiety Anxiety Problem Active 2017-05-08 Me christy (finding) (finding) 00:30:32 l Active [place] Problem 05/08/2017 [facility] No known No known Disease Unive rs active active ity of problems problems [facility] Allergies, Adverse Reactions, Alerts Allergy [...] 00 to drug Adhesive Propensi Active Itching Unive rs ty [...] Date Stop Date Quantity Comments Source History SDNY [facility] o [facility] Alcohol Comment [place] [facility] Gender identity [facility]it y of [facility] Sexual orientation [facility] [place] [facility] [place] History SDNY University o f Alcohol Std Drinks [place] [facility] History [facility] University o f Alcohol Binge [place] [facility] Tobacco use and 2023-02-06 2023-02-06 Smokeless Universit y of exposure 00:00:00 00:00:00 tobacco non-user [facility] dical Branch History of Social 2023-02-06 2023-02-06 Univers ity of function 00:00:00 00:00:00 [facility] Alcohol intake 2023-02-06 2023-02-06 Lifetime University of 00:00:00 00:00:00 non-drinker [facility] (finding) Branch Exposure to 2022-01-25 2022-02-04 Not sure [facility] SARS-CoV-2 (event) 00:00:00 15:15:00 [facility] History SDOH 2019-08-19 2019-08-19 1 University o f Alcohol Frequency 00:00:00 00:00:00 [facility] edical Branch Social History 2017-03-24 2017-03-24 [facility] jia 18:56:04 18:56:04 Sex [birth year] Universit y of 00:00:00 00:00:00 [facility] Smoking Status Start Date Stop Date Source Never smoked tobacco [facility] Medications Ordered Filled Start Stop Current Ordering Indication Dosage Frequency Signature Comments Components Source Medication Medication Date Date Medication? Clinician (SIG) Name Name galantamine Yes [id number] 8mg Take 1 Univers 8 mg tablet 6-30 tablet by ity of 00:00: mouth in [place] 00 the Medical morning Branch and 1 tablet in the evening. galantamine Yes [id number] 8mg Take 1 Univers 8 mg tablet 6-30 tablet by ity of 00:00: mouth in [place] [address] the Medical morning Branch and 1 tablet in the evening. galantamine 2022-0 Yes [id number] 8mg Take 1 Univers 8 mg tablet 6-30 tablet by ity of 00:00: mouth in [place] [address] the Medical morning Branch and 1 tablet in the evening. &lt 2022-0 No 150 7-07 00:00: 00 &lt 2022-0 No 100 7-07 00:00: 00 &lt 2022-0 No 7-07 00:00: 00 &lt 2022-0 No 100 7-07 00:00: 00 TAKE 1 2-0 No 4 TABLET BY 02-12 MOUTH TWICE 00:00: DAILY 00 galantamine 2021-0 Yes [id number] 8mg Take 1 Univers 8 mg tablet 6-28 tablet by ity of 00:00: mouth 2 [place] ([facility]) Medical times Branch daily. galantamine 2021-0 Yes [id number] 8mg Take 1 Univers 8 mg tablet 6-28 tablet by ity of 00:00: mouth 2 [place] ([facility]) Medical times Branch daily. galantamine 2021-0 Yes [id number] 8mg Take 1 Univers 8 mg tablet 6-28 tablet by ity of 00:00: mouth 2 [place] ([facility]) Medical times Branch daily. galantamine 2021-0 Yes [id number] 8mg Take 1 Univers 8 mg tablet 6-28 tablet by ity of 00:00: mouth 2 [place] ([facility]) Medical times Branch daily. galantamine 2021-0 Yes [id number] 8mg Take 1 Univers 8 mg tablet 6-28 tablet by ity of 00:00: mouth 2 [place] (two) Medical times Branch daily. galantamine 2021-0 2023- No [id number] 8mg Take 1 Univers 8 mg tablet 6-28 06-30 tablet by it y of 00:00: 00:00 mouth 2 [place] 00 :00 (two) Medical times Branch daily. galantamine 2-0 2023- No [id number] 8mg Take 1 Univers 8 mg tablet 6-28 06-30 tablet by it y of 00:00: 00:00 mouth 2 [place] 00 :00 (two) Medical times Branch daily. Dose 2021-0 No Unknown 6-27 00:00: 00 galantamine 202-0 2022- No 8mg Take 1 Uni vers 8 mg tablet 01-14 tablet by it y of 00:00: 00:00 mouth 2 [place] 00 :00 (two) Medical times Branch daily. galantamine 2021-0 2021- No 8mg Take 1 Uni vers 8 mg tablet 01-14 tablet by it y of 00:00: 00:00 mouth 2 [place] 00 :00 (two) Medical times Branch daily. cloNIDine 2021-0 Yes .1mg Take 0.1 Univ [...] 100 mg 7-06 ity of capsule 00:00: [place] 00 Medical Branch gabapentin 2021-0 Yes Univers 100 mg 7-06 ity of capsule 00:00: [place] 00 Medical Branch gabapentin 2021-0 Yes Univers 100 mg 7-06 ity of capsule 00:00: [place] 00 Medical Branch gabapentin 2021-0 Yes Univers 100 mg 7-06 ity of capsule 00:00: [place] 00 Medical Branch gabapentin 2021-0 Yes Univers 100 mg 7-06 ity of capsule 00:00: [place] 00 Medical Branch gabapentin 2021-0 Yes Univers 100 mg 7-06 ity of capsule 00:00: [place] 00 Medical Branch gabapentin 2021-0 Yes Univers 100 mg 7-06 ity of capsule 00:00: [place] 00 Medical Branch gabapentin 2021-0 Yes Univers 100 mg 7-06 ity of capsule 00:00: [place] 00 Medical Branch galantamine 2021-0 No 1mg 4 mg tablet 7-06 00:00: 00 gabapentin 2021-0 No 1mg 100 mg 7-06 capsule 00:00: 00 desipramine 2021-0 Yes Univer s 10 mg 5-14 ity of tablet 00:00: [place] 00 Medical Branch desipramine 2020-0 Yes Univer s 10 mg 5-14 ity of tablet 00:00: [place] [facility] desipramine 2020-0 Yes Univer s 10 mg 5-14 ity of tablet 00:00: [place] [facility] desipramine 1-0 Yes Univer s 10 mg 5-14 ity of tablet 00:00: [place] [facility] desipramine 2020-0 Yes Univer s 10 mg 5-14 ity of tablet 00:00: [place] [facility] desipramine 2020-0 Yes Univer s 10 mg 5-14 ity of tablet 00:00: [place] [address] Medical Branch desipramine 2020-0 Yes Univer s 10 mg 5-14 ity of tablet 00:00: [place] [address] Medical Branch desipramine 2020-0 Yes Univer s 10 mg 5-14 ity of tablet 00:00: [place] [address] Medical Branch levothyroxi 2020-0 No 5mcg ne 25 mcg [...] 5 mg tablet 5-04 00:00: 00 Diflucan 2021-0 No 1mg 150 mg 5-04 tablet 00:00: 00 Diflucan 2021-0 No 1mg 150 mg 5-04 tablet 00:00: 00 levothyroxi 1-0 No 5mcg ne 25 mcg 5-04 tablet 00:00: 00 rivastigmin 2020-0 2- No Unive rs e 4.6 mg/24 11-06- ity of hour patch 00:00: 00:00 [place] 00 :00 Medical Branch rivastigmin 2020-0 2- No Unive rs e 4.6 mg/24 11-06- ity of hour patch 00:00: 00:00 [place] 00 :00 Medical Branch cholecalcif 2020-0 Yes Take by Uni vers ana lilia, 3-26 mouth. ity of vitamin D3, 11:07: [place] 25 mcg 30 Medical (1,000 Branch unit) tablet cholecalcif 2021-0 Yes Take by Uni vers ana lilia, 3-26 mouth. ity of vitamin D3, 11:07: [place] 25 mcg 30 Medical (1,000 Branch unit) tablet cholecalcif 2021-0 Yes Take by Uni vers ana lilia, 3-26 mouth. ity of vitamin D3, 11:07: [place] 25 mcg 30 Medical (1,000 Branch unit) tablet cholecalcif 2021-0 Yes Take by Uni vers ana lilia, 3-26 mouth. ity of vitamin D3, 11:07: [place] 25 mcg 30 Medical (1,000 Branch unit) tablet cholecalcif 2021-0 Yes Take by Uni vers ana lilia, 3-26 mouth. ity of vitamin D3, 11:07: [place] 25 mcg 30 Medical (1,000 Branch unit) tablet cholecalcif 2021-0 Yes Take by Uni vers ana lilia, 3-26 mouth. ity of vitamin D3, 11:07: [place] 25 mcg 30 Medical (1,000 Branch unit) tablet cholecalcif 2021-0 Yes Take by Uni vers aan lilia, 3-26 mouth. ity of vitamin D3, 11:07: [place] 25 mcg 30 Medical (1,000 Branch unit) tablet cholecalcif 2021-0 Yes Take by Uni vers ana lilia, 3-26 mouth. ity of vitamin D3, 11:07: [place] 25 mcg 30 Medical (1,000 Branch unit) tablet levothyroxi 2020-0 No 5mcg ne 25 mcg 2-01 tablet 00:00: 00 losartan 2021-0 No 1mg 100 mg 1-18 tablet 00:00: 00 losartan 2021-0 No 1mg 100 mg 1-18 tablet 00:00: 00 levothyroxi 2021-0 No 5mcg ne 25 mcg 1-18 tablet 00:00: 00 levothyroxi 2021-0 No 5mcg ne 25 mcg 1-18 tablet 00:00: 00 lactulose 2020-0 No 15(15 10 gram/15 9-29 mL) mL (15 mL) 00:00: oral 00 solution losartan 2020-0 No 1mg 100 mg 7-24 tablet 00:00: 00 famotidine 2020-0 No 1mg 40 mg 7-24 tablet 00:00: 00 amlodipine 2019-0 No 1mg 5 mg tablet 7-24 00:00: 00 levothyroxi 2019-0 No 5mcg ne 25 mcg 7-24 tablet 00:00: 00 levothyroxi 2019-0 No 5mcg ne 25 mcg 5-28 tablet 00:00: 00 furosemide 2019-0 No 1mg 20 mg 5-13 tablet 00:00: 00 amlodipine 2019-0 No 1mg 5 mg tablet 5-13 00:00: 00 furosemide 2019-0 No 1mg 20 mg 5-13 tablet 00:00: 00 amlodipine 2019-0 No 1mg 5 mg tablet 5-13 00:00: 00 sotalol 80 0 No 1mg mg tablet 5-13 00:00: 00 Simethicone 0 Yes Take by Uni vers (PHAZYME) 3-13 mouth. ity of 180 mg Cap 14:26: [address] Simethicone 2019-0 Yes Take by Uni vers (PHAZYME) 3-13 mouth. ity of 180 mg Cap 14:26: [address] Simethicone 2019-0 Yes Take by Uni vers (PHAZYME) 3-13 mouth. ity of 180 mg Cap 14:26: [address] Simethicone 2019-0 Yes Take by Uni vers (PHAZYME) 3-13 mouth. ity of 180 mg Cap 14:26: [address] Simethicone 2019-0 Yes Take by Uni vers (PHAZYME) 3-13 mouth. ity of 180 mg Cap 14:26: [address] Simethicone 2020-0 Yes Take by Uni vers (PHAZYME) 3-13 mouth. ity of 180 mg Cap 14:26: [address] Simethicone 2020-0 Yes Take by Uni vers (PHAZYME) 3-13 mouth. ity of 180 mg Cap 14:26: [address] Simethicone 2020-0 Yes Take by Uni vers (PHAZYME) 3-13 mouth. ity of 180 mg Cap 14:26: [address] sotalol 80 0 No 5mg mg tablet 2-10 00:00: 00 magnesium 2019-0 No 1mg oxide 400 2-10 magnesi mg (241.3 00:00: um) mg 00 magnesium) tablet Vitamin D3 2019-0 No 1(5,000 125 mcg 2-10 unit) (5,000 00:00: unit) 00 tablet levothyroxi 2020-0 No 5mcg ne 25 mcg 2-10 tablet 00:00: 00 Florastor 2020-0 No 1mg 250 mg 2-10 capsule 00:00: 00 Repatha 2020-0 No 1mg/mL Syringe 140 2-10 mg/mL 00:00: subcutaneou 00 s syringe lactulose 2019-0 No 30gram/ 10 gram/15 2-10 15 mL mL oral 00:00: solution 00 amlodipine 2019-0 No 1mg 5 mg tablet 2-10 00:00: 00 famotidine 2020-0 No 1mg 40 mg 2-10 tablet 00:00: 00 furosemide 2020-0 No 1mg 20 mg 2-10 tablet 00:00: 00 losartan 2020-0 No 1mg 100 mg 2-10 tablet 00:00: 00 sotalol 80 2019-0 Yes 80mg Take 80 mg U nivers mg tablet 1-10 by mouth ity of 14:46: daily. [place] [address] Medical Branch amLODIPine 2019-0 Yes 10mg Take 10 mg U nivers 5 mg tablet 1-10 by mouth ity of 14:46: daily. [address] Branch losartan 2020-0 Yes 100mg Take 100 Univ ers 100 mg 1-10 mg by ity of tablet 14:46: mouth [place] [address] daily. Medical Branch ranitidine 2019-0 Yes 150mg Take 150 Un valdemar 150 mg 1-10 mg by ity of tablet 14:46: mouth at [place] [address] bedtime. Medical Branch lactulose 2020-0 Yes 15mL Take 15 mL Un valdemar 10 gram/15 1-10 by mouth ity o f mL solution 14:46: daily. [place] [address] Medical Branch sotalol 80 2019-0 Yes 80mg Take 80 mg U nivers mg tablet 1-10 by mouth ity of 14:46: daily. [address] amLODIPine 2020-0 Yes 10mg Take 10 mg U nivers 5 mg tablet 1-10 by mouth ity of 14:46: daily. [place] [address] Medical Branch losartan 2020-0 Yes 100mg Take 100 Univ ers 100 mg 1-10 mg by ity of tablet 14:46: mouth [place] [address] daily. Medical Branch ranitidine 2019-0 Yes 150mg Take 150 Un valdemar 150 mg 1-10 mg by ity of tablet 14:46: mouth at [place] [address] bedtime. Medical Branch lactulose 2020-0 Yes 15mL Take 15 mL Un valdemar 10 gram/15 1-10 by mouth ity o f mL solution 14:46: daily. [address] Branch sotalol 80 2020-0 Yes 80mg Take 80 mg U nivers mg tablet 1-10 by mouth ity of 14:46: daily. [place] [address] Medical Branch amLODIPine 2020-0 Yes 10mg Take 10 mg U nivers 5 mg tablet 1-10 by mouth ity of 14:46: daily. [place] [address] Medical Branch losartan 2020-0 Yes 100mg Take 100 Univ ers 100 mg 1-10 mg by ity of tablet 14:46: mouth [place] [address] daily. Medical Branch ranitidine 2020-0 Yes 150mg Take 150 Un valdemar 150 mg 1-10 mg by ity of tablet 14:46: mouth at [place] [address] bedtime. Medical Branch lactulose 2020-0 Yes 15mL Take 15 mL Un valdemar 10 gram/15 1-10 by mouth ity o f mL solution 14:46: daily. [place] [address] Medical Branch sotalol 80 2020-0 Yes 80mg Take 80 mg U nivers mg tablet 1-10 by mouth ity of 14:46: daily. [place] [address] Medical Branch amLODIPine 2020-0 Yes 10mg Take 10 mg U nivers 5 mg tablet 1-10 by mouth ity of 14:46: daily. [place] [address] Medical Branch losartan 2020-0 Yes 100mg Take 100 Univ ers 100 mg 1-10 mg by ity of tablet 14:46: mouth [place] [address] daily. Medical Branch ranitidine 2020-0 Yes 150mg Take 150 Un valdemar 150 mg 1-10 mg by ity of tablet 14:46: mouth at [place] [address] bedtime. Medical Branch lactulose 2020-0 Yes 15mL Take 15 mL Un valdemar 10 gram/15 1-10 by mouth ity o f mL solution 14:46: daily. [address] Branch sotalol 80 2020-0 Yes 80mg Take 80 mg U nivers mg tablet 1-10 by mouth ity of 14:46: daily. [place] [address] Medical Branch amLODIPine 2020-0 Yes 10mg Take 10 mg U nivers 5 mg tablet 1-10 by mouth ity of 14:46: daily. [place] 51 Medical Branch losartan 2020-0 Yes 100mg Take 100 Univ ers 100 mg 1-10 mg by ity of tablet 14:46: mouth [place] [address] daily. Medical Branch ranitidine 2020-0 Yes 150mg Take 150 Un valdemar 150 mg 1-10 mg by ity of tablet 14:46: mouth at [place] [address] bedtime. Medical Branch lactulose 2020-0 Yes 15mL Take 15 mL Un valdemar 10 gram/15 1-10 by mouth ity o f mL solution 14:46: daily. [place] [address] Medical Branch sotalol 80 2020-0 Yes 80mg Take 80 mg U nivers mg tablet 1-10 by mouth ity of 14:46: daily. [place] [address] Medical Branch amLODIPine 2020-0 Yes 10mg Take 10 mg U nivers 5 mg tablet 1-10 by mouth ity of 14:46: daily. [place] [address] Medical Branch losartan 2020-0 Yes 100mg Take 100 Univ ers 100 mg 1-10 mg by ity of tablet 14:46: mouth [place] [address] daily. Medical Branch ranitidine 2020-0 Yes 150mg Take 150 Un valdemar 150 mg 1-10 mg by ity of tablet 14:46: mouth at [place] [address] bedtime. Medical Branch lactulose 2020-0 Yes 15mL Take 15 mL Un valdemar 10 gram/15 1-10 by mouth ity o f mL solution 14:46: daily. [place] [address] Medical Branch sotalol 80 2020-0 Yes 80mg Take 80 mg U nivers mg tablet 1-10 by mouth ity of 14:46: daily. [place] [address] Medical Branch amLODIPine 2020-0 Yes 10mg Take 10 mg U nivers 5 mg tablet 1-10 by mouth ity of 14:46: daily. [place] [address] Medical Branch losartan 2020-0 Yes 100mg Take 100 Univ ers 100 mg 1-10 mg by ity of tablet 14:46: mouth [place] [address] daily. Medical Branch ranitidine 2020-0 Yes 150mg Take 150 Un valdemar 150 mg 1-10 mg by ity of tablet 14:46: mouth at [place] [address] bedtime. Medical Branch lactulose 2020-0 Yes 15mL Take 15 mL Un valdemar 10 gram/15 1-10 by mouth ity o f mL solution 14:46: daily. [place] [address] Medical Branch sotalol 80 2020-0 Yes 80mg Take 80 mg U nivers mg tablet 1-10 by mouth ity of 14:46: daily. [address] amLODIPine 2019-0 Yes 10mg Take 10 mg U nivers 5 mg tablet 1-10 by mouth ity of 14:46: daily. [address] losartan 2019-0 Yes 100mg Take 100 Univ ers 100 mg 1-10 mg by ity of tablet 14:46: mouth [place] [address] daily. Medical Branch ranitidine 2019-0 Yes 150mg Take 150 Un valdemar 150 mg 1-10 mg by ity of tablet 14:46: mouth at [place] [address] bedtime. Medical Branch lactulose 0 Yes 15mL Take 15 mL Un valdemar 10 gram/15 1-10 by mouth ity o f mL solution 14:46: daily. [address] furosemide 2018-08 Yes Univers 20 mg 2-20 ity of tablet 00:00: [address] furosemide 2018-08 Yes Univers 20 mg 2-20 ity of tablet 00:00: [address] furosemide 2018-08 Yes Univers 20 mg 2-20 ity of tablet 00:00: [address] furosemide 2018-08 Yes Univers 20 mg 2-20 ity of tablet 00:00: [address] furosemide 2018- Yes Univers 20 mg 2-20 ity of tablet 00:00: [address] furosemide 2018-08 Yes Univers 20 mg 2-20 ity of tablet 00:00: [address] furosemide 2018-08 Yes Univers 20 mg 2-20 ity of tablet 00:00: [address] furosemide 2018-08 Yes Univers 20 mg 2-20 ity of tablet 00:00: [address] famotidine 2018-08 Yes Univers 40 mg 1-21 ity of tablet 00:00: [address] famotidine 2018-08 Yes Univers 40 mg 1-21 ity of tablet 00:00: [address] famotidine 2018-08 Yes Univers 40 mg 1-21 ity of tablet 00:00: [address] famotidine 2018-08 Yes Univers 40 mg 1-21 ity of tablet 00:00: [address] famotidine 2018-08 Yes Univers 40 mg 1-21 ity of tablet 00:00: [address] famotidine 2018-08 Yes Univers 40 mg 1-21 ity of tablet 00:00: [place] 00 Medical Branch famotidine 2019-1 Yes Univers 40 mg 1-21 ity of tablet 00:00: [place] 00 Medical Branch famotidine 2019-1 Yes Univers 40 [...] [place] PnIj 00 Medical Branch diltiazem 2 2017-0 Yes Apply to Un valdemar % cream 7-31 affected ity of 00:00: area(s) 3 [place] 00 (three) Medical times Branch daily. diltiazem 2 2017-0 Yes Apply to Un valdemar % cream 7-31 affected ity of 00:00: area(s) 3 [place] 00 (three) Medical times Branch daily. diltiazem 2 2017-0 Yes Apply to Un valdemar % cream 7-31 affected ity of 00:00: area(s) 3 [place] 00 (three) Medical times Branch daily. diltiazem 2 2017-0 Yes Apply to Un valdemar % cream 7-31 affected ity of 00:00: area(s) 3 [place] 00 (three) Medical times Branch daily. diltiazem 2 2017-0 Yes Apply to Un valdemar % cream 7-31 affected ity of 00:00: area(s) 3 [place] 00 (three) Medical times Branch daily. diltiazem 2 2017- Yes Apply to Un valdemar % cream 7-31 affected ity of 00:00: area(s) 3 [place] 00 (three) Medical times Branch daily. diltiazem 2 2017- Yes Apply to Un valdemar % cream 7-31 affected ity of 00:00: area(s) 3 [place] 00 (three) Medical times Branch daily. diltiazem 2 2017- Yes Apply to Un valdemar % cream 7-31 affected ity of 00:00: area(s) 3 [place] 00 (three) Medical times Branch daily. levothyroxi 2017 Yes Univer s ne 25 mcg 1-08 ity of tablet 00:00: [place] [facility] levothyroxi 2016- Yes Univer s ne 25 mcg 1-08 ity of tablet 00:00: [place] [facility] levothyroxi 2016-08 Yes Univer s ne 25 mcg 1-08 ity of tablet 00:00: [place] [facility] levothyroxi 2016- Yes Univer s ne 25 mcg 1-08 ity of tablet 00:00: [place] [facility] levothyroxi 2016-08 Yes Univer s ne 25 mcg 1-08 ity of tablet 00:00: [place] [facility] levothyroxi 2016- Yes Univer s ne 25 mcg 1-08 ity of tablet 00:00: [place] [facility] levothyroxi 2016- Yes Univer s ne 25 mcg 1-08 ity of tablet 00:00: [place] [facility] levothyroxi 2016- Yes Univer s ne 25 mcg 1-08 ity of tablet 00:00: [address] fidaxomicin 2017 Yes 200 mg = 1 Memoria 200 MG Oral 9-26 tab, PO, l Tablet 19:22: BID, # 20 Raman n [Dificid] 00 tab, 0 Refill(s), Pharmacy: [facility] [id number] fidaxomicin Yes 200 mg = 1 Memoria 200 MG Oral 9-26 tab, PO, l Tablet 19:22: BID, # 20 Raman n [Dificid] 00 tab, 0 Refill(s), Pharmacy: [facility] [id number] fidaxomicin Yes 200 mg = 1 Memoria 200 MG Oral 9-26 tab, PO, l Tablet 19:22: BID, # 20 Raman n [Dificid] 00 tab, 0 Refill(s), [address] 200 mg = 1 Memoria 200 MG Oral 9-26 tab, PO, l Tablet 19:22: BID, # 20 Raman n [Dificid] 00 tab, 0 Refill(s), [facility] [address] [facility] 200 mg = 1 Memoria 200 MG Oral 9-26 tab, PO, l Tablet 19:22: BID, # 20 Raman n [Dificid] 00 tab, 0 Refill(s), [address] 200 mg = 1 Memoria 200 MG Oral 9-26 tab, PO, l Tablet 19:22: BID, # 20 Raman n [Dificid] 00 tab, 0 Refill(s), Pharmacy: [place] [address] fidaxomicin Yes 200 mg = 1 Memoria 200 MG Oral 9-26 tab, PO, l Tablet 19:22: BID, # 20 Raman n [Dificid] 00 tab, 0 Refill(s), Pharmacy: [place] [address] fidaxomicin Yes 200 mg = 1 Memoria 200 MG Oral 9-26 tab, PO, l Tablet 19:22: BID, # 20 Raman n [Dificid] 00 tab, 0 Refill(s), Pharmacy: [place] [address] fidaxomicin Yes 200 mg = 1 Memoria 200 MG Oral 9-26 tab, PO, l Tablet 19:22: BID, # 20 Raman n [Dificid] 00 tab, 0 Refill(s), Pharmacy: [place] [address] fidaxomicin Yes 200 mg = 1 Memoria 200 MG Oral 9-26 tab, PO, l Tablet 19:22: BID, # 20 Raman n [Dificid] 00 tab, 0 Refill(s), [address] 200 mg = 1 Memoria 200 MG Oral 9-26 tab, PO, l Tablet 19:17: BID, X 10 Raman n [Dificid] 00 day, # 20 tab, 0 Refill(s), [address] [address] 200 mg = 1 Memoria 200 MG Oral 9-26 tab, PO, l Tablet 19:17: BID, X 10 Raman n [Dificid] 00 day, # 20 tab, 0 Refill(s), [address] 200 mg = 1 Memoria 200 MG Oral 9-26 tab, PO, l Tablet 19:17: BID, X 10 Raman n [Dificid] 00 day, # 20 tab, 0 Refill(s), [address] 200 mg = 1 Memoria 200 MG Oral 9-26 tab, PO, l Tablet 19:17: BID, X 10 Raman n [Dificid] 00 day, # 20 tab, 0 Refill(s), [address] 200 mg = 1 Memoria 200 MG Oral 9-26 tab, PO, l Tablet 19:17: BID, X 10 Raman n [Dificid] 00 day, # 20 tab, 0 Refill(s), [address] 200 mg = 1 Memoria 200 MG Oral 9-26 tab, PO, l Tablet 19:17: BID, X 10 Raman n [Dificid] 00 day, # 20 tab, 0 Refill(s), Pharmacy: [place] [address] fidaxomicin Yes 200 mg = 1 Memoria 200 MG Oral 9-26 tab, PO, l Tablet 19:17: BID, X 10 Raman n [Dificid] 00 day, # 20 tab, 0 Refill(s), Pharmacy: [place] [address] fidaxomicin Yes 200 mg = 1 Memoria 200 MG Oral 9-26 tab, PO, l Tablet 19:17: BID, X 10 Raman n [Dificid] 00 day, # 20 tab, 0 Refill(s), Pharmacy: [facility] [id number] fidaxomicin 2017- Yes 200 mg = 1 Memoria 200 MG Oral 9-26 tab, PO, l Tablet 19:17: BID, X 10 Raman n [Dificid] 00 day, # 20 tab, 0 Refill(s), Pharmacy: [facility] [id number] fidaxomicin 2017- Yes 200 mg = 1 Memoria 200 MG Oral 9-26 tab, PO, l Tablet 19:17: BID, X 10 Raman n [Dificid] 00 day, # 20 tab, 0 Refill(s), Pharmacy: [facility] [id number] [facility] Yes [facility], moria 8 See l 15:15: [facility] [place] 00 ns, Faxed order to the [facility] on 03/25/17., # 2 box, Refill(s) 11, other [facility] 0 Yes [facility], moria 03-25 See l 15:15: [facility] [place] 00 ns, Faxed order to the [facility] on 03/25/17., # 2 box, Refill(s) 11, other [facility] 0 Yes [employer], moria 03-25 See l 15:15: Instructio [place] 00 ns, Faxed order to the [facility] on 03/25/17., # 2 box, Refill(s) 11, other [facility] 2016-0 Yes [facility], Me moria 8 See l 15:15: Instructio [place] 00 ns, Faxed order to the [facility] on 03/25/17., # 2 box, Refill(s) 11, other [facility] 2017-0 Yes [facility], Me moria 03-25 See l 15:15: Instructio [place] 00 ns, Faxed order to the [facility] on 03/25/17., # 2 box, Refill(s) 11, other [facility] 2017-0 Yes [facility], Me moria 8 See l 15:15: Instructio [place] 00 ns, Faxed order to the [facility] on 03/25/17., # 2 box, Refill(s) 11, other [facility] 2017-0 Yes [facility] Me moria 8-16 See l 15:15: Instructio [place] 00 ns, Faxed order to the [facility] on 03/25/17., # 2 box, Refill(s) 11, other [facility] 2017-0 Yes EnteraGamMe moria 8-16 See l 15:15: Instructio [place] 00 ns, Faxed order to the [facility] on 03/25/17., # 2 box, Refill(s) 11, other [facility] 20170 Yes EnteraGamMe moria 816 See l 15:15: Instructio [place] 00 ns, Faxed order to the [facility] on 03/25/17., # 2 box, Refill(s) 11, other [facility] Yes EnterMe Tobi moria 8-16 See l 15:15: Instructio [place] 00 ns, Faxed order to the [facility] on 03/25/17., # 2 box, Refill(s) 11, other [facility] Yes EnteraGamMe moria 815 See l 20:41: Instructio Lokesh 00 ns, Lot # [id number] exp date 08/29, # 1 box, Refill(s) 0, given to patient [facility] 2016-0 Yes [facility] brandee moria 8-15 See l 20:41: Instructio [place] 00 ns, Lot # [id number] exp date 08/29, # 1 box, Refill(s) 0, given to patient [facility] 2016- Yes [facility], Me moria 815 See l 20:41: Instructio [place] 00 ns, Lot # [id number] exp date 08/29, # 1 box, Refill(s) 0, given to patient [facility] 2016-0 Yes [facility], Me moria 8-15 See l 20:41: Instructio [place] 00 ns, Lot # [id number] exp date 08/29, # 1 box, Refill(s) 0, given to patient [facility] 2016-0 Yes [facility], Me moria 8-15 See l 20:41: Instructio [place] 00 ns, Lot # [id number] exp date 08/29, # 1 box, Refill(s) 0, given to patient [facility] Yes Me Micki moria 03-24 See l 20:41: Instructio [place] 00 ns, Lot # [id number] exp date 08/29, # 1 box, Refill(s) 0, given to patient [facility] Yes Me Micki moria 03-24 See l 20:41: Instructio [place]okes[place] 00 ns, Lot # [id number] exp date 08/29, # 1 box, Refill(s) 0, given to patient [facility] Yes Me Micki moria 03-24 See l 20:41: Instructio [place] 00 ns, Lot # [id number] exp date 08/29, # 1 box, Refill(s) 0, given to patient JovanaaGam Yes Me Micki moria 03-24 See l 20:41: Instructio [place] 00 ns, Lot # [id number] exp date 08/29, # 1 box, Refill(s) 0, given to patient [facility] Yes Me Micki moria 03-24 See l 20:41: Instructio [place] 00 ns, Lot # [id number] exp date 08/29, # 1 box, Refill(s) 0, given to patient non-formula Yes Daily, Arthur edy ry 03-24 aredas, l 18:56: Refill(s) [place] 00 0 Colestipol Yes 2 gm = 2 Mem oria Hydrochlori 03-24 tab, PO, l de 1000 MG 18:56: BID, # 120 H ermann Oral Tablet 00 tab, 0 Refill(s) Sotalol Yes 80 mg = 1 Memor ia Hydrochlori 815 tab, PO, l de 80 MG 18:56: Daily, 12, Her silverman Oral Tablet 00 # 60 tab, 0 Refill(s) Vitamin D3 Yes 5,000 Memori a 5000 intl 03-24 IntlUnit = l units oral 18:56: 1 cap, PO, H ermann capsule 00 Daily, # 30 cap, 1 Refill(s) 1 ML Yes SUB-Q, Memoria evolocumab 03-24 qMonth, l 140 MG/ML 18:56: evry two [...] PO, l tablet 18:56: Daily, # [place] 00 30 tab, 0 Refill(s) Amlodipine Yes [...] PO, l tablet 18:56: Daily, # [place] 00 30 tab, 0 Refill(s) Amlodipine Yes [...] PO, l tablet 18:56: Daily, # [place] 00 30 tab, 0 Refill(s) Amlodipine Yes [...] ry 8-15 aredas, l 18:56: Refill(s) [place] 00 0 Colestipol Yes 2 gm = [...] PO, l tablet 18:56: Daily, # [place] 00 30 tab, 0 Refill(s) Amlodipine Yes [...] ry 8-15 aredas, l 18:56: Refill(s) [place] 00 0 Colestipol Yes 2 gm = [...] Tablet 00 # 60 tab, 0 Refill(s) losartan Yes 100 mg = 1 Mem oria 100 mg oral 8-15 tab, PO, l tablet 18:56: Daily, # [place] 00 30 tab, 0 Refill(s) Amlodipine Yes 1 cap, PO, M emoria 5 MG / 8-15 Daily, # l Benazepril 18:56: 30 cap, 0 He rmann hydrochlori 00 Refill(s) de 10 MG Oral Capsule Vitamin D3 Yes 5,000 Memori a 5000 intl 8-15 IntlUnit = l units oral 18:56: 1 cap, PO, H ermann capsule 00 Daily, # 30 cap, 1 Refill(s) aspirin 81 Yes 81 mg = 1 [...] # Capsule 10 cap, 0 [Florastor] Refill(s) 1 ML Yes SUB-Q, Memoria evolocumab [...] PO, l tablet 18:56: Daily, # [place] 00 30 tab, 0 Refill(s) Amlodipine Yes [...] ry 8-15 aredas, l 18:56: Refill(s) [place] 00 0 Colestipol Yes 2 gm = [...] PO, l tablet 18:56: Daily, # [place] 00 30 tab, 0 Refill(s) Amlodipine Yes [...] PO, l tablet 18:56: Daily, # [place] 00 30 tab, 0 Refill(s) Amlodipine 2017-0 [...] ry 8-15 aredas, l 18:56: Refill(s) [place] 00 0 Colestipol Yes 2 gm = [...] Capsule 10 cap, 0 [Florastor] Refill(s) losartan 2017-0 Yes 100 mg = 1 Mem oria 100 mg oral 8-15 tab, PO, l tablet 18:56: Daily, # [place] 00 30 tab, 0 Refill(s) Amlodipine 2017-0 Yes 1 cap, PO, M emoria 5 MG / 8-15 Daily, # l Benazepril 18:56: 30 cap, 0 He rmann hydrochlori 00 Refill(s) de 10 MG Oral Capsule aspirin 81 2017- Yes 81 mg = 1 Me moria mg tablet, 8-15 tab, PO, l enteric 18:56: Daily, # Raman n coated 00 90 tab, 3 Refill(s) Ranitidine 2017-0 Yes 150 mg = 1 M emoria 150 MG Oral 8-15 cap, PO, l Capsule 18:56: Daily, # Raman n 00 180 cap, 0 Refill(s) levothyroxi 2016-0 Yes 25 Memori a ne 25 mcg 8-15 microgram l (0.025 mg) 18:56: = 1 tab, Her silverman oral tablet 00 PO, Daily, 12, # 30 tab, 0 Refill(s) phenazopyri 2017-0 Yes 200mg [...] by ity of tablet 00:00: mouth 3 [place] (three) Medical times Branch daily. phenazopyri 2017-0 Yes 200mg Take 1 Uni vers dine 200 mg 5-07 tablet by ity of tablet 00:00: mouth 3 [place] 00 (three) Medical times Branch daily. Vital Signs Vital Name Observation Time Observation Value Comments Source Systolic blood 2023-02-06 19:10:00 136 mm[Hg] [facility] Diastolic blood 2023-02-06 19:10:00 80 mm[Hg] Unive rs[facility] Heart rate 2023-02-06 19:09:00 94 /min Universi ty [facility] Body height 2023-02-06 19:09:00 162.6 cm Universi ty [facility] Body weight 2023-02-06 19:09:00 68.402 kg Universi ty [facility] BMI 2023-02-06 19:09:00 25.88 kg/m2 Universi ty [facility] Oxygen saturation in 2023-02-06 19:09:00 98 /min University of Arterial blood by [facility] Pulse oximetry Branch Systolic blood 2022-02-04 20:24:00 146 mm[Hg] Univer [facility]ity of [facility] Diastolic blood 2022-02-04 20:24:00 74 mm[Hg] Unive rs[facility] Heart rate 2022-02-04 20:24:00 57 /min Universi ty [facility] Body height 2022-02-04 20:24:00 154.9 cm Universi ty [facility] [place] Body weight 2022-02-04 20:24:00 66.679 kg Universi ty [facility] BMI 2022-02-04 20:24:00 27.78 kg/m2 Universi ty [facility] Branch Oxygen saturation in 2022-02-04 20:24:00 98 /min University of Arterial blood by [facility] hal Pulse oximetry Branch BP Systolic 2022-02-13 11:15:00 [...] Lokesh Respitory Rate 2017-05-05 17:46:00 Memori al [place] Heart Rate 2017-05-05 17:46:00 [facility] [place] Systolic (mm Hg) 2017-05-05 17:46:00 Arthur fariha [place] Diastolic (mm Hg) 2017-05-05 17:46:00 Mem orial [place] Weight 2017-05-05 17:46:00 [facility] [place] BMI Calculated 2017-05-05 17:46:00 Memori al [place] Height 2017-03-24 18:41:00 157.48 cm [facility] [place] BMI Calculated 2017-03-24 18:41:00 Memori al [place] Weight 2017-03-24 18:41:00 Kianna Lokesh Systolic (mm Hg) 2017-03-24 18:41:00 Arthur Campa Diastolic (mm Hg) 2017-03-24 18:41:00 Yan whitehead [place] Respitory Rate 2017-03-24 18:41:00 Kanwal Cruzann Heart Rate 2017-03-24 18:41:00 [facility] [place] Procedures Procedure Date / Time Performing Clinician Source Performed CONSENT/REFUSAL FOR 2023-02-06 19:01:56 Doctor Unassigned, No Un [facility] DIAGNOSIS AND TREATMENT Name Medical Branch Cataract surgery [facility] Raman n Colonoscopy [facility] [place] Spinal cord operation [facility] of Care Planned Activity Planned Date Details Comments Source Goal Plan of Care Note [code = 09808-7] Goal Plan of Care Note [code = 59319-7] Goal Plan of Care Note [code = 28598-2] Goal Plan of Care Note [code = 27482-9] Goal Plan of Care Note [code = 52471-9] Goal Plan of Care Note [code = 88799-7] Goal Plan of Care Note [code = 29755-3] Goal Plan of Care Note [code = 47523-5] Goal Plan of Care Note [code = 39716-1] Goal Plan of Care Note [code = 48630-2] Goal Plan of Care Note [code = 21177-0] Goal Plan of Care Note [code = 22915-6] Goal Plan of Care Note [code = 15506-9] Goal Plan of Care Note [code = 23386-6] Goal Plan of Care Note [code = 07902-0] Goal Plan of Care Note [code = 88180-6] Encounters Start End Encounter Admission Attending Care Care Encounter Source Date/Time Date/Time Type Type Clinicians Facility Department ID 2023-01-07 Outpatient [facility] [id number] Common 15:40:00 [id number] [facility] 2021-09-04 Outpatient [facility] [id number] Common 11:16:20 [id number] [facility] 2021-06-09 Emergency [facility] [id number] Univers 01:30:56 ity of [facility] 2024-02-05 2024-02-05 Outpatient R BASIA [facility] [id number] Univers 14:30:00 14:30:00 TERI carroll [facility] 2023-03-18 2023-03-18 Telephone Basia [facility] [id number] [facility] 00:00:00 00:00:00 [facility] [id number] it y [facility] 4.2.7.2.686 Javier as DWAYNE?BLEA [id number] Mn [address] MEDICAL OFFICE [facility] 2023-03-03 2023-03-03 Outpatient SFA SFA [id number] Jasmeet 13:38:27 13:38:27 0725 [place] 2023-02-06 2023-02-06 Outpatient JUAN ARROYO [facility] [id number] [facility] 14:30:00 14:47:53 JUAN MUNOZ carroll [facility] 2023-02-06 2023-02-06 [facility] 1.2.840.114 [id number] Univers 14:30:00 14:47:53 Visit Juan Munoz [facility] 350.1.13. 10 ity of [place] 4.2.7.2.686 Javier as DWAYNE?BLEA [id number] Mn eden [address] OFFICE [facility] 2023-02-06 2023-02-06 Outpatient JUAN ARROYO [facility] [id number] Univers 14:20:00 14:20:00 JUAN MUNOZ [facility] 2023-02-06 2023-02-06 Orders Doctor POOEL 1.2.840.114 [id number] Univers 00:00:00 00:00:00 Only Unassigned, JACE 350.1.13.10 [facility] 4.2.7.2.686 Javier as [phone] [address] 2022-11-17 2022-11-17 Outpatient SFA SFA [id number] Jasmeet 15:05:51 15:05:51 0410 F [place] 2022-08-06 2022-08-06 Outpatient SFA SFA [id number] Jasmeet 09:47:39 09:47:39 1228 F [place] 2022-06-30 2022-06-30 [facility] 1.2.840.114 [id number] Univers 00:00:00 00:00:00 [facility] 350.1.13.10 ity of [place] 4.2.7.2.686 Javier as DWAYNE?BLEA [phone] [address] 2022-04-23 2022-04-23 [facility] 1.2.840.114 [id number] Univers 00:00:00 00:00:00 [facility] 350.1.13.10 ity of [place] 4.2.7.2.686 Javier as DWAYNE?BLEA [id number] [address] 2022-02-13 2022-02-13 Outpatient [id number] 00:00:00 00:00:00 Visit [id number] 2022-02-04 2022-02-04 Outpatient JUAN ARROYO [facility] [id number] Univers 15:40:00 15:43:58 JUAN MUNOZ [facility] 2022-02-04 2022-02-04 Office [facility] 1.2.840.114 [id number] Univers 15:40:00 15:43:58 Visit [facility] 350.1.13.10 ity of [place] 4.2.7.2.686 Javier as DWAYNE?BLEA [id number] [address] 2022-02-04 2022-02-04 Outpatient JUAN ARROYO [facility] [id number] Univers 15:40:00 15:43:58 JUAN MUNOZ [facility] 2022-01-16 2022-01-16 Anton [facility] 1.2.840.114 [id number] Univers 00:00:00 00:00:00 [facility] 350.1.13.10 ity of [place] 4.2.7.2.686 Javier as DWAYNE?BLEA [id number] [address] OFFICE [facility] 2022-01-15 2022-01-15 [facility] 1.2.840.114 [id number] Univers 00:00:00 00:00:00 Juan Gene [facility]ALTH 350.1.13.10 ity of [place] 4.2.7.2.686 Javier as DWAYNE?BLEA [id number] [address] OFFICE [facility] 2022-01-14 2022-01-14 [facility] 1.2.840.114 [id number] Univers 00:00:00 00:00:00 [facility] 350.1.13.10 [place] [facility] [id number] [address] OFFICE [facility] 2021-09-10 2021-09-10 Outpatient R [facility] [id number] Univers 12:42:04 23:59:00 XIOMARA Price o f [facility] 2021-09-10 2021-09-10 [facility] 1.2.840.114 [id number] Univers 12:42:04 23:59:00 Encounter eXiomara 350.1.13.10 ity of [place] [id number] [place] [id number] [place] 2021-06-19 2021-06-19 Telephone [facility] 1.2.840.114 [id number] Univers 00:00:00 00:00:00 [facility] 350.1.13.10 ity of [place] 4.2.7.2.686 Javier as DWAYNE?BLEA [id number] [address] OFFICE [facility] 2021-03-05 2021-03-05 Telephone [facility] 1.2.840.114 [id number] Univers 00:00:00 00:00:00 Juan Gene [place] 350.1.13.10 ity of [place] [phone] Mn dical nal 092 [facility] 2021-03-01 2021-03-01 [place] [facility] 1.2.840.114 [id number] Univers 00:00:00 00:00:00 Juan Girish Mazariegos 350.1.13.10 ity of [place] [phone] Mn dicks nal [address] [place] [address] 2021-02-26 2021-02-26 Refill [facility] 1.2.840.114 [id number] Univers 00:00:00 00:00:00 Juan Mazariegos 350.1.13.10 [place] [phone] [facility] nal [address] [place] [address] 2020-12-18 2020-12-18 [place] Tammy, [facility] 1.2.840.114 [id number] Univers 00:00:00 00:00:00 Juan Mazariegos 350.1.13.10 it[place] [phone] [address] 2020-11-07 2020-11-07 [place] Tammy, [facility] 1.2.840.114 [id number] Univers 00:00:00 00:00:00 Juan Mazariegos 350.1.13.10 [place] [phone] Mn dicks nal [address] [place] [address] 2020-11-05 2020-11-05 [place] Tammy, [facility] 1.2.840.114 [id number] Univers 00:00:00 00:00:00 Juan Mazariegos 350.1.13.10 it[place] of [place] [phone] Mn dicks nal [address] [place] [address] 2020-11-02 2020-11-02 Office [facility] 1.2.840.114 [id number] Univers 10:33:04 11:44:36 Visit Juan Mazariegos 350.1.13.10 it[place] of [place] [phone] Mn dical nal 092 [facility] 2020-11-02 2020-11-02 Outpatient R JUAN MUNOZ [facility] [id number] Univers 10:40:00 10:40:00 JUAN MUNOZ ity of [facility] 2020-10-04 2020-10-04 Emergency [facility] 1.2.840.114 [id number] Univers 17:26:00 20:59:00 Wilson Mazariegos 350.1.13.10 i ty [place] [phone] [facility] 084 [place] 2020-10-04 2020-10-04 Orders Doctor VIRGILIO 1.2.840.114 [id number] Univers 00:00:00 00:00:00 Only Unassigned, JACE 350.1.13.10 ity of [place] [facility] 4.2.7.2.[id number] [facility] 009 Branch 2020-06-26 2020-06-26 [facility] 1.2.840.114 [id number] Univers 13:31:40 23:59:00 Encounter Xiomara price 350.1.13.10 ity of [place].2.[place] [id number] [facility] 801 Branch 2020-06-26 2020-06-26 Outpatient R [facility] [id number] Univers 00:00:00 00:00:00 XIOMARA Price f [facility] 2020-06-19 2020-06-19 [place] Worker 2, Adc Lab [facility] 1.2.840.114 [id number] Univers 14:10:41 14:25:41 Visit Xiomara Guerra 350.1.1 3.10 ity of [place] [phone] Mn dical nal 353 [facility] 2020-06-19 2020-06-19 [id number] Univers 14:15:00 14:15:00 XIOMARA Price o lisa [facility] 2020-06-19 2020-06-19 Orders Doctor VIRGILIO 1.2.840.114 [id number] Univers 00:00:00 00:00:00 Only Unassigned, JACE 350.1.13.10 ity of [place] [facility] 4.2.7.2.[phone] [facility] 009 Branch 2019-10-21 2019-10-21 Office [facility] 1.2.840.114 [id number] Univers 14:10:53 15:20:56 Visit Juan Mazariegos 350.1.13.10 ity of [place] [phone] Mn dical nal 092 [facility] 2019-10-21 2019-10-21 Outpatient R JUAN MUNOZ [facility] [id number] Univers 14:40:00 14:40:00 JUAN MUNOZ [facility] 2019-09-27 2019-09-27 Outpatient R JUAN MUNOZ [facility] [id number] Univers 13:20:12 23:59:00 JUAN MUNOZ [facility] 2019-09-27 2019-09-27 [facility] [id number] [id number] Univers 13:20:00 23:59:00 Encounter Juan Mazariegos 350.1.13.10 ity of [place] [id number] [facility] 804 Branch 2019-08-19 2019-08-19 Office [facility] 1.2.840.114 [id number] Univers 13:30:11 15:28:04 Visit Juan Mazariegos 350.1.13.10 ity of [place] [phone] Mn dical nal 092 [facility] 2019-04-09 2019-04-09 Emergency [facility] 1.2.718.415 [id number] Univers 04:51:40 06:51:00 Haley Mazariegos 350.1.13.10 [facility] [place] 4.2.7.2.686 [facility] [id number] [facility] 084 Branch 2017-05-05 2017-05-06 Outpatient nullFlavo [facility] [id number] Memoria 17:36:00 04:59:00 r [place] 01 l EDLA Lokes[place] 2017-05-05 2017-05-06 Outpatient nullFlavo [place] 221985 [id number] Memoria 17:36:00 04:59:00 r [place] 01 l EDLA [place] 2017-05-05 2017-05-05 Outpatient Stanislaw, [facility] [id number] 12:36:00 23:59:00 Garrett Carvajal 2017-03-24 2017-03-25 Outpatient nullFlavo [place] 221985 [id number] Memoria 18:22:00 04:59:00 r [place] 00 l [facility] [place] 2017-03-24 2017-03-25 Outpatient nullFlavo [place] 221985 [id number] Memoria 18:22:00 04:59:00 [facility] 2017-[facility] 2017-03-24 Outpatient Stanislaw, [facility] [id number] 13:22:00 23:59:00 Garrett Carvajal Results Test Description Test Time Test Comments Results Result Comments Source TSH + FREE T4 PROFILE 2023-03-04 06:19:26 Test Item Value Reference Range Interpretation Comme nts TSH, THIRD GENERATION (test 4.220 UIU/ML 0.400-4.100 H code = 2821) FREE T4 (THYROXINE) (test 1.19 NG/DL 0.80-1.90 U NLESS OTHERWISE INDICATED, code = 2823) ALL TESTING PER FORMED AT CLINICAL PATHOL [facility] Major Aide, [place] [address] 4030 FRACTIONATION SUPERVISOR: Conrado HIGHTOWER [id number] [facility] [place]. [id number] COMPREHENSIVE METABOLIC [id number] 04:55:52 Test Item Value Reference Range Interpretation Comments GLUCOSE (test code = 145 MG/DL 70-99 H 2216) BUN (test code = 26 MG/DL 8-23 H 2207) CREATININE (test 1.41 MG/DL 0.60-1.30 H code = 2214) eGFR (2020 CKD-EPI) 36 ML/MIN/1.73 >60 L (test code = 51532) CALC BUN/CREAT (test 18 RATIO 6-28 code = 2235) SODIUM (test code = 141 MEQ/L 173-149 4098) POTASSIUM (test code 4.2 MEQ/L 3.5-5.4 = 2227) CHLORIDE (test code 106 MEQ/L 95-107 = 2214) CARBON DIOXIDE (test 24 MEQ/L 19-31 code = 220) CALCIUM (test code = 8.8 MG/DL 8.5-10.5 2208) PROTEIN, TOTAL (test 6.6 G/DL 6.1-8.3 code = 222) ALBUMIN (test code = 3.8 G/DL 3.5-5.2 2200) CALC GLOBULIN (test 2.8 G/DL 1.9-3.7 code = 224) CALC A/G RATIO (test 1.4 RATIO 1.0-2.6 code = 223) BILIRUBIN, TOTAL 0.2 MG/DL See_Comment [Automated message] (test code = 220) The syste m which generated this result transmit ghazal reference range : <=1.2. The refe rence range was not u sed to interpret th is result as normal/abnormal . ALKALINE PHOSPHATASE 55 U/L 40-142 (test code = 2204) AST (test code = 22 U/L 9-40 2217) ALT (test code = 22 U/L 5-40 2218) LIPID [id number] 04:55:52 Test Item Value Reference Range Interpretation Comments CHOLESTEROL (test 151 MG/DL <200 code = 2210) TRIGLYCERIDES (test 383 MG/DL <150 H code = 2232) HDL CHOLESTEROL (test 40 MG/DL >39 code = 2220) CALC LDL CHOL (test 65 MG/DL <100 NOTE: C ALCULATED LDL code = 2237) IS BASED ON ALEXANDRA-RO METHOD WHICHINCLUDES ADJUSTABLE TRIGLYCERIDE:VL DL CHOLESTEROL RAT IO.THIS FACTOR VARIES B Y MEASURED TRIGLY CERIDE AND NON-HDLCHOL ESTEROL CONCENTRATIONS WITH INCREASED CALCU LATED LDL SEENIN HIGH ER TRIGLYCERIDE OR LOWER NON-HDL SPECIME NS. FOR MOREINFORMATION , SEE CLIENT ANNOUNCE MENT AT [email or web address] RATIO LDL/HDL 1.63 RATIO <3.22 (test code = 2238) CBC W/AUTO DIFF WITH [id number] 03:10:58 Test Item Value Reference Range Interpretation Comments WBC (test code = 6.0 K/UL 3.5-11.0 1001) RBC (test code = 3.91 M/UL 3.80-5.40 1002) HEMOGLOBIN (test code 11.4 G/DL 11.5-15.5 L = 1003) HEMATOCRIT (test code 33.7 % 34.0-45.0 L = 1004) MCV (test code = 86.2 fL 80.0-99.0 1005) MCH (test code = 29.2 PG 25.0-33.0 1006) MCHC (test code = 33.8 G/DL 31.0-36.0 1007) RDW (test code = 13.3 % 11.5-15.0 1038) NEUTROPHILS (test 62.8 % code = 1008) LYMPHOCYTES (test 22.6 % code = 1010) MONOCYTES (test code 10.1 % = 1011) EOSINOPHILS (test 3.0 % code = 1012) BASOPHILS (test code 1.0 % = 1013) IMMATURE GRANULOCYTES 0.5 % (test code = 1036) NUCLEATED RBCS (test 0.0 /100 WBC'S See_Comment [Aut omated code = 1065) message] The sy stem which generated this result transmitted reference range : 0.0. The refere nce range was not u sed to interpret th is result as normal/abnormal . PLATELET COUNT (test 192 K/UL 130-400 code = 1015) ABSOLUTE NEUTROPHILS 3.75 K/UL 1.50-7.50 (test code = 1066) ABSOLUTE LYMPHOCYTES 1.35 K/UL 1.00-4.00 (test code = 1067) ABSOLUTE MONOCYTES 0.60 K/UL 0.20-1.00 (test code = 1068) ABSOLUTE EOSINOPHILS 0.18 K/UL 0.00-0.50 (test code = 1040) ABSOLUTE BASOPHILS 0.06 K/UL 0.00-0.20 (test code = 1069) ABS IMMATURE 0.03 K/UL 0.00-0.10 GRANULOCYTES (test code = 1020) ABS NUCLEATED RBCS 0.00 K/UL 0.00-0.11 (test code = 37116) TSH + FREE T4 [id number] 06:35:47 Test Item Value Reference Range Interpretation Comments TSH, THIRD 4.000 UIU/ML 0.400-4.100 GENERATION (test code = 2821) FREE T4 (THYROXINE) 1.20 NG/DL 0.80-1.90 UNLESS OTHERWISE (test code = 2823) INDICATED , ALL TESTING PERFORMED [facility], [facility]. [address] [place] [id number] LABOR ATORY DIRECTOR: RONI FIGUEROA M.D. CLIA NUMBER [id number] CAP ACCREDITATION N O. [id number] LIPID [id number] 03:58:24 Test Item Value Reference Range Interpretation [...] MOREINFORMATION , SEE CLIENT ANNOUNCE MENT AT [email or web address] [email or web address] RATIO LDL/HDL 1.52 RATIO <3.22 (test code = 2238) COMPREHENSIVE METABOLIC [id number] 03:58:24 Test Item Value Reference Range Interpretation Comments GLUCOSE (test code = 98 MG/DL 70-99 2216) BUN (test code = 17 MG/DL 8-23 2207) CREATININE (test 1.02 MG/DL 0.60-1.30 code = 2214) eGFR (2020 CKD-EPI) 53 ML/MIN/1.73 >60 L The N KF-ASN (test code = 86939) Taskforc e recommends use of Cystatin C to confirm eGFR inadults at ris k for CKD. [facility] offers eGFR with Cystatin C-Creatinineusi ng the 2020 CKD-EP I eGFR_creat-cyst at equation (order code 4397) toincreas e the accuracy of estimated GFR. For more informatio n, contactyour acc ount executive or se e announcement [email or web address] CALC BUN/CREAT (test 17 RATIO 6-28 code = 2235) SODIUM (test code = 142 MEQ/L 633-442 6187) POTASSIUM (test code 4.3 MEQ/L 3.5-5.4 = 2228) CHLORIDE (test code 104 MEQ/L 95-107 = 2215) CARBON DIOXIDE (test 29 MEQ/L 19-31 code = 2206) CALCIUM (test code = 9.7 MG/DL 8.5-10.5 220) PROTEIN, TOTAL (test 7.2 G/DL 6.1-8.3 code [...] REPORT BY FAX TO THE LABORATORY [facility] DEPART[facility] AT [phone]. PHYSICIAN'S SIG NATURE DATE UNLESS OTHERWISE INDIC ATED, ALL TESTING PERFORM ED ATCLINICAL PATHOLOGY [facility], [facility]. [address] [place] [address] LABORATOR Y DIRECTOR: RONI BROWN M.D. CLIA NUMBER [id number] CAP ACCREDITATION N O. [id number] TSH + FREE T4 [id number] 01:10:59 Test Item Value Reference Range Interpretation Comments TSH, THIRD GENERATION (test code 6.050 UIU/ML 0.400-4.100 H = 2821) FREE T4 (THYROXINE) (test code = 1.20 NG/DL 0.80-1.90 2823) LIPID [id number] 06:43:09 Test Item Value Reference Range Interpretation [...] MOREINFORMATION , SEE CLIENT ANNOUNCE MENT AT [email or web address] [email or web address] RATIO LDL/HDL 1.57 RATIO <3.22 UNLESS O THERWISE (test code = 2238) INDICATED , ALL TESTING PERFORMED [facility], [facility]. [address] [place] [id number] [facility] DIRECTOR: RONI FIGUEROA M.D. CLIA NUMBER [id number] CAP ACCREDITATION N O. [id number] TSH + FREE T4 [id number] 00:00:00 Test Item Value Reference Range Interpretation Comments TSH, THIRD GENERATION (test code 3.440 UIU/ML = 2821) FREE T4 (THYROXINE) (test code = 1.20 NG/DL 2823) TSH + FREE T4 [id number] 00:00:00 Test Item Value Reference Range Interpretation Comments TSH, THIRD GENERATION (test code 3.440 UIU/ML = 2821) FREE T4 (THYROXINE) (test code = 1.20 NG/DL 2823) HEMOGLOBIN [id number] 00:00:00 Test Item Value Reference Range Interpretation Comments HEMOGLOBIN A1c (test code = 81181) 6.4 % HEMOGLOBIN [id number] 00:00:00 Test Item Value Reference Range Interpretation Comments HEMOGLOBIN A1c (test code = 48954) 6.4 % LIPID [id number] 00:00:00 Test Item Value Reference Range Interpretation Comments CHOLESTEROL (test code = 2210) 176 MG/DL TRIGLYCERIDES (test code = 2232) 316 MG/DL HDL CHOLESTEROL (test code = 2220) 54 MG/DL CALC LDL CHOL (test code = 2237) 84 MG/DL RISK RATIO LDL/HDL (test code = 1.56 RATIO 2238) COMPREHENSIVE METABOLIC [id number] 00:00:00 Test Item Value Reference Range Interpretation Comments GLUCOSE (test code = 2217) 104 MG/DL BUN (test code = 2208) 22 MG/DL CREATININE (test code = 2214) 0.87 MG/DL eGFR AMER. (test code 70 ML/MIN/1.73 = 31079) eGFR NON- AMER. (test 61 ML/MIN/1.73 code = 34894) CALC BUN/CREAT (test code = 25 RATIO 2235) SODIUM (test code = 2231) 145 MEQ/L POTASSIUM (test code = 2228) 4.6 MEQ/L CHLORIDE (test code = 2215) 104 MEQ/L CARBON DIOXIDE (test code = 28 MEQ/L 2206) CALCIUM (test code = 2209) 9.6 MG/DL PROTEIN, TOTAL (test code = 7.0 G/DL 2228) ALBUMIN (test code = 2201) 4.1 G/DL CALC GLOBULIN (test code = 2.9 G/DL 2240) CALC A/G RATIO (test code = 1.4 RATIO 2234) BILIRUBIN, TOTAL (test code = 0.2 MG/DL 2206) ALKALINE PHOSPHATASE (test 59 U/L code = 2204) AST (test code = 2218) 19 U/L ALT (test code = 2219) 19 U/L Notes Date/Time Note Provider Source 2023-03-18 Formatting of this note might be differe nt from the original. Gin Del Angel LVN [facility] 15:17:57-00:00 Faxed Rx for Galantamine 8mg PO BID to [facility]. We had received a faxed refill request from them but new Rx was place on 02/06/23 for quantity 180 tablets with 3 refills. Electronically signed by Gin Del Angel LVN a t 03/18/2023 3:23 PM CDT
[2023-03-24] MEDS ORDERED: BISACODYL E.C. 5 MG TAB PO ONE (09:48)
[2023-03-24] MEDS ORDERED: BISACODYL 10 MG RECTAL SUPP ONE (09:48)
--- NOTE | 2023-03-24 11:36 | RAD REPORT ---
EXAM DESCRIPTION: CT - Stone Protocol - 03/24/2023 11:24 am CLINICAL HISTORY: Abdominal pain. Constipation COMPARISON: February 2023 TECHNIQUE: Computed axial tomography of the abdomen pelvis was obtained without oral or IV contrast. Lack of IV and oral contrast limits evaluation of solid organs, appendix, bowel, and vessels. Enciso l reformatted images were obtained and reviewed. All CT scans are performed using dose optimization technique as appropriate and may include automated exposure control or mA/KV adjustment according to patient size. FINDINGS: Hepatic and splenic granulomata. Pancreas and adrenals grossly normal. A renal calculus is not seen. No hydronephrosis. A ureteral calculus is not noted. No bladder calculu s. Diverticula stem from the colon without evidence of diverticulitis. The appendix is dilated. Stranding is not seen within the adjacent fat. Moderate anterior subluxation L4 on L5. Small umbilical hernia IMPRESSION: Dilated appendix may indicate a mucocele.
--- NOTE | 2023-03-24 11:47 | ER ---
Nurse's Notes [facility] Name: Elizabeth Hewitt Age: 87 yrs Sex: Female : 1935 Arrival Date: 03/24/2023 Time: 09:06 Bed 19 Private MD: Diagnosis: Constipation-resolved Presentation: 03/24 09:33 Chief complaint: Patient states: possible constipation. Pt was telling that her ss rectum was hurting and that something was "sticking out.". Coronavirus screen: Client denies travel out of the [place] in the last 14 days. Ebola Screen: Patient denies exposure to infectious person. Patient denies travel to an Ebola-affected area in the 21 days before illness onset. Initial Sepsis Screen: Does the patient meet any 2 criteria? No. Patient's initial sepsis screen is negative. Does the patient have a suspected source of infection? No. Patient's initial sepsis screen is negative. Risk Assessment: Do you want to hurt yourself or someone else? Patient reports no desire to harm self or others. Onset of symptoms is unknown. 09:33 Method Of Arrival: Ambulatory ss 09:33 Acuity: LUIS FERNANDO 3 ss Historical: - Allergies: 09:36 Adhesives; ss 09:36 PENICILLINS; ss - PMHx: 09:36 Atrial Fib; GERD; High Cholesterol; Dementia; Hypertension; Hypothyroidism; Leaky ss Valves; - Immunization history:: Client reports receiving the 2nd dose of the Covid vaccine. - Social history:: Smoking status: Patient denies any tobacco usage or history of. Screenin:40 Abuse screen: No signs of abuse noted. aa5 09:40 [facility] ED Fall Risk Assessment (Adult) History of falling in the last 3 months, aa5 including since admission Yes- physiologic fall (2 pts) Confusion or Disorientation Yes (5 pts) Intoxicated or Sedated No (0 pts) Impaired Gait Yes (1 pt) Mobility Assist Device Used Yes (1 pt) Altered Elimination No (0 pt) Score/Fall Risk Level 3 or more points = High Risk Oriented to surroundings, Maintained a safe environment, Educated pt \\T\\ family on fall prevention, incl call for assistance when getting out of bed. Nutritional screening: No deficits noted. Tuberculosis screening: No symptoms or risk factors identified. Assessment: 09:40 General: Appears uncomfortable, Behavior is calm, cooperative. Pain: Complains of pain aa5 in rectum Unable to use pain scale. Patient is disoriented. Does not appear to understand pain scale. FLACC scale score is 5 out of 10. Neuro: Level of Consciousness is awake, obeys commands, confused, Oriented to person. Cardiovascular: Patient's skin is warm and dry. Respiratory: Airway is patent Respiratory effort is even, unlabored, Respiratory pattern is regular, symmetrical. GI: Abdomen is round non-distended, Bowel sounds present X 4 quads. Abd is soft and non tender X 4 quads. Reports rectal pain and constipation. Patient currently denies abdominal pain, nausea. : No signs and/or symptoms were reported regarding the genitourinary system. EENT: No signs and/or symptoms were reported regarding the EENT system. Derm: Skin is pink, warm \\T\\ dry. Musculoskeletal: Range of motion: intact in all extremities. 10:10 Reassessment: Pt assisted to bedside commode. . aa5 10:20 Reassessment: Small amount of soft brown stool noted. Pt c/o rectal pain. Pt assisted aa5 back into bed. FITNESS COORDINATOR was notified of small BM. . 11:15 Reassessment: Pt assisted to bedside commode, pt voided x 1, no stool noted. Pt aa5 assisted back into bed. . 11:20 Reassessment: Pt to CT scan . aa5 12:00 Neuro: Level of Consciousness is awake, obeys commands, confused, Oriented to person. aa5 Respiratory: Airway is patent Respiratory effort is even, unlabored, Respiratory pattern is regular, symmetrical. Derm: Skin is pink, warm \\T\\ dry. Vital Signs: 09:31 BP 183 / 72; Pulse 77; Resp 17; Pulse Ox 99% on R/A; rs5 09:33 BP 202 / 75; Pulse 63; Resp 17; Temp 98.2(TE); Pulse Ox 99% on R/A; Weight 68.04 kg; ss Height 5 ft. 2 in. ; 11:18 BP 184 / 59; Pulse 61; Resp 17 S; Pulse Ox 99% on R/A; aa5 09:33 Body Mass Index 27.44 (68.04 kg, 157.48 cm) ED Course: 09:08 Patient arrived in ED. ts1 09:12 Nafisa Borreg[facility]C [facility]. snw 09:12 Pete Choi MD is Attending Physician. snw 09:27 Padmini Sharif, RN is Primary Nurse. aa5 09:36 Triage completed. ss 09:36 Arm band placed on right wrist. ss 09:40 Patient has correct armband on for positive identification. Placed in gown. Bed in low aa5 position. Call light in reach. Side rails up X2. Adult w/ patient. 11:08 Radiology exam delayed due to pt on the bedside potty at this time. ls3 11:26 CT Stone Protocol In Process Unspecified. EDMS 12:00 No provider procedures requiring assistance completed. Patient did not have IV access aa5 during this emergency room visit. Administered Medications: 09:48 Drug: Dulcolax MT Suppository 10 mg Route: MT; aa5 10:20 Follow up: Response: No adverse reaction aa5 09:48 Drug: Bisacodyl PO 10 mg Route: PO; aa5 10:20 Follow up: Response: No adverse reaction aa5 Medication: 12:00 VIS not applicable for this client. aa5 Outcome: 11:47 Discharge ordered by MD. snw 12:00 Discharged to home via wheelchair, with family. aa5 12:00 Condition: improved 12:00 Discharge instructions given to family, significant other, Instructed on discharge instructions, follow up and referral plans. Demonstrated understanding of instructions, follow-up care. 12:05 Patient left the ED. ss Signatures: Dispatcher [employer] EDOR Nafisa Borrego FNP-C [employer] CUTTER-Csnw Padmini Sharif, RN RN aa5 Kinsey Christianson RN RN Belkys Fontenot ls3 Eduardo Joyner RN RN rs5 Ligia Arias PAS PAS ts1 Corrections: (The following items were deleted from the chart) 09:37 09:36 Allergies: Sulfa (Sulfonamide Antibiotics); ss ss
--- NOTE | 2023-03-24 11:47 | EDPHYS ---
Physician Documentation [facility] Name: Elizabeth Hewitt Age: 87 yrs Sex: Female : 1935 Arrival Date: 03/24/2023 Time: 09:06 Bed 19 Private MD: ED Physician Pete Choi HPI: 03/24 09:49 This 87 yrs old Female presents to ER via Ambulatory with complaints of Constipation. snw 09:49 Onset: The symptoms/episode began/occurred acutely. The symptoms are described as snw steady. Unable to obtain HPI due to states something is hanging out of rectum, Spouse not sure if she means hemorrhoids or constipation. Historical: - Allergies: 09:36 Adhesives; ss 09:36 PENICILLINS; ss - PMHx: 09:36 Atrial Fib; GERD; High Cholesterol; Dementia; Hypertension; Hypothyroidism; Leaky ss Valves; - Immunization history:: Client reports receiving the 2nd dose of the Covid vaccine. - Social history:: Smoking status: Patient denies any tobacco usage or history of. ROS: 09:48 Constitutional: Negative for fever, chills, and weight loss, Eyes: Negative for injury, snw pain, redness, and discharge, ENT: Negative for injury, pain, and discharge, Neck: Negative for injury, pain, and swelling, Cardiovascular: Negative for chest pain, palpitations, and edema, Respiratory: Negative for shortness of breath, cough, wheezing, and pleuritic chest pain, Back: Negative for injury and pain, : Negative for injury, bleeding, discharge, and swelling, MS/Extremity: Negative for injury and deformity, Skin: Negative for injury, rash, and discoloration, Neuro: Negative for headache, weakness, numbness, tingling, and seizure, + dementia Psych: Negative for depression, anxiety, suicide ideation, homicidal ideation, and hallucinations. 09:48 Abdomen/GI: Positive for constipation, takes Linzess. Exam: 09:46 Constitutional: This is a well developed, well nourished patient who is awake, alert, snw and in no acute distress. Head/Face: Normocephalic, atraumatic. Eyes: Pupils equal round and reactive to light, extra-ocular motions intact. Lids and lashes normal. Conjunctiva and sclera are non-icteric and not injected. Cornea within normal limits. Periorbital areas with no swelling, redness, or edema. ENT: Nares patent. No nasal discharge, no septal abnormalities noted. Tympanic membranes are normal and external auditory canals are clear. Oropharynx with no redness, swelling, or masses, exudates, or evidence of obstruction, uvula midline. Mucous membranes moist. Neck: Trachea midline, no thyromegaly or masses palpated, and no cervical lymphadenopathy. Supple, full range of motion without nuchal rigidity, or vertebral point tenderness. No Meningismus. Chest/axilla: Normal chest wall appearance and motion. Nontender with no deformity. No lesions are appreciated. Cardiovascular: Regular rate and rhythm with a normal S1 and S2. No gallops, murmurs, or rubs. Normal PMI, no JVD. No pulse deficits. Respiratory: Lungs have equal breath sounds bilaterally, clear to auscultation and percussion. No rales, rhonchi or wheezes noted. No increased work of breathing, no retractions or nasal flaring. Abdomen/GI: Soft, non-tender, with normal bowel sounds. No distension or tympany. No guarding or rebound. No evidence of tenderness throughout. 09:46 Back: No spinal tenderness. No costovertebral tenderness. Full range of motion. Skin: Warm, dry with normal turgor. Normal color with no rashes, no lesions, and no evidence of cellulitis. MS/ Extremity: Pulses equal, no cyanosis. Neurovascular intact. Full, normal range of motion. 09:46 Abdomen/GI: Rectal exam: rectal tone normal, Stool: brown, hemorrhoid(s), external, without inflammation, without thrombosis, without pain, tenderness, that is moderate, the exam is chaperoned by the nurse. 09:46 Neuro: Orientation: unable to test, the patient has a history of dementia, Gait: unsteady but good tone, pt transferred to stretcher with minimal assist. seizure activity, is not displayed by the patient. Vital Signs: 09:31 BP 183 / 72; Pulse 77; Resp 17; Pulse Ox 99% on R/A; rs5 09:33 BP 202 / 75; Pulse 63; Resp 17; Temp 98.2(TE); Pulse Ox 99% on R/A; Weight 68.04 kg; ss Height 5 ft. 2 in. ; 11:18 BP 184 / 59; Pulse 61; Resp 17 S; Pulse Ox 99% on R/A; aa5 09:33 Body Mass Index 27.44 (68.04 kg, 157.48 cm) ss MDM: 09:22 Patient medically screened. snw 10:48 Differential diagnosis: bowel obstruction, Cholelithiasis, diverticulitis, non-specific snw abd pain, constipation. Data reviewed: vital signs, nurses notes. 03/24 10:50 Order name: CT Stone Protocol; Complete Time: 11:42 snw 03/24 11:14 Order name: Recheck VS; Complete Time: 11:20 snw Administered Medications: 09:48 Drug: Dulcolax SD Suppository 10 mg Route: SD; aa5 10:20 Follow up: Response: No adverse reaction aa5 09:48 Drug: Bisacodyl PO 10 mg Route: PO; aa5 10:20 Follow up: Response: No adverse reaction aa5 Disposition: 12:20 Co-signature as Attending Physician, Pete Choi MD I reviewed the patient's care rn provided by the Advanced Practice Provider and agree with the diagnosis and treatment plan. Disposition Summary: 03/24/23 11:47 Discharge Ordered Location: Home snw Condition: Stable snw Diagnosis - Constipation - resolved snw Followup: snw - With: Emergency Department - When: As needed - Reason: Worsening of condition Followup: snw - With: Private Physician - When: 2 - 3 days - Reason: Recheck today's complaints, Continuance of care, Re-evaluation by your physician Discharge Instructions: - Discharge Summary Sheet snw - Constipation, Adult, [id number] snw - Rehydration, Elderly snw Forms: - Medication Reconciliation Form snw - Thank You Letter snw - Antibiotic Education snw - Prescription Opioid Use snw - Patient Portal Instructions snw - Leadership Thank You Letter snw Signatures: Dispatcher [employer] EDMS Nafisa Borrego, FINGERPRINT TECHNICIAN-C FINGERPRINT TECHNICIAN-Csnw Pete Choi MD MD rn Calderon, Audri RN RN aa5 Kinsey Christianson RN RN ss Corrections: (The following items were deleted from the chart) 09:37 09:36 Allergies: Sulfa (Sulfonamide Antibiotics); ss ss
[2023-03-24 12:18] VITALS: O2SAT 99
[2023-03-24 12:24] VITALS: TEMP 98.2
[2023-03-24 12:30] VITALS: BP 184/59
== END 2023-03-24 12:05 | disposition home or self-care (01) ==
LOC: ER 09:06
DX: K59.00 Constipation, unspecified (principal)
CPT/HCPCS: 74176; 76377; 99283

== ENCOUNTER → 2023-08-05 | Emergency (ER) | payer OTHER ==
[~2023-08-05] MED LIST: FLEET ENEMA ADULT PR ONE; MAGNESIUM CITRATE 300 ML BOT ONE; NA CHLORIDE 0.9% 1,000 ML ONE
[2023-08-05 11:10] LABS: Absolute Lymphocytes (CBC) 1.7 K/uL (0.7-4.9); Hematocrit 40.2 % (36.0-45.0); Lymphocytes % 23.9 % (15.3-44.8); MCV 84.2 fL (80-100); MPV 9.4 fL (7.6-11.3); Platelets 199 thou/uL (152-406); RBC Red Blood Cell Count 4.77 M/uL (3.86-4.86)
[2023-08-05 11:26] LABS: Specific Gravity 1.014 (1.005-1.030); Urine Bacteria None Seen /HPF (<20); Urine Bilirubin NEGATIVE (Negative); Urine Blood Negative (Negative); Urine Clarity Clear (Clear); Urine Color Light-Yellow (Yellow); Urine Glucose NEGATIVE (Negative); Urine Protein NEGATIVE (Negative); Urine RBC <5 /HPF (None Seen); Urine Urobilinogen Normal (Normal); Urine pH 6.5 (5.0-7.0)
[2023-08-05 11:45] LABS: Albumin 3.3 g/dL (3.4-5.0); Bilirubin Total 0.6 mg/dL (0.2-1.0); Potassium 3.5 mEq/L (3.5-5.1); Protein, Total 7.1 g/dL (6.4-8.2)
--- NOTE | 2023-08-05 12:33 | RAD REPORT ---
EXAM DESCRIPTION: CT - Abdomen Pelvis W Contrast - 08/05/2023 12:14 pm CLINICAL HISTORY: CONSTIPATION COMPARISON: Abdomen Pelvis W Contrast dated 02/21/2023 TECHNIQUE: Thin cut axial CT imaging of the abdomen and pelvis was performed following intravenous a dministration of 100 mL Isovue 300. Multiplanar reformats were generated and reviewed. All CT scans are performed using dose optimization technique as appropriate and may include automated exposure control or mA/KV adjustment according to patient size. FINDINGS: No suspicious findings in the lung bases. The liver shows diffuse parenchymal hypoattenuation suggesting steatosis. Stable focus of calcificati on near the falciform fissure. Spleen demonstrates multiple punctate foci of calcification suggestive of sequelae of remote granulomatous infection. Adrenal glands and pancreas show no suspicious findin gs. Gallbladder and biliary tree are also without suspicious finding. Symmetric renal function is seen with no hydronephrosis or suspicious renal mass. No dilated bowel loops or bowel wall thickening. Moderate stool burden in the rectal bulb. Colonic di verticulosis. No free air, free fluid or inflammatory stranding. No hernia, mass or bulky lymphadenop athy. The urinary bladder is without significant finding. No suspicious bony findings. Grade 1 spondylolisthesis at L4-5, stable. IMPRESSION: No acute intra-abdominal process. Moderate stool burden in the rectal bulb. Stable findi ngs as above.
--- NOTE | 2023-08-05 14:20 | EDPHYS ---
Physician Documentation [facility] Name: Elizabeth Hewitt Age: 88 yrs Sex: Female : 1935 Arrival Date: 08/05/2023 Time: 10:09 Bed 17 Private MD: ED Physician Pete Choi HPI: 08/05 11:11 This 88 yrs old Female presents to ER via Wheelchair with complaints of Constipation. rn 11:11 The patient presents with. Onset: The symptoms/episode began/occurred 1 week(s) ago. rn The symptoms do not radiate. Associated signs and symptoms: Pertinent positives: constipation, Pertinent negatives: nausea and vomiting, anorexia, blood in stools, dysuria, fever. Modifying factors: The symptoms are alleviated by nothing, the symptoms are aggravated by nothing. Severity of pain: At its worst the pain was very mild in the emergency department the pain is unchanged. The patient has experienced similar episodes in the past. and caregiver reports constipation, last bowel movement 1 week ago. No fever. No vomiting. No blood in stool. Has never had a bowel obstruction or required surgery. Got better last time without admission or surgical procedure. Patient also with a history of IBS.. Historical: - Allergies: 10:26 Adhesives; hb 10:26 PENICILLINS; hb - PMHx: 10:26 Atrial Fib; High Cholesterol; GERD; Dementia; Hypertension; Leaky Valves; hb Hypothyroidism; - Family history:: not pertinent. - Hospitalizations: : No recent hospitalization is reported. ROS: 11:11 Constitutional: Negative for fever, chills, and weight loss, Cardiovascular: Negative rn for chest pain, palpitations, and edema, Respiratory: Negative for shortness of breath, cough, wheezing, and pleuritic chest pain, Abdomen/GI: Positive for abdominal pain and constipation : Negative for injury, bleeding, discharge, and swelling, MS/Extremity: Negative for injury and deformity, Skin: Negative for injury, rash, and discoloration, Neuro: Negative for headache, weakness, numbness, tingling, and seizure, Exam: 11:11 Constitutional: This is a well developed, well nourished patient who is awake, alert, rn and in no acute distress. ENT: Dry mucous membranes Cardiovascular: Regular rate and rhythm. No pulse deficits. Respiratory: No increased work of breathing, no retractions or nasal flaring. Abdomen/GI: Soft, mild lower abdominal tenderness, no peritoneal signs or guarding. Skin: Warm, dry MS/ Extremity: Pulses equal, no cyanosis. Neurovascular intact. Full, normal range of motion. Equal circumference. Neuro: Awake and alert, GCS 15 Vital Signs: 10:24 BP 195 / 108; Pulse 90; Resp 20; Temp 98.4(O); Pulse Ox 99% on R/A; Weight 63.5 kg; hb Height 5 ft. 3 in. ; Pain 6/10; 12:06 BP 198 / 80; Pulse 89; Resp 16 S; Pulse Ox 100% on R/A; kc6 10:24 Body Mass Index 24.80 (63.50 kg, 160.02 cm) hb 10:24 Pain Scale: Non-Verbal hb MDM: 10:14 Patient medically screened. rn 14:18 Differential diagnosis: bowel obstruction, Constipation, dehydration, fecal impaction. rn Data reviewed: vital signs, nurses notes, lab test result(s), radiologic studies, CT scan, and as a result, I will discharge patient. Counseling: I had a detailed discussion with the patient and/or guardian regarding the historical points, exam findings, and any diagnostic results supporting the discharge/admit diagnosis, lab results, radiology results, the need for outpatient follow up, to return to the emergency department if symptoms worsen or persist or if there are any questions or concerns that arise at home. Special discussion: I discussed with the patient/guardian in detail that at this point there is no indication for admission to the hospital. It is understood, however, that if the symptoms persist or worsen the patient needs to return immediately for re-evaluation. ED course: Had long discussion with caregiver and regarding hydration and MiraLAX with addition of fiber or Metamucil. No evidence of bowel obstruction at this time. Will discharge home with return precautions. I have personally reviewed all of the results, including but not limited to blood tests and imaging deemed necessary to safely discharge this patient at this time. All results given to and printed out for patient. I personally went over all the results with the patient and answered all questions. Patient will follow-up with PCP and or specialist as discussed. Return precautions given and understood.. 08/05 10:46 Order name: CBC with Diff; Complete Time: 12:00 rn 08/05 10:46 Order name: CMP; Complete Time: 12:00 rn 08/05 10:46 Order name: Lipase; Complete Time: 12:00 rn 08/05 10:46 Order name: Urinalysis w/ reflexes; Complete Time: 12:00 rn 08/05 10:46 Order name: CT Abd/Pelvis - IV Contrast Only; Complete Time: 12:36 rn 08/05 10:46 Order name: IV Saline Lock; Complete Time: 11:20 rn 08/05 10:46 Order name: Labs collected and sent; Complete Time: 11:20 rn 08/05 11:13 Order name: Labs - recollect needed: light green; Complete Time: 11:20 5 Administered Medications: 11:20 Drug: NS 0.9% IV 1000 ml IV at 1 bolus Per protocol; 1000 mL bolus Route: IV; Rate: 1 kc6 bolus; Site: left antecubital; 12:05 Follow up: Response: No adverse reaction; IV Status: Completed infusion; IV Intake: kc6 1000ml 13:03 Drug: Magnesium Citrate PO Liquid 300 ml PO once Route: PO; kc6 14:00 Follow up: Response: No adverse reaction kc6 14:18 Drug: Fleet Enema DC 133 ml DC once Route: DC; kc6 14:30 Follow up: Response: No adverse reaction kc6 Disposition Summary: 08/05/23 14:20 Discharge Ordered Notes: Location: Home rn Problem: new rn Symptoms: have improved rn Condition: Stable rn Diagnosis - Constipation, unspecified rn - Dehydration rn Followup: rn - With: Private Physician - When: As needed - Reason: Recheck today's complaints, Re-evaluation by your physician Discharge Instructions: - Discharge Summary Sheet rn - Constipation, Adult rn - Dehydration, Adult rn Forms: - Medication Reconciliation Form rn - Thank You Letter rn - Antibiotic furniture detailer - Prescription Opioid Use rn - Patient Portal Instructions rn - Leadership Thank You Letter rn Signatures: Dispatcher [employer] Pete Gupta MD MD rn Baxter, Heather RN Cherise Ramirez RN RN kc6 Micki Garvin 5
--- NOTE | 2023-08-05 14:20 | ER ---
Nurse's Notes [facility] Name: Elizabeth Hewitt Age: 88 yrs Sex: Female : 1935 Arrival Date: 08/05/2023 Time: 10:09 Bed 17 Private MD: Diagnosis: Constipation, unspecified;Dehydration Presentation: 08/05 10:24 Chief complaint: Family reports last bowel movement over a week ago, pt appears to be hb in pain. Coronavirus screen: At this time, the client does not indicate any symptoms associated with coronavirus-19. Ebola Screen: No symptoms or risks identified at this time. Initial Sepsis Screen: Does the patient meet any 2 criteria? No. Patient's initial sepsis screen is negative. Does the patient have a suspected source of infection? No. Patient's initial sepsis screen is negative. Risk Assessment: Do you want to hurt yourself or someone else? Patient reports no desire to harm self or others. Onset of symptoms was August 05, 2023. 10:24 Method Of Arrival: Wheelchair hb 10:24 Acuity: LUIS FERNANDO 3 hb Historical: - Allergies: 10:26 Adhesives; hb 10:26 PENICILLINS; hb - PMHx: 10:26 Atrial Fib; High Cholesterol; GERD; Dementia; Hypertension; Leaky Valves; hb Hypothyroidism; - Family history:: not pertinent. - Hospitalizations: : No recent hospitalization is reported. Screenin:33 [facility] ED Fall Risk Assessment (Adult) History of falling in the last 3 months, kc6 including since admission Yes- fall prone (multiple falls) (3 pts) Confusion or Disorientation Yes (5 pts) Intoxicated or Sedated No (0 pts) Impaired Gait Yes (1 pt) Mobility Assist Device Used Yes (1 pt) Altered Elimination Yes (1 pt) Score/Fall Risk Level 3 or more points = High Risk. Abuse screen: Denies threats or abuse. Denies injuries from another. Nutritional screening: No deficits noted. Tuberculosis screening: No symptoms or risk factors identified. Assessment: 10:34 General: Appears in no apparent distress. comfortable, well groomed, well developed, kc6 Behavior is calm, cooperative, appropriate for age, quiet. Pain: Complains of pain in buttocks and abdomen Unable to use pain scale. Patient is disoriented. FLACC scale score is 0 out of 10. Neuro: Level of Consciousness is awake, alert, Oriented to person, Appropriate for age. Cardiovascular: Capillary refill < 3 seconds. Respiratory: Airway is patent Trachea midline Respiratory effort is even, unlabored, Respiratory pattern is regular, symmetrical. GI: Bowel sounds hypoactive in right upper quadrant, left upper quadrant, right lower quadrant and left lower quadrant Abd is soft X 4 quads Patient currently denies diarrhea, nausea, vomiting, Parent/caregiver reports the patient having constipation. : No signs and/or symptoms were reported regarding the genitourinary system. EENT: No signs and/or symptoms were reported regarding the EENT system. Derm: No signs and/or symptoms reported regarding the dermatologic system. Skin is intact, is healthy with good turgor, Skin is pink, warm \T\ dry. Musculoskeletal: No signs and/or symptoms reported regarding the musculoskeletal system. Circulation, motion, and sensation intact. Capillary refill < 3 seconds, Range of motion: intact in all extremities. 11:34 Reassessment: Patient appears in no apparent distress at this time. No changes from kc6 previously documented assessment. Patient and/or family updated on plan of care and expected duration. Pain level reassessed. 12:34 Reassessment: Patient appears in no apparent distress at this time. No changes from kc6 previously documented assessment. Patient and/or family updated on plan of care and expected duration. Pain level reassessed. 13:30 Reassessment: Patient appears in no apparent distress at this time. No changes from kc6 previously documented assessment. Patient and/or family updated on plan of care and expected duration. Pain level reassessed. 14:30 Reassessment: Patient appears in no apparent distress at this time. No changes from kc6 previously documented assessment. Patient and/or family updated on plan of care and expected duration. Pain level reassessed. Vital Signs: 10:24 BP 195 / 108; Pulse 90; Resp 20; Temp 98.4(O); Pulse Ox 99% on R/A; Weight 63.5 kg; hb Height 5 ft. 3 in. ; Pain 6/10; 12:06 BP 198 / 80; Pulse 89; Resp 16 S; Pulse Ox 100% on R/A; kc6 10:24 Body Mass Index 24.80 (63.50 kg, 160.02 cm) hb 10:24 Pain Scale: Non-Verbal hb ED Course: 10:11 Patient arrived in ED. mr 10:14 Pete Choi MD is Attending Physician. rn 10:16 Cherise Cohen RN is Primary Nurse. kc6 10:26 Triage completed. hb 10:26 Arm band placed on. hb 10:33 Patient has correct armband on for positive identification. Bed in low position. Call kc6 light in reach. Side rails up X2. Adult w/ patient. Client placed on continuous cardiac and pulse oximetry monitoring. NIBP monitoring applied. 10:33 Missed attempt(s): 20 gauge in right antecubital area. Patient maintains SpO2 kc6 saturation greater than 95% on room air. 11:07 Missed attempt(s): 22 gauge in left wrist. Bleeding controlled, band aid applied, ds4 catheter tip intact. Inserted saline lock: 22 gauge in left antecubital area, using aseptic technique. 11:20 Straight cath inserted, using sterile technique, 14 Fr. Specimen obtained. Returned kc6 clear yellow urine. Patient tolerated poorly. 12:15 CT Abd/Pelvis - IV Contrast Only In Process Unspecified. EDMS 14:59 No provider procedures requiring assistance completed. IV discontinued, intact, kc6 bleeding controlled, No redness/swelling at site. Pressure dressing applied. Administered Medications: 11:20 Drug: NS 0.9% IV 1000 ml IV at 1 bolus Per protocol; 1000 mL bolus Route: IV; Rate: 1 kc6 bolus; Site: left antecubital; 12:05 Follow up: Response: No adverse reaction; IV Status: Completed infusion; IV Intake: kc6 1000ml 13:03 Drug: Magnesium Citrate PO Liquid 300 ml PO once Route: PO; kc6 14:00 Follow up: Response: No adverse reaction kc6 14:18 Drug: Fleet Enema TX 133 ml TX once Route: TX; kc6 14:30 Follow up: Response: No adverse reaction kc6 Medication: 14:59 VIS not applicable for this client. kc6 Intake: 12:05 IV: 1000ml; Total: 1000ml. kc6 Outcome: 14:20 Discharge ordered by . rn 14:59 Discharged to home via wheelchair, with significant other, kc6 14:59 Condition: improved 14:59 Discharge instructions given to patient, significant other, Instructed on discharge instructions, follow up and referral plans. Demonstrated understanding of instructions, follow-up care, 14:59 Patient left the ED. kc6 Signatures: Dispatcher [employer] EDMS Roberta Reece, Reg Reg mr Pete Choi MD MD rn Swanson, Donovan ds4 Kamilla Palomino RN RN hb Campbell, Kaitlyn, RN RN kc6
[2023-08-05 15:18] VITALS: TEMP 98.4
[2023-08-05 15:26] VITALS: BP 198/80; O2SAT 100
== END ==
LOC: ER 10:09
DX: K59.00 Constipation, unspecified (principal); E86.0 Dehydration; I10 Essential (primary) hypertension; F03.90 Unspecified dementia, unspecified severity, without behavioral disturbance, psychotic disturbance, mood disturbance, and anxiety; Z88.0 Allergy status to penicillin; Z91.048 Other nonmedicinal substance allergy status
CPT/HCPCS: 85025; 81001; 36415; 83690; 80053; 74177; 51702; 96360; 99285; Q9967; J7030

== ENCOUNTER 2023-08-11 17:09 | Inpatient (IN) | payer OTHER ==
--- NOTE | 2023-08-11 18:24 | RAD REPORT ---
[facility] CLINICAL HISTORY: COUGH COMPARISON: Chest Single View dated 10/30/2022; Chest Single View dated 07/24/2022; Chest Pa And Lat (2 Views) dated 06/20/2021; Chest Single View dated 06/13/2021 TECHNIQUE: Portable AP view of the chest. FINDINGS: The lungs are clear. No pneumothorax or effusion. The cardiomediastinal contours are unre markable. IMPRESSION: No acute cardiopulmonary process.
[2023-08-11] MEDS ORDERED: FOLIC ACID 5 MG/ML VIAL ONE (18:27)
[2023-08-11] MEDS ORDERED: NA CHLORIDE 0.9% 1,000 ML ONE (18:27)
[2023-08-11 18:35] LABS: Absolute Lymphocytes (CBC) 1.7 K/uL (0.7-4.9); Hematocrit 37.4 % (36.0-45.0); Lymphocytes % 25.4 % (15.3-44.8); MCV 84.3 fL (80-100); MPV 8.8 fL (7.6-11.3); Platelets 225 thou/uL (152-406); RBC Red Blood Cell Count 4.43 M/uL (3.86-4.86)
[2023-08-11 18:40] LABS: Specific Gravity 1.018 (1.005-1.030); Urine Bacteria <20 /HPF (<20); Urine Bilirubin NEGATIVE (Negative); Urine Blood Negative (Negative); Urine Clarity Extremely Turbid (Clear); Urine Color Light-Yellow (Yellow); Urine Glucose NEGATIVE (Negative); Urine Mucus Slight /HPF (None Seen); Urine Protein TRACE (Negative); Urine RBC <5 /HPF (None Seen); Urine Urobilinogen Normal (Normal); Urine pH 6.5 (5.0-7.0)
[2023-08-11 18:44] LABS: Protime INR 1.11
[2023-08-11 18:55] LABS: Albumin 3.4 g/dL (3.4-5.0); Bilirubin Direct 0.1 mg/dL (0-0.2); Bilirubin Indirect, Calculated 0.3 mg/dL (0.2-0.8); Bilirubin Total 0.4 mg/dL (0.2-1.0); Magnesium 2.2 mg/dL (1.6-2.4); Potassium 3.6 mEq/L (3.5-5.1); Protein, Total 7.7 g/dL (6.4-8.2); Troponin High Sensitivity 30.3 pg/mL (<58.9)
[2023-08-11] MEDS ORDERED: CEFTRIAXONE 1000 MG/VIAL ONE (19:13)
--- NOTE | 2023-08-11 19:13 | ER ---
Nurse's Notes [facility] Name: Elizabeth Hewitt Age: 88 yrs Sex: Female : 1935 Arrival Date: 08/11/2023 Time: 17:09 Bed 13 Private MD: Diagnosis: Weakness;Dementia in other diseases classified elsewhere without behavioral disturbance;UTI/ Urinary tract infection, site not specified Presentation: 08/11 17:17 Chief complaint: Family reports decreased appetite, acting more confused than normal, hb and possible left sided facial droop x 6-7 days. No droop appreciated in triage. VAN negative. Hx of dementia, AOx1-2 at baseline. Coronavirus screen: At this time, the client does not indicate any symptoms associated with coronavirus-19. Ebola Screen: No symptoms or risks identified at this time. Initial Sepsis Screen: Does the patient meet any 2 criteria? No. Patient's initial sepsis screen is negative. Does the patient have a suspected source of infection? No. Patient's initial sepsis screen is negative. Risk Assessment: Do you want to hurt yourself or someone else? Patient reports no desire to harm self or others. Onset of symptoms was August 03, 2023. 17:17 Method Of Arrival: Wheelchair hb 17:17 Acuity: LUIS FERNANDO 3 hb 21:57 An acute neurological deficit is present. me1 Triage Assessment: 21:57 The onset of the patients symptoms was more than six hours ago. General: Appears me1 uncomfortable, well groomed, well developed, well nourished. 22:00 The onset of the patients symptoms was. The onset of the patients symptoms was more me1 than six hours ago. General: Appears uncomfortable, well groomed, well developed, well nourished. 22:01 The onset of the patients symptoms was August 06, 2023 at 08:00. me1 Stroke Activation: Symptom onset > 6 hours Physician: Stroke Attending; Name: ; Notified At: ; Arrived At: Physician: Chief Stroke Resident; Name: ; Notified At: ; Arrived At: Physician: Stroke Resident; Name: ; Notified At: ; Arrived At: Physician: ED Attending; Name: ; Notified At: ; Arrived At: Physician: ED Resident; Name: ; Notified At: ; Arrived At: Historical: - Allergies: 17:21 Adhesives; hb 17:21 PENICILLINS; hb - PMHx: 17:21 Atrial Fib; GERD; Hypertension; Dementia; High Cholesterol; Leaky Valves; hb Hypothyroidism; - Immunization history:: Adult Immunizations up to date. - Social history:: Smoking status: Patient denies any tobacco usage or history of. Screenin:36 [facility] ED Fall Risk Assessment (Adult) History of falling in the last 3 months, me1 including since admission No falls in past 3 months (0 pts) Confusion or Disorientation Yes (5 pts) Intoxicated or Sedated No (0 pts) Impaired Gait Yes (1 pt) Mobility Assist Device Used Yes (1 pt) Altered Elimination No (0 pt) Score/Fall Risk Level 3 or more points = High Risk Maintained a safe environment, Provided non-skid footwear, Hourly rounding (assess needs \T\ fall precautionary measures) done, Used ambulatory aids as needed (educated on \T\ assisted with). Abuse screen: Denies threats or abuse. Nutritional screening: No deficits noted. Tuberculosis screening: No symptoms or risk factors identified. Assessment: 21:36 General: Appears uncomfortable, ill, well groomed, well developed, well nourished, me1 Behavior is calm, cooperative, appropriate for age, Reports Family reports decreased appetite, acting more confused than normal, and possible left sided facial droop x 6-7 days. No droop appreciated in triage. VAN negative. Hx of dementia, AOx1-2 at baseline. Pain: Denies pain. Neuro: Level of Consciousness is awake, alert, obeys commands, Oriented to person, [employer] Server are equal bilaterally Moves all extremities. Gait is unsteady, Speech is normal, Facial symmetry: tongue is midline, family reports left sided facial droop. Symmetrical facial features per my assessment. . Pupils are PERRLA, Intact Reports Family reports decreased appetite, acting more confused than normal, and possible left sided facial droop x 6-7 days. No droop appreciated in triage. VAN negative. Hx of dementia, AOx1-2 at baseline.. Cardiovascular: Capillary refill < 3 seconds Patient's skin is warm and dry. Respiratory: Airway is patent Respiratory effort is even, unlabored, Respiratory pattern is regular, symmetrical. 22:04 VAN Scoring: Arm Drift: Patients demonstrates NO arm weakness. Patient is VAN Negative. me1 Visual Disturbance: No visual disturbance noted. Aphasia: No aphasia noted. Neglect: No neglect noted. Molina Swallow Protocol Exclusion Criteria: Unable to remain alert for testing: No NPO for medical/surgical reason by provider order No Head-of-bed restricted <30 degrees Tracheostomy tube present No No thin liquids due to preexisting dysphagia/baseline modified diet thickened liquids No Exclusion Criteria Result: Proceed Brief Cognitive Screen What is your name? Normal, Where are you right now? Abnormal: confused at baseline. What year is it? Abnormal: confused at baseline. Oral Mechanism Examination Facial Symmetry: Normal, Motion: Normal, Lip Closure: Normal, Oral Mechanism Result: Normal. 3 oz Water Swallow Challenge: Pt able to drink all water without stopping, coughing, choking or throat clearing: Result: PASS. 22:04 TNKase (Tenecteplase) Screening: Contraindications: Patient reports onset of signs and me1 symptoms of stroke greater than 6 hours ago: Yes. Vital Signs: 17:17 BP 209 / 98; Pulse 88; Resp 16; Temp 97.7(TE); Pulse Ox 100% on R/A; Weight 68.04 kg; hb Height 5 ft. 2 in. ; Pain 0/10; 18:15 BP 189 / 95; Pulse 73; Resp 18; Pulse Ox 99% on R/A; me1 22:24 BP 173 / 107; Pulse 94; Resp 18; Pulse Ox 100% on R/A; me1 17:17 Body Mass Index 27.44 (68.04 kg, 157.48 cm) hb 17:17 Pain Scale: Non-Verbal hb Alem Coma Score: 19:11 Eye Response: spontaneous(4). Motor Response: obeys commands(6). Verbal Response: kimmie oriented(5). Total: 15. NIH Stroke Scale Scores: 19:06 NIHSS Score: 0 kimmie 22:04 NIHSS Score: 0 me1 ED Course: 17:11 Patient arrived in ED. im 17:21 Triage completed. hb 17:21 Arm band placed on. hb 17:39 Cristóbal Daugherty MD is Attending Physician. kimmie 17:56 Trish Vallecillo, ASHA is Primary Nurse. me1 17:59 XRAY Chest (1 view) In Process Unspecified. EDMS 18:22 Inserted saline lock: 22 gauge in right antecubital area, using aseptic technique. me1 18:22 Basic Metabolic Panel Sent. me1 18:22 CBC with Diff Sent. me1 18:22 LFT's Sent. me1 18:22 Magnesium Sent. me1 18:22 NT PRO-BNP Sent. me1 18:22 PT-INR Sent. me1 18:22 Troponin HS Sent. me1 18:23 Urinalysis w/ reflexes Sent. me1 19:04 Head Brain Wo Cont In Process Unspecified. EDMS 19:05 CT Head Angio In Process Unspecified. EDMS 19:06 CT Neck Angio In Process Unspecified. EDMS 19:11 TSH Sent. me1 19:12 Lacho Hanks is Hospitalizing Provider. kimmie 21:36 Patient has correct armband on for positive identification. Bed in low position. Call me1 light in reach. Side rails up X 1. Provided Education on: POC. Verbalized understanding. . 21:36 No provider procedures requiring assistance completed. me1 22:01 Patient admitted, IV remains in place. me1 Administered Medications: 18:34 Drug: NS 0.9% IV 1000 ml IV at 1 bolus Per protocol; 1000 mL bolus Route: IV; Rate: 1 me1 bolus; Site: right antecubital; 22:07 Follow up: IV Status: Completed infusion me1 18:34 Drug: foLIC Acid IVPB 1 mg IVPB once Route: IVPB; Site: right antecubital; me1 18:35 Follow up: Response: No adverse reaction; IV Status: Completed infusion me1 19:16 Drug: Rocephin IV 1 grams IV at per protocol once; Given slow IV push per pharmacy me1 instructions Route: IV; Rate: per protocol; Site: right antecubital; 19:18 Follow up: IV Status: Completed infusion me1 22:07 Follow up: Response: No adverse reaction me1 Medication: 21:36 VIS not applicable for this client. me1 Outcome: 19:13 Decision to Hospitalize by Provider. kimmie 21:59 Condition: stable me1 22:00 Admitted to Med/surg accompanied by tech, via wheelchair, room 207, with chart, me1 22:00 Instructed on the need for admit, 22:24 Admitted to Med/surg Report called to ASHA Rudolph me1 22:36 Patient left the ED. me1 NIH Stroke Scale - NIH Stroke Score Date: 08/11/2023 Time: 19:06 Total Score = 0 10. Dysarthria (speech clarity - read or repeat words) - 0(Normal) 11. Extinction and Inattention (visual/tactile/auditory/spatial/personal) - 0(No abnormality) 1a. Level of Consciousness (LOC) - 0(Alert) 1b. Level of Consciousness (LOC) (Month \T\ Age) - 0(Both) 1c. LOC Commands (Open \T\ Closes Eyes/Incident Commander) - 0(Both) 2. Best Gaze (Lateral Gaze Paresis) - 0(Normal) 3. Visual Field Loss - 0(No visual loss) 4. Facial Palsy - 0(Normal) 5a. Left Arm: Motor (10-second hold) - 0(No drift) 5b. Right Arm: Motor (10-second hold) - 0(No drift) 6a. Left Leg: Motor (5-second hold - always test supine) - 0(No drift) 6b. Right Leg: Motor (5-second hold - always test supine) - 0(No drift) 7. Limb Ataxia (finger/nose \T\ heel/claire - test with eyes open) - 0(Absent) 8. Sensory Loss (pinprick arms/legs/face) - 0(Normal) 9. Best Language: Aphasia (description/naming/reading) - 0(No aphasia) Initials: [facility] NIH Stroke Scale - NIH Stroke Score Date: 08/11/2023 Time: 22:04 Total Score = 0 10. Dysarthria (speech clarity - read or repeat words) - 0(Normal) 11. Extinction and Inattention (visual/tactile/auditory/spatial/personal) - 0(No abnormality) 1a. Level of Consciousness (LOC) - 0(Alert) 1b. Level of Consciousness (LOC) (Month \T\ Age) - 0(Both) 1c. LOC Commands (Open \T\ Closes Eyes/Incident Commander) - 0(Both) 2. Best Gaze (Lateral Gaze Paresis) - 0(Normal) 3. Visual Field Loss - 0(No visual loss) 4. Facial Palsy - 0(Normal) 5a. Left Arm: Motor (10-second hold) - 0(No drift) 5b. Right Arm: Motor (10-second hold) - 0(No drift) 6a. Left Leg: Motor (5-second hold - always test supine) - 0(No drift) 6b. Right Leg: Motor (5-second hold - always test supine) - 0(No drift) 7. Limb Ataxia (finger/nose \T\ heel/claire - test with eyes open) - 0(Absent) 8. Sensory Loss (pinprick arms/legs/face) - 0(Normal) 9. Best Language: Aphasia (description/naming/reading) - 0(No aphasia) Initials: me1 Signatures: Dispatcher [employer] EDCristóbal Hayes MD MD cha Baxter, Heather, RN RN hb Janet Henry Trish Vallecillo RN RN me1 Corrections: (The following items were deleted from the chart) 17:22 17:17 Chief complaint: Family reports decreased appetite, acting more confused hb than normal, and possible left sided facial droop x 6-7 days. No droop appreciated in triage. VAN negative. hb 21:36 17:17 Chief complaint: Family reports decreased appetite, acting more confused me1 than normal, and possible left sided facial droop x 6-7 days. No droop appreciated in triage. VAN negative. Hx of dementia, AOx1-2 at baseline. hb
--- NOTE | 2023-08-11 19:13 | EDPHYS ---
Physician Documentation [facility] Name: Elizabeth Hewitt Age: 88 yrs Sex: Female : 1935 Arrival Date: 08/11/2023 Time: 17:09 Bed 13 Private MD: ED Physician Cristóbal Daugherty HPI: 08/11 19:04 This 88 yrs old Female presents to ER via Wheelchair with complaints of S/S kimmie of Possible Stroke. 19:04 The patient's problem is reported as a facial droop, on left, weakness, in the left kimmie upper extremity, in the left lower extremity, in the left side of face. Onset: The symptoms/episode began/occurred 6 day(s) ago. Duration: The episode is continuous. Context: the episode(s) was witnessed, by family. The symptoms are alleviated by nothing. The symptoms are aggravated by nothing. Associated signs and symptoms: The patient has no apparent associated signs or symptoms. Severity of symptoms: At their worst the symptoms were mild in the emergency department the symptoms are unchanged. Patient's baseline: Neuro: alert and fully oriented. The patient has not experienced similar symptoms in the past. Historical: - Allergies: 17:21 Adhesives; hb 17:21 PENICILLINS; hb - PMHx: 17:21 Atrial Fib; GERD; Hypertension; Dementia; High Cholesterol; Leaky Valves; hb Hypothyroidism; - Immunization history:: Adult Immunizations up to date. - Social history:: Smoking status: Patient denies any tobacco usage or history of. ROS: 19:06 Constitutional: Negative for fever, chills, and weight loss, Eyes: Negative for injury, kimmie pain, redness, and discharge, ENT: Negative for injury, pain, and discharge, Neck: Negative for injury, pain, and swelling, Cardiovascular: Negative for chest pain, palpitations, and edema, Respiratory: Negative for shortness of breath, cough, wheezing, and pleuritic chest pain, Abdomen/GI: Negative for abdominal pain, nausea, vomiting, diarrhea, and constipation, Back: Negative for injury and pain, : Negative for injury, bleeding, discharge, and swelling, MS/Extremity: Negative for injury and deformity, Skin: Negative for injury, rash, and discoloration, Psych: Negative for depression, anxiety, suicide ideation, homicidal ideation, and hallucinations, Allergy/Immunology: Negative for hives, rash, and allergies, Endocrine: Negative for neck swelling, polydipsia, polyuria, polyphagia, and marked weight changes, Hematologic/Lymphatic: Negative for swollen nodes, abnormal bleeding, and unusual bruising, 19:06 Neuro: Positive for dizziness, weakness, of the face, left arm and left leg, Exam: 19:06 Constitutional: This is a well developed, well nourished patient who is awake, alert, kimmie and in no acute distress. Head/Face: Normocephalic, atraumatic. Eyes: Pupils equal round and reactive to light, extra-ocular motions intact. Lids and lashes normal. Conjunctiva and sclera are non-icteric and not injected. Cornea within normal limits. Periorbital areas with no swelling, redness, or edema. ENT: Nares patent. No nasal discharge, no septal abnormalities noted. Tympanic membranes are normal and external auditory canals are clear. Oropharynx with no redness, swelling, or masses, exudates, or evidence of obstruction, uvula midline. Mucous membranes moist. Neck: Trachea midline, no thyromegaly or masses palpated, and no cervical lymphadenopathy. Supple, full range of motion without nuchal rigidity, or vertebral point tenderness. No Meningismus. Chest/axilla: Normal chest wall appearance and motion. Nontender with no deformity. No lesions are appreciated. Cardiovascular: Regular rate and rhythm with a normal S1 and S2. No gallops, murmurs, or rubs. Normal PMI, no JVD. No pulse deficits. Respiratory: Lungs have equal breath sounds bilaterally, clear to auscultation and percussion. No rales, rhonchi or wheezes noted. No increased work of breathing, no retractions or nasal flaring. Abdomen/GI: Soft, non-tender, with normal bowel sounds. No distension or tympany. No guarding or rebound. No evidence of tenderness throughout. Back: No spinal tenderness. No costovertebral tenderness. Full range of motion. Female : Normal external genitalia. Skin: Warm, dry with normal turgor. Normal color with no rashes, no lesions, and no evidence of cellulitis. MS/ Extremity: Pulses equal, no cyanosis. Neurovascular intact. Full, normal range of motion. Neuro: Awake and alert, GCS 15, oriented to person, place, time, and situation. Cranial nerves II-XII grossly intact. Motor strength 5/5 in all extremities. Sensory grossly intact. Cerebellar exam normal. Normal gait. Psych: Awake, alert, with orientation to person, place and time. Behavior, mood, and affect are within normal limits. 19:11 Radiologist reports: negative kimmie 19:11 Musculoskeletal/extremity: ROM: intact in all extremities, full active range of motion, full passive range of motion, Circulation is intact in all extremities. Sensation intact. Compartment Syndrome exam of affected extremity: is normal. Weight bearing: able to fully bear weight, DVT Exam: No signs of deep vein thrombosis. no pain, no swelling, no tenderness, negative Homans' sign noted on exam, no appreciated bluish discoloration, no erythema, no increased warmth, 19:45 ECG was reviewed by the Attending Physician. kimmie Vital Signs: 17:17 BP 209 / 98; Pulse 88; Resp 16; Temp 97.7(TE); Pulse Ox 100% on R/A; Weight 68.04 kg; hb Height 5 ft. 2 in. ; Pain 0/10; 18:15 BP 189 / 95; Pulse 73; Resp 18; Pulse Ox 99% on R/A; me1 22:24 BP 173 / 107; Pulse 94; Resp 18; Pulse Ox 100% on R/A; me1 17:17 Body Mass Index 27.44 (68.04 kg, 157.48 cm) hb 17:17 Pain Scale: Non-Verbal hb NIH Stroke Scale Scores: 19:06 NIHSS Score: 0 kimmie 22:04 NIHSS Score: 0 me1 [place] Coma Score: 19:11 Eye Response: spontaneous(4). Motor Response: obeys commands(6). Verbal Response: kimmie oriented(5). Total: 15. MDM: 17:39 Patient medically screened. kimmie 19:07 Differential diagnosis: CVA, TIA, Dementia, metabolic disorder. Differential Diagnosis kimmie altered mental status, sepsis, flu. Data reviewed: vital signs, nurses notes, lab test result(s), EKG, radiologic studies, CT scan, plain films. Consideration of Admission/Observation Patient was admitted/placed on observation. Escalation of care including admission/observation considered. I considered the following discharge prescriptions or medication management in the emergency department Medications were administered in the Emergency Department. See MAR. Independent interpretation of the following test(s) in the Emergency Department EKG: See my EKG interpretation above. Test considered but Not performed: MRI: no mri brain. Historians other than the Patient: Family Member: , children. Care significantly affected by the following chronic conditions: Diabetes, Hypertension, dementia, hypothyroid. Counseling: I had a detailed discussion with the patient and/or guardian regarding the historical points, exam findings, and any diagnostic results supporting the discharge/admit diagnosis, the presence of at least one elevated blood pressure reading (>120/80) during this emergency department visit, lab results, radiology results, the need for further work-up and treatment in the hospital. 08/11 17:42 Order name: Basic Metabolic Panel; Complete Time: 18:59 kimmie 08/11 17:42 Order name: CBC with Diff; Complete Time: 18:59 kimmie 08/11 17:42 Order name: LFT's; Complete Time: 18:59 kimmie 08/11 17:42 Order name: Magnesium; Complete Time: 18:59 kimmie 08/11 17:42 Order name: NT PRO-BNP; Complete Time: 18:59 kimmie 08/11 17:42 Order name: PT-INR; Complete Time: 18:59 kimmie 08/11 17:42 Order name: Troponin HS; Complete Time: 18:59 kimmie 08/11 17:42 Order name: Urinalysis w/ reflexes; Complete Time: 18:59 kimmie 08/11 18:43 Order name: Urine Culture EDVT 08/11 19:10 Order name: TSH; Complete Time: 19:45 kmf 08/11 20:39 Order name: Basic Metabolic Panel EDMS 08/11 20:39 Order name: Basic Metabolic Panel EDMS 08/11 20:39 Order name: CBC with Automated Diff EDMS 08/11 20:39 Order name: CBC with Automated Diff EDMS 08/11 20:39 Order name: Lipid Profile EDMS 08/11 20:39 Order name: Lipid Profile EDMS 08/11 20:39 Order name: Magnesium EDMS 08/11 20:39 Order name: Magnesium EDMS 08/11 20:39 Order name: Phosphorus EDMS 08/11 20:39 Order name: Phosphorus EDMS 08/11 20:39 Order name: Thyroid Stimulating Hormone EDMS 08/11 20:39 Order name: Thyroid Stimulating Hormone EDMS 08/11 17:42 Order name: XRAY Chest (1 view); Complete Time: 18:59 [facility] 08/11 17:42 Order name: CT Head Angio; Complete Time: 20:25 [facility] 08/11 17:42 Order name: CT Neck Angio; Complete Time: 20:25 [facility] 08/11 17:52 Order name: Head Brain Wo Cont; Complete Time: 20:00 EDVT 08/11 20:39 Order name: Echo with Doppler EDVT 08/11 20:39 Order name: Echo with Doppler EDVT 08/11 17:42 Order name: EKG; Complete Time: 17:43 [facility] 08/11 20:39 Order name: Physical Therapy Consult EDVT 08/11 17:42 Order name: Cardiac monitoring; Complete Time: 19:23 [facility] 08/11 17:42 Order name: EKG - Nurse/Tech; Complete Time: 19:23 [facility] 08/11 17:42 Order name: IV Saline Lock; Complete Time: 18:22 [facility] 08/11 17:42 Order name: Labs collected and sent; Complete Time: 18:22 [facility] 08/11 17:42 Order name: O2 Per Protocol; Complete Time: 18:22 [facility] 08/11 17:42 Order name: O2 Sat Monitoring; Complete Time: 18:22 [facility] EC:45 Rate is 80 beats/min. Rhythm is regular. QRS [place] is Normal. SC interval is prolonged kimmie at 212 msec. QRS interval is normal. QT interval is normal. No Q waves. T waves are Normal. No ST changes noted. Clinical impression: NSR w/ Non-specific ST/T Changes, 1st degree heart block, and No evidence of ischemia. Interpreted by me. Reviewed by me. Administered Medications: 18:34 Drug: NS 0.9% IV 1000 ml IV at 1 bolus Per protocol; 1000 mL bolus Route: IV; Rate: 1 me1 bolus; Site: right antecubital; 22:07 Follow up: IV Status: Completed infusion me1 18:34 Drug: foLIC Acid IVPB 1 mg IVPB once Route: IVPB; Site: right antecubital; me1 18:35 Follow up: Response: No adverse reaction; IV Status: Completed infusion me1 19:16 Drug: Rocephin IV 1 grams IV at per protocol once; Given slow IV push per pharmacy me1 instructions Route: IV; Rate: per protocol; Site: right antecubital; 19:18 Follow up: IV Status: Completed infusion me1 22:07 Follow up: Response: No adverse reaction me1 Disposition Summary: 08/11/23 19:13 Hospitalization Ordered Notes: Hospitalization Status: Observation kimmie Provider: Lacho Hanks cha Location: Telemetry/MedSurg (observation) kimmie Condition: Fair kimmie Problem: new kimmie Symptoms: have improved kimmie Bed/Room Type: Standard [facility] Room Assignment: 223(08/11/23 21:08) cg Diagnosis - Weakness kimmie - Dementia in other diseases classified elsewhere without behavioral disturbance kimmie - UTI/ Urinary tract infection, site not specified kimmie Forms: - Medication Reconciliation Form kimmie - SBAR form kimmie - Leadership Thank You Letter kimmie NIH Stroke Scale - NIH Stroke Score Date: 08/11/2023 Time: 19:06 Total Score = 0 10. Dysarthria (speech clarity - read or repeat words) - 0(Normal) 11. Extinction and Inattention (visual/tactile/auditory/spatial/personal) - 0(No abnormality) 1a. Level of Consciousness (LOC) - 0(Alert) 1b. Level of Consciousness (LOC) (Month \T\ Age) - 0(Both) 1c. LOC Commands (Open \T\ Closes Eyes/Pouncing Machine Operator) - 0(Both) 2. Best Gaze (Lateral Gaze Paresis) - 0(Normal) 3. Visual Field Loss - 0(No visual loss) 4. Facial Palsy - 0(Normal) 5a. Left Arm: Motor (10-second hold) - 0(No drift) 5b. Right Arm: Motor (10-second hold) - 0(No drift) 6a. Left Leg: Motor (5-second hold - always test supine) - 0(No drift) 6b. Right Leg: Motor (5-second hold - always test supine) - 0(No drift) 7. Limb Ataxia (finger/nose \T\ heel/claire - test with eyes open) - 0(Absent) 8. Sensory Loss (pinprick arms/legs/face) - 0(Normal) 9. Best Language: Aphasia (description/naming/reading) - 0(No aphasia) Initials: kimmie NIH Stroke Scale - NIH Stroke Score Date: 08/11/2023 Time: 22:04 Total Score = 0 10. Dysarthria (speech clarity - read or repeat words) - 0(Normal) 11. Extinction and Inattention (visual/tactile/auditory/spatial/personal) - 0(No abnormality) 1a. Level of Consciousness (LOC) - 0(Alert) 1b. Level of Consciousness (LOC) (Month \T\ Age) - 0(Both) 1c. LOC Commands (Open \T\ Closes Eyes/Pouncing Machine Operator) - 0(Both) 2. Best Gaze (Lateral Gaze Paresis) - 0(Normal) 3. Visual Field Loss - 0(No visual loss) 4. Facial Palsy - 0(Normal) 5a. Left Arm: Motor (10-second hold) - 0(No drift) 5b. Right Arm: Motor (10-second hold) - 0(No drift) 6a. Left Leg: Motor (5-second hold - always test supine) - 0(No drift) 6b. Right Leg: Motor (5-second hold - always test supine) - 0(No drift) 7. Limb Ataxia (finger/nose \T\ heel/claire - test with eyes open) - 0(Absent) 8. Sensory Loss (pinprick arms/legs/face) - 0(Normal) 9. Best Language: Aphasia (description/naming/reading) - 0(No aphasia) Initials: me1 Signatures: Dispatcher [employer] EDCristóbal Hayes MD MD cha Garcia, Cindy, Kamilla Pagan RN, RN RN hb Eddleman, Michelle RN RN me1 Corrections: (The following items were deleted from the chart) 17:52 17:43 CT-STROKE BRAIN W/O CONTRAST+CT.RAD.BRZ ordered. EDVT EDVT 21:08 19:13 kimmie pitts
--- NOTE | 2023-08-11 19:58 | RAD REPORT ---
EXAM DESCRIPTION: CT - Head Brain Wo Cont - 08/11/2023 7:03 pm CLINICAL HISTORY: STROKE ALERT COMPARISON: Head C Spine Cap W Con dated 07/24/2022 TECHNIQUE: Noncontrast head CT images were obtained without IV contrast. Multiplanar reformats were generated and reviewed. All CT scans are performed using dose optimization technique as appropriate and may include automated exposure control or mA/KV adjustment according to patient size. FINDINGS: No intracranial hemorrhage, mass, or edema. Midline structures are unremarkable. Moderate diffuse parenchymal volume loss. Ventricular caliber is stable. Stable confluent periventric ular and deep white matter hypodensities, nonspecific, but suggestive of chronic small vessel ischemi c changes. Lanier-white matter differentiation is preserved, without evidence of acute infarct. No abnormal extra- axial fluid collections. Mastoid air cells and visualized portions of the paranasal sinuses are clear. No acute bony findings. IMPRESSION: No evidence of an acute intracranial process. Stable chronic findings as above.
--- NOTE | 2023-08-11 20:05 | RAD REPORT ---
EXAM DESCRIPTION: CT - Head angio - 08/11/2023 7:04 pm CLINICAL HISTORY: HEADACHE COMPARISON: Head Brain Wo Cont dated 08/11/2023 TECHNIQUE: Axial CT angiography images of the head was performed with multiplanar and maximum intens ity projection reconstructions. Images performed following intravenous administration of 100mL Isovue 370. All CT scans are performed using dose optimization technique as appropriate and may include automated exposure control or mA/KV adjustment according to patient size. FINDINGS: No evidence of large vessel occlusion. No evidence of aneurysm or dissection flap is detec ghazal. No flow-limiting stenosis or vascular malformation identified. Antegrade flow is seen in the vertebral arteries. The vertebral arteries are codominant. The visualized dural venous sinuses are grossly patent. IMPRESSION: No evidence of large vessel occlusion or flow-limiting stenosis.
--- NOTE | 2023-08-11 20:20 | RAD REPORT ---
EXAM DESCRIPTION: CT - Neck Angio - 08/11/2023 7:04 pm CLINICAL HISTORY: PAIN COMPARISON: CT HEAD CSPINE MPR WO CONTRAST dated 08/29/2014 TECHNIQUE: Axial CT angiography images of the head was performed with multiplanar and maximum intens ity projection reconstructions. Images performed following intravenous administration of 100mL Isovue 370. All CT scans are performed using dose optimization technique as appropriate and may include automated exposure control or mA/KV adjustment according to patient size. Quantification of carotid stenosis, if any, is performed according to NASCET criteria. FINDINGS: A left aortic arch is identified with normal three vessel configuration of the great vesse ls. No significant flow abnormality is seen of the common carotid bilaterally. Mild atherosclerotic calcifications of the carotid bulbs. No significant stenosis is identified invol ving the cervical segments of both internal carotid arteries. Normal flow is seen within both vertebral arteries. IMPRESSION: No significant flow abnormality of the neck vessels is identified. CAROTID STENOSIS REFERENCE USING NASCET CRITERIA: % ICA stenosis = (1 - narrowest ICA diameter/diameter of distal cervical ICA) x 100. Mild - <50% stenosis. Moderate - 50-69% stenosis. Severe - 70-94% stenosis. Near occlusion - 95-99% stenosis. Occluded - 100% stenosis.
[2023-08-11] MEDS ORDERED: ONDANSETRON 4 MG/2 ML VIAL IV PRN (20:33)
--- NOTE | 2023-08-11 20:43 | P.HP ---
Certification for Inpatient Patient admitted to: Observation With expected LOS: <2 Midnights Practitioner: I am a practitioner with admitting privileges, knowledge of patient current condition, hospital course, and medical plan of care. Services: Services provided to patient in accordance with Admission requirements found in Title 42 Section 412.3 of the Code of Federal Regulations Patient History Date of Service: 08/11/23 Reason for admission: Confusion and weakness History of Present Illness: 80-year-old woman with a history of atrial fibrillation, not on anticoagulation, hyperlipidemia, dementia and hypertension was brought to the emergency department due to progressive confusion and weakness of about 1 week duration. Family reports noting right facial droop for informed her PCP who evaluated had via Telemedicine. Pronator drift was seemingly positive reported by her daughter. Patient was therefore brought to the emergency department for evaluation of AMS concerning for stroke. No facial weakness noted and no limb weakness noted on examination in the ED. UA suggested UTI. Blood work grossly unremarkable. Seemed confused during examination. Family reported patient at baseline ambulates without assistance but recently not been able to ambulate also experiencing stool incontinence. Family also reports patient has been refusing to take her medications for 6 days and sometimes refuses to eat. She is hospitalized for further management. Allergies adhesive Allergy (Verified 06/20/21 08:14) Rash Sulfa (Sulfonamide Antibiotics) Allergy (Verified 06/20/21 08:14) Hives Home Medications: Amlodipine [Norvasc*] 5 mg PO DAILY 06/20/21 Evolocumab [Repatha Syringe] 140 mg SQ SEECOM 06/20/21 Gabapentin [Neurontin*] 100 mg PO BEDTIME 06/20/21 Galantamine HBr [Galantamine ER] 8 mg PO BIDWM 06/20/21 Levothyroxine Sodium 25 mcg PO [id number] 06/20/21 Losartan Potassium 100 mg PO DAILY 06/20/21 Sotalol HCl [Betapace*] 80 mg PO BID 06/20/21 Cholecalciferol (Vitamin D3) [Vitamin D3] 1,000 unit PO DAILY 10/31/22 Linaclotide [Linzess] 145 mcg PO DAILYPRN PRN 10/31/22 Magnesium Oxide [Mag 0X*] 400 mg PO DAILY 10/31/22 Vit C/E/Zn/Coppr/Lutein/Zeaxan [Preservision Areds 2 Softgel] 1 each PO DAILY 10/31/22 cloNIDine HCL [Clonidine HCl] 0.1 mg PO DAILY 10/31/22 Ascorbic Acid [Vitamin C*] 500 mg PO DAILY #30 tab 11/03/22 Benzonatate [Tessalon Perle*] 100 mg PO TID PRN #30 cap 11/03/22 Docusate [Colace Cap*] 100 mg PO DAILY PRN #30 cap 11/03/22 Zinc Sulfate [Zinc Sulfate*] 220 mg PO DAILY #30 cap 11/03/22 - Past Medical/Surgical History Diabetic: No -: Atrial Fibrillation -: Dementia -: Hypertension -: Hyperlipidemia -: GERD -: Hypothyroidism Psychosocial/ Personal History: Patient lives at home with her . She has home health. - Family History Family History: Reviewed- Non-Contributory - Social History Smoking Status: Never smoker Alcohol use: No CD- Drugs: No Caffeine use: Yes Review of Systems Other: No reported fever, no reported diarrhea, no reported shortness of breath. I am unable to obtain full review of systems due to advanced dementia and confusion. Physical Examination - Physical Exam General: In no apparent distress, Demented, Confused HEENT: Atraumatic, Normocephalic, PERRLA, Mucous membr. moist/pink, EOMI, Sclerae nonicteric Neck: Supple, JVD not distended Respiratory: Clear to auscultation bilaterally, Normal air movement Cardiovascular: No edema, Regular rate/rhythm, Normal S1 S2 Capillary refill: <2 Seconds Gastrointestinal: Normal bowel sounds, Soft and benign, Non-distended, No tenderness Musculoskeletal: No clubbing, No swelling, No contractures, No tenderness Integumentary: No rashes, No cyanosis Neurological: Normal speech, Normal strength at 5/5 x4 extr, Cranial nerves 3-12 intact Lymphatics: No axilla or inguinal lymphadenopathy - Studies Laboratory Data (last 24 hrs) 08/11/23 08/11/23 08/11/23 18:18 18:18 18:18 WBC 6.70 Hgb 12.8 Hct 37.4 Plt Count 225 PT 12.2 INR 1.11 Sodium 141 Potassium 3.6 BUN 24 H Creatinine 1.22 H Glucose 112 H Magnesium 2.2 Total Bilirubin 0.4 AST 27 ALT 32 Alkaline Phosphatase 52 Assessment and Plan - Problems (Diagnosis) (1) Acute metabolic encephalopathy Current Visit: Yes Status: Acute (2) Acute cystitis without hematuria Current Visit: Yes Status: Acute (3) Longstanding persistent atrial fibrillation Current Visit: Yes Status: Acute (4) Dementia Current Visit: No Status: Chronic Qualifiers: Dementia type: unspecified type Dementia severity: unspecified severity Dementia behavioral or psychological symptom: without behavioral, psychotic, or mood disturbance or anxiety Qualified Code(s): F03.90 - Unspecified dementia, unspecified severity, without behavioral disturbance, psychotic disturbance, mood disturbance, and anxiety (5) Hypertension Current Visit: No Status: Chronic Qualifiers: Hypertension type: primary hypertension Qualified Code(s): I10 - Essential (primary) hypertension (6) Hypothyroidism Current Visit: No Status: Chronic Qualifiers: Hypothyroidism type: acquired Qualified Code(s): E03.9 - Hypothyroidism, unspecified - Plan Metabolic encephalopathy/acute cystitis without hematuria/Stroke-like symptoms Reported stroke-like symptoms at home. No focal motor deficits or speech problem. Symptoms likely related to acute metabolic encephalopathy Start IV Rocephin Follow urine culture Obtain echocardiogram Patient with a history of A-fib, she is not anticoagulated she follows with Dr. Darden. Obtain MRI of the brain and if positive for stroke may need anticoagulation. Monitor and optimize electrolytes. Chronic atrial fibrillation Stable Continue sotalol Patient is not anticoagulated at home. Hypothyroidism Check TSH Continue home dose Synthroid. Essential hypertension Reconcile and continue home medications. Debility/dementia Not excluding progressive dementia. PT consult Diet as tolerated. DVT prophylaxis: Lovenox CODE STATUS: DNR - Advance Directives Does patient have a Living Will: No Does patient have a Durable POA for Healthcare: No
[2023-08-11] MEDS ORDERED: HALOPERIDOL LACT 5 MG/ML INJ IV ONE (23:34)
[2023-08-11] MEDS: NA CHLORIDE 0.9% 1,000 ML IV SCH (23:47)
[2023-08-12] MEDS: NA CHLORIDE 0.9% 1,000 ML IV SCH ×2 (07:00→21:36)
[2023-08-12 08:17] LABS: Absolute Lymphocytes (CBC) 1.5 K/uL (0.7-4.9); Hematocrit 39.1 % (36.0-45.0); Lymphocytes % 19.3 % (15.3-44.8); MCV 83.7 fL (80-100); MPV 9.7 fL (7.6-11.3); Platelets 224 thou/uL (152-406); RBC Red Blood Cell Count 4.67 M/uL (3.86-4.86)
[2023-08-12] MEDS: CEFTRIAXONE 1,000 MG in NA CHLORIDE 0.9% 50 ML IVPB SCH (08:55)
[2023-08-12] MEDS: ENOXAPARIN 30 MG/0.3 ML SQ SCH (08:55)
--- NOTE | 2023-08-12 10:25 | P.PN ---
Subjective Date of Service: 08/12/23 Chief Complaint: Confusion and weakness Pt is resting comfortably in bed. I could not elicit any information from her. She is getting iv rocephin for UTI. Will r/o CVA. No other complaints. Review of Systems is unable to be obtained Physical Examination - Vital Signs Temperature: 97.0 F Blood Pressure: 184/81 Pulse: 89 Respirations: 19 Pulse Ox (%): 96 - Physical Exam General: Alert, In no apparent distress, Confused HEENT: Atraumatic, Normocephalic Neck: Supple, 2+ carotid pulse no bruit Respiratory: Clear to auscultation bilaterally, Normal air movement Cardiovascular: No edema, Normal pulses, Regular rate/rhythm, Normal S1 S2 Capillary refill: <2 Seconds Gastrointestinal: Normal bowel sounds, Soft and benign Musculoskeletal: No clubbing, No swelling Integumentary: No rashes, No breakdown Neurological: Other (non-verbal and confused) Lymphatics: No axilla or inguinal lymphadenopathy - Studies Laboratory Data (last 24 hrs) 08/11/23 08/11/23 08/11/23 18:18 18:18 18:18 WBC 6.70 Hgb 12.8 Hct 37.4 Plt Count 225 PT 12.2 INR 1.11 Sodium 141 Potassium 3.6 BUN 24 H Creatinine 1.22 H Glucose 112 H Magnesium 2.2 Total Bilirubin 0.4 AST 27 ALT 32 Alkaline Phosphatase 52 Assessment And Plan - Plan Metabolic encephalopathy/acute cystitis without hematuria/Stroke-like symptoms: Will continue rocephin for UTI. Follow up urine cx. CT head, CTA head an neck are unremarkable. Will follow up MRI brain to r/o CVA. Follow up Echo. Will allow permissive htn. Continue aspirin and statin Chronic atrial fibrillation: Continue telemetry, sotalol. Not on AC. Hypothyroidism: Continue synthroid. Will check TSH. Essential hypertension: Will allow permissive htn. Debility/dementia: Will continue supportive care. DVT prophylaxis: Lovenox CODE STATUS: DNR
[2023-08-12] MEDS ORDERED: LINACLOTIDE 145 MCG PO PRN (10:29)
[2023-08-12 10:31] LABS: Potassium 3.3 mEq/L (3.5-5.1)
[2023-08-12 11:35] LABS: Thyroid Stimulating Hormone 7.01 uIU/mL (0.358-3.740)
[2023-08-12] MEDS: ACETAMINOPHEN 325 MG TABLET PO PRN (13:16)
--- NOTE | 2023-08-12 14:18 | RAD REPORT ---
EXAM DESCRIPTION: MRI - Brain Wo Cont - 08/12/2023 11:53 am CLINICAL HISTORY: Stroke-like symptoms COMPARISON: Noncontrast head CT of 08/29/2023 TECHNIQUE: Multiplanar multisequence MRI of the brain performed without IV contrast. FINDINGS: No evidence of acute infarct or other diffusion signal abnormality. No evidence of acute intracranial hemorrhage or abnormal extra-axial fluid collections. Moderate diffuse parenchymal volume loss. Ventricular caliber otherwise within normal for age. [place] e structures are unremarkable. Progressive pattern of subcortical and deep white matter T2/FLAIR hyperintensities since the prior MR I, which remains nonspecific, but suggestive of chronic small vessel ischemic changes. 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 No mass effect or midline shift. Major vascular flow voids are preserved. Mastoid air cells and paranasal sinuses are clear. IMPRESSION: No acute intracranial process. No evidence of ventriculomegaly or mass effect. Progressive pattern of nonspecific white matter signal abnormalities as above. 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
[2023-08-12] MEDS: ATORVASTATIN 40 MG TAB PO SCH (21:36)
[2023-08-12] MEDS: SOTALOL HCL 80 MG TAB PO SCH (21:37)
[2023-08-12] MEDS: GABAPENTIN 100 MG CAP PO SCH (21:37)
[2023-08-13] MEDS: NA CHLORIDE 0.9% 1,000 ML IV SCH ×4 (03:00→23:00)
[2023-08-13 05:52] LABS: Absolute Lymphocytes (CBC) 1.6 K/uL (0.7-4.9); Hematocrit 38.3 % (36.0-45.0); Lymphocytes % 21.1 % (15.3-44.8); MCV 83.8 fL (80-100); MPV 8.6 fL (7.6-11.3); Platelets 220 thou/uL (152-406); RBC Red Blood Cell Count 4.57 M/uL (3.86-4.86)
[2023-08-13 06:07] LABS: Potassium 3.3 mEq/L (3.5-5.1)
[2023-08-13] MEDS: LEVOTHYROXINE SOD 0.025 MG TAB PO SCH (06:19)
[2023-08-13] MEDS: POTASSIUM CL SA 10 MEQ TAB PO ONE ×2 (06:38→07:32)
--- NOTE | 2023-08-13 07:30 | ECHO ---
HEIGHT: 5 ft 2 in WEIGHT: 135 lb 1.6 oz DATE OF STUDY: 08/12/[address]: Lacho Hanks MD 2-DIMENSIONAL: YES M.MODE: YES DOPPLER: YES COLOR FLOW: YES TDS: NO PORTABLE: YES DEFINITY: NO BUBBLE STUDY: NO DIAGNOSIS: TRANSIENT ISCHEMIC ATTACK/HISTORY OF ATRIAL FIBRILLATION CARDIAC HISTORY: CATHERIZATION: SURGERY: NO PROSTHETIC VALVE: NO PACEMAKER: NO MEASUREMENTS (cm) DIASTOLIC (NORMALS) SYSTOLIC (NORMALS) IVSd 1.0 (0.6-1.2) LA Diam 3.6 (1.9-4.0) LVEF 60% LVIDd 4.3 (3.5-5.7) LVIDs 2.9 (2.0-3.5) %FS 32% LVPWd 1.1 (0.6-1.2) Ao Diam 2.4 (2.0-3.7) 2 DIMENSIONAL ASSESSMENT: RIGHT ATRIUM: NORMAL LEFT ATRIUM: ENLARGED RIGHT VENTRICLE: NORMAL LEFT VENTRICLE: MILD LEFT VENTRICULAR HYPERTROPHY TRICUSPID VALVE: NORMAL MITRAL VALVE: NORMAL PULMONIC VALVE: NORMAL AORTIC VALVE: MILD AORTIC INSUFFICIENCY PERICARDIAL EFFUSION: NONE AORTIC ROOT: NORMAL LEFT VENTRICULAR WALL MOTION: NORMAL. DOPPLER/COLOR FLOW: SEE BELOW. COMMENTS: 1. POOR WINDOWS. 2. NORMAL LEFT VENTRICULAR EJECTION FRACTION 55-60% 3. MILD CONECENTRIC LEFT VENTRICULAR HYPERTROPHY. 4. DIASTOLIC DYSFUNCTION. 5. MILD AORTIC INSUFFICIENCY. TECHNOLOGIST: SUSANNA ENRIQUEZ
[2023-08-13] MEDS ORDERED: POTASSIUM CL SA 10 MEQ TAB PO ONE (08:00)
[2023-08-13] MEDS: VITAMIN D 1000 UNIT TAB PO SCH ×2 (09:00→09:27)
[2023-08-13] MEDS: SOTALOL HCL 80 MG TAB PO SCH ×3 (09:00→19:51)
[2023-08-13] MEDS: ASPIRIN 81 MG CHEWABLE TABLET PO SCH ×2 (09:00→09:27)
[2023-08-13] MEDS: CEFTRIAXONE 1,000 MG in NA CHLORIDE 0.9% 50 ML IVPB SCH (09:27)
[2023-08-13] MEDS: ENOXAPARIN 30 MG/0.3 ML SQ SCH (09:27)
--- NOTE | 2023-08-13 10:13 | P.PN ---
Subjective Date of Service: 08/13/23 Chief Complaint: Confusion and weakness Pt is resting comfortably in bed. She is more awake and talking. AAOx0. She is getting iv rocephin for UTI. MRI brain is unremarkable. No other complaints. Review of Systems Unremarkable General: Unremarkable Eyes: Unremarkable ENT: Unremarkable Respiratory: Unremarkable Cardiovascular: Unremarkable Gastrointestinal: Unremarkable Genitourinary: Unremarkable Musculoskeletal: Unremarkable Integumentary: Unremarkable Neurological: Confusion Lymphatics: Unremarkable Physical Examination - Vital Signs Temperature: 97.9 F Blood Pressure: 184/86 Pulse: 87 Respirations: 18 Pulse Ox (%): 95 - Physical Exam General: Alert, In no apparent distress, Confused HEENT: Atraumatic, Normocephalic, PERRLA Neck: Supple, 2+ carotid pulse no bruit Respiratory: Clear to auscultation bilaterally, Normal air movement Cardiovascular: No edema, Normal pulses, Regular rate/rhythm Capillary refill: <2 Seconds Gastrointestinal: Normal bowel sounds, Soft and benign, Non-distended Musculoskeletal: No clubbing, No swelling Integumentary: No rashes, No breakdown Neurological: Normal speech, Sensation intact Lymphatics: No axilla or inguinal lymphadenopathy Assessment And Plan - Plan Metabolic encephalopathy/acute cystitis without hematuria/Stroke-like symptoms: Improved, but still confused. Will continue rocephin for UTI. Follow up urine cx. CT head, CTA head an neck are unremarkable. MRI brain is unremarkable for CVA. Ammonia level is < 15. Follow up Echo. Continue aspirin and statin Chronic atrial fibrillation: Continue telemetry, sotalol. Not on AC. Hypothyroidism: Continue synthroid. Will check TSH. Hypokalemia: K is 3.3. Will replete Essential hypertension: Will resume home meds. Debility/dementia: Will continue supportive care. DVT prophylaxis: Lovenox CODE STATUS: DNR
[2023-08-13] MEDS ORDERED: LABETALOL 20 MG/4ML SYRINGE IV PRN (12:00)
[2023-08-13] MEDS: KCL 20 MEQ/100 mL IVPB 100 ML IV SCH ×2 (12:18→14:59)
[2023-08-13] MEDS ORDERED: POLYETHYL GLY 3350 17 GM/DOSE PO PRN (15:09)
[2023-08-13] MEDS ORDERED: POLYETHYL GLY 3350 17 GM/DOSE PO ONE (15:29)
[2023-08-13] MEDS: LABETALOL 20 MG/4ML SYRINGE IV PRN (16:55)
--- NOTE | 2023-08-13 19:13 | RAD REPORT ---
EXAM DESCRIPTION: RAD - Abdomen 1 View (KUB) - 08/13/2023 6:01 pm CLINICAL HISTORY: Abd distention COMPARISON: Abdomen Pelvis W Contrast dated 08/05/2023 TECHNIQUE: Single AP view of the abdomen. FINDINGS: Nonobstructive bowel gas pattern. No air-fluid levels, free air, or pneumatosis. No signif icant stool burden. No suspicious calcifications. No significant bony abnormality. IMPRESSION: Nonobstructive bowel gas pattern.
[2023-08-13] MEDS: ATORVASTATIN 40 MG TAB PO SCH (19:51)
[2023-08-13] MEDS: GABAPENTIN 100 MG CAP PO SCH (19:52)
--- NOTE | 2023-08-13 21:35 | RAD REPORT ---
EXAM DESCRIPTION: US - Urinary Bladder - 08/13/2023 7:31 pm CLINICAL HISTORY: post void COMPARISON: Fluoroscopy <1 Hour dated 06/20/2021 TECHNIQUE: Real-time sonographic evaluation of the urinary bladder was performed. FINDINGS: Bladder was completely decompressed at the time of scanning. No suspicious masses although decompression limits evaluation. No significant postvoid residual. IMPRESSION: No significant postvoid residual.
[2023-08-14 03:27] LABS: Absolute Lymphocytes (CBC) 1.9 K/uL (0.7-4.9); Hematocrit 35.8 % (36.0-45.0); Lymphocytes % 27.7 % (15.3-44.8); MCV 84.4 fL (80-100); MPV 9.3 fL (7.6-11.3); Platelets 201 thou/uL (152-406); RBC Red Blood Cell Count 4.24 M/uL (3.86-4.86)
[2023-08-14 03:41] LABS: Potassium 4.4 mEq/L (3.5-5.1)
[2023-08-14] MEDS: LABETALOL 20 MG/4ML SYRINGE IV PRN ×2 (04:48→18:36)
[2023-08-14] MEDS: LEVOTHYROXINE SOD 0.025 MG TAB PO SCH (05:14)
[2023-08-14] MEDS: ASPIRIN 81 MG CHEWABLE TABLET PO SCH (09:00)
[2023-08-14] MEDS: SOTALOL HCL 80 MG TAB PO SCH ×2 (09:00→20:07)
[2023-08-14] MEDS: NA CHLORIDE 0.9% 1,000 ML IV SCH (09:00)
[2023-08-14] MEDS: VITAMIN D 1000 UNIT TAB PO SCH (09:00)
[2023-08-14] MEDS ORDERED: HYDRALAZINE HCL 20 MG/ML VIAL IV ONE (09:27)
[2023-08-14] MEDS: CEFTRIAXONE 1,000 MG in NA CHLORIDE 0.9% 50 ML IVPB SCH (09:52)
[2023-08-14] MEDS: ENOXAPARIN 30 MG/0.3 ML SQ SCH (09:52)
--- NOTE | 2023-08-14 10:41 | P.PN ---
Subjective Date of Service: 08/14/23 Chief Complaint: Confusion and weakness Pt is resting comfortably in bed. She is more awake and talking. Still confused, AAOx0. She is getting iv rocephin for UTI. MRI brain is unremarkable. No other complaints. Review of Systems is unable to be obtained Physical Examination - Vital Signs Temperature: 97.5 F Blood Pressure: 207/109 Pulse: 52 Respirations: 18 Pulse Ox (%): 97 - Physical Exam General: Alert, In no apparent distress, Confused HEENT: Atraumatic, Normocephalic, PERRLA Neck: Supple, 2+ carotid pulse no bruit Respiratory: Clear to auscultation bilaterally, Normal air movement Cardiovascular: No edema, Normal pulses Capillary refill: <2 Seconds Gastrointestinal: Normal bowel sounds, Soft and benign, Non-distended Musculoskeletal: No clubbing, No swelling Integumentary: No rashes, No breakdown Neurological: Normal gait, Normal speech, Normal strength at 5/5 x4 extr Lymphatics: No axilla or inguinal lymphadenopathy - Studies Microbiology Data (last 24 hrs): 08/11/23 18:13 Clean Catch Urine [place] Count - Final >100,000 CFU/ML. 08/11/23 18:13 Clean Catch Urine - Final Streptococcus Agalactiae Grp B Assessment And Plan - Plan Metabolic encephalopathy/acute cystitis without hematuria/Stroke-like symptoms: Improved, but still confused. Will continue rocephin for UTI. Follow up urine cx. CT head, CTA head an neck are unremarkable. MRI brain is unremarkable for CVA. Ammonia level is < 15. Follow up Echo. Continue aspirin and statin Chronic atrial fibrillation: Continue telemetry, sotalol. Not on AC. Hypothyroidism: Continue synthroid. Will check TSH. Hypokalemia: K is 4.4 <- 3.3. Will replete Essential hypertension: Will resume home meds. Debility/dementia: Will continue supportive care. DVT prophylaxis: Lovenox CODE STATUS: DNR
--- NOTE | 2023-08-14 13:45 | EKG ---
Test Date: 2023-08-11 Test Time: 19:19:02 Manager Cardiac Cath: RV MEASUREMENT RESULTS: Intervals: Rate: 80 NM: 212 QRSD: 94 QT: 454 QTc: 523 [place]: P: 35 NM: 212 QRS: -8 T: 73 INTERPRETIVE STATEMENTS: Sinus rhythm with 1st degree AV block Incomplete right bundle branch block Voltage criteria for left ventricular hypertrophy Inferior infarct, age undetermined Anterior infarct, age undetermined Abnormal ECG Compared to ECG 10/30/2022 20:55:15 First degree AV block now present Incomplete right bundle-branch block now present Left ventricular hypertrophy now present Myocardial infarct finding now present ST (T wave) deviation no longer present Possible ischemia no longer present Prolonged QT interval no longer present Electronically Signed On 08-14-23 13:40:45 [employer] TECHNICIAN by Brett Ledesma
[2023-08-14] MEDS: GABAPENTIN 100 MG CAP PO SCH (20:06)
[2023-08-14] MEDS: ATORVASTATIN 40 MG TAB PO SCH (20:06)
[2023-08-15 03:41] LABS: Absolute Lymphocytes (CBC) 1.4 K/uL (0.7-4.9); Hematocrit 38.5 % (36.0-45.0); MCV 83.9 fL (80-100); MPV 9.5 fL (7.6-11.3); Platelets 218 thou/uL (152-406); RBC Red Blood Cell Count 4.59 M/uL (3.86-4.86)
[2023-08-15 04:05] LABS: Potassium 3.8 mEq/L (3.5-5.1)
[2023-08-15] MEDS: LEVOTHYROXINE SOD 0.025 MG TAB PO SCH (05:14)
[2023-08-15] MEDS: LABETALOL 20 MG/4ML SYRINGE IV PRN (05:14)
[2023-08-15] MEDS: VITAMIN D 1000 UNIT TAB PO SCH (08:03)
[2023-08-15] MEDS: SOTALOL HCL 80 MG TAB PO SCH ×2 (08:03→20:44)
[2023-08-15] MEDS: ASPIRIN 81 MG CHEWABLE TABLET PO SCH (08:04)
[2023-08-15] MEDS: CEFTRIAXONE 1,000 MG in NA CHLORIDE 0.9% 50 ML IVPB SCH (08:04)
[2023-08-15] MEDS ORDERED: POTASSIUM 25 MEQ EFFERV TAB PO ONE (09:00)
[2023-08-15] MEDS: ENOXAPARIN 30 MG/0.3 ML SQ SCH (09:11)
--- NOTE | 2023-08-15 10:01 | P.PN ---
Subjective Date of Service: 08/15/23 Chief Complaint: Confusion and weakness Pt is resting comfortably in bed. She is more awake and answering some questions by saying 'yes'. Still confused, AAOx0. She is getting iv rocephin for UTI. MRI brain is unremarkable. No other complaints. Review of Systems is unable to be obtained Physical Examination - Vital Signs Temperature: 98.1 F Blood Pressure: 178/84 Pulse: 72 Respirations: 14 Pulse Ox (%): 94 - Physical Exam General: Alert, In no apparent distress, Oriented x1 HEENT: Atraumatic, Normocephalic, PERRLA Neck: Supple, 2+ carotid pulse no bruit Respiratory: Clear to auscultation bilaterally, Normal air movement Cardiovascular: No edema, Normal pulses, Regular rate/rhythm, Normal S1 S2 Capillary refill: <2 Seconds Gastrointestinal: Normal bowel sounds, Soft and benign, Non-distended Musculoskeletal: No clubbing, No swelling Integumentary: No rashes, No breakdown Neurological: Normal gait, Normal speech, Normal strength at 5/5 x4 extr Lymphatics: No axilla or inguinal lymphadenopathy - Studies Microbiology Data (last 24 hrs): 08/11/23 18:13 Clean Catch Urine [place] Count - Final >100,000 CFU/ML. 08/11/23 18:13 Clean Catch Urine - Final Streptococcus Agalactiae Grp B Assessment And Plan - Plan Metabolic encephalopathy/acute cystitis without hematuria/Stroke-like symptoms: Improved, but still confused. Will continue rocephin for UTI. Follow up urine cx. CT head, CTA head an neck are unremarkable. MRI brain is unremarkable for CVA. Ammonia level is < 15. Follow up Echo. Continue aspirin and statin Chronic atrial fibrillation: Continue telemetry, sotalol. Not on AC. Hypothyroidism: Continue synthroid. TSH is 7.010 and free T4 is 1.3. Hypokalemia: K is 3.8 <- 4.4 <- 3.3. Will replete Essential hypertension: Will resume home meds. Debility/dementia: Will continue supportive care. DVT prophylaxis: Lovenox CODE STATUS: DNR
[2023-08-15] MEDS: LOSARTAN POTASSIUM 50 MG TABLET PO SCH (10:25)
[2023-08-15] MEDS: AMLODIPINE 5 MG TAB PO SCH (10:25)
[2023-08-15] MEDS: cloNIDine HCL 0.1 MG TAB PO SCH (10:25)
[2023-08-15] MEDS: ATORVASTATIN 40 MG TAB PO SCH (20:44)
[2023-08-15] MEDS: GABAPENTIN 100 MG CAP PO SCH (20:44)
[2023-08-16 03:24] LABS: Absolute Lymphocytes (CBC) 1.3 K/uL (0.7-4.9); Hematocrit 38.9 % (36.0-45.0); Lymphocytes % 17.8 % (15.3-44.8); MCV 84.4 fL (80-100); MPV 9.5 fL (7.6-11.3); Platelets 205 thou/uL (152-406); RBC Red Blood Cell Count 4.61 M/uL (3.86-4.86)
[2023-08-16 03:39] LABS: Potassium 3.8 mEq/L (3.5-5.1)
[2023-08-16] MEDS: LEVOTHYROXINE SOD 0.025 MG TAB PO SCH (05:04)
--- NOTE | 2023-08-16 07:47 | P.PN ---
Subjective Date of Service: 08/16/23 Chief Complaint: Confusion and weakness and daughter at bedside, plan to discharge skilled care with hospice tomorrow. Facial grimacing for pain, will add as needed pain medications - Physical Exam General: Alert, In no apparent distress, confused, eyes open to verbal HEENT: Atraumatic, Normocephalic, PERRLA Neck: Supple, 2+ carotid pulse no bruit Respiratory: Clear to auscultation bilaterally, Normal air movement Cardiovascular: No edema, Normal pulses, Regular rate/rhythm, Normal S1 S2 Capillary refill: <2 Seconds Gastrointestinal: Normal bowel sounds, Soft and benign, Non-distended Musculoskeletal: No clubbing, No swelling Integumentary: No rashes, No breakdown Neurological: Normal gait, Normal speech, Normal strength at 5/5 x4 extr Lymphatics: No axilla or inguinal lymphadenopathy <Erinn Ervin - Last Filed: 08/16/23 15:03> Date of Service: 08/18/23 <Marvin Coffey - Last Filed: 08/18/23 20:48> Review of Systems per HPI <Erinn Ervin - Last Filed: 08/16/23 15:03> Physical Examination - Vital Signs Temperature: 97.4 F Blood Pressure: 180/92 Pulse: 82 Respirations: 17 Pulse Ox (%): 97 <Erinn Ervin - Last Filed: 08/16/23 15:03> Assessment And Plan - Plan Assessment plan Metabolic encephalopathy/acute cystitis without hematuria/Stroke-like symptoms: Improved, but still confused. Will continue rocephin for UTI. Follow up urine cx. CT head, CTA head an neck are unremarkable. MRI brain is unremarkable for CVA. Ammonia level is < 15. Follow up Echo. Continue aspirin and statin Speech therapy eval-soft and bite sized diet along with thin liquids. No overt s/s of aspiration, set for feeds As needed analgesics Hypertensive urgency/emergency with confusion As needed antihypertensives, resume appropriate home meds Acute on chronic kidney injury unknown baseline BUN 16 1.22/creatinine-> BUN 24/creatinine 1.26-> BUN 18 creatinine 1.11-> BUN 20/1.23 Chronic atrial fibrillation: Continue telemetry, sotalol. Not on AC. Hypothyroidism: Continue synthroid. TSH is 7.010 and free T4 is 1.3. Hypokalemia: K is 3.8 <- 4.4 <- 3.3. Will replete Essential hypertension: Will resume home meds. Debility/dementia: Will continue supportive care. DVT prophylaxis: Lovenox CODE STATUS: DNR Disposition: Plan to discharge to care home facility for hospice Discharge Plan: Long Term - Code Status/Comfort Care Code Status: Do Not Attempt Resuscitat Critical Care: No Time Spent Managing PTS Care (In Minutes): 35 <Erinn Ervin - Last Filed: 08/16/23 15:03> - Plan Pt seen and examined. I agree with the note by the EARTH BORING MACHINE OPERATOR. family wants hospice care <Marvin Coffey - Last Filed: 08/18/23 20:48>
[2023-08-16] MEDS ORDERED: POTASSIUM 25 MEQ EFFERV TAB PO ONE (09:00)
[2023-08-16] MEDS: CEFTRIAXONE 1,000 MG in NA CHLORIDE 0.9% 50 ML IVPB SCH (09:44)
[2023-08-16] MEDS: cloNIDine HCL 0.1 MG TAB PO SCH (09:49)
[2023-08-16] MEDS: SOTALOL HCL 80 MG TAB PO SCH ×2 (09:49→20:58)
[2023-08-16] MEDS: AMLODIPINE 5 MG TAB PO SCH (09:49)
[2023-08-16] MEDS: ASPIRIN 81 MG CHEWABLE TABLET PO SCH (09:50)
[2023-08-16] MEDS: LOSARTAN POTASSIUM 50 MG TABLET PO SCH (09:50)
[2023-08-16] MEDS: VITAMIN D 1000 UNIT TAB PO SCH (09:50)
[2023-08-16] MEDS: ENOXAPARIN 30 MG/0.3 ML SQ SCH (09:51)
[2023-08-16] MEDS ORDERED: HYDROMORPHONE HCL 0.5 MG/0.5 ML INJ IV PRN (14:20)
[2023-08-16] MEDS: ACETAMINOPHEN 325 MG TABLET PO PRN (14:31)
[2023-08-16] MEDS: ATORVASTATIN 40 MG TAB PO SCH (20:58)
[2023-08-16] MEDS: GABAPENTIN 100 MG CAP PO SCH (20:58)
[2023-08-17] MEDS: LEVOTHYROXINE SOD 0.025 MG TAB PO SCH (05:04)
[2023-08-17 06:22] LABS: Absolute Lymphocytes (CBC) 1.3 K/uL (0.7-4.9); Hematocrit 38.5 % (36.0-45.0); Lymphocytes % 21.5 % (15.3-44.8); MCV 84.1 fL (80-100); MPV 9.5 fL (7.6-11.3); Platelets 209 thou/uL (152-406); RBC Red Blood Cell Count 4.58 M/uL (3.86-4.86)
[2023-08-17 06:49] LABS: Potassium 3.8 mEq/L (3.5-5.1)
--- NOTE | 2023-08-17 07:37 | P.DS ---
Admission Date: 08/13/23 Discharge Date: 08/17/23 Disposition: TRANSFER TO [facility] Discharge Condition: FAIR Reason for Admission: Confusion and weakness Brief History of Present Illness: 88-year-old female with a history of atrial fibrillation, not on anticoagulation, hyperlipidemia, dementia and hypertension was brought to the emergency department due to progressive confusion and weakness of about 1 week duration. She has continued to decline neurologically with confusion despite medical treatment of IV antibiotics, speech therapy, monitoring and replacing electrolytes.. and daughter has discussed plan to discharge to hospice at a residential facility. - Physical Exam General: Alert, In no apparent distress, confused, eyes open to verbal HEENT: Atraumatic, Normocephalic, PERRLA Neck: Supple, 2+ carotid pulse no bruit Respiratory: Clear to auscultation bilaterally, Normal air movement Cardiovascular: No edema, Normal pulses, Regular rate/rhythm, Normal S1 S2 Capillary refill: <2 Seconds Gastrointestinal: Normal bowel sounds, Soft and benign, Non-distended Musculoskeletal: No clubbing, No swelling Integumentary: No rashes, No breakdown Neurological: Normal gait, Normal speech, Normal strength at 5/5 x4 extr Lymphatics: No axilla or inguinal lymphadenopathy Hospital Course: 88-year-old female was evaluated and treated for metabolic encephalopathy secondary to acute cystitis, dementia, hypertensive urgency, acute kidney injury, deconditioning. Patient's CODE STATUS is DO NOT RESUSCITATE. She is total assist with care and feeds. plan to discharge to [facility] for residential care per family request. Plan for supportive care after discharge. Speech therapy eval-soft and bite sized diet along with thin liquids. Monitor for overt s/s of aspiration, As needed analgesics Hypertensive urgency/emergency with confusion As needed antihypertensives, resume home antihypertensives Hypothyroidism: Continue synthroid. TSH is 7.010 and free T4 is 1.3. Debility/dementia: Will continue supportive care. Fall precautions, total care for ADL needs GOAL: Clear understanding of disease process INSTRUCTIONS: Notify hospice when you get home. If any problems call hospice, your physican or return to the ER. Diet: as tolerated. beware of pt pooling food and not swallowing. Speech eval soft and bite sized diet along with thin liquids. No overt s/s of aspiration COMMUNITY SERVICES Services Needed: Name of Company: [facility] Date or Referral: 08/16 INSTRUCTIONS: Physician Discharge Instructions: -DC IV and DC home -Please call Dr. Sanders at [phone] if any questions regarding hospital stay -Please call nursing station at [phone] if any nursing or medication questions -Please contact [facility] for additional patient care Vital Signs/Physical Exam: Temp Pulse Resp BP Pulse Ox 97.6 F 74 16 176/70 H 97 08/17/23 07:01 08/17/23 07:01 08/17/23 07:01 08/17/23 07:01 08/17/23 07:01 Laboratory Data at Discharge: WBC 5.90 thou/uL (4.3-10.9) 08/17/23 05:28 Hgb 13.1 g/dL (12.0-15.0) 08/17/23 05:28 Hct 38.5 % (36.0-45.0) 08/17/23 05:28 Plt Count 209 thou/uL (152-406) 08/17/23 05:28 PT 12.2 SECONDS (9.5-12.5) 08/11/23 18:18 INR 1.11 08/11/23 18:18 Sodium 142 mEq/L (136-145) 08/17/23 05:28 Potassium 3.8 mEq/L (3.5-5.1) 08/17/23 05:28 BUN 28 mg/dL (7-18) H 08/17/23 05:28 Creatinine 1.48 mg/dL (0.55-1.02) H 08/17/23 05:28 Glucose 96 mg/dL (74-106) 08/17/23 05:28 Phosphorus 3.0 mg/dL (2.5-4.9) 08/12/23 07:27 Magnesium 2.0 mg/dL (1.6-2.4) 08/12/23 07:27 Total Bilirubin 0.4 mg/dL (0.2-1.0) 08/11/23 18:18 AST 27 U/L (15-37) 08/11/23 18:18 ALT 32 U/L (13-56) 08/11/23 18:18 Alkaline Phosphatase 52 U/L (45-117) 08/11/23 18:18 Triglycerides 116 mg/dL (<150) 08/12/23 07:27 Cholesterol 163 mg/dL (<200) 08/12/23 07:27 HDL Cholesterol 58 mg/dL (40-60) 08/12/23 07:27 Cholesterol/HDL Ratio 2.81 08/12/23 07:27 Home Medications: Amlodipine [Norvasc*] 5 mg PO DAILY 06/20/21 Evolocumab [Repatha Syringe] 140 mg SQ SEECOM 06/20/21 Gabapentin [Neurontin*] 100 mg PO BEDTIME 06/20/21 Galantamine HBr [Galantamine ER] 8 mg PO BIDWM 06/20/21 Levothyroxine Sodium 25 mcg PO [id number] 06/20/21 Losartan Potassium 100 mg PO DAILY 06/20/21 Sotalol HCl [Betapace*] 80 mg PO BID 06/20/21 Cholecalciferol (Vitamin D3) [Vitamin D3] 25 mcg PO DAILY 10/31/22 Linaclotide [Linzess] 145 mcg PO DAILYPRN PRN 10/31/22 cloNIDine HCL [Clonidine HCl] 0.1 mg PO DAILY 10/31/22 Aspirin Chewable [Aspirin Chewable*] 81 mg PO DAILY tab.chew 08/17/23 Atorvastatin Calcium [Lipitor] 40 mg PO BEDTIME tab 08/17/23 Hydromorphone [Dilaudid] 0.5 mg IV Q4H PRN syr 08/17/23 Polyethyl Gly 3350 [Glycolax*] 17 gm PO DAILY PRN udbot 08/17/23 Followup: [facility] [UNKNOWN] - Amos Fairbanks MD [Primary Care Provider] -
[2023-08-17] MEDS: CEFTRIAXONE 1,000 MG in NA CHLORIDE 0.9% 50 ML IVPB SCH (08:18)
[2023-08-17] MEDS: SOTALOL HCL 80 MG TAB PO SCH ×2 (08:21→20:47)
[2023-08-17] MEDS: VITAMIN D 1000 UNIT TAB PO SCH (08:21)
[2023-08-17] MEDS: LOSARTAN POTASSIUM 50 MG TABLET PO SCH (08:21)
[2023-08-17] MEDS: ASPIRIN 81 MG CHEWABLE TABLET PO SCH (08:21)
[2023-08-17] MEDS: AMLODIPINE 5 MG TAB PO SCH (08:21)
[2023-08-17] MEDS: cloNIDine HCL 0.1 MG TAB PO SCH (08:21)
[2023-08-17] MEDS ORDERED: KCL 20 MEQ/100 mL IVPB 20 MEQ/100 ML BAG IV SCH (09:00)
[2023-08-17] MEDS ORDERED: NA CHLORIDE 0.9% 250 ML ONE (09:14)
[2023-08-17] MEDS: ENOXAPARIN 30 MG/0.3 ML SQ SCH (09:19)
[2023-08-17] MEDS: ENSURE ENLIVE 237 ML CAN PO SCH ×2 (12:00→16:19)
[2023-08-17] MEDS: GABAPENTIN 100 MG CAP PO SCH (20:47)
[2023-08-17] MEDS: ATORVASTATIN 40 MG TAB PO SCH (20:47)
[2023-08-18 04:53] VITALS: BMI 26.5
[2023-08-18] MEDS: LABETALOL 20 MG/4ML SYRINGE IV PRN (04:55)
[2023-08-18 05:04] LABS: Potassium 3.7 mEq/L (3.5-5.1)
[2023-08-18] MEDS: LEVOTHYROXINE SOD 0.025 MG TAB PO SCH (05:57)
--- NOTE | 2023-08-18 07:01 | P.PN ---
Subjective Date of Service: 08/18/23 Chief Complaint: Confusion and weakness and daughter at bedside, plan to discharge skilled care with hospice. - Physical Exam General: Alert, In no apparent distress, confused, eyes open to verbal HEENT: Atraumatic, Normocephalic, PERRLA Neck: Supple, 2+ carotid pulse no bruit Respiratory: Clear to auscultation bilaterally, Normal air movement Cardiovascular: No edema, Normal pulses, Regular rate/rhythm, Normal S1 S2 Capillary refill: <2 Seconds Gastrointestinal: Normal bowel sounds, Soft and benign, Non-distended Musculoskeletal: No clubbing, No swelling Integumentary: No rashes, No breakdown Neurological: Normal gait, Normal speech, Normal strength at 5/5 x4 extr Lymphatics: No axilla or inguinal lymphadenopathy Review of Systems per HPI Physical Examination - Vital Signs Temperature: 98.2 F Blood Pressure: 209/89 Pulse: 66 Respirations: 16 Pulse Ox (%): 97 Assessment And Plan - Plan Assessment plan Metabolic encephalopathy/acute cystitis without hematuria/Stroke-like symptoms: Improved, but still confused. Will continue rocephin for UTI. Follow up urine cx. CT head, CTA head an neck are unremarkable. MRI brain is unremarkable for CVA. Ammonia level is < 15. Follow up Echo. Continue aspirin and statin Speech therapy eval-soft and bite sized diet along with thin liquids. No overt s/s of aspiration, set for feeds As needed analgesics Hypertensive urgency/emergency with confusion As needed antihypertensives, resume appropriate home meds Acute on chronic kidney injury unknown baseline BUN 16 1.22/creatinine-> BUN 24/creatinine 1.26-> BUN 18 creatinine 1.11-> BUN 20/1.23 Chronic atrial fibrillation: Continue telemetry, sotalol. Not on AC. Hypothyroidism: Continue synthroid. TSH is 7.010 and free T4 is 1.3. Hypokalemia: K is 3.8 <- 4.4 <- 3.3. Will replete Essential hypertension: Will resume home meds. Debility/dementia: Will continue supportive care. DVT prophylaxis: Lovenox CODE STATUS: DNR Disposition: Plan to discharge to senior care facility for hospice Discharge Plan: Jail - Code Status/Comfort Care Code Status: Do Not Attempt Resuscitat Critical Care: No Time Spent Managing PTS Care (In Minutes): 35
[2023-08-18] MEDS: CEFTRIAXONE 1,000 MG in NA CHLORIDE 0.9% 50 ML IVPB SCH (07:10)
[2023-08-18] MEDS ORDERED: NA CHLORIDE 0.9% 250 ML ONE (07:54)
[2023-08-18] MEDS ORDERED: KCL 20 MEQ/100 mL IVPB 20 MEQ/100 ML BAG IV SCH (09:00)
[2023-08-18] MEDS: VITAMIN D 1000 UNIT TAB PO SCH (09:08)
[2023-08-18] MEDS: AMLODIPINE 5 MG TAB PO SCH (09:08)
[2023-08-18] MEDS: ASPIRIN 81 MG CHEWABLE TABLET PO SCH (09:08)
[2023-08-18] MEDS: cloNIDine HCL 0.1 MG TAB PO SCH (09:08)
[2023-08-18] MEDS: ENOXAPARIN 30 MG/0.3 ML SQ SCH (09:09)
[2023-08-18] MEDS: LOSARTAN POTASSIUM 50 MG TABLET PO SCH (09:09)
[2023-08-18] MEDS: SOTALOL HCL 80 MG TAB PO SCH ×2 (09:09→21:05)
[2023-08-18] MEDS: ENSURE ENLIVE 237 ML CAN PO SCH ×3 (09:11→17:58)
[2023-08-18] MEDS ORDERED: METOPROLOL TARTRATE 5 MG/5 ML INJ IV PRN (15:48)
--- NOTE | 2023-08-18 15:55 | P.PN ---
Subjective Date of Service: 08/18/23 Chief Complaint: Confusion and weakness daughter at bedside, she is more alert, Ice cream, ensure shakes added to meals, plan to discharge skilled care with hospice. - Physical Exam General: Alert, In no apparent distress, confused, eyes open to verbal HEENT: Atraumatic, Normocephalic, PERRLA Neck: Supple, 2+ carotid pulse no bruit Respiratory: Clear to auscultation bilaterally, Normal air movement Cardiovascular: No edema, Normal pulses, Regular rate/rhythm, Normal S1 S2 Capillary refill: <2 Seconds Gastrointestinal: Normal bowel sounds, Soft and benign, Non-distended Musculoskeletal: No clubbing, No swelling Integumentary: No rashes, No breakdown Neurological: Normal gait, Normal speech, Normal strength at 5/5 x4 extr Lymphatics: No axilla or inguinal lymphadenopathy Review of Systems per HPI Physical Examination - Vital Signs Temperature: 97.4 F Blood Pressure: 113/56 Pulse: 65 Respirations: 16 Pulse Ox (%): 96 Assessment And Plan - Plan Assessment plan Metabolic encephalopathy/acute cystitis without hematuria/Stroke-like symptoms: Improved, but still confused. Will continue rocephin for UTI. Follow up urine cx. CT head, CTA head an neck are unremarkable. MRI brain is unremarkable for CVA. Ammonia level is < 15. Follow up Echo. Continue aspirin and statin Speech therapy eval-soft and bite sized diet along with thin liquids. No overt s/s of aspiration, set for feeds As needed analgesics Hypertensive urgency/emergency with confusion As needed antihypertensives, resume appropriate home meds Acute on chronic kidney injury unknown baseline BUN 16 1.22/creatinine-> BUN 24/creatinine 1.26-> BUN 18 creatinine 1.11-> BUN 20/1.23 Anorexia Protein and Ensure shakes Chronic atrial fibrillation: Continue telemetry, sotalol. Not on AC. Hypothyroidism: Continue synthroid. TSH is 7.010 and free T4 is 1.3. Hypokalemia: K is 3.8 <- 4.4 <- 3.3. Will replete Essential hypertension: Will resume home meds. Debility/dementia: Will continue supportive care. DVT prophylaxis: Lovenox CODE STATUS: DNR Disposition: Plan to discharge to [facility] facility for hospice Discharge Plan: Other ([facility] hospice) - Code Status/Comfort Care Comfort Measures: Hospice Care Critical Care: No Time Spent Managing PTS Care (In Minutes): 30
[2023-08-18] MEDS: GABAPENTIN 100 MG CAP PO SCH (21:05)
[2023-08-18] MEDS: ATORVASTATIN 40 MG TAB PO SCH (21:05)
[2023-08-18 22:29] VITALS: O2SAT 98
[2023-08-19] MEDS: LEVOTHYROXINE SOD 0.025 MG TAB PO SCH (06:04)
[2023-08-19] MEDS: ENSURE ENLIVE 237 ML CAN PO SCH ×2 (08:00→12:00)
[2023-08-19] MEDS: ASPIRIN 81 MG CHEWABLE TABLET PO SCH (08:35)
[2023-08-19] MEDS: VITAMIN D 1000 UNIT TAB PO SCH (08:35)
[2023-08-19] MEDS: SOTALOL HCL 80 MG TAB PO SCH (08:35)
[2023-08-19] MEDS: LOSARTAN POTASSIUM 50 MG TABLET PO SCH (08:35)
[2023-08-19] MEDS: AMLODIPINE 5 MG TAB PO SCH (08:35)
[2023-08-19] MEDS: cloNIDine HCL 0.1 MG TAB PO SCH (08:36)
[2023-08-19] MEDS: ENOXAPARIN 30 MG/0.3 ML SQ SCH (08:36)
--- NOTE | 2023-08-19 13:24 | P.DS ---
Admission Date: 08/13/23 Discharge Date: 08/19/23 Disposition: HOSPICE-MEDICAL FACILITY Discharge Condition: FAIR Reason for Admission: Confusion and weakness Brief History of Present Illness: 88-year-old female with a history of atrial fibrillation, not on anticoagulation, hyperlipidemia, dementia and hypertension was brought to the emergency department due to progressive confusion and weakness of about 1 week duration. She has continued to decline neurologically with confusion despite medical treatment of IV antibiotics, speech therapy, monitoring and replacing electrolytes.. and daughter has discussed plan to discharge to hospice at a prison facility. - Physical Exam General: Alert, In no apparent distress, confused, eyes open to verbal HEENT: Atraumatic, Normocephalic, PERRLA Neck: Supple, 2+ carotid pulse no bruit Respiratory: Clear to auscultation bilaterally, Normal air movement Cardiovascular: No edema, Normal pulses, Regular rate/rhythm, Normal S1 S2 Capillary refill: <2 Seconds Gastrointestinal: Normal bowel sounds, Soft and benign, Non-distended Musculoskeletal: No clubbing, No swelling Integumentary: No rashes, No breakdown Neurological: Normal gait, Normal speech, Normal strength at 5/5 x4 extr Lymphatics: No axilla or inguinal lymphadenopathy Hospital Course: 88-year-old female was evaluated and treated for metabolic encephalopathy secondary to acute cystitis, dementia, hypertensive urgency, acute kidney injury, deconditioning. Patient's CODE STATUS is DO NOT RESUSCITATE. She is total assist with care and feeds. plan to discharge to [facility] hosp[facility] for prison care per family request. Plan for supportive care after discharge. Speech therapy eval-soft and bite sized diet along with thin liquids. Monitor for overt s/s of aspiration, As needed analgesics Hypertensive urgency/emergency with confusion As needed antihypertensives, resume home antihypertensives Hypothyroidism: Continue synthroid. TSH is 7.010 and free T4 is 1.3. Debility/dementia: Will continue supportive care. Fall precautions, total care for ADL needs GOAL: Clear understanding of disease process INSTRUCTIONS: Notify hospice when you get home. If any problems call hospice, your physican or return to the ER. Diet: as tolerated. beware of pt pooling food and not swallowing. Speech eval soft and bite sized diet along with thin liquids. No overt s/s of aspiration COMMUNITY SERVICES Services Needed: Name of Company: [facility] Date or Referral: 08/16 INSTRUCTIONS: Physician Discharge Instructions: -DC IV and DC home -Please call Dr. Sanders at [phone] if any questions regarding hospital stay -Please call nursing station at [phone] if any nursing or medication questions -Please contact [facility] for additional patient care Vital Signs/Physical Exam: Temp Pulse Resp BP Pulse Ox 97.6 F 62 18 185/83 H 98 08/19/23 08:00 08/19/23 08:36 08/19/23 08:00 08/19/23 08:36 08/19/23 08:00 Laboratory Data at Discharge: WBC 5.90 thou/uL (4.3-10.9) 08/17/23 05:28 Hgb 13.1 g/dL (12.0-15.0) 08/17/23 05:28 Hct 38.5 % (36.0-45.0) 08/17/23 05:28 Plt Count 209 thou/uL (152-406) 08/17/23 05:28 PT 12.2 SECONDS (9.5-12.5) 08/11/23 18:18 INR 1.11 08/11/23 18:18 Sodium 140 mEq/L (136-145) 08/19/23 02:23 Potassium 4.0 mEq/L (3.5-5.1) 08/19/23 02:23 BUN 29 mg/dL (7-18) H 08/19/23 02:23 Creatinine 1.34 mg/dL (0.55-1.02) H 08/19/23 02:23 Glucose 107 mg/dL (74-106) H 08/19/23 02:23 Phosphorus 3.0 mg/dL (2.5-4.9) 08/12/23 07:27 Magnesium 2.0 mg/dL (1.6-2.4) 08/12/23 07:27 Total Bilirubin 0.4 mg/dL (0.2-1.0) 08/11/23 18:18 AST 27 U/L (15-37) 08/11/23 18:18 ALT 32 U/L (13-56) 08/11/23 18:18 Alkaline Phosphatase 52 U/L (45-117) 08/11/23 18:18 Triglycerides 116 mg/dL (<150) 08/12/23 07:27 Cholesterol 163 mg/dL (<200) 08/12/23 07:27 HDL Cholesterol 58 mg/dL (40-60) 08/12/23 07:27 Cholesterol/HDL Ratio 2.81 08/12/23 07:27 Home Medications: Amlodipine [Norvasc*] 5 mg PO DAILY 06/20/21 Evolocumab [Repatha Syringe] 140 mg SQ SEECOM 06/20/21 Gabapentin [Neurontin*] 100 mg PO BEDTIME 06/20/21 Galantamine HBr [Galantamine ER] 8 mg PO BIDWM 06/20/21 Levothyroxine Sodium 25 mcg PO [id number] 06/20/21 Losartan Potassium 100 mg PO DAILY 06/20/21 Sotalol HCl [Betapace*] 80 mg PO BID 06/20/21 Cholecalciferol (Vitamin D3) [Vitamin D3] 25 mcg PO DAILY 10/31/22 Linaclotide [Linzess] 145 mcg PO DAILYPRN PRN 10/31/22 cloNIDine HCL [Clonidine HCl] 0.1 mg PO DAILY 10/31/22 Aspirin Chewable [Aspirin Chewable*] 81 mg PO DAILY tab.chew 08/17/23 Atorvastatin Calcium [Lipitor] 40 mg PO BEDTIME tab 08/17/23 Hydromorphone [Dilaudid] 0.5 mg IV Q4H PRN syr 08/17/23 Polyethyl Gly 3350 [Glycolax*] 17 gm PO DAILY PRN udbot 08/17/23 Physician Discharge Instructions: -DC IV and DC home -Follow-up with PCP in 1 to 2 weeks -Follow-up with hospice as needed -Please call Dr. Sanders at [phone] if any questions regarding hospital stay -Please call nursing station at [phone] if any nursing or medication questions -Return to the emergency room if symptoms worsen Diet: AHA Activity: Fall precautions Followup: [facility] [UNKNOWN] - Amos Fairbanks MD [Primary Care Provider] - Time spent managing pt's care (in minutes): 55
[2023-08-19 14:56] VITALS: BP 119/53; TEMP 97.9
== END 2023-08-19 15:00 | disposition hospice, inpatient (51) | DRG 689 ==
LOC: ER 17:09 → 2ND 21:34 → OBSVTOIN 08-13 12:06
PROVIDERS: ADMIT Internal Medicine; ATTEND Hospitalist
DX: N30.00 Acute cystitis without hematuria (principal); G93.41 Metabolic encephalopathy; I48.11 Longstanding persistent atrial fibrillation; I16.1 Hypertensive emergency; N17.9 Acute kidney failure, unspecified; B95.1 Streptococcus, group B, as the cause of diseases classified elsewhere; F03.90 Unspecified dementia, unspecified severity, without behavioral disturbance, psychotic disturbance, mood disturbance, and anxiety; K21.9 Gastro-esophageal reflux disease without esophagitis; E03.9 Hypothyroidism, unspecified; E78.5 Hyperlipidemia, unspecified; E87.6 Hypokalemia; R53.81 Other malaise; I12.9 Hypertensive chronic kidney disease with stage 1 through stage 4 chronic kidney disease, or unspecified chronic kidney disease; N18.9 Chronic kidney disease, unspecified; Z66 Do not resuscitate
CPT/HCPCS: 36415; 70450; 70496; 70498; 70551; 71045; 74018; 76857; 80048; 80061; 80076; 81001; 82140; 82565; 83735; 83880; 84100; 84439; 84443; 84484; 85025; 85610; 87077; 87086; 87088; 87186; 92526; 92610; 93005; 93306; 96361; 96374; 96375; 97110; 97161; 97530; 99285; G0378; J0360; J0696; J1630; J1650; J3480; J7030; J7050; Q9967

== ENCOUNTER → 2023-09-15 | Emergency (ER) | payer OTHER ==
--- NOTE | 2023-09-15 05:37 | EDPHYS ---
Physician Documentation [facility] Name: Elizabeth Hewitt Age: 88 yrs Sex: Female : 1935 Arrival Date: 09/15/2023 Time: 05:17 Bed 2 Private MD: ED Physician Jay Muniz HPI: 09/15 05:21 This 88 yrs old Female presents to ER via EMS with complaints of fall . sp4 05:38 Allergies: Adhesives; PENICILLINS; PMHx: Atrial Fib; GERD; Hypertension; Dementia; High sp4 Cholesterol; Leaky Valves; Hypothyroidism;. 05:50 88 year old female, who is currently on Hospice care, was found on the floor of the [facility] detention at 04:30 AM . Patient has advanced dementia and she gets out of bed and falls often. She is not able to communicate any history on arrival.. . Historical: - Allergies: 05:20 Adhesives; rv 05:20 PENICILLINS; rv 05:20 Latex, Natural Rubber; rv - PMHx: 05:20 Atrial Fib; Dementia; GERD; High Cholesterol; Hypertension; Hypothyroidism; Leaky rv Valves; - PSHx: 05:20 Unable to Obtain; rv - Immunization history:: Adult Immunizations up to date. - Social history:: Smoking status: Patient denies any tobacco usage or history of. - Family history:: not pertinent. ROS: 05:52 Constitutional: Non communicative, ROS not available sp4 05:52 All other systems are negative, Exam: 05:52 Constitutional: This is a well developed, well nourished patient who is awake, alert, sp4 dementia, able to answer basic questions, able to follow basic commands. Ambulatory with assistance Head/Face: Normocephalic, atraumatic. Eyes: Pupils equal round and reactive to light, extra-ocular motions intact. Lids and lashes normal. Conjunctiva and sclera are not injected. Cornea within normal limits. Periorbital areas with no swelling, redness, or edema. ENT: Nares patent. No nasal discharge, no septal abnormalities noted. Tympanic membranes are normal and external auditory canals are clear. Oropharynx with no redness, swelling, or masses, exudates, or evidence of obstruction, uvula midline. Mucous membranes moist. Neck: Trachea midline, no thyromegaly or masses palpated, and no cervical lymphadenopathy. Supple, full range of motion without nuchal rigidity, or vertebral point tenderness. Chest/axilla: Normal chest wall appearance and motion. Nontender with no deformity. No lesions are appreciated. Cardiovascular: Regular rate and rhythm with a normal S1 and S2. No gallops, murmurs, or rubs. Normal PMI, no JVD. No pulse deficits. Respiratory: Lungs have equal breath sounds bilaterally, clear to auscultation and percussion. No rales, rhonchi or wheezes noted. No increased work of breathing, no retractions or nasal flaring. Abdomen/GI: Soft, non-tender, with normal bowel sounds. No distension or tympany. No guarding or rebound. No evidence of tenderness throughout. Back: No spinal tenderness. No costovertebral tenderness. Female : Normal external genitalia. Incontinent of bladder , wears depends Skin: Warm, dry with normal turgor. Normal color with no rashes, no lesions, and no evidence of cellulitis. MS/ Extremity: Pulses equal, no cyanosis. Neurovascular intact. Full, normal range of motion. Neuro: Awake and alert, Not oriented. Moderate dementia. Cranial nerves II-XII grossly intact. Motor strength 5/5 in all extremities. Sensory grossly intact. Vital Signs: 05:18 BP 174 / 66; Pulse 65; Resp 17; Temp 98; Pulse Ox 99% ; rv MDM: 05:37 Patient medically screened. sp4 05:54 Differential diagnosis: abrasion, closed head injury, contusion, fracture, laceration, sp4 multiple trauma, sprain, strain. Data reviewed: vital signs, nurses notes, EMS record, old medical records. ED course: Patient basically has no signs of abrasions contusions, no sign of acute head injury. This was discussed with the family and they opted for no imaging. . 05:57 ED course: Patient was discharged back to detention in stable condition. ED course: sp4 Advised relative for patient to return back to hospice program. Administered Medications: No medications were administered Disposition Summary: 09/15/23 05:37 Discharge Ordered Notes: Location: Home sp4 Problem: new sp4 Symptoms: are unchanged sp4 Condition: Stable sp4 Diagnosis - Encounter for general adult medical examination without abnormal findings sp4 - Fall at the detention sp4 Followup: sp4 - With: Private Physician - When: As needed - Reason: Discharge Instructions: - Discharge Summary Sheet sp4 - Medical Screening Exam sp4 Forms: - Patient Portal Instructions sp4 Signatures: Lex Chapin RN RN Jay Cardozo MD MD sp4
--- NOTE | 2023-09-15 05:37 | ER ---
Nurse's Notes [facility] Name: Elizabeth Hewitt Age: 88 yrs Sex: Female : 1935 Arrival Date: 09/15/2023 Time: 05:17 Bed 2 Private MD: Diagnosis: Encounter for general adult medical examination without abnormal findings;Fall at the assisted Presentation: 09/15 05:18 Chief complaint: EMS states: nurse made rounds at 0400am, pt is on the bed, found rv patient on the floor at 0430. denies injury. patient is nonverbal from dementia. Coronavirus screen: At this time, the client does not indicate any symptoms associated with coronavirus-19. Ebola Screen: No symptoms or risks identified at this time. Initial Sepsis Screen: Does the patient meet any 2 criteria? No. Patient's initial sepsis screen is negative. Does the patient have a suspected source of infection? No. Patient's initial sepsis screen is negative. Risk Assessment: Do you want to hurt yourself or someone else? Patient reports no desire to harm self or others. Onset of symptoms was September 15, 2023. 05:18 Method Of Arrival: EMS: [facility] 05:18 Acuity: LUIS FERNANDO 3 rv Triage Assessment: 05:20 General: Appears comfortable, Behavior is calm, cooperative. Pain: Denies pain. Neuro: rv Level of Consciousness is awake, alert, Oriented to none. Cardiovascular: Capillary refill < 3 seconds Patient's skin is warm and dry. Respiratory: Airway is patent Respiratory effort is even, unlabored. GI: No signs and/or symptoms were reported involving the gastrointestinal system. : No signs and/or symptoms were reported regarding the genitourinary system. Musculoskeletal: Range of motion: intact in all extremities. Historical: - Allergies: 05:20 Adhesives; rv 05:20 PENICILLINS; rv 05:20 Latex, Natural Rubber; rv - PMHx: 05:20 Atrial Fib; Dementia; GERD; High Cholesterol; Hypertension; Hypothyroidism; Leaky rv Valves; - PSHx: 05:20 Unable to Obtain; rv - Immunization history:: Adult Immunizations up to date. - Social history:: Smoking status: Patient denies any tobacco usage or history of. - Family history:: not pertinent. Screenin:21 [facility] ED Fall Risk Assessment (Adult) History of falling in the last 3 months, rv including since admission Yes- single mechanical fall (1 pt) Confusion or Disorientation Yes (5 pts) Score/Fall Risk Level 3 or more points = High Risk Oriented to surroundings, Maintained a safe environment, Educated pt \T\ family on fall prevention, incl call for assistance when getting out of bed, Assessed \T\ reinforced patient's understanding of fall precautions. Abuse screen: Denies threats or abuse. Denies injuries from another. Nutritional screening: No deficits noted. Tuberculosis screening: No symptoms or risk factors identified. Assessment: 05:54 Reassessment: pt is able to ambulate with minimal assistance. rv Vital Signs: 05:18 BP 174 / 66; Pulse 65; Resp 17; Temp 98; Pulse Ox 99% ; rv ED Course: 05:17 Patient arrived in ED. rv 05:19 Triage completed. rv 05:20 Arm band placed on right wrist. rv 05:21 Jay Muniz MD is Attending Physician. sp4 05:21 Patient has correct armband on for positive identification. Client placed on continuous rv cardiac and pulse oximetry monitoring. NIBP monitoring applied. 05:21 No provider procedures requiring assistance completed. rv 05:54 Patient did not have IV access during this emergency room visit. rv Administered Medications: No medications were administered Medication: 05:21 VIS not applicable for this client. rv Outcome: 05:37 Discharge ordered by . sp4 05:53 Discharged to assisted. family transported the pt pov back to the assisted. rv 05:53 Condition: good 05:53 Discharge instructions given to family, Instructed on discharge instructions, follow up and referral plans. Demonstrated understanding of instructions, follow-up care, 05:54 Patient left the ED. rv Signatures: Lex Chapin RN RN rv Jay Muniz MD MD sp4
[2023-09-16 10:20] VITALS: BP 174/66; TEMP 98; O2SAT 99
== END ==
LOC: ER 05:17
DX: Z04.3 Encounter for examination and observation following other accident (principal); W18.30XA Fall on same level, unspecified, initial encounter; Y92.122 Bedroom in nursing home as the place of occurrence of the external cause

== ENCOUNTER → 2023-09-16 | Emergency (ER) | payer OTHER ==
[~2023-09-16] MED LIST changes: +ASPIRIN 81 MG CHEWABLE TABLET ONE; -FLEET ENEMA ADULT PR ONE; -MAGNESIUM CITRATE 300 ML BOT ONE; +MORPHINE 2 MG/ML SYR ONE; +ONDANSETRON 4 MG/2 ML VIAL ONE
[2023-09-16 20:22] LABS: Absolute Lymphocytes (CBC) 1.4 K/uL (0.7-4.9); Hematocrit 34.8 % (36.0-45.0); MCV 83.1 fL (80-100); MPV 8.7 fL (7.6-11.3); Platelets 181 thou/uL (152-406); RBC Red Blood Cell Count 4.18 M/uL (3.86-4.86)
[2023-09-16 20:25] LABS: Protime INR 1.15
--- NOTE | 2023-09-16 20:33 | RAD REPORT ---
EXAM DESCRIPTION: RADChest Single View09/16/2023 8:16 pm CLINICAL HISTORY: CHEST PAIN COMPARISON: Abdomen 1 View (KUB) dated 08/13/2023; Chest Single View dated 08/11/2023; Chest Single View dated 10/30/2022; Chest Single View dated 07/24/2022 TECHNIQUE: Portable AP view of the chest. FINDINGS: The lungs are clear. No pneumothorax or effusion. The cardiomediastinal contours are unre markable. IMPRESSION: No acute cardiopulmonary process.
[2023-09-16 20:40] LABS: Bilirubin Direct 0.2 mg/dL (0-0.2); Bilirubin Indirect, Calculated 0.6 mg/dL (0.2-0.8); Bilirubin Total 0.8 mg/dL (0.2-1.0); Magnesium 1.5 mg/dL (1.6-2.4); Potassium 3.3 mEq/L (3.5-5.1); Troponin High Sensitivity 18.3 pg/mL (<58.9)
--- NOTE | 2023-09-16 20:58 | EDPHYS ---
Physician Documentation [facility] Name: Elizabeth Hewitt Age: 88 yrs Sex: Female : 1935 Arrival Date: 09/16/2023 Time: 19:28 Bed 18 Private MD: ED Physician Amparo Batres HPI: 09/16 20:21 This 88 yrs old Female presents to ER via EMS with complaints of Chest Pain. sp3 20:21 80-year-old female with history of atrial fibrillation, dementia, hyperlipidemia, sp3 hypertension who is currently on hospice care and was recently seen for ground-level fall 2 days ago here at this facility now presents to the ED with chief complaint of reported chest pain with patient clutching her chest several hours prior to arrival while at the local nursing care facility. Patient has dementia and has minimal speech. Family is with her states that they want her to continue to be on hospice care and will be brought her in for comfort and pain control and for general ER assessment. No further review of systems, history or physical available and all 3 are limited.. 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 - Social history:: Smoking status: unknown. ROS: 20:23 Constitutional: Negative for fever, chills, and weight loss, Respiratory: Negative for sp3 shortness of breath, cough, wheezing, and pleuritic chest pain, Back: Negative for injury and pain, Skin: Negative for injury, rash, and discoloration, 20:23 Unable to obtain ROS due to baseline dementia, Exam: 20:24 Constitutional: This is a well developed, well nourished patient who is awake, alert, sp3 and in no acute distress. Head/Face: Normocephalic, atraumatic. Eyes: Pupils equal round and reactive to light, extra-ocular motions intact. Lids and lashes normal. Conjunctiva and sclera are non-icteric and not injected. Cornea within normal limits. Periorbital areas with no swelling, redness, or edema. Chest/axilla: Normal chest wall appearance and motion. Nontender with no deformity. No lesions are appreciated. Cardiovascular: Regular rate and rhythm with a normal S1 and S2. No gallops, murmurs, or rubs. Normal PMI, no JVD. No pulse deficits. Respiratory: Lungs have equal breath sounds bilaterally, clear to auscultation and percussion. No rales, rhonchi or wheezes noted. No increased work of breathing, no retractions or nasal flaring. Abdomen/GI: Soft, non-tender, with normal bowel sounds. No distension or tympany. No guarding or rebound. No evidence of tenderness throughout. Skin: Warm, dry with normal turgor. Normal color with no rashes, no lesions, and no evidence of cellulitis. 20:24 ECG was reviewed by the Attending Physician. Normal sinus rhythm, normal axis and nonspecific ST's ST changes. However ECG is severely limited secondary to motion artifact. Repeat ECG is pending. Vital Signs: 19:50 BP 163 / 59; Pulse 71; Resp 18; Temp 97.5(TE); Pulse Ox 99% ; Weight 64.86 kg; tm6 20:19 BP 160 / 87; Pulse 68; Pulse Ox 97% on R/A; tm6 21:13 BP 135 / 45; Pulse 69; Resp 18; Pulse Ox 93% on R/A; tm6 MDM: 19:33 Patient medically screened. kimmie 20:25 Data reviewed: vital signs, nurses notes, EMS record, old medical records, lab test sp3 result(s), EKG, radiologic studies. ED course: 80-year-old female on hospice care with complex medical history now for chest pain. Family wants very limited care. We will give morphine and Zofran and obtain cardiac workup with probable discharge back to nursing facility unless critical results are found on initial workup. Differential diagnosis includes acute coronary syndrome, pneumonia, PE, other cardiovascular pathology. Had extensive conversation with family and they are 100% on board with hospice care with no aggressive intervention.. 20:43 ED course: Repeat EKG demonstrates normal sinus rhythm at 67 bpm with normal intervals sp3 except for first-degree heart block with a IN interval of 206, occasional PVC and poor R wave progression with nonspecific diffuse ST's ST changes without evidence of acute ischemia. Troponin is negative. D-dimer is elevated as is BNP. I have discussed with family that normal additional workup needed when these values are elevated however since the EKG demonstrates no ST elevation SD and chest x-ray demonstrates no significant pathology and patient is more comfortable now, they will elect to take her back to the home and continue hospice care with no further intervention. I discussed with them that they need to follow-up with their PCP/hospice physician immediately and they may return here at any time if they choose to do so. They understand the risks of any potential diagnoses going on including acute coronary syndrome, infection/sepsis, vascular pathology, PE and that these conditions can potentially leading to and/or permanent disability.. 09/16 19:34 Order name: Basic Metabolic Panel; Complete Time: 20:41 [facility] 09/16 19:34 Order name: CBC with Diff; Complete Time: 20:41 [facility] 09/16 19:34 Order name: D-Dimer; Complete Time: 20:41 [facility] 09/16 19:34 Order name: LFT's; Complete Time: 20:41 [facility] 09/16 19:34 Order name: Magnesium; Complete Time: 20:41 [facility] 09/16 19:34 Order name: NT PRO-BNP; Complete Time: 20:41 [facility] 09/16 19:34 Order name: PT-INR; Complete Time: 20:41 [facility] 09/16 19:34 Order name: Troponin HS; Complete Time: 20:41 [facility] 09/16 19:34 Order name: Lipase; Complete Time: 20:41 [facility] 09/16 19:34 Order name: XRAY Chest (1 view); Complete Time: 20:41 [facility] 09/16 19:34 Order name: EKG; Complete Time: 19:34 [facility] 09/16 19:34 Order name: Cardiac monitoring; Complete Time: 20:16 [facility] 09/16 19:34 Order name: EKG - Nurse/Tech; Complete Time: 20:16 [facility] 09/16 19:34 Order name: IV Saline Lock; Complete Time: 20:16 [facility] 09/16 19:34 Order name: Labs collected and sent; Complete Time: 20:16 [facility] 09/16 19:34 Order name: O2 Per Protocol; Complete Time: 19:49 [facility] 09/16 19:34 Order name: O2 Sat Monitoring; Complete Time: 19:49 kimmie Administered Medications: 20:42 Drug: morphine IVP or IV 2 mg IVP once over 4 mins Route: IVP; Infused Over: 4 mins; tm6 Site: right antecubital; 20:42 Drug: Ondansetron IVP 4 mg IVP once; over 2 minutes Route: IVP; Site: right antecubital;tm6 20:43 Not Given (Patient Refused): aspirinchewable tablet 162 mg PO once tm6 20:43 Drug: NS 0.9% IV 1000 ml IV at 125 ml/hr continuous Route: IV; Rate: 125 ml/hr; Site: tm6 right antecubital; Disposition Summary: 09/16/23 20:57 Discharge Ordered Notes: Location: Home sp3 Condition: Stable sp3 Diagnosis - Chest pain, hospice care sp3 Followup: sp3 - With: Private Physician - When: Upon discharge from the Emergency Department - Reason: Continuance of care Discharge Instructions: - Discharge Summary Sheet sp3 - Hospice sp3 Forms: - Medication Reconciliation Form sp3 - Thank You Letter sp3 - Antibiotic Education sp3 - Prescription Opioid Use sp3 - Patient Portal Instructions sp3 - Leadership Thank You Letter sp3 Signatures: Dispatcher [employer] EDMS Cristóbal Daugherty MD MD cha Patel, Setul, MD MD sp3 Masterson, Tawney, RN RN tm6 Corrections: (The following items were deleted from the chart) 20:25 20:23 Constitutional: Negative for fever, chills, and weight loss, Cardiovascular: sp3 Negative for chest pain, palpitations, and edema, Respiratory: Negative for shortness of breath, cough, wheezing, and pleuritic chest pain, Back: Negative for injury and pain, Skin: Negative for injury, rash, and discoloration, sp3
--- NOTE | 2023-09-16 20:58 | ER ---
Nurse's Notes [facility] Name: Elizabeth Hewitt Age: 88 yrs Sex: Female : 1935 Arrival Date: 09/16/2023 Time: 19:28 Bed 18 Private MD: Diagnosis: Chest pain, hospice care Presentation: 09/16 19:50 Chief complaint: EMS states: patient from [facility]. Nursing facility stated patient is tm6 nonverbal, but was clutching her chest and leg. EKG prior to arrival with EMS was NSR. Coronavirus screen: Vaccine status: Patient reports receiving the 2nd dose of the covid vaccine. Ebola Screen: Patient negative for fever greater than or equal to 101.5 degrees Fahrenheit, and additional compatible Ebola Virus Disease symptoms Patient denies exposure to infectious person. Patient denies travel to an Ebola-affected area in the 21 days before illness onset. No symptoms or risks identified at this time. Initial Sepsis Screen: Does the patient meet any 2 criteria? No. Patient's initial sepsis screen is negative. Does the patient have a suspected source of infection? No. Patient's initial sepsis screen is negative. Risk Assessment: Do you want to hurt yourself or someone else? Patient reports no desire to harm self or others. Onset of symptoms was September 16, 2023. 19:50 Method Of Arrival: EMS: [facility] tm6 19:50 Acuity: LUIS FERNANDO 3 tm6 Triage Assessment: 19:52 General: Appears in no apparent distress. uncomfortable, Behavior is calm. Pain: Unable tm6 to use pain scale. non-verbal. EENT: No signs and/or symptoms were reported regarding the EENT system. Neuro: Level of Consciousness is awake, alert, Oriented to baseline non-verbal with dementia . Cardiovascular: Capillary refill < 3 seconds Patient's skin is warm and dry. Rhythm is sinus rhythm. Cardiovascular: Parent/caregiver reports patient has had see clutching chest. Respiratory: Airway is patent Respiratory effort is even, unlabored, Respiratory pattern is regular, symmetrical. GI: Abdomen is flat, non-distended. : No signs and/or symptoms were reported regarding the genitourinary system. Derm: No signs and/or symptoms reported regarding the dermatologic system. Musculoskeletal: Parent/caregiver report the patient having seen clutching leg. 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 - Social history:: Smoking status: unknown. Screenin:55 [facility] ED Fall Risk Assessment (Adult) History of falling in the last 3 months, tm6 including since admission Yes- single mechanical fall (1 pt) Confusion or Disorientation Yes (5 pts) Intoxicated or Sedated No (0 pts) Impaired Gait Yes (1 pt) Mobility Assist Device Used Altered Elimination Yes (1 pt) Score/Fall Risk Level 3 or more points = High Risk. Abuse screen: Denies threats or abuse. Denies injuries from another. Nutritional screening: No deficits noted. Tuberculosis screening: No symptoms or risk factors identified. Assessment: 19:55 Reassessment: see triage assessment. tm6 21:13 Reassessment: Patient appears in no apparent distress at this time. No changes from tm6 previously documented assessment. patient has eyes closed. Daughter and at bedside. 21:30 Pain:. tm6 21:35 Reassessment: patient clean and dry prior to discharge. tm6 21:35 Reassessment: report given to Fany at [facility]. tm6 Vital Signs: 19:50 BP 163 / 59; Pulse 71; Resp 18; Temp 97.5(TE); Pulse Ox 99% ; Weight 64.86 kg; tm6 20:19 BP 160 / 87; Pulse 68; Pulse Ox 97% on R/A; tm6 21:13 BP 135 / 45; Pulse 69; Resp 18; Pulse Ox 93% on R/A; tm6 ED Course: 19:32 Patient arrived in ED. lg3 19:33 Cristóbal Daugherty MD is Attending Physician. kimmie 19:43 Nikhil Connor, ASHA is Primary Nurse. tm6 19:51 Triage completed. tm6 19:52 Arm band placed on right wrist. tm6 19:55 Patient has correct armband on for positive identification. Call light in reach. Side tm6 rails up X2. Adult w/ patient. Provided Education on: plan of care. Client placed on continuous cardiac and pulse oximetry monitoring. NIBP monitoring applied. surveillance monitor on. Door closed. Noise minimized. Warm blanket given. 20:04 Attending Physician role handed off by Cristóbal Daugherty MD sp3 20:04 Amparo Batres MD is Attending Physician. sp3 20:18 XRAY Chest (1 view) In Process Unspecified. EDMS 20:30 Inserted saline lock: 20 gauge in right antecubital area, using aseptic technique. IV tm6 discontinued, intact, bleeding controlled, No redness/swelling at site. Pressure dressing applied. 21:30 No provider procedures requiring assistance completed. tm6 21:31 Patient maintains SpO2 saturation greater than 95% on room air. tm6 Administered Medications: 20:42 Drug: morphine IVP or IV 2 mg IVP once over 4 mins Route: IVP; Infused Over: 4 mins; tm6 Site: right antecubital; 20:42 Drug: Ondansetron IVP 4 mg IVP once; over 2 minutes Route: IVP; Site: right antecubital;tm6 20:43 Not Given (Patient Refused): aspirinchewable tablet 162 mg PO once tm6 20:43 Drug: NS 0.9% IV 1000 ml IV at 125 ml/hr continuous Route: IV; Rate: 125 ml/hr; Site: tm6 right antecubital; Medication: 19:55 VIS not applicable for this client. tm6 Outcome: 20:57 Discharge ordered by . sp3 21:30 Discharged to home via wheelchair, with family, tm6 21:30 Condition: stable 21:30 Discharge instructions given to family, Instructed on discharge instructions, follow up and referral plans. Demonstrated understanding of instructions, follow-up care, 21:31 Patient left the ED. tm6 Signatures: Dispatcher [employer] EDMS Cristóbal Daugherty MD MD cha Able, Lacie RN RN lg3 Amparo Batres MD MD sp3 Nikhil Connor RN RN tm6 Corrections: (The following items were deleted from the chart) 21:14 21:13 Reassessment: Patient appears in no apparent distress at this time. No changes tm6 from previously documented assessment. Patient and/or family updated on plan of care and expected duration. Pain level reassessed. Patient is alert, oriented x 3, equal unlabored respirations, skin warm/dry/pink. tm6
--- NOTE | 2023-09-17 13:22 | EKG ---
Test Date: 2023-09-16 Test Time: 20:29:08 Cafeteria Attendant: OJ MEASUREMENT RESULTS: Intervals: Rate: 67 [place]: 206 QRSD: 84 QT: 450 QTc: 475 [place]: P: 36 [place]: 206 QRS: 3 T: 182 INTERPRETIVE STATEMENTS: Sinus rhythm with premature supraventricular complexes Left ventricular hypertrophy with repolarization abnormality Inferior infarct, age undetermined Anteroseptal infarct, age undetermined Abnormal ECG Compared to ECG 09/16/2023 19:52:47 Atrial premature complex(es) now present Left ventricular hypertrophy now present Early repolarization now present Right ventricular hypertrophy no longer present Myocardial infarct finding still present Electronically Signed On 09-17-23 13:21:45 HOME HOSPICE RN by Brett Ledesma
--- NOTE | 2023-09-17 13:22 | EKG ---
Test Date: 2023-09-16 Test Time: 19:52:47 Eyelet Machine Operator: YAW MEASUREMENT RESULTS: Intervals: Rate: 70 [place]: 200 QRSD: 84 QT: 404 QTc: 436 [place]: P: [place]: 200 QRS: 190 T: 55 INTERPRETIVE STATEMENTS: Suspect arm lead reversal, interpretation assumes no reversal Normal sinus rhythm Right ventricular hypertrophy Inferior infarct, age undetermined Anterolateral infarct, age undetermined Abnormal ECG Compared to ECG 08/11/2023 19:19:02 Right ventricular hypertrophy now present First degree AV block no longer present Incomplete right bundle-branch block no longer present Left ventricular hypertrophy no longer present Myocardial infarct finding still present Electronically Signed On 09-17-23 13:21:48 PLASTIC BOAT PATCHER by Brett Ledesma
== END ==
LOC: ER 19:28
DX: R07.89 Other chest pain (principal); Z51.5 Encounter for palliative care; F03.90 Unspecified dementia, unspecified severity, without behavioral disturbance, psychotic disturbance, mood disturbance, and anxiety; I10 Essential (primary) hypertension; I48.91 Unspecified atrial fibrillation; E78.00 Pure hypercholesterolemia, unspecified; Z88.0 Allergy status to penicillin; Z88.2 Allergy status to sulfonamides; Z91.040 Latex allergy status; Z91.048 Other nonmedicinal substance allergy status
CPT/HCPCS: 85025; 80048; 36415; 83735; 85610; 85379; 80076; 84484; 83690; 83880; 71045; J2270; J2405; J7030; 93005